=== PATIENT | male | born 1985 | race American Indian/Alaskan Native ===

== ENCOUNTER 2021-06-13 19:43 | Inpatient (IN) | payer OTHER, BC ==
--- NOTE | 2021-06-13 19:50 | Emergency Department Report ---
ED Shortness of Breath HPI - General Stated Complaint: COVID +/JORY Time Seen by Provider: 06/13/21 19:47 Source: patient Mode of arrival: Stretcher Limitations: No Limitations - History of Present Illness Initial Comments: Chief complaint: "Covid positive, shortness of breath." HPI this is a gentleman with history of mild intermittent asthma and kidney stones who presents with severe shortness of breath. He was diagnosed with COVID-19 infection at clinic 8 days ago. Shortness of breath worse in the last past day. His symptoms includes fever, chills, headache, body aches, cough, diarrhea. He denies loss of taste or smell. He is not vaccinated for COVID-19. Last trip out of [facility] to [place] 1/2 months ago. No known sick contacts. 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 He denies chest pain, leg pain. Patient arrived via EMS. EMS reported oxygen saturation 82% on room air. Patient received Solu-Medrol via EMS. Patient states that he "rarely" has an asthma attack. His last asthma attack occurred over 3 years ago. MD Complaint: shortness of breath, cough -: Gradual, days(s) (8 days, worse over the last day) Severity: severe Consistency: constant Improves With: oxygen Worsens With: nothing Known History Of: asthma, other (Diagnosed with COVID-19 infection 8 days ago) Associated Symptoms: fever, cough, other (Myalgias) Treatments Prior to Arrival: oxygen, other (Solu-Medrol) - Related Data Allergies Allergy/AdvReac Type Severity Reaction Status Date / Time No Known Allergies Allergy Unverified 06/13/21 20:13 ED Review of Systems ROS: Stated complaint: COVID +/JORY Other details as noted in HPI Comment: All other systems reviewed and negative Constitutional: chills, fever, malaise Respiratory: cough, shortness of breath, wheezing Cardiovascular: denies: chest pain Gastrointestinal: nausea, vomiting, diarrhea. denies: abdominal pain Neurological: headache ED Past Medical Hx - Past Medical History Previous Medical History?: Yes Hx Kidney Stones: Yes Hx Asthma: Yes - Surgical History Past Surgical History?: Yes Additional Surgical History: 3 surgical interventions for kidney stones - Family History Family history: hypertension - Social History Smoking Status: Never Smoker Substance Use Type: None ED Physical Exam - General Limitations: No Limitations General appearance: alert, in distress, other (anxious, work of breathing, out of breath) - Head Head exam: Present: atraumatic, normocephalic - Eye Eye exam: Present: normal appearance - ENT ENT exam: Present: mucous membranes moist - Neck Neck exam: Present: normal inspection, full ROM - Respiratory Respiratory exam: Present: respiratory distress, decreased breath sounds. Absent: wheezes, rales, rhonchi, accessory muscle use, prolonged expiratory - Cardiovascular Cardiovascular Exam: Present: regular rate, normal rhythm, normal heart sounds. Absent: systolic murmur, diastolic murmur, rubs, gallop - GI/Abdominal GI/Abdominal exam: Present: soft, normal bowel sounds. Absent: distended, tenderness, guarding, rebound - Rectal Rectal exam: Present: deferred - Extremities Exam Extremities exam: Present: normal inspection - Back Exam Back exam: Present: normal inspection - Neurological Exam Neurological exam: Present: alert, oriented X3 - Psychiatric Psychiatric exam: Present: normal affect, anxious - Skin Skin exam: Present: warm, dry, intact, normal color. Absent: rash ED Course Vital Signs 06/13/21 06/13/21 06/13/21 19:51 20:10 20:17 Temperature 103.1 F H Pulse Rate 120 H Pulse Rate [ Bilateral] Respiratory 27 H 26 H 25 H Rate Respiratory Rate [Bilateral ] Blood Pressure 114/67 [Left] O2 Sat by Pulse 88 97 93 Oximetry 06/13/21 06/13/21 06/13/21 20:35 22:14 22:15 Temperature 99.7 F H Pulse Rate 120 H Pulse Rate [ 110 H Bilateral] Respiratory 24 Rate Respiratory 12 Rate [Bilateral ] Blood Pressure 119/68 [Left] O2 Sat by Pulse 96 96 Oximetry - Reevaluation(s) Reevaluation #1: 06/13/21 20:22 I remove nonrebreather. I applied 4 L nasal cannula. Oxygen saturation 92% on 4 L nasal cannula. ED Medical Decision Making - Lab Data Result diagrams: 06/13/21 20:09 06/13/21 20:09 - Radiology Data Radiology results: report reviewed Patient Name: MALINDA OLSON Gender: Male Date of : 1985 Home Phone: Referring Provider: ALF GA Organization: [facility] Accession Number: [id number] Requested Date: June 13, 2021 19:50 Report Status: Final Requested Procedure: 1 Procedure Description: XR chest 1V ap Modality: XR Findings Reporting MD: Elias Allen Dictation Time: June 13, 2021 19:16 Nursing Project Coordinator: Not available Dairy Husbandman Date: CHEST 1 VIEW INDICATION: Dyspnea. COMPARISON: None. FINDINGS: Support devices: None. Heart: Normal. Lungs/Pleura: There is somewhat diffuse bilateral airspace disease greatest in the bases. No pleural abnormality. IMPRESSION: 1. Somewhat diffuse bilateral airspace disease greatest in the bases. This could be seen in the setting of atypical/viral pneumonia. Signer Name: Elias Allen MD Signed: 06/13/2021 7:16 PM Workstation Name: [id number] - Medical Decision Making Acute respiratory failure hypoxia due to multifocal pneumonia in person with known COVID-19 infection, oxygen saturation 82% per EMS. Brief trial off oxygen hypoxia 88% on room air here in the emergency department. All Covid markers are elevated including D-dimer ferritin LDH CRP. CBC reflects leukopenia lymphopenia. Patient received albuterol 10 mg nebulizer therapy, Atrovent 1 mg nebulized therapy. He also received 2 L normal saline bolus. He received ibuprofen 800 mg as well as IV Zofran. Patient is admitted in fair condition to the hospital service. He is requiring 4 L nasal cannula. Critical Care Time: Yes Critical care attestation.: If time is entered above; I have spent that time in minutes in the direct care of this critically ill patient, excluding procedure time. 40 minutes of critical care time excluding procedures were used in the care of the patient. I came immediately to the bedside upon patient's arrival. I obtained history from EMS at the bedside. I discussed treatment plan with the nursing team members. I reviewed electronic record. Patient required multiple interventions and reassessments. I informed the mother per phone. ED Disposition Clinical Impression: Acute respiratory failure due to COVID-19, Multifocal pneumonia, COVID-19 Disposition: OP ADMIT IP TO THIS HOSP Is pt being admited?: Yes Does the pt Need Aspirin: No Condition: Fair Instructions: Bacterial Pneumonia (ED)
[2021-06-13] MEDS ORDERED: IPRATROPIUM 0.02% NEBU 2.5 ML IH ONE (20:14)
[2021-06-13] MEDS ORDERED: SODIUM CHLORIDE 0.9% 1000 ML 1,000 ML IV ONE ×2 (20:15→20:18)
[2021-06-13] MEDS ORDERED: ALBUTEROL 2.5 MG/3 ML NEBU IH ONE (20:15)
[2021-06-13] MEDS ORDERED: IBUPROFEN 800 MG TAB PO ONE (20:18)
[2021-06-13] MEDS ORDERED: ONDANSETRON 4 MG/2 ML INJ IV ONE (20:18)
--- NOTE | 2021-06-13 20:20 | XRay Report ---
CHEST 1 VIEW INDICATION: Dyspnea. COMPARISON: None. FINDINGS: Support devices: None. Heart: Normal. Lungs/Pleura: There is somewhat diffuse bilateral airspace disease greatest in the bases. No pleural abnormality. IMPRESSION: 1. Somewhat diffuse bilateral airspace disease greatest in the bases. This could be seen in the setti ng of atypical/viral pneumonia. Signer Name: Elias Allen MD Signed: 06/13/2021 8:16 PM Workstation Name: [id number]
[2021-06-13 20:40] LABS: BUN/Creatinine Ratio 15; Blood Urea Nitrogen 15 mg/dL (9-20); Calcium 8.7 mg/dL (8.4-10.2); Hemolysis Index 48
[2021-06-13 20:43] LABS: C-Reactive Protein 9.2 mg/dL (0.00-1.30)
[2021-06-13 20:56] LABS: Basophils % (Auto) 0.3 % (0.0-1.8); Hematocrit 42.1 % (35.5-45.6); Hemoglobin 14.7 gm/dl (11.8-15.2); Lymphocytes # (Auto) 0.6 K/mm3 (1.2-5.4); Lymphocytes % (Auto) 25.5 % (13.4-35.0); Mean Corpuscular HGB Conc 35 % (32-34); Mean Corpuscular Volume 85 fl (84-94); Monocytes # (Auto) 0.1 K/mm3 (0.0-0.8); Monocytes % (Auto) 4.3 % (0.0-7.3); Platelet Count 112 K/mm3 (140-440); Red Blood Count 4.95 M/mm3 (3.65-5.03); Red Cell Distribution Width 13.9 % (13.2-15.2)
[2021-06-13] MEDS ORDERED: ALBUTEROL 2.5 MG/3 ML NEBU IH PRN (22:49)
[2021-06-13] MEDS ORDERED: ONDANSETRON 4 MG/2 ML INJ IV PRN (22:49)
[2021-06-13] MEDS ORDERED: hydrALAZINE 20 MG/1 ML INJ IV PRN (22:52)
--- NOTE | 2021-06-13 22:59 | History and Physical Report ---
History of Present Illness Date of examination: 06/13/21 Date of admission: 06/13/21 Chief complaint: Shortness of breath Covid positive History of present illness: 36 years old man with history of mild intermittent asthma and kidney stones who presents with severe shortness of breath. He was diagnosed with COVID-19 infection at clinic 8 days ago. Shortness of breath worse in the last past day. His symptoms includes fever, chills, headache, body aches, cough, diarrhea. He denies loss of taste or smell. He is not vaccinated for COVID-19. Last trip out of [facility] to [place] 1/2 months ago. No known sick contacts. 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 In the emergency room chest x-ray shows some what diffuse bilateral airspace disease greatest in the bases. This could be seen in the setting of atypical/viral pneumonia Past History Past Medical History: other (Asthma, kidney stone) Medications and Allergies Allergies Allergy/AdvReac Type Severity Reaction Status Date / Time No Known Allergies Allergy Unverified 06/13/21 20:13 Active Meds: Active Medications Acetaminophen (Acetaminophen 325 Mg Tab) 650 mg PO Q4H PRN PRN Reason: Pain MILD(1-3)/Fever >100.5/HAYNES Ceftriaxone Sodium (Rocephin/Ns 2 Gm/100 Ml) 2 gm in 100 mls @ 200 mls/hr IV Q24H SIMÓN; Protocol Ondansetron HCl (Ondansetron 4 Mg/2 Ml Inj) 4 mg IV Q8H PRN PRN Reason: Nausea And Vomiting Sodium Chloride (Sodium Chloride 0.9% 10 Ml Flush Syringe) 10 ml IV BID SIMÓN Sodium Chloride (Sodium Chloride 0.9% 10 Ml Flush Syringe) 10 ml IV PRN PRN PRN Reason: LINE FLUSH Review of Systems Constitutional: fever, chills, other (Myalgia) Cardiovascular: shortness of breath, dyspnea on exertion Respiratory: cough, shortness of breath, dyspnea on exertion Exam - Constitutional Vitals: Temp Pulse Resp BP Pulse Ox 99.7 F H 120 H 24 119/68 96 06/13/21 22:14 06/13/21 22:14 06/13/21 22:14 06/13/21 22:14 06/13/21 22:15 General appearance: Present: no acute distress, well-nourished - EENT Eyes: Present: PERRL ENT: hearing intact, clear oral mucosa - Neck Neck: Present: supple, normal ROM - Respiratory Respiratory effort: normal Respiratory: bilateral: diminished - Cardiovascular Heart Sounds: Present: S1 & S2. Absent: rub, click - Extremities Extremities: pulses symmetrical, No edema Peripheral Pulses: within normal limits - Abdominal General gastrointestinal: Present: soft, non-tender, non-distended, normal bowel sounds Male genitourinary: Present: normal - Integumentary Integumentary: Present: clear, warm, dry - Musculoskeletal Musculoskeletal: gait normal, strength equal bilaterally - Psychiatric Psychiatric: appropriate mood/affect, intact judgment & insight - Neurologic Neurologic: CNII-XII intact, moves all extremities Results - Labs CBC & Chem 7: 06/13/21 20:09 06/13/21 20:09 Labs: Laboratory Last Values WBC 2.6 K/mm3 (4.5-11.0) L 06/13/21 20:09 RBC 4.95 M/mm3 (3.65-5.03) 06/13/21 20:09 Hgb 14.7 gm/dl (11.8-15.2) 06/13/21 20:09 Hct 42.1 % (35.5-45.6) 06/13/21 20:09 MCV 85 fl (84-94) 06/13/21 20:09 MCH 30 pg (28-32) 06/13/21 20:09 MCHC 35 % (32-34) H 06/13/21 20:09 RDW 13.9 % (13.2-15.2) 06/13/21 20:09 Plt Count 112 K/mm3 (140-440) L 06/13/21 20:09 Lymph % (Auto) 25.5 % (13.4-35.0) 06/13/21 20:09 Benzie % (Auto) 4.3 % (0.0-7.3) 06/13/21 20:09 Eos % (Auto) 0.0 % (0.0-4.3) 06/13/21 20:09 Baso % (Auto) 0.3 % (0.0-1.8) 06/13/21 20:09 Lymph # (Auto) 0.6 K/mm3 (1.2-5.4) L 06/13/21 20:09 Benzie # (Auto) 0.1 K/mm3 (0.0-0.8) 06/13/21 20:09 Eos # (Auto) 0.0 K/mm3 (0.0-0.4) 06/13/21 20:09 Baso # (Auto) 0.0 K/mm3 (0.0-0.1) 06/13/21 20:09 Seg Neutrophils % 69.9 % (40.0-70.0) 06/13/21 20:09 Seg Neutrophils # 1.8 K/mm3 (1.8-7.7) 06/13/21 20:09 D-Dimer 560.90 ng/mlDDU (0-234) H 06/13/21 20:09 Sodium 134 mmol/L (137-145) L 06/13/21 20:09 Potassium 3.8 mmol/L (3.6-5.0) 06/13/21 20:09 Chloride 98.1 mmol/L (98-107) 06/13/21 20:09 Carbon Dioxide 23 mmol/L (22-30) 06/13/21 20:09 Anion Gap 17 mmol/L 06/13/21 20:09 BUN 15 mg/dL (9-20) 06/13/21 20:09 Creatinine 1.0 mg/dL (0.8-1.3) 06/13/21 20:09 Estimated GFR > 60 ml/min 06/13/21 20:09 BUN/Creatinine Ratio 15 % 06/13/21 20:09 Glucose 105 mg/dL (75-100) H 06/13/21 20:09 Glucose 105 mg/dL (75-100) H 06/13/21 20:09 Calcium 8.7 mg/dL (8.4-10.2) 06/13/21 20:09 Ferritin 1876.0 ng/mL (30.0-300.0) H 06/13/21 20:09 Lactate Dehydrogenase 634 units/L (91-180) H 06/13/21 20:09 C-Reactive Protein 9.20 mg/dL (0.00-1.30) H 06/13/21 20:09 - Imaging and Cardiology Chest x-ray: report reviewed Assessment and Plan VTE prophylaxis?: Chemical Plan of care discussed with patient/family: Yes - Patient Problems (1) Acute respiratory failure due to COVID-19 Current Visit: Yes Status: Acute Plan to address problem: Admit the patient to the medical telemetry. Oxygen via nasal cannula 3 L/min. DuoNeb by nebulizer every 4 hours. Albuterol via nebulizer every 4 hours as needed. Rocephin 2 2 g IV daily and Zithromax 500 mg IV daily. Dexamethasone 6 mg IV daily. We do the blood cultures sputum culture. Follow the Covid inflammatory marker. Will consult infectious disease for evaluation (2) Multifocal pneumonia Current Visit: Yes Status: Acute Plan to address problem: Oxygen via nasal cannula 3 L/min. DuoNeb by nebulizer every 4 hours. Albuterol via nebulizer every 4 hours as needed. Rocephin 2 2 g IV daily and Zithromax 500 mg IV daily. Dexamethasone 6 mg IV daily. We do the blood cultures sputum culture. Follow the Covid inflammatory marker. Will consult infectious disease for evaluation (3) Asthma Current Visit: Yes Status: Acute Plan to address problem: Oxygen via nasal cannula 3 L/min. DuoNeb by nebulizer every 4 hours. Albuterol via nebulizer every 4 hours as needed. Dexamethasone 6 mg IV daily. We do the blood cultures sputum culture. (4) DVT prophylaxis Current Visit: Yes Status: Acute Plan to address problem: Heparin 5000 units subcu every 8 hours for DVT prophylaxis. Pepcid 20 mg p.o. twice daily for GI prophylaxis. Patient is a full code
[2021-06-13] MEDS ORDERED: dexAMETHasone 4 MG/ML VIAL IV SCH (23:00)
[2021-06-14] MEDS: cefTRIAXone/NS 2 GM/100 ML 2 GM/100 ML BAG IV SCH ×2 (00:35→22:58)
[2021-06-14] MEDS: AZITHROMYCIN/NS 500 MG/250 ML 500 MG/250 ML BAG IV SCH ×2 (02:05→23:48)
[2021-06-14] MEDS: IPRATROPIUM/ALBUTEROL SULFATE 3 ML AMPUL.NEB IH SCH ×4 (03:59→19:41)
[2021-06-14 05:35] LABS: Hematocrit 41.2 % (35.5-45.6); Hemoglobin 14.4 gm/dl (11.8-15.2); Mean Corpuscular HGB Conc 35 % (32-34); Mean Corpuscular Volume 85 fl (84-94); Platelet Count 106 K/mm3 (140-440); Red Blood Count 4.83 M/mm3 (3.65-5.03); Red Cell Distribution Width 13.7 % (13.2-15.2)
[2021-06-14 05:48] LABS: BUN/Creatinine Ratio 13; Blood Urea Nitrogen 12 mg/dL (9-20); Calcium 8.6 mg/dL (8.4-10.2); Hemolysis Index 8
[2021-06-14] MEDS: HEPARIN 5,000 UNIT/1 ML VIAL SUB-Q SCH ×3 (06:21→22:58)
[2021-06-14] MEDS: BUDESONIDE 0.5 MG/2 ML NEBU IH SCH ×2 (07:27→19:41)
[2021-06-14 07:35] LABS: Anisocytosis 1+; Platelet Estimate Consistent w Auto; Total Cells Counted 50
[2021-06-14] MEDS: FAMOTIDINE 20 MG TAB PO SCH ×2 (10:13→22:59)
--- NOTE | 2021-06-14 11:33 | Consultation ---
History of Present Illness - Reason for Consult Consult date: 06/14/21 COVID-19 pneumonia Requesting physician: CARMEN ROBLES - History of Present Illness The patient is a 36-year-old male with history of asthma, renal stones, unvaccinated for COVID-19 was diagnosed with COVID-19 as an outpatient. Came into the emergency room yesterday with complaints of worsening shortness of breath. Chest x-ray revealed diffuse bilateral airspace disease. Labs revealed leukopenia, D-dimer 560, ferritin 1876, CRP 9.2, LDH 634. Initially was on nasal cannula, then requiring high flow nonrebreather. Fever of 103F. Review of Systems: reviewed in the chart, unable to obtain, minimize risk of transmission Past History Past Medical History: other (Asthma, kidney stone) Medications and Allergies Allergies Allergy/AdvReac Type Severity Reaction Status Date / Time No Known Allergies Allergy Unverified 06/13/21 20:13 Active Meds: Active Medications Acetaminophen (Acetaminophen 325 Mg Tab) 650 mg PO Q4H PRN PRN Reason: Pain MILD(1-3)/Fever >100.5/HAYNES Albuterol (Albuterol 2.5 Mg/3 Ml Nebu) 2.5 mg IH Q4HRT PRN PRN Reason: Shortness Of Breath Albuterol/Ipratropium (Ipratropium/Albuterol Sulfate 3 Ml Ampul.Neb) 1 ampul IH Q6HRT [facility] Last Admin: 06/14/21 07:27 Dose: 1 ampul Documented by: Budesonide (Budesonide 0.5 Mg/2 Ml Nebu) 0.5 mg IH Q12HRT [facility] Last Admin: 06/14/21 07:27 Dose: 0.5 mg Documented by: Dexamethasone (Dexamethasone 4 Mg/Ml Vial) 10 mg IV DAILY@2200 [facility] Famotidine (Famotidine 20 Mg Tab) 20 mg PO BID [facility] Last Admin: 06/14/21 10:13 Dose: 20 mg Documented by: Heparin Sodium (Porcine) (Heparin 5,000 Unit/1 Ml Vial) 5,000 unit SUB-Q Q8HR [facility] Last Admin: 06/14/21 06:21 Dose: 5,000 unit Documented by: Hydralazine HCl (Hydralazine 20 Mg/1 Ml Inj) 10 mg IV Q6H PRN PRN Reason: Blood Pressure Hydromorphone HCl (Hydromorphone 1 Mg/1 Ml Inj) 0.5 mg IV Q3H PRN PRN Reason: Pain , Severe (7-10) Ceftriaxone Sodium (Rocephin/Ns 2 Gm/100 Ml) 2 gm in 100 mls @ 200 mls/hr IV Q24HR@2200 SIMÓN; Protocol Last Admin: 06/14/21 00:35 Dose: 200 mls/hr Documented by: Azithromycin (Zithromax/Ns) 500 mg in 250 mls @ 250 mls/hr IV Q24HR@2200 SIMÓN; Protocol Last Admin: 06/14/21 02:05 Dose: 250 mls/hr Documented by: REMDESIVIR 200 mg/ Sodium (Chloride) 250 mls @ 500 mls/hr IV ONCE ONE Stop: 06/14/21 11:58 REMDESIVIR 100 mg/ Sodium (Chloride) 250 mls @ 500 mls/hr IV Q24HR@2100 SIMÓN Stop: 06/18/21 21:29 TOCILIZUMAB 800 mg/ Sodium (Chloride) 140 mls @ 120 mls/hr IV ONCE ONE Stop: 06/14/21 12:38 Ondansetron HCl (Ondansetron 4 Mg/2 Ml Inj) 4 mg IV Q8H PRN PRN Reason: Nausea And Vomiting Oxycodone/Acetaminophen (Oxycodone /Acetaminophen 5-325mg Tab) 1 tab PO Q6H PRN PRN Reason: Pain, Moderate (4-6) Sodium Chloride (Sodium Chloride 0.9% 10 Ml Flush Syringe) 10 ml IV BID [facility] Last Admin: 06/14/21 10:28 Dose: 10 ml Documented by: Sodium Chloride (Sodium Chloride 0.9% 10 Ml Flush Syringe) 10 ml IV PRN PRN PRN Reason: LINE FLUSH Sodium Chloride (Sodium Chloride 0.9% 50 Ml Ivpb) 50 ml IV Q24HR@2100 SIMÓN Stop: 06/18/21 21:01 Physical Examination - Physical Exam Narrative exam: Physical Exam (reviewed in chart to minimize risk of transmission) Constitutional: deferred Head, Ears, Nose: deferred Eyes: deferred Neck: deferred Oral: deferred Cardiovascular: deferred Respiratory: deferred GI: deferred Musculoskeletal: deferred Skin: deferred Hem/Lymphatic: deferred Psych: deferred Neurological: deferred - Constitutional Vitals: Vital Signs Temp Pulse Resp BP Pulse Ox 97.7 F 115 H 20 119/74 95 06/14/21 02:05 06/14/21 07:55 06/14/21 07:55 06/14/21 05:53 06/14/21 07:28 Temperature -Last 24 Hours Temperature 97.7 F Temperature 99.7 F Temperature 103.1 F Results - Labs CBC & Chem 7: 06/14/21 05:12 06/14/21 05:12 Labs: Abnormal lab results 06/13/21 06/13/21 06/13/21 Range/Units 20:09 20:09 20:09 WBC 2.6 L (4.5-11.0) K/mm3 MCHC 35 H (32-34) % Plt Count 112 L (140-440) K/mm3 Lymph # (Auto) 0.6 L (1.2-5.4) K/mm3 Seg Neuts % (Manual) (40.0-70.0) % Seg Neutrophils # Man (1.8-7.7) K/mm3 Lymphocytes # (Manual) (1.2-5.4) K/mm3 D-Dimer 560.90 H (0-234) ng/mlDDU Sodium 134 L (137-145) mmol/L Glucose 105 H (75-100) mg/dL Ferritin (30.0-300.0) ng/mL Lactate Dehydrogenase (91-180) units/L C-Reactive Protein (0.00-1.30) mg/dL 06/13/21 06/13/21 06/14/21 Range/Units 20:09 20:09 05:12 WBC 2.0 L (4.5-11.0) K/mm3 MCHC 35 H (32-34) % Plt Count 106 L (140-440) K/mm3 Lymph # (Auto) (1.2-5.4) K/mm3 Seg Neuts % (Manual) 82.0 H (40.0-70.0) % Seg Neutrophils # Man 1.6 L (1.8-7.7) K/mm3 Lymphocytes # (Manual) 0.3 L (1.2-5.4) K/mm3 D-Dimer (0-234) ng/mlDDU Sodium (137-145) mmol/L Glucose 105 H (75-100) mg/dL Ferritin 1876.0 H (30.0-300.0) ng/mL Lactate Dehydrogenase 634 H (91-180) units/L C-Reactive Protein 9.20 H (0.00-1.30) mg/dL 06/14/21 Range/Units 05:12 WBC (4.5-11.0) K/mm3 MCHC (32-34) % Plt Count (140-440) K/mm3 Lymph # (Auto) (1.2-5.4) K/mm3 Seg Neuts % (Manual) (40.0-70.0) % Seg Neutrophils # Man (1.8-7.7) K/mm3 Lymphocytes # (Manual) (1.2-5.4) K/mm3 D-Dimer (0-234) ng/mlDDU Sodium (137-145) mmol/L Glucose 214 H (75-100) mg/dL Ferritin (30.0-300.0) ng/mL Lactate Dehydrogenase (91-180) units/L C-Reactive Protein (0.00-1.30) mg/dL - Imaging and Cardiology Chest x-ray: report reviewed, image reviewed (b/l diffuse airspace disease) Assessment and Plan Cultures: SARS CoV2 PCR: Positive as outpatient 06/13/2021 blood culture: In process A/P: 36-year-old male with history of asthma, renal stones, unvaccinated for COVID-19 was diagnosed with COVID-19 as an outpatient: #Bilateral pneumonia: Secondary to COVID-19. Severe disease, with high inflammatory markers and increasing oxygen requirements. #Acute hypoxic respiratory failure: Initially was on nasal cannula, then requiring high flow nonrebreather mask. #Morbid obesity Recs: -IV/PO Dexamethasone 10 mg daily x 10 days, higher dose due to morbid obesity -Continue empiric antibiotics for now, if procalcitonin is low, discontinue antibiotics -Tocilizumab ordered due to requirements of high flow and high CRP -IV remdesivir ordered for 5 days -prophylactic anticoagulation based on d-dimer per hospital protocol -trend ferritin, LDH, d-dimer, CRP every 2-3 days for risk stratification and to assess disease progression Bhaskar Odonnell MD, FACP [facility] O: [phone] F: [phone]
--- NOTE | 2021-06-14 11:37 | Progress Note ---
Assessment and Plan - Patient Problems (1) Acute respiratory failure due to COVID-19 Current Visit: Yes Status: Acute Plan to address problem: Patient requires 15 L oxygen to prevent hypoxemia. Currently started on steroids dexamethasone Supportive care with oxygen 15 L We will add Hycodan for cough Follow inflammatory markers Empiric antibiotics Rocephin azithromycin Initiate remdesivir Zinc, vitamin C, vitamin D (2) Asthma Current Visit: Yes Status: Acute Plan to address problem: We will place nebulizers. Albuterol nebulizers patient seemed to be doing well as far as asthma limited wheezing. Respiratory failure secondary to Covid (3) Multifocal pneumonia Current Visit: Yes Status: Acute Plan to address problem: Consistent with Covid pneumonia Subjective Date of service: 06/14/21 Principal diagnosis: Acute hypoxic respiratory failure Interval history: 36-year-old with a history of asthma, obesity presented with shortness of breath fever chills arthralgias myalgias approximately 8 days after testing positive for COVID. Patient at present hypoxic requiring 15 L facemask at present. Patient is able to speak in full sentences however remains hypoxic. Hospital course complicated by nonproductive cough. Objective - Constitutional Vitals: Vital Signs - 12hr 06/14/21 06/14/21 06/14/21 02:05 05:45 05:53 Temperature 97.7 F Pulse Rate 107 H 77 Pulse Rate [ Bilateral] Respiratory 21 28 H 27 H Rate Respiratory Rate [Bilateral ] Blood Pressure 106/61 119/74 [Left] O2 Sat by Pulse 92 87 93 Oximetry 06/14/21 06/14/21 07:28 07:55 Temperature Pulse Rate Pulse Rate [ 115 H Bilateral] Respiratory Rate Respiratory 20 Rate [Bilateral ] Blood Pressure [Left] O2 Sat by Pulse 95 Oximetry General appearance: Present: no acute distress, well-nourished - EENT Eyes: PERRL, EOM intact ENT: hearing intact, clear oral mucosa Ears: bilateral: normal - Neck Neck: supple, normal ROM - Respiratory Respiratory effort: normal Respiratory: bilateral: CTA, diminished - Breasts Breasts: normal - Cardiovascular Rhythm: regular Heart Sounds: Present: S1 & S2. Absent: gallop, rub Extremities: pulses intact, No edema, normal color, Full ROM - Gastrointestinal General gastrointestinal: Present: soft, non-tender, non-distended, normal bowel sounds - Genitourinary Male genitourinary: normal - Integumentary Integumentary: clear, warm, dry - Musculoskeletal Musculoskeletal: 1, strength equal bilaterally - Neurologic Neurologic: moves all extremities - Psychiatric Psychiatric: memory intact, appropriate mood/affect, intact judgment & insight - Labs CBC & Chem 7: 06/14/21 05:12 06/14/21 05:12 Labs: Abnormal lab results 06/13/21 06/13/21 06/13/21 Range/Units 20:09 20:09 20:09 WBC 2.6 L (4.5-11.0) K/mm3 MCHC 35 H (32-34) % Plt Count 112 L (140-440) K/mm3 Lymph # (Auto) 0.6 L (1.2-5.4) K/mm3 Seg Neuts % (Manual) (40.0-70.0) % Seg Neutrophils # Man (1.8-7.7) K/mm3 Lymphocytes # (Manual) (1.2-5.4) K/mm3 D-Dimer 560.90 H (0-234) ng/mlDDU Sodium 134 L (137-145) mmol/L Glucose 105 H (75-100) mg/dL Ferritin (30.0-300.0) ng/mL Lactate Dehydrogenase (91-180) units/L C-Reactive Protein (0.00-1.30) mg/dL 06/13/21 06/13/21 06/14/21 Range/Units 20:09 20:09 05:12 WBC 2.0 L (4.5-11.0) K/mm3 MCHC 35 H (32-34) % Plt Count 106 L (140-440) K/mm3 Lymph # (Auto) (1.2-5.4) K/mm3 Seg Neuts % (Manual) 82.0 H (40.0-70.0) % Seg Neutrophils # Man 1.6 L (1.8-7.7) K/mm3 Lymphocytes # (Manual) 0.3 L (1.2-5.4) K/mm3 D-Dimer (0-234) ng/mlDDU Sodium (137-145) mmol/L Glucose 105 H (75-100) mg/dL Ferritin 1876.0 H (30.0-300.0) ng/mL Lactate Dehydrogenase 634 H (91-180) units/L C-Reactive Protein 9.20 H (0.00-1.30) mg/dL 06/14/21 Range/Units 05:12 WBC (4.5-11.0) K/mm3 MCHC (32-34) % Plt Count (140-440) K/mm3 Lymph # (Auto) (1.2-5.4) K/mm3 Seg Neuts % (Manual) (40.0-70.0) % Seg Neutrophils # Man (1.8-7.7) K/mm3 Lymphocytes # (Manual) (1.2-5.4) K/mm3 D-Dimer (0-234) ng/mlDDU Sodium (137-145) mmol/L Glucose 214 H (75-100) mg/dL Ferritin (30.0-300.0) ng/mL Lactate Dehydrogenase (91-180) units/L C-Reactive Protein (0.00-1.30) mg/dL
[2021-06-14] MEDS ORDERED: REMDESIVIR 200 MG in SODIUM CHLORIDE 0.9% 250ML 250 ML IV ONE (12:30)
[2021-06-14] MEDS: SODIUM CHLORIDE 0.9% 50 ML IVPB IV SCH ×2 (13:38→21:20)
[2021-06-14] MEDS ORDERED: TOCILIZUMAB 800 MG in SODIUM CHLORIDE 0.9% 100 ML IV ONE (14:00)
[2021-06-14] MEDS: dexAMETHasone 4 MG/ML VIAL IV SCH (22:59)
[2021-06-14] MEDS: oxyCODONE /ACETAMINOPHEN 5-325MG TAB PO PRN (23:09)
[2021-06-15 00:48] LABS: Alanine Aminotransferase 36 units/L (7-56); Albumin 3.2 g/dL (3.9-5); BUN/Creatinine Ratio 16; Blood Urea Nitrogen 14 mg/dL (9-20); Calcium 8.4 mg/dL (8.4-10.2); Hemolysis Index 7
[2021-06-15] MEDS: guaiFENesin 200 MG TAB PO PRN ×3 (01:12→18:09)
[2021-06-15] MEDS: IPRATROPIUM/ALBUTEROL SULFATE 3 ML AMPUL.NEB IH SCH ×3 (02:21→15:27)
[2021-06-15] MEDS: HEPARIN 5,000 UNIT/1 ML VIAL SUB-Q SCH ×3 (06:31→21:46)
[2021-06-15] MEDS: oxyCODONE /ACETAMINOPHEN 5-325MG TAB PO PRN ×2 (06:31→17:18)
[2021-06-15 06:39] LABS: Alanine Aminotransferase 40 units/L (7-56); Albumin 3.4 g/dL (3.9-5); Blood Urea Nitrogen 15 mg/dL (9-20); Calcium 8.9 mg/dL (8.4-10.2); Hemolysis Index 7
[2021-06-15 06:42] LABS: BUN/Creatinine Ratio 21
[2021-06-15] MEDS: BUDESONIDE 0.5 MG/2 ML NEBU IH SCH (08:58)
[2021-06-15] MEDS: FAMOTIDINE 20 MG TAB PO SCH ×2 (11:18→22:17)
[2021-06-15 11:42] LABS: ABG Base Excess -1.1 mmol/L (-2.0-3.0); ABG HCO3 23.7 mmol/L (20.0-26.0); ABG Methemoglobin 0.5 % (0.0-1.5); ABG Oxygen Saturation 91.3 % (95.0-99.0); ABG PCO2 40.4 mm Hg; ABG PH 7.387 pH Units (7.350-7.450)
--- NOTE | 2021-06-15 12:21 | Consultation ---
History of Present Illness Consult date: 06/15/21 Requesting physician: TIMBO ARREDONDO Reason for consult: hypoxemia, other (COVID 19) History of present illness: 36 y/o male, not vaccinated for COVID admitted with acute respiratory failure secondary to COVID 19 Past History Past Medical History: other (Asthma, kidney stone) Medications and Allergies Allergies Allergy/AdvReac Type Severity Reaction Status Date / Time No Known Allergies Allergy Unverified 06/13/21 20:13 Home Medications Medication Instructions Recorded Confirmed Last Taken Type DOXYCYCLINE Hyclate [Vibramycin] 100 mg PO BID 06/14/21 06/16/21 06/06/21 History Active Meds: Active Medications Acetaminophen (Acetaminophen 325 Mg Tab) 650 mg PO Q4H PRN PRN Reason: Pain MILD(1-3)/Fever >100.5/HAYNES Albuterol (Albuterol 2.5 Mg/3 Ml Nebu) 2.5 mg IH Q4HRT PRN PRN Reason: Shortness Of Breath Albuterol/Ipratropium (Ipratropium/Albuterol Sulfate 3 Ml Ampul.Neb) 1 ampul IH Q6HRT [facility] Last Admin: 06/15/21 08:58 Dose: 1 ampul Documented by: Budesonide (Budesonide 0.5 Mg/2 Ml Nebu) 0.5 mg IH Q12HRT [facility] Last Admin: 06/15/21 08:58 Dose: 0.5 mg Documented by: Dexamethasone (Dexamethasone 4 Mg/Ml Vial) 10 mg IV DAILY@2200 [facility] Last Admin: 06/14/21 22:59 Dose: 10 mg Documented by: Famotidine (Famotidine 20 Mg Tab) 20 mg PO BID [facility] Last Admin: 06/15/21 11:18 Dose: 20 mg Documented by: Furosemide (Furosemide 40 Mg/4 Ml Inj) 40 mg IV QDAY [facility] Stop: 06/17/21 10:01 Guaifenesin (Guaifenesin 200 Mg Tab) 200 mg PO Q6H PRN PRN Reason: Cough Last Admin: 06/15/21 06:31 Dose: 200 mg Documented by: Heparin Sodium (Porcine) (Heparin 5,000 Unit/1 Ml Vial) 5,000 unit SUB-Q Q8HR [facility] Last Admin: 06/15/21 06:31 Dose: 5,000 unit Documented by: Hydralazine HCl (Hydralazine 20 Mg/1 Ml Inj) 10 mg IV Q6H PRN PRN Reason: Blood Pressure Hydromorphone HCl (Hydromorphone 1 Mg/1 Ml Inj) 0.5 mg IV Q3H PRN PRN Reason: Pain , Severe (7-10) Ceftriaxone Sodium (Rocephin/Ns 2 Gm/100 Ml) 2 gm in 100 mls @ 200 mls/hr IV Q24HR@2200 SIMÓN; Protocol Last Admin: 06/14/21 22:58 Dose: 200 mls/hr Documented by: Azithromycin (Zithromax/Ns) 500 mg in 250 mls @ 250 mls/hr IV Q24HR@2200 SIMÓN; Protocol Last Admin: 06/14/21 23:48 Dose: 250 mls/hr Documented by: REMDESIVIR 100 mg/ Sodium (Chloride) 250 mls @ 500 mls/hr IV Q24HR@2100 SIMÓN Stop: 06/18/21 21:29 Ondansetron HCl (Ondansetron 4 Mg/2 Ml Inj) 4 mg IV Q8H PRN PRN Reason: Nausea And Vomiting Oxycodone/Acetaminophen (Oxycodone /Acetaminophen 5-325mg Tab) 1 tab PO Q6H PRN PRN Reason: Pain, Moderate (4-6) Last Admin: 06/15/21 06:31 Dose: 1 tab Documented by: Sodium Chloride (Sodium Chloride 0.9% 10 Ml Flush Syringe) 10 ml IV BID [facility]N Last Admin: 06/15/21 11:18 Dose: 10 ml Documented by: Sodium Chloride (Sodium Chloride 0.9% 10 Ml Flush Syringe) 10 ml IV PRN PRN PRN Reason: LINE FLUSH Sodium Chloride (Sodium Chloride 0.9% 50 Ml Ivpb) 50 ml IV Q24HR@2100 SIMÓN Stop: 06/17/21 21:01 Last Admin: 06/14/21 21:20 Dose: 50 ml Documented by: Physical Examination Vital signs: Vital Signs Resp Pulse Ox 27 H 88 06/13/21 19:51 06/13/21 19:51 Results - Laboratory Findings CBC and BMP: 06/22/21 04:58 06/29/21 05:27 ABG ABG pH 7.387 pH Units (7.350-7.450) 06/15/21 Unknown ABG pCO2 40.4 mm Hg 06/15/21 Unknown ABG pO2 61.0 mm Hg (80.0-90.0) L 06/15/21 Unknown ABG O2 Saturation 91.3 % (95.0-99.0) L 06/15/21 Unknown PT/INR, D-dimer D-Dimer 360.79 ng/mlDDU (0-234) H 06/15/21 05:21 Abnormal lab findings: Abnormal Labs 06/13/21 06/13/21 06/13/21 20:09 20:09 20:09 WBC 2.6 L MCHC 35 H Plt Count 112 L Lymph # (Auto) 0.6 L Seg Neuts % (Manual) Seg Neutrophils # Man Lymphocytes # (Manual) D-Dimer 560.90 H ABG pO2 ABG O2 Saturation Oxyhemoglobin Sodium 134 L Creatinine Glucose 105 H Ferritin AST Lactate Dehydrogenase C-Reactive Protein Total Protein Albumin Coronavirus (PCR) 06/13/21 06/13/21 06/14/21 20:09 20:09 05:12 WBC 2.0 L MCHC 35 H Plt Count 106 L Lymph # (Auto) Seg Neuts % (Manual) 82.0 H Seg Neutrophils # Man 1.6 L Lymphocytes # (Manual) 0.3 L D-Dimer ABG pO2 ABG O2 Saturation Oxyhemoglobin Sodium Creatinine Glucose 105 H Ferritin 1876.0 H AST Lactate Dehydrogenase 634 H C-Reactive Protein 9.20 H Total Protein Albumin Coronavirus (PCR) 06/14/21 06/14/21 06/14/21 05:12 23:50 Unknown WBC MCHC Plt Count Lymph # (Auto) Seg Neuts % (Manual) Seg Neutrophils # Man Lymphocytes # (Manual) D-Dimer ABG pO2 ABG O2 Saturation Oxyhemoglobin Sodium Creatinine Glucose 214 H 135 H Ferritin AST 52 H Lactate Dehydrogenase C-Reactive Protein Total Protein Albumin 3.2 L Coronavirus (PCR) Positive A 06/15/21 06/15/21 06/15/21 05:21 05:21 05:21 WBC MCHC Plt Count Lymph # (Auto) Seg Neuts % (Manual) Seg Neutrophils # Man Lymphocytes # (Manual) D-Dimer 360.79 H ABG pO2 ABG O2 Saturation Oxyhemoglobin Sodium Creatinine 0.7 L Glucose 167 H Ferritin 1869.0 H AST 65 H Lactate Dehydrogenase C-Reactive Protein Total Protein 6.1 L Albumin 3.4 L Coronavirus (PCR) 06/15/21 06/15/21 05:21 Unknown WBC MCHC Plt Count Lymph # (Auto) Seg Neuts % (Manual) Seg Neutrophils # Man Lymphocytes # (Manual) D-Dimer ABG pO2 61.0 L ABG O2 Saturation 91.3 L Oxyhemoglobin 89.9 L Sodium Creatinine Glucose Ferritin AST Lactate Dehydrogenase C-Reactive Protein 3.10 H Total Protein Albumin Coronavirus (PCR) Assessment and Plan 36 y/o male with acute respiratory failure secondary to COVID 19 1. Prone as tolerated during the day and sleep prone at night 2. IV steroids and remdesivir, per ID would be a candidate for actemra 3. Agree with lasix therapy, monitor renal function and electrolytes closely 4. Guarded prognosis
--- NOTE | 2021-06-15 12:27 | Progress Note ---
Assessment and Plan Assessment and plan: (1) Acute respiratory failure due to COVID-19 Current Visit: Yes Status: Acute Plan to address problem: Patient requires 15 L oxygen to prevent hypoxemia. Currently started on steroids dexamethasone Supportive care with oxygen 15 L We will add Hycodan for cough Follow inflammatory markers Empiric antibiotics Rocephin azithromycin Initiate remdesivir Zinc, vitamin C, vitamin D (2) Asthma Current Visit: Yes Status: Acute Plan to address problem: We will place nebulizers. Albuterol nebulizers patient seemed to be doing well as far as asthma limited wheezing. Respiratory failure secondary to Covid (3) COVID-19 pneumonia (4) severe sepsis secondary to COVID-19 (5) multifocal pneumonia Current Visit: Yes Status: Acute Plan to address problem: Consistent with Covid pneumonia 36-year-old with a history of asthma, obesity presented with shortness of breath fever chills arthralgias myalgias approximately 8 days after testing positive for COVID. Patient at present hypoxic requiring 15 L facemask at present. Patient is able to speak in full sentences however remains hypoxic. Hospital course complicated by nonproductive cough. 06/15: Considering gradual decline will transfer patient to [facility]. We'll also consult pulmonary GI. I have requested the patient be put on high flow and also trial of BiPAP. ID is consulted and currently following patient management. Weight loss recommended. Continue steroids. Chest x-ray reviewed by me shows bilateral infiltrates The high probability of a clinically significant, sudden or life threatening deterioration of the [pulmonary] system(s) required my full and direct at tention, intervention and personal management. The aggregate critical care time was [35] minutes. This time is in addition to time spent performing reported procedures but includes the following: [x] Data Review and interpretation [x] Patient assessment and monitoring of vital signs [x] Documentation [x] Medication orders and management History Interval history: Patient seen and examined currently on nonrebreather. While he is able to answer questions and is comfortable I was told later by the nurse that the patient appeared to have declined a bit. ABG requested showed PO2 in the 60s. Hospitalist Physical - Physical exam Narrative exam: General appearance: Present: Mild to moderate distress, well-nourished, on nonrebreather - EENT Eyes: PERRL, EOM intact ENT: hearing intact, clear oral mucosa Ears: bilateral: normal - Neck Neck: supple, normal ROM - Respiratory Respiratory effort: normal Respiratory: bilateral: diminished - Breasts Breasts: normal - Cardiovascular Rhythm: regular Heart Sounds: Present: S1 & S2. Absent: gallop, rub Extremities: pulses intact, No edema, normal color, Full ROM - Gastrointestinal General gastrointestinal: Present: soft, non-tender, non-distended, normal bowel sounds - Genitourinary Male genitourinary: normal - Integumentary Integumentary: clear, warm, dry - Musculoskeletal Musculoskeletal: 1, strength equal bilaterally - Neurologic Neurologic: moves all extremities - Psychiatric Psychiatric: memory intact, appropriate mood/affect, intact judgment & insight - Constitutional Vitals: Temp Pulse Resp BP Pulse Ox 97.7 F 115 H 19 146/83 105 H 06/14/21 02:05 06/15/21 08:00 06/15/21 08:00 06/14/21 17:00 06/15/21 09:07 General appearance: Present: no acute distress, well-nourished Results - Labs CBC & Chem 7: 06/14/21 05:12 06/15/21 05:21 Labs: Laboratory Last Values WBC 2.0 K/mm3 (4.5-11.0) L 06/14/21 05:12 RBC 4.83 M/mm3 (3.65-5.03) 06/14/21 05:12 Hgb 14.4 gm/dl (11.8-15.2) 06/14/21 05:12 Hct 41.2 % (35.5-45.6) 06/14/21 05:12 MCV 85 fl (84-94) 06/14/21 05:12 MCH 30 pg (28-32) 06/14/21 05:12 MCHC 35 % (32-34) H 06/14/21 05:12 RDW 13.7 % (13.2-15.2) 06/14/21 05:12 Plt Count 106 K/mm3 (140-440) L 06/14/21 05:12 Lymph % (Auto) 25.5 % (13.4-35.0) 06/13/21 20:09 [place] % (Auto) 4.3 % (0.0-7.3) 06/13/21 20:09 Eos % (Auto) 0.0 % (0.0-4.3) 06/13/21 20:09 Baso % (Auto) 0.3 % (0.0-1.8) 06/13/21 20:09 Lymph # (Auto) 0.6 K/mm3 (1.2-5.4) L 06/13/21 20:09 [place] # (Auto) 0.1 K/mm3 (0.0-0.8) 06/13/21 20:09 Eos # (Auto) 0.0 K/mm3 (0.0-0.4) 06/13/21 20:09 Baso # (Auto) 0.0 K/mm3 (0.0-0.1) 06/13/21 20:09 Add Manual Diff Complete 06/14/21 05:12 Total Counted 50 06/14/21 05:12 Seg Neutrophils % 69.9 % (40.0-70.0) 06/13/21 20:09 Seg Neuts % (Manual) 82.0 % (40.0-70.0) H 06/14/21 05:12 Lymphocytes % (Manual) 14.0 % (13.4-35.0) 06/14/21 05:12 Monocytes % (Manual) 4.0 % (0.0-7.3) 06/14/21 05:12 Nucleated RBC % Not Reportable 06/14/21 05:12 Seg Neutrophils # 1.8 K/mm3 (1.8-7.7) 06/13/21 20:09 Seg Neutrophils # Man 1.6 K/mm3 (1.8-7.7) L 06/14/21 05:12 Band Neutrophils # 0.0 K/mm3 06/14/21 05:12 Lymphocytes # (Manual) 0.3 K/mm3 (1.2-5.4) L 06/14/21 05:12 Abs React Lymphs (Man) 0.0 K/mm3 06/14/21 05:12 Monocytes # (Manual) 0.1 K/mm3 (0.0-0.8) 06/14/21 05:12 Eosinophils # (Manual) 0.0 K/mm3 (0.0-0.4) 06/14/21 05:12 Basophils # (Manual) 0.0 K/mm3 (0.0-0.1) 06/14/21 05:12 Metamyelocytes # 0.0 K/mm3 06/14/21 05:12 Myelocytes # 0.0 K/mm3 06/14/21 05:12 Promyelocytes # 0.0 K/mm3 06/14/21 05:12 Blast Cells # 0.0 K/mm3 06/14/21 05:12 WBC Morphology Not Reportable 06/14/21 05:12 Hypersegmented Neuts Not Reportable 06/14/21 05:12 Hyposegmented Neuts Not Reportable 06/14/21 05:12 Hypogranular Neuts Not Reportable 06/14/21 05:12 Smudge Cells Not Reportable 06/14/21 05:12 Toxic Granulation Not Reportable 06/14/21 05:12 Toxic Vacuolation Not Reportable 06/14/21 05:12 Dohle Bodies Not Reportable 06/14/21 05:12 Pelger-Huet Anomaly Not Reportable 06/14/21 05:12 Sheri Rods Not Reportable 06/14/21 05:12 Platelet Estimate Consistent w auto 06/14/21 05:12 Clumped Platelets Not Reportable 06/14/21 05:12 Plt Clumps, EDTA Not Reportable 06/14/21 05:12 Large Platelets Not Reportable 06/14/21 05:12 Giant Platelets Not Reportable 06/14/21 05:12 Platelet Satelliting Not Reportable 06/14/21 05:12 Plt Morphology Comment Not Reportable 06/14/21 05:12 RBC Morphology Not Reportable 06/14/21 05:12 Dimorphic RBCs Not Reportable 06/14/21 05:12 Polychromasia Not Reportable 06/14/21 05:12 Hypochromasia Not Reportable 06/14/21 05:12 Poikilocytosis Not Reportable 06/14/21 05:12 Anisocytosis 1+ 06/14/21 05:12 Microcytosis Not Reportable 06/14/21 05:12 Macrocytosis Not Reportable 06/14/21 05:12 Spherocytes Not Reportable 06/14/21 05:12 Pappenheimer Bodies Not Reportable 06/14/21 05:12 Sickle Cells Not Reportable 06/14/21 05:12 Target Cells Not Reportable 06/14/21 05:12 Tear Drop Cells Not Reportable 06/14/21 05:12 Ovalocytes Not Reportable 06/14/21 05:12 Helmet Cells Not Reportable 06/14/21 05:12 Macdonald-Stephens Bodies Not Reportable 06/14/21 05:12 [place] Rings Not Reportable 06/14/21 05:12 [place] Cells Not Reportable 06/14/21 05:12 Bite Cells Not Reportable 06/14/21 05:12 Crenated Cell Not Reportable 06/14/21 05:12 Elliptocytes Not Reportable 06/14/21 05:12 Acanthocytes (Spur) Not Reportable 06/14/21 05:12 Rouleaux Not Reportable 06/14/21 05:12 Hemoglobin C Crystals Not Reportable 06/14/21 05:12 Schistocytes Not Reportable 06/14/21 05:12 Malaria parasites Not Reportable 06/14/21 05:12 Swapnil Bodies Not Reportable 06/14/21 05:12 Hem Pathologist Commnt No 06/14/21 05:12 D-Dimer 360.79 ng/mlDDU (0-234) H 06/15/21 05:21 ABG pH 7.387 pH Units (7.350-7.450) 06/15/21 Unknown ABG pCO2 40.4 mm Hg 06/15/21 Unknown ABG pO2 61.0 mm Hg (80.0-90.0) L 06/15/21 Unknown ABG HCO3 23.7 mmol/L (20.0-26.0) 06/15/21 Unknown ABG O2 Saturation 91.3 % (95.0-99.0) L 06/15/21 Unknown ABG O2 Content 21.0 (0.0-44) 06/15/21 Unknown ABG Base Excess -1.1 mmol/L (-2.0-3.0) 06/15/21 Unknown ABG Hemoglobin 16.7 gm/dl (14.0-18.0) 06/15/21 Unknown ABG Carboxyhemoglobin 1.0 % (0.0-5.0) 06/15/21 Unknown ABG Methemoglobin 0.5 % (0.0-1.5) 06/15/21 Unknown Oxyhemoglobin 89.9 % (95.0-99.0) L 06/15/21 Unknown FiO2 100 % 06/15/21 Unknown Sodium 143 mmol/L (137-145) 06/15/21 05:21 Potassium 3.7 mmol/L (3.6-5.0) 06/15/21 05:21 Chloride 106.6 mmol/L (98-107) 06/15/21 05:21 Carbon Dioxide 24 mmol/L (22-30) 06/15/21 05:21 Anion Gap 16 mmol/L 06/15/21 05:21 BUN 15 mg/dL (9-20) 06/15/21 05:21 Creatinine 0.7 mg/dL (0.8-1.3) L 06/15/21 05:21 Estimated GFR > 60 ml/min 06/15/21 05:21 BUN/Creatinine Ratio 21 % 06/15/21 05:21 Glucose 167 mg/dL (75-100) H 06/15/21 05:21 Calcium 8.9 mg/dL (8.4-10.2) 06/15/21 05:21 Ferritin 1869.0 ng/mL (30.0-300.0) H 06/15/21 05:21 Total Bilirubin 0.30 mg/dL (0.1-1.2) 06/15/21 05:21 AST 65 units/L (5-40) H 06/15/21 05:21 ALT 40 units/L (7-56) 06/15/21 05:21 Alkaline Phosphatase 61 units/L (35-129) 06/15/21 05:21 Lactate Dehydrogenase 634 units/L (91-180) H 06/13/21 20:09 C-Reactive Protein 3.10 mg/dL (0.00-1.30) H 06/15/21 05:21 Total Protein 6.1 g/dL (6.3-8.2) L 06/15/21 05:21 Albumin 3.4 g/dL (3.9-5) L 06/15/21 05:21 Albumin/Globulin Ratio 1.3 % 06/15/21 05:21 Procalcitonin 0.06 ng/mL (<0.15) 06/13/21 20:09 Coronavirus (PCR) Positive (Negative) A 06/14/21 Unknown Microbiology: Microbiology 06/13/21 20:09 Peripheral/Venous Blood Culture - Preliminary NO GROWTH AFTER 24 HOURS 06/13/21 20:09 Peripheral/Venous Blood Culture - Preliminary NO GROWTH AFTER 24 HOURS Active Medications - Current Medications Current Medications: Generic Name Dose Route Start Last Admin Trade Name Freq PRN Reason Stop Dose Admin Acetaminophen 650 mg 06/13/21 22:49 Acetaminophen 325 Mg Tab PO Q4H PRN Pain MILD(1-3)/Fever >100.5/HAYNES Albuterol 2.5 mg 06/13/21 22:49 Albuterol 2.5 Mg/3 Ml Nebu IH Q4HRT PRN Shortness Of Breath Albuterol/Ipratropium 1 ampul 06/14/21 02:00 06/15/21 08:58 Ipratropium/Albuterol Sulfate 3 Ml Ampul.Neb IH 1 ampul Q6HRT SIMÓN Administration Budesonide 0.5 mg 06/14/21 08:00 06/15/21 08:58 Budesonide 0.5 Mg/2 Ml Nebu IH 0.5 mg Q12HRT SIMÓN Administration Dexamethasone 10 mg 06/14/21 11:30 06/14/21 22:59 Dexamethasone 4 Mg/Ml Vial IV 10 mg DAILY@2200 SIMÓN Administration Famotidine 20 mg 06/14/21 10:00 06/15/21 11:18 Famotidine 20 Mg Tab PO 20 mg BID SIMÓN Administration Furosemide 40 mg 06/15/21 11:00 Furosemide 40 Mg/4 Ml Inj IV 06/17/21 10:01 QDAY SIMÓN Guaifenesin 200 mg 06/15/21 00:33 06/15/21 06:31 Guaifenesin 200 Mg Tab PO 200 mg Q6H PRN Administration Cough Heparin Sodium (Porcine) 5,000 unit 06/14/21 06:00 06/15/21 06:31 Heparin 5,000 Unit/1 Ml Vial SUB-Q 5,000 unit Q8HR SIMÓN Administration Hydralazine HCl 10 mg 06/13/21 22:52 Hydralazine 20 Mg/1 Ml Inj IV Q6H PRN Blood Pressure Hydromorphone HCl 0.5 mg 06/13/21 22:49 Hydromorphone 1 Mg/1 Ml Inj IV Q3H PRN Pain , Severe (7-10) Ceftriaxone Sodium 2 gm in 100 mls @ 200 mls/hr 06/13/21 23:00 06/14/21 22:58 Rocephin/Ns 2 Gm/100 Ml IV 200 mls/hr Q24HR@2200 SIMÓN Administration Protocol Azithromycin 500 mg in 250 mls @ 250 mls/hr 06/13/21 23:00 06/14/21 23:48 Zithromax/Ns IV 250 mls/hr Q24HR@2200 SIMÓN Administration Protocol REMDESIVIR 100 mg/ Sodium 250 mls @ 500 mls/hr 06/15/21 21:00 Chloride IV 06/18/21 21:29 Q24HR@2100 SIMÓN Ondansetron HCl 4 mg 06/13/21 22:49 Ondansetron 4 Mg/2 Ml Inj IV Q8H PRN Nausea And Vomiting Oxycodone/Acetaminophen 1 tab 06/13/21 22:49 06/15/21 06:31 Oxycodone /Acetaminophen 5-325mg Tab PO 1 tab Q6H PRN Administration Pain, Moderate (4-6) Sodium Chloride 10 ml 06/14/21 10:00 06/15/21 11:18 Sodium Chloride 0.9% 10 Ml Flush Syringe IV 10 ml BID SIMÓN Administration Sodium Chloride 10 ml 06/13/21 22:49 Sodium Chloride 0.9% 10 Ml Flush Syringe IV PRN PRN LINE FLUSH Sodium Chloride 50 ml 06/14/21 14:00 06/14/21 21:20 Sodium Chloride 0.9% 50 Ml Ivpb IV 06/17/21 21:01 50 ml Q24HR@2100 SIMÓN Administration
[2021-06-15] MEDS: FUROSEMIDE 40 MG/4 ML INJ IV SCH (13:13)
[2021-06-15] MEDS ORDERED: PHENOL 1.4% 177 ML BOTTLE MM PRN (14:00)
--- NOTE | 2021-06-15 15:37 | Cat Scan Report ---
CTA CHEST WITH IV CONTRAST INDICATION: shortness of breath 100 ML OMNI 350 . TECHNIQUE: Axial CT images were obtained through the chest after injection of IV contrast. 3 plane MIP reconstru ctions were produced. All CT scans at this location are performed using CT dose reduction for ALARA b y means of automated exposure control. COMPARISON: None available. FINDINGS: Pulmonary Arteries: No pulmonary emboli. Thoracic Aorta: No acute abnormality. Heart: Normal. Lungs: There is consolidation in the dependent lung bases with somewhat patchy but diffuse groundglas s opacities throughout the remainder of both lungs. Pleura: No pleural effusion. No pneumothorax. Lymph Nodes: No significant adenopathy. Additional Findings: Very small hiatal hernia. Upper Abdomen: No acute findings. Skeletal Structures: No significant osseous abnormality. IMPRESSION: 1. No CT evidence for pulmonary embolism. 2. Extensive bilateral pneumonia. Signer Name: Elias Allen MD Signed: 06/15/2021 3:32 PM Workstation Name: [id number]
[2021-06-15] MEDS: dexAMETHasone 4 MG/ML VIAL IV SCH (22:17)
[2021-06-15] MEDS: REMDESIVIR 100 MG in SODIUM CHLORIDE 0.9% 250ML 250 ML IV SCH (22:17)
[2021-06-15] MEDS: SODIUM CHLORIDE 0.9% 50 ML IVPB IV SCH (22:17)
[2021-06-15] MEDS: cefTRIAXone/NS 2 GM/100 ML 2 GM/100 ML BAG IV SCH (22:18)
[2021-06-15] MEDS: AZITHROMYCIN/NS 500 MG/250 ML 500 MG/250 ML BAG IV SCH (22:18)
[2021-06-16] MEDS: guaiFENesin 200 MG TAB PO PRN ×2 (00:13→21:22)
[2021-06-16] MEDS: IPRATROPIUM/ALBUTEROL SULFATE 3 ML AMPUL.NEB IH SCH ×4 (01:17→20:04)
[2021-06-16] MEDS: BUDESONIDE 0.5 MG/2 ML NEBU IH SCH ×3 (01:17→20:04)
[2021-06-16] MEDS: HEPARIN 5,000 UNIT/1 ML VIAL SUB-Q SCH ×3 (06:47→21:24)
[2021-06-16 08:35] LABS: Alanine Aminotransferase 57 units/L (7-56); Albumin 3.5 g/dL (3.9-5); BUN/Creatinine Ratio 24; Blood Urea Nitrogen 19 mg/dL (9-20); Calcium 8.7 mg/dL (8.4-10.2); Hemolysis Index 7
[2021-06-16] MEDS: FAMOTIDINE 20 MG TAB PO SCH ×2 (10:23→21:23)
[2021-06-16] MEDS: FUROSEMIDE 40 MG/4 ML INJ IV SCH (10:23)
--- NOTE | 2021-06-16 11:44 | Progress Note ---
Assessment and Plan 36 y/o male with acute respiratory failure secondary to COVID 19 06/16/21: Given patient size will increase steroids to BID dosing. Continue Remdesivir. Need to prone as tolerated during the day and sleep prone at night. Guarded prognosis. 1. Prone as tolerated during the day and sleep prone at night 2. IV steroids and remdesivir, per ID would be a candidate for actemra 3. Agree with lasix therapy, monitor renal function and electrolytes closely 4. Guarded prognosis Subjective Date of service: 06/16/21 Principal diagnosis: Acute hypoxic respiratory failure Interval history: Remains on HFNC but now at 40 and 100%. SAts in the mid 90's. Got lasix this morning. Objective Vital Signs - 12hr 06/15/21 06/16/21 06/16/21 23:56 00:00 00:02 Temperature Pulse Rate 105 H 120 H 107 H Respiratory 35 H 26 H 19 Rate Blood Pressure 106/67 O2 Sat by Pulse 83 L 93 86 Oximetry 06/16/21 06/16/21 06/16/21 00:19 01:00 01:40 Temperature Pulse Rate 118 H 106 H Respiratory 28 H 15 17 Rate Blood Pressure 110/65 110/65 O2 Sat by Pulse 91 89 94 Oximetry 06/16/21 06/16/21 06/16/21 02:00 02:40 03:00 Temperature Pulse Rate 99 H 100 H 102 H Respiratory 15 18 38 H Rate Blood Pressure 94/38 110/65 106/60 O2 Sat by Pulse 90 92 95 Oximetry 06/16/21 06/16/21 06/16/21 03:20 04:00 04:30 Temperature 98.3 F Pulse Rate 120 H 108 H Respiratory 18 24 Rate Blood Pressure 106/60 106/60 O2 Sat by Pulse 89 95 Oximetry 06/16/21 06/16/21 07:00 10:00 Temperature 98.5 F Pulse Rate Respiratory Rate Blood Pressure O2 Sat by Pulse 96 Oximetry CBC and BMP: 06/14/21 05:12 06/16/21 07:16 ABG, PT/INR, D-dimer: ABG ABG pH 7.387 pH Units (7.350-7.450) 06/15/21 Unknown ABG pCO2 40.4 mm Hg 06/15/21 Unknown ABG pO2 61.0 mm Hg (80.0-90.0) L 06/15/21 Unknown ABG O2 Saturation 91.3 % (95.0-99.0) L 06/15/21 Unknown PT/INR, D-dimer D-Dimer 360.79 ng/mlDDU (0-234) H 06/15/21 05:21 Abnormal lab findings: Abnormal Labs 06/13/21 06/13/21 06/13/21 20:09 20:09 20:09 WBC 2.6 L MCHC 35 H Plt Count 112 L Lymph # (Auto) 0.6 L Seg Neuts % (Manual) Seg Neutrophils # Man Lymphocytes # (Manual) D-Dimer 560.90 H ABG pO2 ABG O2 Saturation Oxyhemoglobin Sodium 134 L Creatinine Glucose 105 H Ferritin AST ALT Lactate Dehydrogenase C-Reactive Protein Total Protein Albumin Coronavirus (PCR) 06/13/21 06/13/21 06/14/21 20:09 20:09 05:12 WBC 2.0 L MCHC 35 H Plt Count 106 L Lymph # (Auto) Seg Neuts % (Manual) 82.0 H Seg Neutrophils # Man 1.6 L Lymphocytes # (Manual) 0.3 L D-Dimer ABG pO2 ABG O2 Saturation Oxyhemoglobin Sodium Creatinine Glucose 105 H Ferritin 1876.0 H AST ALT Lactate Dehydrogenase 634 H C-Reactive Protein 9.20 H Total Protein Albumin Coronavirus (PCR) 06/14/21 06/14/21 06/14/21 05:12 23:50 Unknown WBC MCHC Plt Count Lymph # (Auto) Seg Neuts % (Manual) Seg Neutrophils # Man Lymphocytes # (Manual) D-Dimer ABG pO2 ABG O2 Saturation Oxyhemoglobin Sodium Creatinine Glucose 214 H 135 H Ferritin AST 52 H ALT Lactate Dehydrogenase C-Reactive Protein Total Protein Albumin 3.2 L Coronavirus (PCR) Positive A 06/15/21 06/15/21 06/15/21 05:21 05:21 05:21 WBC MCHC Plt Count Lymph # (Auto) Seg Neuts % (Manual) Seg Neutrophils # Man Lymphocytes # (Manual) D-Dimer 360.79 H ABG pO2 ABG O2 Saturation Oxyhemoglobin Sodium Creatinine 0.7 L Glucose 167 H Ferritin 1869.0 H AST 65 H ALT Lactate Dehydrogenase C-Reactive Protein Total Protein 6.1 L Albumin 3.4 L Coronavirus (PCR) 06/15/21 06/15/21 06/16/21 05:21 Unknown 07:16 WBC MCHC Plt Count Lymph # (Auto) Seg Neuts % (Manual) Seg Neutrophils # Man Lymphocytes # (Manual) D-Dimer ABG pO2 61.0 L ABG O2 Saturation 91.3 L Oxyhemoglobin 89.9 L Sodium Creatinine Glucose 130 H Ferritin AST 77 H ALT 57 H Lactate Dehydrogenase C-Reactive Protein 3.10 H Total Protein 6.0 L Albumin 3.5 L Coronavirus (PCR)
--- NOTE | 2021-06-16 12:42 | Progress Note ---
Assessment and Plan Cultures: SARS CoV2 PCR: Positive as outpatient 06/13/2021 blood culture: In process A/P: 36-year-old male with history of asthma, renal stones, unvaccinated for COVID-19 was diagnosed with COVID-19 as an outpatient: #Bilateral pneumonia: Secondary to COVID-19. Severe disease, with high inflamma tory markers and increasing oxygen requirements. #Acute hypoxic respiratory failure: Now on high flow nasal cannula #Morbid obesity Recs: -IV/PO Dexamethasone 10 mg daily x 10 days, higher dose due to morbid obesity -Procalcitonin low, antibiotics stopped -s/p Actemra once -IV remdesivir ordered for 5 days -prophylactic anticoagulation based on d-dimer per hospital protocol -trend ferritin, LDH, d-dimer, CRP every 2-3 days for risk stratification and to assess disease progression Pato Kruse MD [facility] O: [phone] F: [phone] Subjective Date of service: 06/16/21 Principal diagnosis: Acute hypoxic respiratory failure Interval history: Afebrile now, remains leukopenic. Cultures negative. On high flow nasal cannula. Objective - Exam Narrative Exam: Physical exam deferred to reduce risk of transmission of COVID-19. Please refer to primary team's note. - Constitutional Vitals: Vital Signs Temp Pulse Resp BP Pulse Ox 98.7 F 108 H 24 106/60 96 06/16/21 11:53 06/16/21 04:00 06/16/21 04:00 06/16/21 04:00 06/16/21 10:00 Temperature -Last 24 Hours Temperature 98.7 F Temperature 98.5 F Temperature 98.3 F - Labs CBC & Chem 7: 06/14/21 05:12 06/16/21 07:16 Labs: Abnormal lab results 06/16/21 Range/Units 07:16 Glucose 130 H (75-100) mg/dL AST 77 H (5-40) units/L ALT 57 H (7-56) units/L Total Protein 6.0 L (6.3-8.2) g/dL Albumin 3.5 L (3.9-5) g/dL
[2021-06-16] MEDS: dexAMETHasone 4 MG/ML VIAL IV SCH ×2 (13:31→21:29)
--- NOTE | 2021-06-16 14:58 | Progress Note ---
Assessment and Plan Assessment and plan: (1) Acute respiratory failure due to COVID-19 Current Visit: Yes Status: Acute Plan to address problem: Patient requires 15 L oxygen to prevent hypoxemia. Currently started on steroids dexamethasone Supportive care with oxygen 15 L We will add Hycodan for cough Follow inflammatory markers Empiric antibiotics Rocephin azithromycin Initiate remdesivir Zinc, vitamin C, vitamin D (2) Asthma Current Visit: Yes Status: Acute Plan to address problem: We will place nebulizers. Albuterol nebulizers patient seemed to be doing well as far as asthma limited wheezing. Respiratory failure secondary to Covid (3) COVID-19 pneumonia (4) severe sepsis secondary to COVID-19 (5) multifocal pneumonia Current Visit: Yes Status: Acute Plan to address problem: Consistent with Covid pneumonia 36-year-old with a history of asthma, obesity presented with shortness of breath fever chills arthralgias myalgias approximately 8 days after testing positive for COVID. Patient at present hypoxic requiring 15 L facemask at present. Patient is able to speak in full sentences however remains hypoxic. Hospital course complicated by nonproductive cough. 06/15: Considering gradual decline will transfer patient to IMCU. We'll also consult pulmonary GI. I have requested the patient be put on high flow and also trial of BiPAP. ID is consulted and currently following patient management. Weight loss recommended. Continue steroids. Chest x-ray reviewed by me shows bilateral infiltrates 06/16: Patient seen and examined Remains on HFNC but now at 40 and 100%. SAts in the mid 90's. Continue to monitor renal function with Lasix. Continue IMCU. Can downgrade this oxygen weaning again this. Continue prone positioning. Case discussed with high lighter The high probability of a clinically significant, sudden or life threatening deterioration of the [pulmonary] system(s) required my full and direct attention, intervention and personal management. The aggregate critical care time was [35] minutes. This time is in addition to time spent performing reported procedures but includes the following: [x] Data Review and interpretation [x] Patient assessment and monitoring of vital signs [x] Documentation [x] Medication orders and management History Interval history: Patient seen and examined currently high flow nasal cannula. Still with mild shortness of breath. Hospitalist Physical - Physical exam Narrative exam: General appearance: Present: Mild to moderate distress, well-nourished, on high flow nasal cannula - EENT Eyes: PERRL, EOM intact ENT: hearing intact, clear oral mucosa Ears: bilateral: normal - Neck Neck: supple, normal ROM - Respiratory Respiratory effort: normal Respiratory: bilateral: diminished - Breasts Breasts: normal - Cardiovascular Rhythm: regular Heart Sounds: Present: S1 & S2. Absent: gallop, rub Extremities: pulses intact, No edema, normal color, Full ROM - Gastrointestinal General gastrointestinal: Present: soft, non-tender, non-distended, normal bowel sounds - Genitourinary Male genitourinary: normal - Integumentary Integumentary: clear, warm, dry - Musculoskeletal Musculoskeletal: 1, strength equal bilaterally - Neurologic Neurologic: moves all extremities - Psychiatric Psychiatric: memory intact, appropriate mood/affect, intact judgment & insight - Constitutional Vitals: Temp Pulse Resp BP Pulse Ox 98.7 F 108 H 24 106/60 96 06/16/21 11:53 06/16/21 04:00 06/16/21 04:00 06/16/21 04:00 06/16/21 10:00 General appearance: Present: no acute distress, well-nourished Results - Labs CBC & Chem 7: 06/14/21 05:12 06/16/21 07:16 Labs: Laboratory Last Values WBC 2.0 K/mm3 (4.5-11.0) L 06/14/21 05:12 RBC 4.83 M/mm3 (3.65-5.03) 06/14/21 05:12 Hgb 14.4 gm/dl (11.8-15.2) 06/14/21 05:12 Hct 41.2 % (35.5-45.6) 06/14/21 05:12 MCV 85 fl (84-94) 06/14/21 05:12 MCH 30 pg (28-32) 06/14/21 05:12 MCHC 35 % (32-34) H 06/14/21 05:12 RDW 13.7 % (13.2-15.2) 06/14/21 05:12 Plt Count 106 K/mm3 (140-440) L 06/14/21 05:12 Lymph % (Auto) 25.5 % (13.4-35.0) 06/13/21 20:09 Norman % (Auto) 4.3 % (0.0-7.3) 06/13/21 20:09 Eos % (Auto) 0.0 % (0.0-4.3) 06/13/21 20:09 Baso % (Auto) 0.3 % (0.0-1.8) 06/13/21 20:09 Lymph # (Auto) 0.6 K/mm3 (1.2-5.4) L 06/13/21 20:09 Norman # (Auto) 0.1 K/mm3 (0.0-0.8) 06/13/21 20:09 Eos # (Auto) 0.0 K/mm3 (0.0-0.4) 06/13/21 20:09 Baso # (Auto) 0.0 K/mm3 (0.0-0.1) 06/13/21 20:09 Add Manual Diff Complete 06/14/21 05:12 Total Counted 50 06/14/21 05:12 Seg Neutrophils % 69.9 % (40.0-70.0) 06/13/21 20:09 Seg Neuts % (Manual) 82.0 % (40.0-70.0) H 06/14/21 05:12 Lymphocytes % (Manual) 14.0 % (13.4-35.0) 06/14/21 05:12 Monocytes % (Manual) 4.0 % (0.0-7.3) 06/14/21 05:12 Nucleated RBC % Not Reportable 06/14/21 05:12 Seg Neutrophils # 1.8 K/mm3 (1.8-7.7) 06/13/21 20:09 Seg Neutrophils # Man 1.6 K/mm3 (1.8-7.7) L 06/14/21 05:12 Band Neutrophils # 0.0 K/mm3 06/14/21 05:12 Lymphocytes # (Manual) 0.3 K/mm3 (1.2-5.4) L 06/14/21 05:12 Abs React Lymphs (Man) 0.0 K/mm3 06/14/21 05:12 Monocytes # (Manual) 0.1 K/mm3 (0.0-0.8) 06/14/21 05:12 Eosinophils # (Manual) 0.0 K/mm3 (0.0-0.4) 06/14/21 05:12 Basophils # (Manual) 0.0 K/mm3 (0.0-0.1) 06/14/21 05:12 Metamyelocytes # 0.0 K/mm3 06/14/21 05:12 Myelocytes # 0.0 K/mm3 06/14/21 05:12 Promyelocytes # 0.0 K/mm3 06/14/21 05:12 Blast Cells # 0.0 K/mm3 06/14/21 05:12 WBC Morphology Not Reportable 06/14/21 05:12 Hypersegmented Neuts Not Reportable 06/14/21 05:12 Hyposegmented Neuts Not Reportable 06/14/21 05:12 Hypogranular Neuts Not Reportable 06/14/21 05:12 Smudge Cells Not Reportable 06/14/21 05:12 Toxic Granulation Not Reportable 06/14/21 05:12 Toxic Vacuolation Not Reportable 06/14/21 05:12 Dohle Bodies Not Reportable 06/14/21 05:12 Pelger-Huet Anomaly Not Reportable 06/14/21 05:12 Sheri Rods Not Reportable 06/14/21 05:12 Platelet Estimate Consistent w auto 06/14/21 05:12 Clumped Platelets Not Reportable 06/14/21 05:12 Plt Clumps, EDTA Not Reportable 06/14/21 05:12 Large Platelets Not Reportable 06/14/21 05:12 Giant Platelets Not Reportable 06/14/21 05:12 Platelet Satelliting Not Reportable 06/14/21 05:12 Plt Morphology Comment Not Reportable 06/14/21 05:12 RBC Morphology Not Reportable 06/14/21 05:12 Dimorphic RBCs Not Reportable 06/14/21 05:12 Polychromasia Not Reportable 06/14/21 05:12 Hypochromasia Not Reportable 06/14/21 05:12 Poikilocytosis Not Reportable 06/14/21 05:12 Anisocytosis 1+ 06/14/21 05:12 Microcytosis Not Reportable 06/14/21 05:12 Macrocytosis Not Reportable 06/14/21 05:12 Spherocytes Not Reportable 06/14/21 05:12 Pappenheimer Bodies Not Reportable 06/14/21 05:12 Sickle Cells Not Reportable 06/14/21 05:12 Target Cells Not Reportable 06/14/21 05:12 Tear Drop Cells Not Reportable 06/14/21 05:12 Ovalocytes Not Reportable 06/14/21 05:12 Helmet Cells Not Reportable 06/14/21 05:12 Macdonald-Raton Bodies Not Reportable 06/14/21 05:12 [place] Rings Not Reportable 06/14/21 05:12 Alen Cells Not Reportable 06/14/21 05:12 Bite Cells Not Reportable 06/14/21 05:12 Crenated Cell Not Reportable 06/14/21 05:12 Elliptocytes Not Reportable 06/14/21 05:12 Acanthocytes (Spur) Not Reportable 06/14/21 05:12 Rouleaux Not Reportable 06/14/21 05:12 Hemoglobin C Crystals Not Reportable 06/14/21 05:12 Schistocytes Not Reportable 06/14/21 05:12 Malaria parasites Not Reportable 06/14/21 05:12 Swapnil Bodies Not Reportable 06/14/21 05:12 Hem Pathologist Commnt No 06/14/21 05:12 D-Dimer 360.79 ng/mlDDU (0-234) H 06/15/21 05:21 ABG pH 7.387 pH Units (7.350-7.450) 06/15/21 Unknown ABG pCO2 40.4 mm Hg 06/15/21 Unknown ABG pO2 61.0 mm Hg (80.0-90.0) L 06/15/21 Unknown ABG HCO3 23.7 mmol/L (20.0-26.0) 06/15/21 Unknown ABG O2 Saturation 91.3 % (95.0-99.0) L 06/15/21 Unknown ABG O2 Content 21.0 (0.0-44) 06/15/21 Unknown ABG Base Excess -1.1 mmol/L (-2.0-3.0) 06/15/21 Unknown ABG Hemoglobin 16.7 gm/dl (14.0-18.0) 06/15/21 Unknown ABG Carboxyhemoglobin 1.0 % (0.0-5.0) 06/15/21 Unknown ABG Methemoglobin 0.5 % (0.0-1.5) 06/15/21 Unknown Oxyhemoglobin 89.9 % (95.0-99.0) L 06/15/21 Unknown FiO2 100 % 06/15/21 Unknown Sodium 142 mmol/L (137-145) 06/16/21 07:16 Potassium 3.9 mmol/L (3.6-5.0) 06/16/21 07:16 Chloride 104.9 mmol/L (98-107) 06/16/21 07:16 Carbon Dioxide 28 mmol/L (22-30) 06/16/21 07:16 Anion Gap 13 mmol/L 06/16/21 07:16 BUN 19 mg/dL (9-20) 06/16/21 07:16 Creatinine 0.8 mg/dL (0.8-1.3) 06/16/21 07:16 Estimated GFR > 60 ml/min 06/16/21 07:16 BUN/Creatinine Ratio 24 % 06/16/21 07:16 Glucose 130 mg/dL (75-100) H 06/16/21 07:16 Calcium 8.7 mg/dL (8.4-10.2) 06/16/21 07:16 Ferritin 1869.0 ng/mL (30.0-300.0) H 06/15/21 05:21 Total Bilirubin 0.40 mg/dL (0.1-1.2) 06/16/21 07:16 AST 77 units/L (5-40) H 06/16/21 07:16 ALT 57 units/L (7-56) H 06/16/21 07:16 Alkaline Phosphatase 69 units/L (35-129) 06/16/21 07:16 Lactate Dehydrogenase 634 units/L (91-180) H 06/13/21 20:09 C-Reactive Protein 3.10 mg/dL (0.00-1.30) H 06/15/21 05:21 Total Protein 6.0 g/dL (6.3-8.2) L 06/16/21 07:16 Albumin 3.5 g/dL (3.9-5) L 06/16/21 07:16 Albumin/Globulin Ratio 1.4 % 06/16/21 07:16 Procalcitonin < 0.05 ng/mL (<0.15) 06/15/21 05:21 Coronavirus (PCR) Positive (Negative) A 06/14/21 Unknown Microbiology: Microbiology 06/13/21 20:09 Peripheral/Venous Blood Culture - Preliminary NO GROWTH AFTER 48 HOURS 06/13/21 20:09 Peripheral/Venous Blood Culture - Preliminary NO GROWTH AFTER 48 HOURS Mao/IV: Voiding Method Condom Catheter Active Medications - Current Medications Current Medications: Generic Name Dose Route Start Last Admin Trade Name Freq PRN Reason Stop Dose Admin Acetaminophen 650 mg 06/13/21 22:49 Acetaminophen 325 Mg Tab PO Q4H PRN Pain MILD(1-3)/Fever >100.5/HAYNES Albuterol 2.5 mg 06/13/21 22:49 Albuterol 2.5 Mg/3 Ml Nebu IH Q4HRT PRN Shortness Of Breath Albuterol/Ipratropium 1 ampul 06/14/21 02:00 06/16/21 11:20 Ipratropium/Albuterol Sulfate 3 Ml Ampul.Neb IH Not Given Q6HRT SIMÓN Budesonide 0.5 mg 06/14/21 08:00 06/16/21 11:20 Budesonide 0.5 Mg/2 Ml Nebu IH Not Given Q12HRT SIMÓN Dexamethasone 10 mg 06/16/21 12:00 06/16/21 13:31 Dexamethasone 4 Mg/Ml Vial IV 10 mg BID SIMÓN Administration Famotidine 20 mg 06/14/21 10:00 06/16/21 10:23 Famotidine 20 Mg Tab PO 20 mg BID SIMÓN Administration Furosemide 40 mg 06/15/21 11:00 06/16/21 10:23 Furosemide 40 Mg/4 Ml Inj IV 06/17/21 10:01 40 mg QDAY SIMÓN Administration Guaifenesin 200 mg 06/15/21 00:33 06/16/21 00:13 Guaifenesin 200 Mg Tab PO 200 mg Q6H PRN Administration Cough Heparin Sodium (Porcine) 5,000 unit 06/14/21 06:00 06/16/21 13:32 Heparin 5,000 Unit/1 Ml Vial SUB-Q 5,000 unit Q8HR SIMÓN Administration Hydralazine HCl 10 mg 06/13/21 22:52 Hydralazine 20 Mg/1 Ml Inj IV Q6H PRN Blood Pressure Hydromorphone HCl 0.5 mg 06/13/21 22:49 Hydromorphone 1 Mg/1 Ml Inj IV Q3H PRN Pain , Severe (7-10) REMDESIVIR 100 mg/ Sodium 250 mls @ 500 mls/hr 06/15/21 21:00 06/15/21 22:50 Chloride IV 06/18/21 21:29 Infused Q24HR@2100 SIMÓN Infusion Ondansetron HCl 4 mg 06/13/21 22:49 Ondansetron 4 Mg/2 Ml Inj IV Q8H PRN Nausea And Vomiting Oxycodone/Acetaminophen 1 tab 06/13/21 22:49 06/15/21 17:18 Oxycodone /Acetaminophen 5-325mg Tab PO 1 tab Q6H PRN Administration Pain, Moderate (4-6) Phenol 1 spray 06/15/21 14:00 Phenol 1.4% 177 Ml Bottle MM PRN PRN Sore Throat Sodium Chloride 10 ml 06/14/21 10:00 06/16/21 10:23 Sodium Chloride 0.9% 10 Ml Flush Syringe IV 10 ml BID SIMÓN Administration Sodium Chloride 10 ml 06/13/21 22:49 Sodium Chloride 0.9% 10 Ml Flush Syringe IV PRN PRN LINE FLUSH Sodium Chloride 50 ml 06/14/21 14:00 06/15/21 22:17 Sodium Chloride 0.9% 50 Ml Ivpb IV 06/17/21 21:01 50 ml Q24HR@2100 SIMÓN Administration
[2021-06-16] MEDS: REMDESIVIR 100 MG in SODIUM CHLORIDE 0.9% 250ML 250 ML IV SCH (23:09)
[2021-06-16] MEDS: SODIUM CHLORIDE 0.9% 50 ML IVPB IV SCH (23:55)
[2021-06-17] MEDS: IPRATROPIUM/ALBUTEROL SULFATE 3 ML AMPUL.NEB IH SCH ×7 (02:19→19:59)
[2021-06-17 06:08] LABS: Hematocrit 40.2 % (35.5-45.6); Hemoglobin 14.3 gm/dl (11.8-15.2); Mean Corpuscular HGB Conc 36 % (32-34); Mean Corpuscular Volume 85 fl (84-94); Platelet Count 201 K/mm3 (140-440); Red Blood Count 4.74 M/mm3 (3.65-5.03); Red Cell Distribution Width 13.2 % (13.2-15.2)
[2021-06-17 06:19] LABS: Alanine Aminotransferase 57 units/L (7-56); Albumin 3.6 g/dL (3.9-5); BUN/Creatinine Ratio 32; Blood Urea Nitrogen 29 mg/dL (9-20); Calcium 8.8 mg/dL (8.4-10.2); Hemolysis Index 53
[2021-06-17] MEDS: BUDESONIDE 0.5 MG/2 ML NEBU IH SCH ×3 (08:46→19:59)
[2021-06-17] MEDS: dexAMETHasone 4 MG/ML VIAL IV SCH ×2 (09:29→21:44)
[2021-06-17] MEDS: HEPARIN 5,000 UNIT/1 ML VIAL SUB-Q SCH ×3 (09:30→21:40)
[2021-06-17] MEDS: FUROSEMIDE 40 MG/4 ML INJ IV SCH (09:31)
[2021-06-17] MEDS: FAMOTIDINE 20 MG TAB PO SCH ×2 (09:32→21:41)
--- NOTE | 2021-06-17 10:59 | Progress Note ---
Assessment and Plan 36 y/o male with acute respiratory failure secondary to COVID 19 06/17/21: Continue IV steroids. Prone. IV remdesivir 06/16/21: Given patient size will increase steroids to BID dosing. Continue Remdesivir. Need to prone as tolerated during the day and sleep prone at night. Guarded prognosis. 1. Prone as tolerated during the day and sleep prone at night 2. IV steroids and remdesivir, per ID would be a candidate for actemra 3. Agree with lasix therapy, monitor renal function and electrolytes closely 4. Guarded prognosis Subjective Date of service: 06/17/21 Principal diagnosis: Acute hypoxic respiratory failure Interval history: No acute events. Still on HFNC Objective Vital Signs - 12hr 06/16/21 06/16/21 06/17/21 23:00 23:30 00:00 Temperature 98.9 F Pulse Rate 99 H 91 H 106 H Pulse Rate [ Bilateral] Pulse Rate [ Left Radial] Respiratory 39 H 26 H 17 Rate Respiratory Rate [Bilateral ] Blood Pressure 111/72 120/69 104/68 O2 Sat by Pulse 88 94 92 Oximetry 06/17/21 06/17/21 06/17/21 00:25 00:30 01:00 Temperature Pulse Rate 106 H 93 H 102 H Pulse Rate [ Bilateral] Pulse Rate [ Left Radial] Respiratory 18 14 27 H Rate Respiratory Rate [Bilateral ] Blood Pressure 104/68 94/54 O2 Sat by Pulse 87 92 92 Oximetry 06/17/21 06/17/21 06/17/21 01:30 02:00 02:18 Temperature Pulse Rate 109 H 98 H Pulse Rate [ Bilateral] Pulse Rate [ Left Radial] Respiratory 17 29 H Rate Respiratory Rate [Bilateral ] Blood Pressure 94/54 113/72 O2 Sat by Pulse 92 91 93 Oximetry 06/17/21 06/17/21 06/17/21 02:30 03:00 03:30 Temperature Pulse Rate 74 95 H 108 H Pulse Rate [ Bilateral] Pulse Rate [ Left Radial] Respiratory 21 29 H 20 Rate Respiratory Rate [Bilateral ] Blood Pressure 113/72 101/63 101/63 O2 Sat by Pulse 90 94 90 Oximetry 06/17/21 06/17/21 06/17/21 04:00 04:30 05:00 Temperature 98.9 F Pulse Rate 100 H 96 H 93 H Pulse Rate [ Bilateral] Pulse Rate [ Left Radial] Respiratory 21 33 H 31 H Rate Respiratory Rate [Bilateral ] Blood Pressure 96/54 101/63 93/60 O2 Sat by Pulse 94 95 97 Oximetry 06/17/21 06/17/21 06/17/21 05:30 06:00 06:08 Temperature Pulse Rate 96 H 77 77 Pulse Rate [ Bilateral] Pulse Rate [ Left Radial] Respiratory 41 H 35 H Rate Respiratory Rate [Bilateral ] Blood Pressure 93/60 96/60 O2 Sat by Pulse 94 94 Oximetry 06/17/21 06/17/21 06/17/21 06:15 06:30 07:00 Temperature Pulse Rate 110 H 90 Pulse Rate [ Bilateral] Pulse Rate [ Left Radial] Respiratory 18 27 H Rate Respiratory Rate [Bilateral ] Blood Pressure 96/60 96/60 O2 Sat by Pulse 95 90 90 Oximetry 06/17/21 06/17/21 06/17/21 07:30 08:00 08:30 Temperature 98.6 F Pulse Rate 96 H 94 H 113 H Pulse Rate [ Bilateral] Pulse Rate [ 92 H Left Radial] Respiratory 22 Rate Respiratory Rate [Bilateral ] Blood Pressure 103/70 103/70 114/78 O2 Sat by Pulse 89 91 91 Oximetry 06/17/21 06/17/21 06/17/21 08:49 08:50 09:00 Temperature Pulse Rate 114 H Pulse Rate [ 107 H Bilateral] Pulse Rate [ Left Radial] Respiratory Rate Respiratory 20 Rate [Bilateral ] Blood Pressure 90/59 O2 Sat by Pulse 91 92 Oximetry 06/17/21 06/17/21 09:30 10:00 Temperature Pulse Rate 116 H 101 H Pulse Rate [ Bilateral] Pulse Rate [ Left Radial] Respiratory Rate Respiratory Rate [Bilateral ] Blood Pressure 90/59 112/69 O2 Sat by Pulse 93 96 Oximetry CBC and BMP: 06/17/21 04:36 06/17/21 04:36 ABG, PT/INR, D-dimer: ABG ABG pH 7.387 pH Units (7.350-7.450) 06/15/21 Unknown ABG pCO2 40.4 mm Hg 06/15/21 Unknown ABG pO2 61.0 mm Hg (80.0-90.0) L 06/15/21 Unknown ABG O2 Saturation 91.3 % (95.0-99.0) L 06/15/21 Unknown PT/INR, D-dimer D-Dimer 360.79 ng/mlDDU (0-234) H 06/15/21 05:21 Abnormal lab findings: Abnormal Labs 06/13/21 06/13/21 06/13/21 20:09 20:09 20:09 WBC 2.6 L MCHC 35 H Plt Count 112 L Lymph # (Auto) 0.6 L Seg Neuts % (Manual) Seg Neutrophils # Man Lymphocytes # (Manual) D-Dimer 560.90 H ABG pO2 ABG O2 Saturation Oxyhemoglobin Sodium 134 L BUN Creatinine Glucose 105 H Ferritin AST ALT Lactate Dehydrogenase C-Reactive Protein Total Protein Albumin Coronavirus (PCR) 06/13/21 06/13/21 06/14/21 20:09 20:09 05:12 WBC 2.0 L MCHC 35 H Plt Count 106 L Lymph # (Auto) Seg Neuts % (Manual) 82.0 H Seg Neutrophils # Man 1.6 L Lymphocytes # (Manual) 0.3 L D-Dimer ABG pO2 ABG O2 Saturation Oxyhemoglobin Sodium BUN Creatinine Glucose 105 H Ferritin 1876.0 H AST ALT Lactate Dehydrogenase 634 H C-Reactive Protein 9.20 H Total Protein Albumin Coronavirus (PCR) 06/14/21 06/14/21 06/14/21 05:12 23:50 Unknown WBC MCHC Plt Count Lymph # (Auto) Seg Neuts % (Manual) Seg Neutrophils # Man Lymphocytes # (Manual) D-Dimer ABG pO2 ABG O2 Saturation Oxyhemoglobin Sodium BUN Creatinine Glucose 214 H 135 H Ferritin AST 52 H ALT Lactate Dehydrogenase C-Reactive Protein Total Protein Albumin 3.2 L Coronavirus (PCR) Positive A 06/15/21 06/15/21 06/15/21 05:21 05:21 05:21 WBC MCHC Plt Count Lymph # (Auto) Seg Neuts % (Manual) Seg Neutrophils # Man Lymphocytes # (Manual) D-Dimer 360.79 H ABG pO2 ABG O2 Saturation Oxyhemoglobin Sodium BUN Creatinine 0.7 L Glucose 167 H Ferritin 1869.0 H AST 65 H ALT Lactate Dehydrogenase C-Reactive Protein Total Protein 6.1 L Albumin 3.4 L Coronavirus (PCR) 06/15/21 06/15/21 06/16/21 05:21 Unknown 07:16 WBC MCHC Plt Count Lymph # (Auto) Seg Neuts % (Manual) Seg Neutrophils # Man Lymphocytes # (Manual) D-Dimer ABG pO2 61.0 L ABG O2 Saturation 91.3 L Oxyhemoglobin 89.9 L Sodium BUN Creatinine Glucose 130 H Ferritin AST 77 H ALT 57 H Lactate Dehydrogenase C-Reactive Protein 3.10 H Total Protein 6.0 L Albumin 3.5 L Coronavirus (PCR) 06/17/21 06/17/21 04:36 04:36 WBC MCHC 36 H Plt Count Lymph # (Auto) Seg Neuts % (Manual) Seg Neutrophils # Man Lymphocytes # (Manual) D-Dimer ABG pO2 ABG O2 Saturation Oxyhemoglobin Sodium BUN 29 H Creatinine Glucose 125 H Ferritin AST 59 H ALT 57 H Lactate Dehydrogenase C-Reactive Protein Total Protein 6.0 L Albumin 3.6 L Coronavirus (PCR)
--- NOTE | 2021-06-17 14:53 | Progress Note ---
Assessment and Plan Cultures: SARS CoV2 PCR: Positive as outpatient 06/13/2021 blood culture: In process A/P: 36-year-old male with history of asthma, renal stones, unvaccinated for COVID-19 was diagnosed with COVID-19 as an outpatient: #Bilateral pneumonia: Secondary to COVID-19. Severe disease, with high inflamma tory markers and increasing oxygen requirements. #Acute hypoxic respiratory failure: Now on high flow nasal cannula #Morbid obesity Recs: -IV/PO Dexamethasone 10 mg daily x 10 days, higher dose due to morbid obesity -s/p Actemra once -IV remdesivir ordered for 5 days -prophylactic anticoagulation based on d-dimer per hospital protocol -trend ferritin, LDH, d-dimer, CRP every 2-3 days for risk stratification and to assess disease progression aPto Kruse MD [facility] ([facility] O: [phone] F: [phone] Subjective Date of service: 06/17/21 Principal diagnosis: Acute hypoxic respiratory failure Interval history: Afebrile, normal white count. On high flow nasal cannula. Objective - Exam Narrative Exam: Physical exam deferred to reduce risk of transmission of COVID-19. Please refer to primary team's note. - Constitutional Vitals: Vital Signs Temp Pulse Resp BP Pulse Ox 99.1 F 103 H 25 H 103/63 94 06/17/21 12:00 06/17/21 14:08 06/17/21 14:08 06/17/21 13:00 06/17/21 13:00 Temperature -Last 24 Hours Temperature 99.1 F Temperature 98.6 F Temperature 98.9 F Temperature 98.9 F Temperature 99.6 F Temperature 98.7 F - Labs CBC & Chem 7: 06/17/21 04:36 06/17/21 04:36 Labs: Abnormal lab results 06/17/21 06/17/21 Range/Units 04:36 04:36 MCHC 36 H (32-34) % BUN 29 H (9-20) mg/dL Glucose 125 H (75-100) mg/dL AST 59 H (5-40) units/L ALT 57 H (7-56) units/L Total Protein 6.0 L (6.3-8.2) g/dL Albumin 3.6 L (3.9-5) g/dL
--- NOTE | 2021-06-17 15:33 | Progress Note ---
Assessment and Plan Assessment and plan: (1) Acute respiratory failure due to COVID-19 Current Visit: Yes Status: Acute Plan to address problem: Patient requires 15 L oxygen to prevent hypoxemia. Currently started on steroids dexamethasone Supportive care with oxygen 15 L We will add Hycodan for cough Follow inflammatory markers Empiric antibiotics Rocephin azithromycin Initiate remdesivir Zinc, vitamin C, vitamin D (2) Asthma Current Visit: Yes Status: Acute Plan to address problem: We will place nebulizers. Albuterol nebulizers patient seemed to be doing well as far as asthma limited wheezing. Respiratory failure secondary to Covid (3) COVID-19 pneumonia (4) severe sepsis secondary to COVID-19 (5) multifocal pneumonia Current Visit: Yes Status: Acute Plan to address problem: Consistent with Covid pneumonia 36-year-old with a history of asthma, obesity presented with shortness of breath fever chills arthralgias myalgias approximately 8 days after testing positive for COVID. Patient at present hypoxic requiring 15 L facemask at present. Patient is able to speak in full sentences however remains hypoxic. Hospital course complicated by nonproductive cough. 06/15: Considering gradual decline will transfer patient to IMCU. We'll also consult pulmonary GI. I have requested the patient be put on high flow and also trial of BiPAP. ID is consulted and currently following patient management. Weight loss recommended. Continue steroids. Chest x-ray reviewed by me shows bilateral infiltrates 06/16: Patient seen and examined Remains on HFNC but now at 40 and 100%. SAts in the mid 90's. Continue to monitor renal function with Lasix. Continue IMCU. Can downgrade this oxygen weaning again this. Continue prone positioning. Case discussed with pressure supervisor 06/17: Continue supportive care. High flow down to 35 L continuous 100% with saturation in the mid to low 90s. Per pressure supervisor steroid has been increased to twice daily dosing due to patient size. Patient continues on IV remdesivir. We will continue to monitor inflammatory markers. Prognosis is guarded The high probability of a clinically significant, sudden or life threatening de terioration of the [pulmonary] system(s) required my full and direct attention, intervention and personal management. The aggregate critical care time was [35] minutes. This time is in addition to time spent performing reported procedures but includes the following: [x] Data Review and interpretation [x] Patient assessment and monitoring of vital signs [x] Documentation [x] Medication orders and management History Interval history: Patient seen and examined currently high flow nasal cannula. Still with mild shortness of breath. Was reported that the patient was mildly hypoxic last night. Patient does not recall this. Hospitalist Physical - Physical exam Narrative exam: General appearance: Present: Mild to moderate distress, well-nourished, on high flow nasal cannula - EENT Eyes: PERRL, EOM intact ENT: hearing intact, clear oral mucosa Ears: bilateral: normal - Neck Neck: supple, normal ROM - Respiratory Respiratory effort: normal Respiratory: bilateral: diminished - Breasts Breasts: normal - Cardiovascular Rhythm: regular Heart Sounds: Present: S1 & S2. Absent: gallop, rub Extremities: pulses intact, No edema, normal color, Full ROM - Gastrointestinal General gastrointestinal: Present: soft, non-tender, non-distended, normal bowel sounds - Genitourinary Male genitourinary: normal - Integumentary Integumentary: clear, warm, dry - Musculoskeletal Musculoskeletal: 1, strength equal bilaterally - Neurologic Neurologic: moves all extremities - Psychiatric Psychiatric: memory intact, appropriate mood/affect, intact judgment & insight - Constitutional Vitals: Temp Pulse Resp BP Pulse Ox 99.1 F 103 H 25 H 103/63 94 06/17/21 12:00 06/17/21 14:08 06/17/21 14:08 06/17/21 13:00 06/17/21 13:00 General appearance: Present: no acute distress, well-nourished Results - Labs CBC & Chem 7: 06/17/21 04:36 06/17/21 04:36 Labs: Laboratory Last Values WBC 9.5 K/mm3 (4.5-11.0) 06/17/21 04:36 RBC 4.74 M/mm3 (3.65-5.03) 06/17/21 04:36 Hgb 14.3 gm/dl (11.8-15.2) 06/17/21 04:36 Hct 40.2 % (35.5-45.6) 06/17/21 04:36 MCV 85 fl (84-94) 06/17/21 04:36 MCH 30 pg (28-32) 06/17/21 04:36 MCHC 36 % (32-34) H 06/17/21 04:36 RDW 13.2 % (13.2-15.2) 06/17/21 04:36 Plt Count 201 K/mm3 (140-440) 06/17/21 04:36 Lymph % (Auto) 25.5 % (13.4-35.0) 06/13/21 20:09 [place] % (Auto) 4.3 % (0.0-7.3) 06/13/21 20:09 Eos % (Auto) 0.0 % (0.0-4.3) 06/13/21 20:09 Baso % (Auto) 0.3 % (0.0-1.8) 06/13/21 20:09 Lymph # (Auto) 0.6 K/mm3 (1.2-5.4) L 06/13/21 20:09 [place] # (Auto) 0.1 K/mm3 (0.0-0.8) 06/13/21 20:09 Eos # (Auto) 0.0 K/mm3 (0.0-0.4) 06/13/21 20:09 Baso # (Auto) 0.0 K/mm3 (0.0-0.1) 06/13/21 20:09 Add Manual Diff Complete 06/14/21 05:12 Total Counted 50 06/14/21 05:12 Seg Neutrophils % 69.9 % (40.0-70.0) 06/13/21 20:09 Seg Neuts % (Manual) 82.0 % (40.0-70.0) H 06/14/21 05:12 Lymphocytes % (Manual) 14.0 % (13.4-35.0) 06/14/21 05:12 Monocytes % (Manual) 4.0 % (0.0-7.3) 06/14/21 05:12 Nucleated RBC % Not Reportable 06/14/21 05:12 Seg Neutrophils # 1.8 K/mm3 (1.8-7.7) 06/13/21 20:09 Seg Neutrophils # Man 1.6 K/mm3 (1.8-7.7) L 06/14/21 05:12 Band Neutrophils # 0.0 K/mm3 06/14/21 05:12 Lymphocytes # (Manual) 0.3 K/mm3 (1.2-5.4) L 06/14/21 05:12 Abs React Lymphs (Man) 0.0 K/mm3 06/14/21 05:12 Monocytes # (Manual) 0.1 K/mm3 (0.0-0.8) 06/14/21 05:12 Eosinophils # (Manual) 0.0 K/mm3 (0.0-0.4) 06/14/21 05:12 Basophils # (Manual) 0.0 K/mm3 (0.0-0.1) 06/14/21 05:12 Metamyelocytes # 0.0 K/mm3 06/14/21 05:12 Myelocytes # 0.0 K/mm3 06/14/21 05:12 Promyelocytes # 0.0 K/mm3 06/14/21 05:12 Blast Cells # 0.0 K/mm3 06/14/21 05:12 WBC Morphology Not Reportable 06/14/21 05:12 Hypersegmented Neuts Not Reportable 06/14/21 05:12 Hyposegmented Neuts Not Reportable 06/14/21 05:12 Hypogranular Neuts Not Reportable 06/14/21 05:12 Smudge Cells Not Reportable 06/14/21 05:12 Toxic Granulation Not Reportable 06/14/21 05:12 Toxic Vacuolation Not Reportable 06/14/21 05:12 Dohle Bodies Not Reportable 06/14/21 05:12 Pelger-Huet Anomaly Not Reportable 06/14/21 05:12 Sheri Rods Not Reportable 06/14/21 05:12 Platelet Estimate Consistent w auto 06/14/21 05:12 Clumped Platelets Not Reportable 06/14/21 05:12 Plt Clumps, EDTA Not Reportable 06/14/21 05:12 Large Platelets Not Reportable 06/14/21 05:12 Giant Platelets Not Reportable 06/14/21 05:12 Platelet Satelliting Not Reportable 06/14/21 05:12 Plt Morphology Comment Not Reportable 06/14/21 05:12 RBC Morphology Not Reportable 06/14/21 05:12 Dimorphic RBCs Not Reportable 06/14/21 05:12 Polychromasia Not Reportable 06/14/21 05:12 Hypochromasia Not Reportable 06/14/21 05:12 Poikilocytosis Not Reportable 06/14/21 05:12 Anisocytosis 1+ 06/14/21 05:12 Microcytosis Not Reportable 06/14/21 05:12 Macrocytosis Not Reportable 06/14/21 05:12 Spherocytes Not Reportable 06/14/21 05:12 Pappenheimer Bodies Not Reportable 06/14/21 05:12 Sickle Cells Not Reportable 06/14/21 05:12 Target Cells Not Reportable 06/14/21 05:12 Tear Drop Cells Not Reportable 06/14/21 05:12 Ovalocytes Not Reportable 06/14/21 05:12 Helmet Cells Not Reportable 06/14/21 05:12 [place] Bodies Not Reportable 06/14/21 05:12 [place] Rings Not Reportable 06/14/21 05:12 [place] Cells Not Reportable 06/14/21 05:12 Bite Cells Not Reportable 06/14/21 05:12 Crenated Cell Not Reportable 06/14/21 05:12 Elliptocytes Not Reportable 06/14/21 05:12 Acanthocytes (Spur) Not Reportable 06/14/21 05:12 Rouleaux Not Reportable 06/14/21 05:12 Hemoglobin C Crystals Not Reportable 06/14/21 05:12 Schistocytes Not Reportable 06/14/21 05:12 Malaria parasites Not Reportable 06/14/21 05:12 Swapnil Bodies Not Reportable 06/14/21 05:12 Hem Pathologist Commnt No 06/14/21 05:12 D-Dimer 360.79 ng/mlDDU (0-234) H 06/15/21 05:21 ABG pH 7.387 pH Units (7.350-7.450) 06/15/21 Unknown ABG pCO2 40.4 mm Hg 06/15/21 Unknown ABG pO2 61.0 mm Hg (80.0-90.0) L 06/15/21 Unknown ABG HCO3 23.7 mmol/L (20.0-26.0) 06/15/21 Unknown ABG O2 Saturation 91.3 % (95.0-99.0) L 06/15/21 Unknown ABG O2 Content 21.0 (0.0-44) 06/15/21 Unknown ABG Base Excess -1.1 mmol/L (-2.0-3.0) 06/15/21 Unknown ABG Hemoglobin 16.7 gm/dl (14.0-18.0) 06/15/21 Unknown ABG Carboxyhemoglobin 1.0 % (0.0-5.0) 06/15/21 Unknown ABG Methemoglobin 0.5 % (0.0-1.5) 06/15/21 Unknown Oxyhemoglobin 89.9 % (95.0-99.0) L 06/15/21 Unknown FiO2 100 % 06/15/21 Unknown Sodium 145 mmol/L (137-145) 06/17/21 04:36 Potassium 4.2 mmol/L (3.6-5.0) 06/17/21 04:36 Chloride 103.4 mmol/L (98-107) 06/17/21 04:36 Carbon Dioxide 30 mmol/L (22-30) 06/17/21 04:36 Anion Gap 16 mmol/L 06/17/21 04:36 BUN 29 mg/dL (9-20) H 06/17/21 04:36 Creatinine 0.9 mg/dL (0.8-1.3) 06/17/21 04:36 Estimated GFR > 60 ml/min 06/17/21 04:36 BUN/Creatinine Ratio 32 % 06/17/21 04:36 Glucose 125 mg/dL (75-100) H 06/17/21 04:36 Calcium 8.8 mg/dL (8.4-10.2) 06/17/21 04:36 Ferritin 1869.0 ng/mL (30.0-300.0) H 06/15/21 05:21 Total Bilirubin 0.60 mg/dL (0.1-1.2) 06/17/21 04:36 AST 59 units/L (5-40) H 06/17/21 04:36 ALT 57 units/L (7-56) H 06/17/21 04:36 Alkaline Phosphatase 69 units/L (35-129) 06/17/21 04:36 Lactate Dehydrogenase 634 units/L (91-180) H 06/13/21 20:09 C-Reactive Protein 3.10 mg/dL (0.00-1.30) H 06/15/21 05:21 Total Protein 6.0 g/dL (6.3-8.2) L 06/17/21 04:36 Albumin 3.6 g/dL (3.9-5) L 06/17/21 04:36 Albumin/Globulin Ratio 1.5 % 06/17/21 04:36 Procalcitonin < 0.05 ng/mL (<0.15) 06/15/21 05:21 Coronavirus (PCR) Positive (Negative) A 06/14/21 Unknown Microbiology: Microbiology 06/13/21 20:09 Peripheral/Venous Blood Culture - Preliminary NO GROWTH AFTER 72 HOURS 06/13/21 20:09 Peripheral/Venous Blood Culture - Preliminary NO GROWTH AFTER 72 HOURS Mao/IV: Voiding Method Urinal Active Medications - Current Medications Current Medications: Generic Name Dose Route Start Last Admin Trade Name Freq PRN Reason Stop Dose Admin Acetaminophen 650 mg 06/13/21 22:49 Acetaminophen 325 Mg Tab PO Q4H PRN Pain MILD(1-3)/Fever >100.5/HAYNES Albuterol 2.5 mg 06/13/21 22:49 Albuterol 2.5 Mg/3 Ml Nebu IH Q4HRT PRN Shortness Of Breath Albuterol/Ipratropium 1 ampul 06/14/21 02:00 06/17/21 14:07 Ipratropium/Albuterol Sulfate 3 Ml Ampul.Neb IH 1 ampul Q6HRT SIMÓN Administration Budesonide 0.5 mg 06/14/21 08:00 06/17/21 08:47 Budesonide 0.5 Mg/2 Ml Nebu IH Not Given Q12HRT SIMÓN Dexamethasone 10 mg 06/16/21 12:00 06/17/21 09:29 Dexamethasone 4 Mg/Ml Vial IV 06/24/21 22:01 10 mg BID SIMÓN Administration Famotidine 20 mg 06/14/21 10:00 06/17/21 09:32 Famotidine 20 Mg Tab PO 20 mg BID SIMÓN Administration Guaifenesin 200 mg 06/15/21 00:33 06/16/21 21:22 Guaifenesin 200 Mg Tab PO 200 mg Q6H PRN Administration Cough Heparin Sodium (Porcine) 5,000 unit 06/14/21 06:00 06/17/21 14:51 Heparin 5,000 Unit/1 Ml Vial SUB-Q 5,000 unit Q8HR SIMÓN Administration Hydralazine HCl 10 mg 06/13/21 22:52 Hydralazine 20 Mg/1 Ml Inj IV Q6H PRN SBP >/=160; DBP >/=100 Hydromorphone HCl 0.5 mg 06/13/21 22:49 Hydromorphone 1 Mg/1 Ml Inj IV Q3H PRN Pain , Severe (7-10) REMDESIVIR 100 mg/ Sodium 250 mls @ 500 mls/hr 06/15/21 21:00 06/16/21 23:09 Chloride IV 06/18/21 21:29 500 mls/hr Q24HR@2100 SIMÓN Administration Ondansetron HCl 4 mg 06/13/21 22:49 Ondansetron 4 Mg/2 Ml Inj IV Q8H PRN Nausea And Vomiting Oxycodone/Acetaminophen 1 tab 06/13/21 22:49 06/15/21 17:18 Oxycodone /Acetaminophen 5-325mg Tab PO 1 tab Q6H PRN Administration Pain, Moderate (4-6) Phenol 1 spray 06/15/21 14:00 Phenol 1.4% 177 Ml Bottle MM PRN PRN Sore Throat Sodium Chloride 10 ml 06/14/21 10:00 06/17/21 09:31 Sodium Chloride 0.9% 10 Ml Flush Syringe IV 10 ml BID SIMÓN Administration Sodium Chloride 10 ml 06/13/21 22:49 Sodium Chloride 0.9% 10 Ml Flush Syringe IV PRN PRN LINE FLUSH Sodium Chloride 50 ml 06/14/21 14:00 06/16/21 23:55 Sodium Chloride 0.9% 50 Ml Ivpb IV 06/17/21 21:01 50 ml Q24HR@2100 SIMÓN Administration
[2021-06-17] MEDS: REMDESIVIR 100 MG in SODIUM CHLORIDE 0.9% 250ML 250 ML IV SCH (21:31)
[2021-06-17] MEDS: SODIUM CHLORIDE 0.9% 50 ML IVPB IV SCH (21:32)
[2021-06-17] MEDS: guaiFENesin 200 MG TAB PO PRN (22:35)
[2021-06-18] MEDS: HEPARIN 5,000 UNIT/1 ML VIAL SUB-Q SCH ×3 (05:58→21:44)
[2021-06-18] MEDS: FAMOTIDINE 20 MG TAB PO SCH ×2 (09:40→21:38)
[2021-06-18] MEDS: dexAMETHasone 4 MG/ML VIAL IV SCH ×2 (09:40→21:37)
--- NOTE | 2021-06-18 10:08 | Progress Note ---
Assessment and Plan Assessment and plan: (1) Acute respiratory failure due to COVID-19 Current Visit: Yes Status: Acute Plan to address problem: Patient requires 15 L oxygen to prevent hypoxemia. Currently started on steroids dexamethasone Supportive care with oxygen 15 L We will add Hycodan for cough Follow inflammatory markers Empiric antibiotics Rocephin azithromycin Initiate remdesivir Zinc, vitamin C, vitamin D (2) Asthma Current Visit: Yes Status: Acute Plan to address problem: We will place nebulizers. Albuterol nebulizers patient seemed to be doing well as far as asthma limited wheezing. Respiratory failure secondary to Covid (3) COVID-19 pneumonia (4) severe sepsis secondary to COVID-19 (5) multifocal pneumonia Current Visit: Yes Status: Acute Plan to address problem: Consistent with Covid pneumonia 36-year-old with a history of asthma, obesity presented with shortness of breath fever chills arthralgias myalgias approximately 8 days after testing positive for COVID. Patient at present hypoxic requiring 15 L facemask at present. Patient is able to speak in full sentences however remains hypoxic. Hospital course complicated by nonproductive cough. 06/15: Considering gradual decline will transfer patient to IMCU. We'll also consult pulmonary GI. I have requested the patient be put on high flow and also trial of BiPAP. ID is consulted and currently following patient management. Weight loss recommended. Continue steroids. Chest x-ray reviewed by me shows bilateral infiltrates 06/16: Patient seen and examined Remains on HFNC but now at 40 and 100%. SAts in the mid 90's. Continue to monitor renal function with Lasix. Continue IMCU. Can downgrade this oxygen weaning again this. Continue prone positioning. Case discussed with principal electrical engineer 06/17: Continue supportive care. High flow down to 35 L continuous 100% with saturation in the mid to low 90s. Per principal electrical engineer steroid has been increased to twice daily dosing due to patient size. Patient continues on IV remdesivir. We will continue to monitor inflammatory markers. Prognosis is guarded. 06/18: Patient seen and examined, Continues supportive care, wean as tolerated. still with persitent hypoxia, he did not like the High flow, affects his nostriles, and now is on NRB satting 94%. Continue to encourage prone position. condition is still guarded The high probability of a clinically significant, sudden or life threatening deterioration of the [pulmonary] system(s) required my full and direct attention, intervention and personal management. The aggregate critical care time was [35] minutes. This time is in addition to time spent performing reported procedures but includes the following: [x] Data Review and interpretation [x] Patient assessment and monitoring of vital signs [x] Documentation [x] Medication orders and management History Interval history: Patient seen and examined currently non-rebreather Hospitalist Physical - Physical exam Narrative exam: General appearance: Present: Mild to moderate distress, well-nourished, on NRB - EENT Eyes: PERRL, EOM intact ENT: hearing intact, clear oral mucosa Ears: bilateral: normal - Neck Neck: supple, normal ROM - Respiratory Respiratory effort: normal Respiratory: bilateral: diminished - Breasts Breasts: normal - Cardiovascular Rhythm: regular Heart Sounds: Present: S1 & S2. Absent: gallop, rub Extremities: pulses intact, No edema, normal color, Full ROM - Gastrointestinal General gastrointestinal: Present: soft, non-tender, non-distended, normal bowel sounds - Genitourinary Male genitourinary: normal - Integumentary Integumentary: clear, warm, dry - Musculoskeletal Musculoskeletal: 1, strength equal bilaterally - Neurologic Neurologic: moves all extremities - Psychiatric Psychiatric: memory intact, appropriate mood/affect, intact judgment & insight - Constitutional Vitals: Temp Pulse Resp BP Pulse Ox 98.2 F 90 31 H 117/76 91 06/18/21 08:00 06/18/21 08:00 06/18/21 08:00 06/18/21 08:00 06/18/21 08:00 General appearance: Present: no acute distress, well-nourished Results - Labs CBC & Chem 7: 06/17/21 04:36 06/17/21 04:36 Labs: Laboratory Last Values WBC 9.5 K/mm3 (4.5-11.0) 06/17/21 04:36 RBC 4.74 M/mm3 (3.65-5.03) 06/17/21 04:36 Hgb 14.3 gm/dl (11.8-15.2) 06/17/21 04:36 Hct 40.2 % (35.5-45.6) 06/17/21 04:36 MCV 85 fl (84-94) 06/17/21 04:36 MCH 30 pg (28-32) 06/17/21 04:36 MCHC 36 % (32-34) H 06/17/21 04:36 RDW 13.2 % (13.2-15.2) 06/17/21 04:36 Plt Count 201 K/mm3 (140-440) 06/17/21 04:36 Lymph % (Auto) 25.5 % (13.4-35.0) 06/13/21 20:09 [place] % (Auto) 4.3 % (0.0-7.3) 06/13/21 20:09 Eos % (Auto) 0.0 % (0.0-4.3) 06/13/21 20:09 Baso % (Auto) 0.3 % (0.0-1.8) 06/13/21 20:09 Lymph # (Auto) 0.6 K/mm3 (1.2-5.4) L 06/13/21 20:09 [place] # (Auto) 0.1 K/mm3 (0.0-0.8) 06/13/21 20:09 Eos # (Auto) 0.0 K/mm3 (0.0-0.4) 06/13/21 20:09 Baso # (Auto) 0.0 K/mm3 (0.0-0.1) 06/13/21 20:09 Add Manual Diff Complete 06/14/21 05:12 Total Counted 50 06/14/21 05:12 Seg Neutrophils % 69.9 % (40.0-70.0) 06/13/21 20:09 Seg Neuts % (Manual) 82.0 % (40.0-70.0) H 06/14/21 05:12 Lymphocytes % (Manual) 14.0 % (13.4-35.0) 06/14/21 05:12 Monocytes % (Manual) 4.0 % (0.0-7.3) 06/14/21 05:12 Nucleated RBC % Not Reportable 06/14/21 05:12 Seg Neutrophils # 1.8 K/mm3 (1.8-7.7) 06/13/21 20:09 Seg Neutrophils # Man 1.6 K/mm3 (1.8-7.7) L 06/14/21 05:12 Band Neutrophils # 0.0 K/mm3 06/14/21 05:12 Lymphocytes # (Manual) 0.3 K/mm3 (1.2-5.4) L 06/14/21 05:12 Abs React Lymphs (Man) 0.0 K/mm3 06/14/21 05:12 Monocytes # (Manual) 0.1 K/mm3 (0.0-0.8) 06/14/21 05:12 Eosinophils # (Manual) 0.0 K/mm3 (0.0-0.4) 06/14/21 05:12 Basophils # (Manual) 0.0 K/mm3 (0.0-0.1) 06/14/21 05:12 Metamyelocytes # 0.0 K/mm3 06/14/21 05:12 Myelocytes # 0.0 K/mm3 06/14/21 05:12 Promyelocytes # 0.0 K/mm3 06/14/21 05:12 Blast Cells # 0.0 K/mm3 06/14/21 05:12 WBC Morphology Not Reportable 06/14/21 05:12 Hypersegmented Neuts Not Reportable 06/14/21 05:12 Hyposegmented Neuts Not Reportable 06/14/21 05:12 Hypogranular Neuts Not Reportable 06/14/21 05:12 Smudge Cells Not Reportable 06/14/21 05:12 Toxic Granulation Not Reportable 06/14/21 05:12 Toxic Vacuolation Not Reportable 06/14/21 05:12 Dohle Bodies Not Reportable 06/14/21 05:12 Pelger-Huet Anomaly Not Reportable 06/14/21 05:12 Sheri Rods Not Reportable 06/14/21 05:12 Platelet Estimate Consistent w auto 06/14/21 05:12 Clumped Platelets Not Reportable 06/14/21 05:12 Plt Clumps, EDTA Not Reportable 06/14/21 05:12 Large Platelets Not Reportable 06/14/21 05:12 Giant Platelets Not Reportable 06/14/21 05:12 Platelet Satelliting Not Reportable 06/14/21 05:12 Plt Morphology Comment Not Reportable 06/14/21 05:12 RBC Morphology Not Reportable 06/14/21 05:12 Dimorphic RBCs Not Reportable 06/14/21 05:12 Polychromasia Not Reportable 06/14/21 05:12 Hypochromasia Not Reportable 06/14/21 05:12 Poikilocytosis Not Reportable 06/14/21 05:12 Anisocytosis 1+ 06/14/21 05:12 Microcytosis Not Reportable 06/14/21 05:12 Macrocytosis Not Reportable 06/14/21 05:12 Spherocytes Not Reportable 06/14/21 05:12 Pappenheimer Bodies Not Reportable 06/14/21 05:12 Sickle Cells Not Reportable 06/14/21 05:12 Target Cells Not Reportable 06/14/21 05:12 Tear Drop Cells Not Reportable 06/14/21 05:12 Ovalocytes Not Reportable 06/14/21 05:12 Helmet Cells Not Reportable 06/14/21 05:12 Macd[place] Bodies Not Reportable 06/14/21 05:12 [place] Rings Not Reportable 06/14/21 05:12 [place] Cells Not Reportable 06/14/21 05:12 Bite Cells Not Reportable 06/14/21 05:12 Crenated Cell Not Reportable 06/14/21 05:12 Elliptocytes Not Reportable 06/14/21 05:12 Acanthocytes (Spur) Not Reportable 06/14/21 05:12 Rouleaux Not Reportable 06/14/21 05:12 Hemoglobin C Crystals Not Reportable 06/14/21 05:12 Schistocytes Not Reportable 06/14/21 05:12 Malaria parasites Not Reportable 06/14/21 05:12 Swapnil Bodies Not Reportable 06/14/21 05:12 Hem Pathologist Commnt No 06/14/21 05:12 D-Dimer 360.79 ng/mlDDU (0-234) H 06/15/21 05:21 ABG pH 7.387 pH Units (7.350-7.450) 06/15/21 Unknown ABG pCO2 40.4 mm Hg 06/15/21 Unknown ABG pO2 61.0 mm Hg (80.0-90.0) L 06/15/21 Unknown ABG HCO3 23.7 mmol/L (20.0-26.0) 06/15/21 Unknown ABG O2 Saturation 91.3 % (95.0-99.0) L 06/15/21 Unknown ABG O2 Content 21.0 (0.0-44) 06/15/21 Unknown ABG Base Excess -1.1 mmol/L (-2.0-3.0) 06/15/21 Unknown ABG Hemoglobin 16.7 gm/dl (14.0-18.0) 06/15/21 Unknown ABG Carboxyhemoglobin 1.0 % (0.0-5.0) 06/15/21 Unknown ABG Methemoglobin 0.5 % (0.0-1.5) 06/15/21 Unknown Oxyhemoglobin 89.9 % (95.0-99.0) L 06/15/21 Unknown FiO2 100 % 06/15/21 Unknown Sodium 145 mmol/L (137-145) 06/17/21 04:36 Potassium 4.2 mmol/L (3.6-5.0) 06/17/21 04:36 Chloride 103.4 mmol/L (98-107) 06/17/21 04:36 Carbon Dioxide 30 mmol/L (22-30) 06/17/21 04:36 Anion Gap 16 mmol/L 06/17/21 04:36 BUN 29 mg/dL (9-20) H 06/17/21 04:36 Creatinine 0.9 mg/dL (0.8-1.3) 06/17/21 04:36 Estimated GFR > 60 ml/min 06/17/21 04:36 BUN/Creatinine Ratio 32 % 06/17/21 04:36 Glucose 125 mg/dL (75-100) H 06/17/21 04:36 Calcium 8.8 mg/dL (8.4-10.2) 06/17/21 04:36 Ferritin 1869.0 ng/mL (30.0-300.0) H 06/15/21 05:21 Total Bilirubin 0.60 mg/dL (0.1-1.2) 06/17/21 04:36 AST 59 units/L (5-40) H 06/17/21 04:36 ALT 57 units/L (7-56) H 06/17/21 04:36 Alkaline Phosphatase 69 units/L (35-129) 06/17/21 04:36 Lactate Dehydrogenase 634 units/L (91-180) H 06/13/21 20:09 C-Reactive Protein 3.10 mg/dL (0.00-1.30) H 06/15/21 05:21 Total Protein 6.0 g/dL (6.3-8.2) L 06/17/21 04:36 Albumin 3.6 g/dL (3.9-5) L 06/17/21 04:36 Albumin/Globulin Ratio 1.5 % 06/17/21 04:36 Procalcitonin < 0.05 ng/mL (<0.15) 06/15/21 05:21 Coronavirus (PCR) Positive (Negative) A 06/14/21 Unknown Microbiology: Microbiology 06/13/21 20:09 Peripheral/Venous Blood Culture - Preliminary NO GROWTH AFTER 4 DAYS 06/13/21 20:09 Peripheral/Venous Blood Culture - Preliminary NO GROWTH AFTER 4 DAYS Mao/IV: Voiding Method Urinal Active Medications - Current Medications Current Medications: Generic Name Dose Route Start Last Admin Trade Name Freq PRN Reason Stop Dose Admin Acetaminophen 650 mg 06/13/21 22:49 Acetaminophen 325 Mg Tab PO Q4H PRN Pain MILD(1-3)/Fever >100.5/HAYNES Albuterol 2.5 mg 06/13/21 22:49 Albuterol 2.5 Mg/3 Ml Nebu IH Q4HRT PRN Shortness Of Breath Albuterol/Ipratropium 1 ampul 06/14/21 02:00 06/17/21 19:59 Ipratropium/Albuterol Sulfate 3 Ml Ampul.Neb IH 1 ampul Q6HRT SIMÓN Administration Budesonide 0.5 mg 06/14/21 08:00 06/17/21 19:59 Budesonide 0.5 Mg/2 Ml Nebu IH 0.5 mg Q12HRT SIMÓN Administration Dexamethasone 10 mg 06/16/21 12:00 06/18/21 09:40 Dexamethasone 4 Mg/Ml Vial IV 06/24/21 22:01 10 mg BID SIMÓN Administration Famotidine 20 mg 06/14/21 10:00 06/18/21 09:40 Famotidine 20 Mg Tab PO 20 mg BID SIMÓN Administration Guaifenesin 200 mg 06/15/21 00:33 06/17/21 22:35 Guaifenesin 200 Mg Tab PO 200 mg Q6H PRN Administration Cough Heparin Sodium (Porcine) 5,000 unit 06/14/21 06:00 06/18/21 05:58 Heparin 5,000 Unit/1 Ml Vial SUB-Q 5,000 unit Q8HR SIMÓN Administration Hydralazine HCl 10 mg 06/13/21 22:52 Hydralazine 20 Mg/1 Ml Inj IV Q6H PRN SBP >/=160; DBP >/=100 Hydromorphone HCl 0.5 mg 06/13/21 22:49 Hydromorphone 1 Mg/1 Ml Inj IV Q3H PRN Pain , Severe (7-10) REMDESIVIR 100 mg/ Sodium 250 mls @ 500 mls/hr 06/15/21 21:00 06/17/21 21:31 Chloride IV 06/18/21 21:29 500 mls/hr Q24HR@2100 SIMÓN Administration Ondansetron HCl 4 mg 06/13/21 22:49 06/17/21 18:48 Ondansetron 4 Mg/2 Ml Inj IV 4 mg Q8H PRN Administration Nausea And Vomiting Oxycodone/Acetaminophen 1 tab 06/13/21 22:49 06/15/21 17:18 Oxycodone /Acetaminophen 5-325mg Tab PO 1 tab Q6H PRN Administration Pain, Moderate (4-6) Phenol 1 spray 06/15/21 14:00 Phenol 1.4% 177 Ml Bottle MM PRN PRN Sore Throat Sodium Chloride 10 ml 06/14/21 10:00 06/18/21 09:40 Sodium Chloride 0.9% 10 Ml Flush Syringe IV 10 ml BID SIMÓN Administration Sodium Chloride 10 ml 06/13/21 22:49 Sodium Chloride 0.9% 10 Ml Flush Syringe IV PRN PRN LINE FLUSH
[2021-06-18] MEDS: IPRATROPIUM/ALBUTEROL SULFATE 3 ML AMPUL.NEB IH SCH ×4 (10:51→21:02)
[2021-06-18] MEDS: BUDESONIDE 0.5 MG/2 ML NEBU IH SCH ×2 (10:52→21:02)
--- NOTE | 2021-06-18 14:18 | Progress Note ---
Assessment and Plan 36 y/o male with acute respiratory failure secondary to COVID 19, not vaccinated. 06/18/21: Continue IV steroids, IV remdesivir. Gave lasix 40mg today. Guarded prognosis. 06/17/21: Continue IV steroids. Prone. IV remdesivir 06/16/21: Given patient size will increase steroids to BID dosing. Continue Remdesivir. Need to prone as tolerated during the day and sleep prone at night. Guarded prognosis. 1. Prone as tolerated during the day and sleep prone at night 2. IV steroids and remdesivir, per ID would be a candidate for actemra 3. Agree with lasix therapy, monitor renal function and electrolytes closely 4. Guarded prognosis Subjective Date of service: 06/18/21 Principal diagnosis: Acute hypoxic respiratory failure Interval history: No acute events. Remains on HFNC and NRB. Objective Vital Signs - 12hr 06/18/21 06/18/21 06/18/21 02:31 03:00 03:31 Temperature Pulse Rate 90 83 86 Pulse Rate [ Left Radial] Respiratory 39 H 29 H 41 H Rate Blood Pressure 113/72 108/69 108/69 O2 Sat by Pulse 86 96 85 Oximetry 06/18/21 06/18/21 06/18/21 04:00 04:31 05:00 Temperature 98.2 F Pulse Rate 87 89 96 H Pulse Rate [ Left Radial] Respiratory 36 H 36 H 20 Rate Blood Pressure 117/78 117/78 109/72 O2 Sat by Pulse 91 86 92 Oximetry 06/18/21 06/18/21 06/18/21 05:31 06:00 06:31 Temperature Pulse Rate 90 91 H 67 Pulse Rate [ Left Radial] Respiratory 32 H 40 H 34 H Rate Blood Pressure 117/78 118/75 118/75 O2 Sat by Pulse 87 86 96 Oximetry 06/18/21 06/18/21 06/18/21 07:00 07:31 08:00 Temperature 98.2 F Pulse Rate 84 106 H 107 H Pulse Rate [ 95 H Left Radial] Respiratory 31 H 21 35 H Rate Blood Pressure 117/76 117/76 117/76 O2 Sat by Pulse 91 96 92 Oximetry 06/18/21 06/18/21 06/18/21 08:31 09:00 09:31 Temperature Pulse Rate 111 H 91 H 87 Pulse Rate [ Left Radial] Respiratory 21 17 23 Rate Blood Pressure 132/75 132/75 O2 Sat by Pulse 90 98 94 Oximetry 06/18/21 06/18/21 06/18/21 10:00 10:31 11:00 Temperature Pulse Rate 81 72 91 H Pulse Rate [ Left Radial] Respiratory 39 H 38 H 17 Rate Blood Pressure 121/81 121/81 122/73 O2 Sat by Pulse 91 85 94 Oximetry 06/18/21 06/18/21 06/18/21 11:31 12:00 12:31 Temperature 98.9 F Pulse Rate Pulse Rate [ 95 H Left Radial] Respiratory 35 H Rate Blood Pressure 121/81 118/81 118/81 O2 Sat by Pulse 92 92 94 Oximetry 06/18/21 13:00 Temperature Pulse Rate Pulse Rate [ Left Radial] Respiratory Rate Blood Pressure 127/77 O2 Sat by Pulse 91 Oximetry CBC and BMP: 06/17/21 04:36 06/17/21 04:36 ABG, PT/INR, D-dimer: ABG ABG pH 7.387 pH Units (7.350-7.450) 06/15/21 Unknown ABG pCO2 40.4 mm Hg 06/15/21 Unknown ABG pO2 61.0 mm Hg (80.0-90.0) L 06/15/21 Unknown ABG O2 Saturation 91.3 % (95.0-99.0) L 06/15/21 Unknown PT/INR, D-dimer D-Dimer 360.79 ng/mlDDU (0-234) H 06/15/21 05:21 Abnormal lab findings: Abnormal Labs 06/13/21 06/13/21 06/13/21 20:09 20:09 20:09 WBC 2.6 L MCHC 35 H Plt Count 112 L Lymph # (Auto) 0.6 L Seg Neuts % (Manual) Seg Neutrophils # Man Lymphocytes # (Manual) D-Dimer 560.90 H ABG pO2 ABG O2 Saturation Oxyhemoglobin Sodium 134 L BUN Creatinine Glucose 105 H Ferritin AST ALT Lactate Dehydrogenase C-Reactive Protein Total Protein Albumin Coronavirus (PCR) 06/13/21 06/13/21 06/14/21 20:09 20:09 05:12 WBC 2.0 L MCHC 35 H Plt Count 106 L Lymph # (Auto) Seg Neuts % (Manual) 82.0 H Seg Neutrophils # Man 1.6 L Lymphocytes # (Manual) 0.3 L D-Dimer ABG pO2 ABG O2 Saturation Oxyhemoglobin Sodium BUN Creatinine Glucose 105 H Ferritin 1876.0 H AST ALT Lactate Dehydrogenase 634 H C-Reactive Protein 9.20 H Total Protein Albumin Coronavirus (PCR) 06/14/21 06/14/21 06/14/21 05:12 23:50 Unknown WBC MCHC Plt Count Lymph # (Auto) Seg Neuts % (Manual) Seg Neutrophils # Man Lymphocytes # (Manual) D-Dimer ABG pO2 ABG O2 Saturation Oxyhemoglobin Sodium BUN Creatinine Glucose 214 H 135 H Ferritin AST 52 H ALT Lactate Dehydrogenase C-Reactive Protein Total Protein Albumin 3.2 L Coronavirus (PCR) Positive A 06/15/21 06/15/21 06/15/21 05:21 05:21 05:21 WBC MCHC Plt Count Lymph # (Auto) Seg Neuts % (Manual) Seg Neutrophils # Man Lymphocytes # (Manual) D-Dimer 360.79 H ABG pO2 ABG O2 Saturation Oxyhemoglobin Sodium BUN Creatinine 0.7 L Glucose 167 H Ferritin 1869.0 H AST 65 H ALT Lactate Dehydrogenase C-Reactive Protein Total Protein 6.1 L Albumin 3.4 L Coronavirus (PCR) 06/15/21 06/15/21 06/16/21 05:21 Unknown 07:16 WBC MCHC Plt Count Lymph # (Auto) Seg Neuts % (Manual) Seg Neutrophils # Man Lymphocytes # (Manual) D-Dimer ABG pO2 61.0 L ABG O2 Saturation 91.3 L Oxyhemoglobin 89.9 L Sodium BUN Creatinine Glucose 130 H Ferritin AST 77 H ALT 57 H Lactate Dehydrogenase C-Reactive Protein 3.10 H Total Protein 6.0 L Albumin 3.5 L Coronavirus (PCR) 06/17/21 06/17/21 04:36 04:36 WBC MCHC 36 H Plt Count Lymph # (Auto) Seg Neuts % (Manual) Seg Neutrophils # Man Lymphocytes # (Manual) D-Dimer ABG pO2 ABG O2 Saturation Oxyhemoglobin Sodium BUN 29 H Creatinine Glucose 125 H Ferritin AST 59 H ALT 57 H Lactate Dehydrogenase C-Reactive Protein Total Protein 6.0 L Albumin 3.6 L Coronavirus (PCR)
--- NOTE | 2021-06-18 14:40 | Progress Note ---
Assessment and Plan Cultures: SARS CoV2 PCR: Positive as outpatient 06/13/2021 blood culture: In process A/P: 36-year-old male with history of asthma, renal stones, unvaccinated for COVID-19 was diagnosed with COVID-19 as an outpatient: #Bilateral pneumonia: Secondary to COVID-19. Severe disease, with high inflamma tory markers and increasing oxygen requirements. #Acute hypoxic respiratory failure: Now on high flow nasal cannula #Morbid obesity Recs: -IV/PO Dexamethasone 10 mg daily x 10 days, higher dose due to morbid obesity -s/p Actemra once -IV remdesivir ordered for 5 days -prophylactic anticoagulation based on d-dimer per hospital protocol -trend ferritin, LDH, d-dimer, CRP every 2-3 days for risk stratification and to assess disease progression Pato Kruse MD [facility] O: [phone] F: [phone] Subjective Date of service: 06/18/21 Principal diagnosis: Acute hypoxic respiratory failure Interval history: Afebrile, normal white count. Blood cultures no growth so far currently on high flow nasal cannula. Objective - Exam Narrative Exam: Physical exam deferred to reduce risk of transmission of COVID-19. Please refer to primary team's note. - Constitutional Vitals: Vital Signs Temp Pulse Resp BP Pulse Ox 98.9 F 95 H 35 H 131/85 92 06/18/21 12:00 06/18/21 12:00 06/18/21 12:00 06/18/21 14:00 06/18/21 14:00 Temperature -Last 24 Hours Temperature 98.9 F Temperature 98.2 F Temperature 98.2 F Temperature 98.8 F Temperature 98.2 F Temperature 98.5 F - Labs CBC & Chem 7: 06/17/21 04:36 06/17/21 04:36
[2021-06-18] MEDS ORDERED: FUROSEMIDE 40 MG/4 ML INJ IV ONE (14:45)
[2021-06-18] MEDS: REMDESIVIR 100 MG in SODIUM CHLORIDE 0.9% 250ML 250 ML IV SCH (21:37)
[2021-06-18] MEDS: guaiFENesin 200 MG TAB PO PRN (21:38)
[2021-06-18] MEDS ORDERED: SODIUM CHLORIDE 0.9% 100 ML IVPB IV SCH (22:00)
[2021-06-19] MEDS: IPRATROPIUM/ALBUTEROL SULFATE 3 ML AMPUL.NEB IH SCH ×3 (03:13→14:22)
[2021-06-19] MEDS: HEPARIN 5,000 UNIT/1 ML VIAL SUB-Q SCH ×3 (05:38→22:40)
[2021-06-19] MEDS: oxyCODONE /ACETAMINOPHEN 5-325MG TAB PO PRN (05:46)
[2021-06-19] MEDS: BUDESONIDE 0.5 MG/2 ML NEBU IH SCH (07:32)
[2021-06-19] MEDS: FAMOTIDINE 20 MG TAB PO SCH ×2 (10:13→22:38)
[2021-06-19] MEDS: dexAMETHasone 4 MG/ML VIAL IV SCH ×2 (10:13→22:39)
[2021-06-19] MEDS: ACETAMINOPHEN 325 MG TAB PO PRN ×2 (10:34→22:38)
--- NOTE | 2021-06-19 10:58 | Progress Note ---
Assessment and Plan 36 y/o male with acute respiratory failure secondary to COVID 19, not vaccinated. 06/19/21: Continue IV steroids. Prone if possible. Lasix again today. 06/18/21: Continue IV steroids, IV remdesivir. Gave lasix 40mg today. Guarded prognosis. 06/17/21: Continue IV steroids. Prone. IV remdesivir 06/16/21: Given patient size will increase steroids to BID dosing. Continue Remdesivir. Need to prone as tolerated during the day and sleep prone at night. Guarded prognosis. 1. Prone as tolerated during the day and sleep prone at night 2. IV steroids and remdesivir, per ID would be a candidate for actemra 3. Agree with lasix therapy, monitor renal function and electrolytes closely 4. Guarded prognosis Subjective Date of service: 06/19/21 Principal diagnosis: Acute hypoxic respiratory failure Interval history: No acute events. Remains on HFNC. Objective Vital Signs - 12hr 06/18/21 06/19/21 06/19/21 23:01 00:00 00:20 Temperature 98.3 F Pulse Rate 112 H 91 H 87 Pulse Rate [ 91 H From Monitor] Pulse Rate [ Posterior Bilateral Throughout] Respiratory 21 31 H Rate Respiratory Rate [ Generalized] Respiratory Rate [Posterior Bilateral Throughout] Blood Pressure 95/54 106/49 O2 Sat by Pulse 100 92 Oximetry 06/19/21 06/19/21 06/19/21 01:00 02:00 03:01 Temperature Pulse Rate 90 91 H 92 H Pulse Rate [ From Monitor] Pulse Rate [ Posterior Bilateral Throughout] Respiratory 30 H 28 H 28 H Rate Respiratory Rate [ Generalized] Respiratory Rate [Posterior Bilateral Throughout] Blood Pressure 96/56 99/58 98/48 O2 Sat by Pulse 89 93 96 Oximetry 06/19/21 06/19/21 06/19/21 03:11 04:00 05:00 Temperature 98.8 F Pulse Rate 90 78 Pulse Rate [ 90 From Monitor] Pulse Rate [ Posterior Bilateral Throughout] Respiratory 31 H 31 H Rate Respiratory Rate [ Generalized] Respiratory Rate [Posterior Bilateral Throughout] Blood Pressure 98/48 113/70 O2 Sat by Pulse 95 89 91 Oximetry 06/19/21 06/19/21 06/19/21 05:46 06:00 06:40 Temperature Pulse Rate 82 Pulse Rate [ From Monitor] Pulse Rate [ Posterior Bilateral Throughout] Respiratory 18 33 H 29 H Rate Respiratory 30 H Rate [ Generalized] Respiratory Rate [Posterior Bilateral Throughout] Blood Pressure 108/71 O2 Sat by Pulse 88 Oximetry 06/19/21 06/19/21 06/19/21 07:32 07:45 08:00 Temperature 99.3 F Pulse Rate Pulse Rate [ From Monitor] Pulse Rate [ 95 H Posterior Bilateral Throughout] Respiratory Rate Respiratory Rate [ Generalized] Respiratory 18 Rate [Posterior Bilateral Throughout] Blood Pressure O2 Sat by Pulse 95 Oximetry CBC and BMP: 06/17/21 04:36 06/17/21 04:36 ABG, PT/INR, D-dimer: ABG ABG pH 7.387 pH Units (7.350-7.450) 06/15/21 Unknown ABG pCO2 40.4 mm Hg 06/15/21 Unknown ABG pO2 61.0 mm Hg (80.0-90.0) L 06/15/21 Unknown ABG O2 Saturation 91.3 % (95.0-99.0) L 06/15/21 Unknown PT/INR, D-dimer D-Dimer 360.79 ng/mlDDU (0-234) H 06/15/21 05:21 Abnormal lab findings: Abnormal Labs 06/13/21 06/13/21 06/13/21 20:09 20:09 20:09 WBC 2.6 L MCHC 35 H Plt Count 112 L Lymph # (Auto) 0.6 L Seg Neuts % (Manual) Seg Neutrophils # Man Lymphocytes # (Manual) D-Dimer 560.90 H ABG pO2 ABG O2 Saturation Oxyhemoglobin Sodium 134 L BUN Creatinine Glucose 105 H Ferritin AST ALT Lactate Dehydrogenase C-Reactive Protein Total Protein Albumin Coronavirus (PCR) 06/13/21 06/13/21 06/14/21 20:09 20:09 05:12 WBC 2.0 L MCHC 35 H Plt Count 106 L Lymph # (Auto) Seg Neuts % (Manual) 82.0 H Seg Neutrophils # Man 1.6 L Lymphocytes # (Manual) 0.3 L D-Dimer ABG pO2 ABG O2 Saturation Oxyhemoglobin Sodium BUN Creatinine Glucose 105 H Ferritin 1876.0 H AST ALT Lactate Dehydrogenase 634 H C-Reactive Protein 9.20 H Total Protein Albumin Coronavirus (PCR) 06/14/21 06/14/21 06/14/21 05:12 23:50 Unknown WBC MCHC Plt Count Lymph # (Auto) Seg Neuts % (Manual) Seg Neutrophils # Man Lymphocytes # (Manual) D-Dimer ABG pO2 ABG O2 Saturation Oxyhemoglobin Sodium BUN Creatinine Glucose 214 H 135 H Ferritin AST 52 H ALT Lactate Dehydrogenase C-Reactive Protein Total Protein Albumin 3.2 L Coronavirus (PCR) Positive A 06/15/21 06/15/21 06/15/21 05:21 05:21 05:21 WBC MCHC Plt Count Lymph # (Auto) Seg Neuts % (Manual) Seg Neutrophils # Man Lymphocytes # (Manual) D-Dimer 360.79 H ABG pO2 ABG O2 Saturation Oxyhemoglobin Sodium BUN Creatinine 0.7 L Glucose 167 H Ferritin 1869.0 H AST 65 H ALT Lactate Dehydrogenase C-Reactive Protein Total Protein 6.1 L Albumin 3.4 L Coronavirus (PCR) 06/15/21 06/15/21 06/16/21 05:21 Unknown 07:16 WBC MCHC Plt Count Lymph # (Auto) Seg Neuts % (Manual) Seg Neutrophils # Man Lymphocytes # (Manual) D-Dimer ABG pO2 61.0 L ABG O2 Saturation 91.3 L Oxyhemoglobin 89.9 L Sodium BUN Creatinine Glucose 130 H Ferritin AST 77 H ALT 57 H Lactate Dehydrogenase C-Reactive Protein 3.10 H Total Protein 6.0 L Albumin 3.5 L Coronavirus (PCR) 06/17/21 06/17/21 04:36 04:36 WBC MCHC 36 H Plt Count Lymph # (Auto) Seg Neuts % (Manual) Seg Neutrophils # Man Lymphocytes # (Manual) D-Dimer ABG pO2 ABG O2 Saturation Oxyhemoglobin Sodium BUN 29 H Creatinine Glucose 125 H Ferritin AST 59 H ALT 57 H Lactate Dehydrogenase C-Reactive Protein Total Protein 6.0 L Albumin 3.6 L Coronavirus (PCR)
--- NOTE | 2021-06-19 11:05 | Progress Note ---
Assessment and Plan Cultures: SARS CoV2 PCR: Positive as outpatient 06/13/2021 blood culture: In process A/P: 36-year-old male with history of asthma, renal stones, unvaccinated for COVID-19 was diagnosed with COVID-19 as an outpatient: #Bilateral pneumonia: Secondary to COVID-19. Severe disease, with high inflamma tory markers and increasing oxygen requirements. #Acute hypoxic respiratory failure: Now on high flow nasal cannula #Morbid obesity Recs: -IV/PO Dexamethasone 10 mg daily x 10 days, higher dose due to morbid obesity -s/p Actemra once -Completed IV Remdesivir. -prophylactic anticoagulation based on d-dimer per hospital protocol -trend ferritin, LDH, d-dimer, CRP every 2-3 days for risk stratification and to assess disease progression Pato Kruse MD [facility] O: [phone] F: [phone] Subjective Date of service: 06/19/21 Principal diagnosis: Acute hypoxic respiratory failure Interval history: Afebrile, remains on HFNC. Objective - Exam Narrative Exam: Physical exam deferred to reduce risk of transmission of COVID-19. Please refer to primary team's note. - Constitutional Vitals: Vital Signs Temp Pulse Resp BP Pulse Ox 99.3 F 95 H 18 108/71 95 06/19/21 08:00 06/19/21 07:32 06/19/21 07:32 06/19/21 06:00 06/19/21 07:45 Temperature -Last 24 Hours Temperature 99.3 F Temperature 98.8 F Temperature 98.3 F Temperature 98.2 F Temperature 97.4 F Temperature 98.9 F - Labs CBC & Chem 7: 06/17/21 04:36 06/17/21 04:36
--- NOTE | 2021-06-19 15:03 | Progress Note ---
Assessment and Plan Assessment and plan: (1) Acute respiratory failure due to COVID-19 Current Visit: Yes Status: Acute Plan to address problem: Patient requires 15 L oxygen to prevent hypoxemia. Currently started on steroids dexamethasone Supportive care with oxygen 15 L We will add Hycodan for cough Follow inflammatory markers Empiric antibiotics Rocephin azithromycin Initiate remdesivir Zinc, vitamin C, vitamin D (2) Asthma Current Visit: Yes Status: Acute Plan to address problem: We will place nebulizers. Albuterol nebulizers patient seemed to be doing well as far as asthma limited wheezing. Respiratory failure secondary to Covid (3) COVID-19 pneumonia (4) severe sepsis secondary to COVID-19 (5) multifocal pneumonia Current Visit: Yes Status: Acute Plan to address problem: Consistent with Covid pneumonia 36-year-old with a history of asthma, obesity presented with shortness of breath fever chills arthralgias myalgias approximately 8 days after testing positive for COVID. Patient at present hypoxic requiring 15 L facemask at present. Patient is able to speak in full sentences however remains hypoxic. Hospital course complicated by nonproductive cough. 06/15: Considering gradual decline will transfer patient to IMCU. We'll also consult pulmonary GI. I have requested the patient be put on high flow and also trial of BiPAP. ID is consulted and currently following patient management. Weight loss recommended. Continue steroids. Chest x-ray reviewed by me shows bilateral infiltrates 06/16: Patient seen and examined Remains on HFNC but now at 40 and 100%. SAts in the mid 90's. Continue to monitor renal function with Lasix. Continue IMCU. Can downgrade this oxygen weaning again this. Continue prone positioning. Case discussed with chassis mechanic 06/17: Continue supportive care. High flow down to 35 L continuous 100% with saturation in the mid to low 90s. Per chassis mechanic steroid has been increased to twice daily dosing due to patient size. Patient continues on IV remdesivir. We will continue to monitor inflammatory markers. Prognosis is guarded. 06/18: Patient seen and examined, Continues supportive care, wean as tolerated. still with persitent hypoxia, he did not like the High flow, affects his nostriles, and now is on NRB satting 94%. Continue to encourage prone position. condition is still guarded 06/19: Continue supportive care, wean oxygen as tolerated, patient ok with me speaking with mother, will call and update. The high probability of a clinically significant, sudden or life threatening deterioration of the [pulmonary] system(s) required my full and direct attention, intervention and personal management. The aggregate critical care time was [35] minutes. This time is in addition to time spent performing r eported procedures but includes the following: [x] Data Review and interpretation [x] Patient assessment and monitoring of vital signs [x] Documentation [x] Medication orders and management History Interval history: Patient seen and examined currently non-rebreather, still intermittent high flow Hospitalist Physical - Physical exam Narrative exam: General appearance: Present: Mild to moderate distress, well-nourished, on NRB - EENT Eyes: PERRL, EOM intact ENT: hearing intact, clear oral mucosa Ears: bilateral: normal - Neck Neck: supple, normal ROM - Respiratory Respiratory effort: normal Respiratory: bilateral: diminished - Breasts Breasts: normal - Cardiovascular Rhythm: regular Heart Sounds: Present: S1 & S2. Absent: gallop, rub Extremities: pulses intact, No edema, normal color, Full ROM - Gastrointestinal General gastrointestinal: Present: soft, non-tender, non-distended, normal bowel sounds - Genitourinary Male genitourinary: normal - Integumentary Integumentary: clear, warm, dry - Musculoskeletal Musculoskeletal: 1, strength equal bilaterally - Neurologic Neurologic: moves all extremities - Psychiatric Psychiatric: memory intact, appropriate mood/affect, intact judgment & insight - Constitutional Vitals: Temp Pulse Resp BP Pulse Ox 97.8 F 95 H 25 H 114/66 93 06/19/21 12:00 06/19/21 13:01 06/19/21 13:01 06/19/21 13:01 06/19/21 13:01 General appearance: Present: no acute distress, well-nourished Results - Labs CBC & Chem 7: 06/17/21 04:36 06/17/21 04:36 Labs: Laboratory Last Values WBC 9.5 K/mm3 (4.5-11.0) 06/17/21 04:36 RBC 4.74 M/mm3 (3.65-5.03) 06/17/21 04:36 Hgb 14.3 gm/dl (11.8-15.2) 06/17/21 04:36 Hct 40.2 % (35.5-45.6) 06/17/21 04:36 MCV 85 fl (84-94) 06/17/21 04:36 MCH 30 pg (28-32) 06/17/21 04:36 MCHC 36 % (32-34) H 06/17/21 04:36 RDW 13.2 % (13.2-15.2) 06/17/21 04:36 Plt Count 201 K/mm3 (140-440) 06/17/21 04:36 Lymph % (Auto) 25.5 % (13.4-35.0) 06/13/21 20:09 Teller % (Auto) 4.3 % (0.0-7.3) 06/13/21 20:09 Eos % (Auto) 0.0 % (0.0-4.3) 06/13/21 20:09 Baso % (Auto) 0.3 % (0.0-1.8) 06/13/21 20:09 Lymph # (Auto) 0.6 K/mm3 (1.2-5.4) L 06/13/21 20:09 Teller # (Auto) 0.1 K/mm3 (0.0-0.8) 06/13/21 20:09 Eos # (Auto) 0.0 K/mm3 (0.0-0.4) 06/13/21 20:09 Baso # (Auto) 0.0 K/mm3 (0.0-0.1) 06/13/21 20:09 Add Manual Diff Complete 06/14/21 05:12 Total Counted 50 06/14/21 05:12 Seg Neutrophils % 69.9 % (40.0-70.0) 06/13/21 20:09 Seg Neuts % (Manual) 82.0 % (40.0-70.0) H 06/14/21 05:12 Lymphocytes % (Manual) 14.0 % (13.4-35.0) 06/14/21 05:12 Monocytes % (Manual) 4.0 % (0.0-7.3) 06/14/21 05:12 Nucleated RBC % Not Reportable 06/14/21 05:12 Seg Neutrophils # 1.8 K/mm3 (1.8-7.7) 06/13/21 20:09 Seg Neutrophils # Man 1.6 K/mm3 (1.8-7.7) L 06/14/21 05:12 Band Neutrophils # 0.0 K/mm3 06/14/21 05:12 Lymphocytes # (Manual) 0.3 K/mm3 (1.2-5.4) L 06/14/21 05:12 Abs React Lymphs (Man) 0.0 K/mm3 06/14/21 05:12 Monocytes # (Manual) 0.1 K/mm3 (0.0-0.8) 06/14/21 05:12 Eosinophils # (Manual) 0.0 K/mm3 (0.0-0.4) 06/14/21 05:12 Basophils # (Manual) 0.0 K/mm3 (0.0-0.1) 06/14/21 05:12 Metamyelocytes # 0.0 K/mm3 06/14/21 05:12 Myelocytes # 0.0 K/mm3 06/14/21 05:12 Promyelocytes # 0.0 K/mm3 06/14/21 05:12 Blast Cells # 0.0 K/mm3 06/14/21 05:12 WBC Morphology Not Reportable 06/14/21 05:12 Hypersegmented Neuts Not Reportable 06/14/21 05:12 Hyposegmented Neuts Not Reportable 06/14/21 05:12 Hypogranular Neuts Not Reportable 06/14/21 05:12 Smudge Cells Not Reportable 06/14/21 05:12 Toxic Granulation Not Reportable 06/14/21 05:12 Toxic Vacuolation Not Reportable 06/14/21 05:12 Dohle Bodies Not Reportable 06/14/21 05:12 Pelger-Huet Anomaly Not Reportable 06/14/21 05:12 Sheri Rods Not Reportable 06/14/21 05:12 Platelet Estimate Consistent w auto 06/14/21 05:12 Clumped Platelets Not Reportable 06/14/21 05:12 Plt Clumps, EDTA Not Reportable 06/14/21 05:12 Large Platelets Not Reportable 06/14/21 05:12 Giant Platelets Not Reportable 06/14/21 05:12 Platelet Satelliting Not Reportable 06/14/21 05:12 Plt Morphology Comment Not Reportable 06/14/21 05:12 RBC Morphology Not Reportable 06/14/21 05:12 Dimorphic RBCs Not Reportable 06/14/21 05:12 Polychromasia Not Reportable 06/14/21 05:12 Hypochromasia Not Reportable 06/14/21 05:12 Poikilocytosis Not Reportable 06/14/21 05:12 Anisocytosis 1+ 06/14/21 05:12 Microcytosis Not Reportable 06/14/21 05:12 Macrocytosis Not Reportable 06/14/21 05:12 Spherocytes Not Reportable 06/14/21 05:12 Pappenheimer Bodies Not Reportable 06/14/21 05:12 Sickle Cells Not Reportable 06/14/21 05:12 Target Cells Not Reportable 06/14/21 05:12 Tear Drop Cells Not Reportable 06/14/21 05:12 Ovalocytes Not Reportable 06/14/21 05:12 Helmet Cells Not Reportable 06/14/21 05:12 Macdonald-Norton Bodies Not Reportable 06/14/21 05:12 Garrison Rings Not Reportable 06/14/21 05:12 Alen Cells Not Reportable 06/14/21 05:12 Bite Cells Not Reportable 06/14/21 05:12 Crenated Cell Not Reportable 06/14/21 05:12 Elliptocytes Not Reportable 06/14/21 05:12 Acanthocytes (Spur) Not Reportable 06/14/21 05:12 Rouleaux Not Reportable 06/14/21 05:12 Hemoglobin C Crystals Not Reportable 06/14/21 05:12 Schistocytes Not Reportable 06/14/21 05:12 Malaria parasites Not Reportable 06/14/21 05:12 Swapnil Bodies Not Reportable 06/14/21 05:12 Hem Pathologist Commnt No 06/14/21 05:12 D-Dimer 360.79 ng/mlDDU (0-234) H 06/15/21 05:21 ABG pH 7.387 pH Units (7.350-7.450) 06/15/21 Unknown ABG pCO2 40.4 mm Hg 06/15/21 Unknown ABG pO2 61.0 mm Hg (80.0-90.0) L 06/15/21 Unknown ABG HCO3 23.7 mmol/L (20.0-26.0) 06/15/21 Unknown ABG O2 Saturation 91.3 % (95.0-99.0) L 06/15/21 Unknown ABG O2 Content 21.0 (0.0-44) 06/15/21 Unknown ABG Base Excess -1.1 mmol/L (-2.0-3.0) 06/15/21 Unknown ABG Hemoglobin 16.7 gm/dl (14.0-18.0) 06/15/21 Unknown ABG Carboxyhemoglobin 1.0 % (0.0-5.0) 06/15/21 Unknown ABG Methemoglobin 0.5 % (0.0-1.5) 06/15/21 Unknown Oxyhemoglobin 89.9 % (95.0-99.0) L 06/15/21 Unknown FiO2 100 % 06/15/21 Unknown Sodium 145 mmol/L (137-145) 06/17/21 04:36 Potassium 4.2 mmol/L (3.6-5.0) 06/17/21 04:36 Chloride 103.4 mmol/L (98-107) 06/17/21 04:36 Carbon Dioxide 30 mmol/L (22-30) 06/17/21 04:36 Anion Gap 16 mmol/L 06/17/21 04:36 BUN 29 mg/dL (9-20) H 06/17/21 04:36 Creatinine 0.9 mg/dL (0.8-1.3) 06/17/21 04:36 Estimated GFR > 60 ml/min 06/17/21 04:36 BUN/Creatinine Ratio 32 % 06/17/21 04:36 Glucose 125 mg/dL (75-100) H 06/17/21 04:36 Calcium 8.8 mg/dL (8.4-10.2) 06/17/21 04:36 Ferritin 1869.0 ng/mL (30.0-300.0) H 06/15/21 05:21 Total Bilirubin 0.60 mg/dL (0.1-1.2) 06/17/21 04:36 AST 59 units/L (5-40) H 06/17/21 04:36 ALT 57 units/L (7-56) H 06/17/21 04:36 Alkaline Phosphatase 69 units/L (35-129) 06/17/21 04:36 Lactate Dehydrogenase 634 units/L (91-180) H 06/13/21 20:09 C-Reactive Protein 3.10 mg/dL (0.00-1.30) H 06/15/21 05:21 Total Protein 6.0 g/dL (6.3-8.2) L 06/17/21 04:36 Albumin 3.6 g/dL (3.9-5) L 06/17/21 04:36 Albumin/Globulin Ratio 1.5 % 06/17/21 04:36 Procalcitonin < 0.05 ng/mL (<0.15) 06/15/21 05:21 Coronavirus (PCR) Positive (Negative) A 06/14/21 Unknown Microbiology: Microbiology 06/13/21 20:09 Peripheral/Venous Blood Culture - Final NO GROWTH AFTER 5 DAYS 06/13/21 20:09 Peripheral/Venous Blood Culture - Final NO GROWTH AFTER 5 DAYS Mao/IV: Voiding Method Urinal Active Medications - Current Medications Current Medications: Generic Name Dose Route Start Last Admin Trade Name Freq PRN Reason Stop Dose Admin Acetaminophen 650 mg 06/13/21 22:49 06/19/21 10:34 Acetaminophen 325 Mg Tab PO 650 mg Q4H PRN Administration Pain MILD(1-3)/Fever >100.5/HAYNES Albuterol 2.5 mg 06/13/21 22:49 Albuterol 2.5 Mg/3 Ml Nebu IH Q4HRT PRN Shortness Of Breath Albuterol/Ipratropium 1 ampul 06/14/21 02:00 06/19/21 07:32 Ipratropium/Albuterol Sulfate 3 Ml Ampul.Neb IH 1 ampul Q6HRT SIMÓN Administration Budesonide 0.5 mg 06/14/21 08:00 06/19/21 07:32 Budesonide 0.5 Mg/2 Ml Nebu IH 0.5 mg Q12HRT SIMÓN Administration Dexamethasone 10 mg 06/16/21 12:00 06/19/21 10:13 Dexamethasone 4 Mg/Ml Vial IV 06/24/21 22:01 10 mg BID SIMÓN Administration Famotidine 20 mg 06/14/21 10:00 06/19/21 10:13 Famotidine 20 Mg Tab PO 20 mg BID SIMÓN Administration Guaifenesin 200 mg 06/15/21 00:33 06/18/21 21:38 Guaifenesin 200 Mg Tab PO 200 mg Q6H PRN Administration Cough Heparin Sodium (Porcine) 5,000 unit 06/14/21 06:00 06/19/21 14:47 Heparin 5,000 Unit/1 Ml Vial SUB-Q 5,000 unit Q8HR SIMÓN Administration Hydralazine HCl 10 mg 06/13/21 22:52 Hydralazine 20 Mg/1 Ml Inj IV Q6H PRN SBP >/=160; DBP >/=100 Hydromorphone HCl 0.5 mg 06/13/21 22:49 Hydromorphone 1 Mg/1 Ml Inj IV Q3H PRN Pain , Severe (7-10) Ondansetron HCl 4 mg 06/13/21 22:49 06/17/21 18:48 Ondansetron 4 Mg/2 Ml Inj IV 4 mg Q8H PRN Administration Nausea And Vomiting Oxycodone/Acetaminophen 1 tab 06/13/21 22:49 06/19/21 05:46 Oxycodone /Acetaminophen 5-325mg Tab PO 1 tab Q6H PRN Administration Pain, Moderate (4-6) Phenol 1 spray 06/15/21 14:00 Phenol 1.4% 177 Ml Bottle MM PRN PRN Sore Throat Sodium Chloride 10 ml 06/14/21 10:00 06/19/21 10:13 Sodium Chloride 0.9% 10 Ml Flush Syringe IV 10 ml BID SIMÓN Administration Sodium Chloride 10 ml 06/13/21 22:49 Sodium Chloride 0.9% 10 Ml Flush Syringe IV PRN PRN LINE FLUSH Nutrition/Malnutrition Assess - Dietary Evaluation Nutrition/Malnutrition Findings: Nutrition Notes Start: 06/19/21 11:11 Freq: Status: Active Protocol: Document 06/19/21 11:11 (Rec: 06/19/21 11:15 [email or web address]) Nutrition Notes Need for Assessment generated from: LOS Initial or Follow up Assessment Current Diagnosis Respiratory Failure Other Pertinent Diagnosis pneu, COVID-19 Current Diet Regular Labs/Tests Reviewed Pertinent Medications Decadron Height 5 ft 9 in Weight 94.1 kg [place] Body Weight (kg) 72.72 BMI 30.6 Weight Status Obese Subjective/Other Information Screen for LOS. Unable to speak with pt. RN unsure of exact intakes but notes he is not eating well. Burn Absent Trauma Absent Current % PO Poor (25-49%) Minimum of two criteria No physical signs of malnutrition #1 Nutrition Diagnosis Inadequate oral intake Etiology acute illness As Evidenced by Signs and Symptoms pt eating <50% of meals Is patient on ventilator? No Is Patient Ambulatory and/or Out of Bed No REE-([facility]-confined to bed) [phone] Calculation Used for Recommendations Kcal/kg Additional Notes Protein: (0.8-1g/kg AdjBW: 83kg) 67-83g Fluid: 1 ml/kcal Nutrition Intervention Change Diet Order: Continue Add Supplement/Snack (indicate name/kcal Ensure Enlive BID /protein ) Provides kCal: 700 Provides Protein (gm) 40 Goal #1 Meet at least 75% of energy and protein needs via PO and ONS Anticipated Discharge Needs: regular Follow-Up By: 06/23/21 Additional Comments FU for intakes and ONS tolerance
[2021-06-19] MEDS: guaiFENesin 200 MG TAB PO PRN (22:43)
[2021-06-20] MEDS: BUDESONIDE 0.5 MG/2 ML NEBU IH SCH ×2 (01:52→08:06)
[2021-06-20] MEDS: IPRATROPIUM/ALBUTEROL SULFATE 3 ML AMPUL.NEB IH SCH ×3 (01:52→08:06)
[2021-06-20] MEDS: oxyCODONE /ACETAMINOPHEN 5-325MG TAB PO PRN (04:50)
[2021-06-20] MEDS: guaiFENesin 200 MG TAB PO PRN (04:50)
[2021-06-20] MEDS: HEPARIN 5,000 UNIT/1 ML VIAL SUB-Q SCH ×3 (05:00→22:43)
[2021-06-20] MEDS: dexAMETHasone 4 MG/ML VIAL IV SCH ×2 (09:19→22:42)
[2021-06-20] MEDS: FAMOTIDINE 20 MG TAB PO SCH ×2 (09:19→22:45)
--- NOTE | 2021-06-20 10:16 | Progress Note ---
Assessment and Plan Cultures: SARS CoV2 PCR: Positive as outpatient 06/13/2021 blood culture: In process A/P: 36-year-old male with history of asthma, renal stones, unvaccinated for COVID-19 was diagnosed with COVID-19 as an outpatient: #Bilateral pneumonia: Secondary to COVID-19. Severe disease, with high inflamma tory markers and increasing oxygen requirements. #Acute hypoxic respiratory failure: Now on high flow nasal cannula #Morbid obesity Recs: -IV/PO Dexamethasone 10 mg daily x 10 days, higher dose due to morbid obesity -s/p Actemra once -Completed IV Remdesivir. -prophylactic anticoagulation based on d-dimer per hospital protocol -trend ferritin, LDH, d-dimer, CRP every 2-3 days for risk stratification and to assess disease progression ID will continue to follow. PLease call with concerns. Pato Kruse MD [facility] O: [phone] F: [phone] Subjective Date of service: 06/20/21 Principal diagnosis: Acute hypoxic respiratory failure Interval history: Afebrile, normal white count. Remains on high flow nasal cannula. Objective - Exam Narrative Exam: Physical exam deferred to reduce risk of transmission of COVID-19. Please refer to primary team's note. - Constitutional Vitals: Vital Signs Temp Pulse Resp BP Pulse Ox 98.6 F 83 27 H 119/70 91 06/20/21 08:00 06/20/21 10:00 06/20/21 10:00 06/20/21 10:00 06/20/21 10:00 Temperature -Last 24 Hours Temperature 98.6 F Temperature 99.1 F Temperature 99.7 F Temperature 99.4 F Temperature 97.5 F Temperature 97.8 F - Labs CBC & Chem 7: 06/17/21 04:36 06/17/21 04:36
--- NOTE | 2021-06-20 12:06 | Progress Note ---
Assessment and Plan Assessment and plan: 36-year-old with a history of asthma, obesity presented with shortness of breath fever chills arthralgias myalgias approximately 8 days after testing positive for COVID. Patient at present hypoxic requiring 15 L facemask at present. Patient is able to speak in full sentences however remains hypoxic. Hospital course complicated by nonproductive cough. (1) Acute respiratory failure due to COVID-19 Current Visit: Yes Status: Acute Plan to address problem: Patient requires 15 L oxygen to prevent hypoxemia. Currently started on steroids dexamethasone Supportive care with oxygen 15 L We will add Hycodan for cough Follow inflammatory markers Empiric antibiotics Rocephin azithromycin Initiate remdesivir Zinc, vitamin C, vitamin D (2) Asthma Current Visit: Yes Status: Acute Plan to address problem: We will place nebulizers. Albuterol nebulizers patient seemed to be doing well as far as asthma limited wheezing. Respiratory failure secondary to Covid (3) COVID-19 pneumonia (4) severe sepsis secondary to COVID-19 (5) multifocal pneumonia Current Visit: Yes Status: Acute Plan to address problem: Consistent with Covid pneumonia 06/15: Considering gradual decline will transfer patient to IMCU. We'll also consult pulmonary GI. I have requested the patient be put on high flow and also trial of BiPAP. ID is consulted and currently following patient management. Weight loss recommended. Continue steroids. Chest x-ray reviewed by me shows bilateral infiltrates 06/16: Patient seen and examined Remains on HFNC but now at 40 and 100%. SAts in the mid 90's. Continue to monitor renal function with Lasix. Continue IMCU. Can downgrade this oxygen weaning again this. Continue prone positioning. Case disc ussed with rivet driver 06/17: Continue supportive care. High flow down to 35 L continuous 100% with saturation in the mid to low 90s. Per rivet driver steroid has been increased to twice daily dosing due to patient size. Patient continues on IV remdesivir. We will continue to monitor inflammatory markers. Prognosis is guarded. 06/18: Patient seen and examined, Continues supportive care, wean as tolerated. still with persitent hypoxia, he did not like the High flow, affects his nostriles, and now is on NRB satting 94%. Continue to encourage prone position. condition is still guarded 06/19: Continue supportive care, wean oxygen as tolerated, patient ok with me speaking with mother, will call and update. 06/20: Patient seen and examined continues to be weaned down on high flow oxygen down to 85%. Saturation remains around 92%. I did discuss extensively with the mother. She verbalized understanding. This discussion was done with permission with the patient. We will do another trial of Lasix. Patient is continued on the steroids he is status post Actemra and has completed his remdesivir. The high probability of a clinically significant, sudden or life threatening deterioration of the [pulmonary] system(s) required my full and direct attention, intervention and personal management. The aggregate critical care time was [35] minutes. This time is in addition to time spent performing reported procedures but includes the following: [x] Data Review and interpretation [x] Patient assessment and monitoring of vital signs [x] Documentation [x] Medication orders and management History Interval history: Patient seen and examined currently still intermittent high flow down to 85% FiO2. Hospitalist Physical - Physical exam Narrative exam: General appearance: Present: Mild to moderate distress, well-nourished, on high flow - EENT Eyes: PERRL, EOM intact ENT: hearing intact, clear oral mucosa Ears: bilateral: normal - Neck Neck: supple, normal ROM - Respiratory Respiratory effort: normal Respiratory: bilateral: diminished - Breasts Breasts: normal - Cardiovascular Rhythm: regular Heart Sounds: Present: S1 & S2. Absent: gallop, rub Extremities: pulses intact, No edema, normal color, Full ROM - Gastrointestinal General gastrointestinal: Present: soft, non-tender, non-distended, normal bowel sounds - Genitourinary Male genitourinary: normal - Integumentary Integumentary: clear, warm, dry - Musculoskeletal Musculoskeletal: 1, strength equal bilaterally - Neurologic Neurologic: moves all extremities - Psychiatric Psychiatric: memory intact, appropriate mood/affect, intact judgment & insight - Constitutional Vitals: Temp Pulse Resp BP Pulse Ox 98.6 F 83 27 H 119/70 91 06/20/21 08:00 06/20/21 10:06/20/21 10:00 06/20/21 10:06/20/21 10:00 General appearance: Present: no acute distress, well-nourished Results - Labs CBC & Chem 7: 06/17/21 04:36 06/17/21 04:36 Labs: Laboratory Last Values WBC 9.5 K/mm3 (4.5-11.0) 06/17/21 04:36 RBC 4.74 M/mm3 (3.65-5.03) 06/17/21 04:36 Hgb 14.3 gm/dl (11.8-15.2) 06/17/21 04:36 Hct 40.2 % (35.5-45.6) 06/17/21 04:36 MCV 85 fl (84-94) 06/17/21 04:36 MCH 30 pg (28-32) 06/17/21 04:36 MCHC 36 % (32-34) H 06/17/21 04:36 RDW 13.2 % (13.2-15.2) 06/17/21 04:36 Plt Count 201 K/mm3 (140-440) 06/17/21 04:36 Lymph % (Auto) 25.5 % (13.4-35.0) 06/13/21 20:09 [place] % (Auto) 4.3 % (0.0-7.3) 06/13/21 20:09 Eos % (Auto) 0.0 % (0.0-4.3) 06/13/21 20:09 Baso % (Auto) 0.3 % (0.0-1.8) 06/13/21 20:09 Lymph # (Auto) 0.6 K/mm3 (1.2-5.4) L 06/13/21 20:09 [place] # (Auto) 0.1 K/mm3 (0.0-0.8) 06/13/21 20:09 Eos # (Auto) 0.0 K/mm3 (0.0-0.4) 06/13/21 20:09 Baso # (Auto) 0.0 K/mm3 (0.0-0.1) 06/13/21 20:09 Add Manual Diff Complete 06/14/21 05:12 Total Counted 50 06/14/21 05:12 Seg Neutrophils % 69.9 % (40.0-70.0) 06/13/21 20:09 Seg Neuts % (Manual) 82.0 % (40.0-70.0) H 06/14/21 05:12 Lymphocytes % (Manual) 14.0 % (13.4-35.0) 06/14/21 05:12 Monocytes % (Manual) 4.0 % (0.0-7.3) 06/14/21 05:12 Nucleated RBC % Not Reportable 06/14/21 05:12 Seg Neutrophils # 1.8 K/mm3 (1.8-7.7) 06/13/21 20:09 Seg Neutrophils # Man 1.6 K/mm3 (1.8-7.7) L 06/14/21 05:12 Band Neutrophils # 0.0 K/mm3 06/14/21 05:12 Lymphocytes # (Manual) 0.3 K/mm3 (1.2-5.4) L 06/14/21 05:12 Abs React Lymphs (Man) 0.0 K/mm3 06/14/21 05:12 Monocytes # (Manual) 0.1 K/mm3 (0.0-0.8) 06/14/21 05:12 Eosinophils # (Manual) 0.0 K/mm3 (0.0-0.4) 06/14/21 05:12 Basophils # (Manual) 0.0 K/mm3 (0.0-0.1) 06/14/21 05:12 Metamyelocytes # 0.0 K/mm3 06/14/21 05:12 Myelocytes # 0.0 K/mm3 06/14/21 05:12 Promyelocytes # 0.0 K/mm3 06/14/21 05:12 Blast Cells # 0.0 K/mm3 06/14/21 05:12 WBC Morphology Not Reportable 06/14/21 05:12 Hypersegmented Neuts Not Reportable 06/14/21 05:12 Hyposegmented Neuts Not Reportable 06/14/21 05:12 Hypogranular Neuts Not Reportable 06/14/21 05:12 Smudge Cells Not Reportable 06/14/21 05:12 Toxic Granulation Not Reportable 06/14/21 05:12 Toxic Vacuolation Not Reportable 06/14/21 05:12 Dohle Bodies Not Reportable 06/14/21 05:12 Pelger-Huet Anomaly Not Reportable 06/14/21 05:12 Sheri Rods Not Reportable 06/14/21 05:12 Platelet Estimate Consistent w auto 06/14/21 05:12 Clumped Platelets Not Reportable 06/14/21 05:12 Plt Clumps, EDTA Not Reportable 06/14/21 05:12 Large Platelets Not Reportable 06/14/21 05:12 Giant Platelets Not Reportable 06/14/21 05:12 Platelet Satelliting Not Reportable 06/14/21 05:12 Plt Morphology Comment Not Reportable 06/14/21 05:12 RBC Morphology Not Reportable 06/14/21 05:12 Dimorphic RBCs Not Reportable 06/14/21 05:12 Polychromasia Not Reportable 06/14/21 05:12 Hypochromasia Not Reportable 06/14/21 05:12 Poikilocytosis Not Reportable 06/14/21 05:12 Anisocytosis 1+ 06/14/21 05:12 Microcytosis Not Reportable 06/14/21 05:12 Macrocytosis Not Reportable 06/14/21 05:12 Spherocytes Not Reportable 06/14/21 05:12 Pappenheimer Bodies Not Reportable 06/14/21 05:12 Sickle Cells Not Reportable 06/14/21 05:12 Target Cells Not Reportable 06/14/21 05:12 Tear Drop Cells Not Reportable 06/14/21 05:12 Ovalocytes Not Reportable 06/14/21 05:12 Helmet Cells Not Reportable 06/14/21 05:12 [place] Bodies Not Reportable 06/14/21 05:12 [place] Rings Not Reportable 06/14/21 05:12 Needles Cells Not Reportable 06/14/21 05:12 Bite Cells Not Reportable 06/14/21 05:12 Crenated Cell Not Reportable 06/14/21 05:12 Elliptocytes Not Reportable 06/14/21 05:12 Acanthocytes (Spur) Not Reportable 06/14/21 05:12 Rouleaux Not Reportable 06/14/21 05:12 Hemoglobin C Crystals Not Reportable 06/14/21 05:12 Schistocytes Not Reportable 06/14/21 05:12 Malaria parasites Not Reportable 06/14/21 05:12 Swapnil Bodies Not Reportable 06/14/21 05:12 Hem Pathologist Commnt No 06/14/21 05:12 D-Dimer 360.79 ng/mlDDU (0-234) H 06/15/21 05:21 ABG pH 7.387 pH Units (7.350-7.450) 06/15/21 Unknown ABG pCO2 40.4 mm Hg 06/15/21 Unknown ABG pO2 61.0 mm Hg (80.0-90.0) L 06/15/21 Unknown ABG HCO3 23.7 mmol/L (20.0-26.0) 06/15/21 Unknown ABG O2 Saturation 91.3 % (95.0-99.0) L 06/15/21 Unknown ABG O2 Content 21.0 (0.0-44) 06/15/21 Unknown ABG Base Excess -1.1 mmol/L (-2.0-3.0) 06/15/21 Unknown ABG Hemoglobin 16.7 gm/dl (14.0-18.0) 06/15/21 Unknown ABG Carboxyhemoglobin 1.0 % (0.0-5.0) 06/15/21 Unknown ABG Methemoglobin 0.5 % (0.0-1.5) 06/15/21 Unknown Oxyhemoglobin 89.9 % (95.0-99.0) L 06/15/21 Unknown FiO2 100 % 06/15/21 Unknown Sodium 145 mmol/L (137-145) 06/17/21 04:36 Potassium 4.2 mmol/L (3.6-5.0) 06/17/21 04:36 Chloride 103.4 mmol/L (98-107) 06/17/21 04:36 Carbon Dioxide 30 mmol/L (22-30) 06/17/21 04:36 Anion Gap 16 mmol/L 06/17/21 04:36 BUN 29 mg/dL (9-20) H 06/17/21 04:36 Creatinine 0.9 mg/dL (0.8-1.3) 06/17/21 04:36 Estimated GFR > 60 ml/min 06/17/21 04:36 BUN/Creatinine Ratio 32 % 06/17/21 04:36 Glucose 125 mg/dL (75-100) H 06/17/21 04:36 Calcium 8.8 mg/dL (8.4-10.2) 06/17/21 04:36 Ferritin 1869.0 ng/mL (30.0-300.0) H 06/15/21 05:21 Total Bilirubin 0.60 mg/dL (0.1-1.2) 06/17/21 04:36 AST 59 units/L (5-40) H 06/17/21 04:36 ALT 57 units/L (7-56) H 06/17/21 04:36 Alkaline Phosphatase 69 units/L (35-129) 06/17/21 04:36 Lactate Dehydrogenase 634 units/L (91-180) H 06/13/21 20:09 C-Reactive Protein 3.10 mg/dL (0.00-1.30) H 06/15/21 05:21 Total Protein 6.0 g/dL (6.3-8.2) L 06/17/21 04:36 Albumin 3.6 g/dL (3.9-5) L 06/17/21 04:36 Albumin/Globulin Ratio 1.5 % 06/17/21 04:36 Procalcitonin < 0.05 ng/mL (<0.15) 06/15/21 05:21 Coronavirus (PCR) Positive (Negative) A 06/14/21 Unknown Mao/IV: Voiding Method Urinal Active Medications - Current Medications Current Medications: Generic Name Dose Route Start Last Admin Trade Name Freq PRN Reason Stop Dose Admin Acetaminophen 650 mg 06/13/21 22:49 06/19/21 22:38 Acetaminophen 325 Mg Tab PO 650 mg Q4H PRN Administration Pain MILD(1-3)/Fever >100.5/HAYNES Dexamethasone 10 mg 06/16/21 12:00 06/20/21 09:19 Dexamethasone 4 Mg/Ml Vial IV 06/24/21 22:01 10 mg BID SIMÓN Administration Famotidine 20 mg 06/14/21 10:00 06/20/21 09:19 Famotidine 20 Mg Tab PO 20 mg BID SIMÓN Administration Guaifenesin 200 mg 06/15/21 00:33 06/20/21 04:50 Guaifenesin 200 Mg Tab PO 200 mg Q6H PRN Administration Cough Heparin Sodium (Porcine) 5,000 unit 06/14/21 06:00 06/20/21 05:00 Heparin 5,000 Unit/1 Ml Vial SUB-Q 5,000 unit Q8HR SIMÓN Administration Hydralazine HCl 10 mg 06/13/21 22:52 Hydralazine 20 Mg/1 Ml Inj IV Q6H PRN SBP >/=160; DBP >/=100 Hydromorphone HCl 0.5 mg 06/13/21 22:49 Hydromorphone 1 Mg/1 Ml Inj IV Q3H PRN Pain , Severe (7-10) Ondansetron HCl 4 mg 06/13/21 22:49 06/17/21 18:48 Ondansetron 4 Mg/2 Ml Inj IV 4 mg Q8H PRN Administration Nausea And Vomiting Oxycodone/Acetaminophen 1 tab 06/13/21 22:49 06/20/21 04:50 Oxycodone /Acetaminophen 5-325mg Tab PO 1 tab Q6H PRN Administration Pain, Moderate (4-6) Phenol 1 spray 06/15/21 14:00 Phenol 1.4% 177 Ml Bottle MM PRN PRN Sore Throat Sodium Chloride 10 ml 06/14/21 10:00 06/20/21 09:19 Sodium Chloride 0.9% 10 Ml Flush Syringe IV 10 ml BID SIMÓN Administration Sodium Chloride 10 ml 06/13/21 22:49 Sodium Chloride 0.9% 10 Ml Flush Syringe IV PRN PRN LINE FLUSH Nutrition/Malnutrition Assess - Dietary Evaluation Nutrition/Malnutrition Findings: Nutrition Notes Start: 06/19/21 11:11 Freq: Status: Active Protocol: Document 06/19/21 11:11 (Rec: 06/19/21 11:15 [id number]) Nutrition Notes Need for Assessment generated from: LOS Initial or Follow up Assessment Current Diagnosis Respiratory Failure Other Pertinent Diagnosis pneu, COVID-19 Current Diet Regular Labs/Tests Reviewed Pertinent Medications Decadron Height 5 ft 9 in Weight 94.1 kg [place] Body Weight (kg) 72.72 BMI 30.6 Weight Status Obese Subjective/Other Information Screen for LOS. Unable to speak with pt. RN unsure of exact intakes but notes he is not eating well. Burn Absent Trauma Absent Current % PO Poor (25-49%) Minimum of two criteria No physical signs of malnutrition #1 Nutrition Diagnosis Inadequate oral intake Etiology acute illness As Evidenced by Signs and Symptoms pt eating <50% of meals Is patient on ventilator? No Is Patient Ambulatory and/or Out of Bed No REE-([facility]-confined to bed) [phone] Calculation Used for Recommendations Kcal/kg Additional Notes Protein: (0.8-1g/kg AdjBW: 83kg) 67-83g Fluid: 1 ml/kcal Nutrition Intervention Change Diet Order: Continue Add Supplement/Snack (indicate name/kcal Ensure Enlive BID /protein ) Provides kCal: 700 Provides Protein (gm) 40 Goal #1 Meet at least 75% of energy and protein needs via PO and ONS Anticipated Discharge Needs: regular Follow-Up By: 06/23/21 Additional Comments FU for intakes and ONS tolerance
[2021-06-20] MEDS: FUROSEMIDE 40 MG/4 ML INJ IV SCH (14:36)
[2021-06-20] MEDS: ACETAMINOPHEN 325 MG TAB PO PRN (19:54)
[2021-06-21] MEDS: FUROSEMIDE 40 MG/4 ML INJ IV SCH (05:34)
[2021-06-21] MEDS: HEPARIN 5,000 UNIT/1 ML VIAL SUB-Q SCH ×3 (05:35→22:21)
[2021-06-21] MEDS: dexAMETHasone 4 MG/ML VIAL IV SCH ×2 (09:23→22:21)
[2021-06-21] MEDS: FAMOTIDINE 20 MG TAB PO SCH ×2 (09:23→22:21)
--- NOTE | 2021-06-21 09:23 | Progress Note ---
Assessment and Plan - Patient Problems (1) Hypoxia Current Visit: Yes Status: Acute (2) Acute respiratory failure due to COVID-19 Current Visit: Yes Status: Acute (3) Asthma Current Visit: Yes Status: Acute (4) Multifocal pneumonia Current Visit: Yes Status: Acute (5) Epistaxis Current Visit: Yes Status: Acute (6) Cough Current Visit: Yes Status: Acute Subjective Principal diagnosis: Acute hypoxic respiratory failure Interval history: sitting on toilet in mild distress had blood from nose earlier today Objective Vital Signs - 12hr 06/20/21 06/20/21 06/20/21 21:31 21:40 22:00 Temperature Pulse Rate 100 H 87 Pulse Rate [ From Monitor] Respiratory 23 34 H Rate Blood Pressure 114/75 109/64 O2 Sat by Pulse 92 93 91 Oximetry 06/20/21 06/20/21 06/20/21 22:31 22:39 23:00 Temperature Pulse Rate 82 85 80 Pulse Rate [ From Monitor] Respiratory 34 H 42 H 22 Rate Blood Pressure 109/64 109/64 114/72 O2 Sat by Pulse 94 87 87 Oximetry 06/20/21 06/20/21 06/21/21 23:30 23:41 00:00 Temperature 98.3 F Pulse Rate 97 H 89 Pulse Rate [ 69 From Monitor] Respiratory 21 26 H Rate Blood Pressure 114/72 O2 Sat by Pulse 91 94 Oximetry 06/21/21 06/21/21 06/21/21 00:01 00:31 01:00 Temperature Pulse Rate 87 83 81 Pulse Rate [ From Monitor] Respiratory 24 25 H 25 H Rate Blood Pressure 90/48 90/48 97/55 O2 Sat by Pulse 94 91 93 Oximetry 06/21/21 06/21/21 06/21/21 01:31 02:00 02:31 Temperature Pulse Rate 83 85 73 Pulse Rate [ From Monitor] Respiratory 23 16 40 H Rate Blood Pressure 97/55 108/67 97/55 O2 Sat by Pulse 94 92 86 Oximetry 06/21/21 06/21/21 06/21/21 02:40 03:00 03:31 Temperature Pulse Rate 108 H 86 Pulse Rate [ From Monitor] Respiratory 22 31 H Rate Blood Pressure 108/67 108/67 O2 Sat by Pulse 93 90 93 Oximetry 06/21/21 06/21/21 06/21/21 03:34 04:00 04:31 Temperature 98.3 F Pulse Rate 88 82 Pulse Rate [ 78 From Monitor] Respiratory 42 H 38 H Rate Blood Pressure 113/72 113/72 O2 Sat by Pulse 81 L 80 L Oximetry 06/21/21 06/21/21 06/21/21 05:00 05:31 06:00 Temperature Pulse Rate 85 77 88 Pulse Rate [ From Monitor] Respiratory 41 H 33 H 26 H Rate Blood Pressure 113/66 113/66 120/78 O2 Sat by Pulse 83 L 81 L 88 Oximetry 06/21/21 06/21/21 06/21/21 06:31 07:00 07:31 Temperature Pulse Rate 93 H 91 H 112 H Pulse Rate [ From Monitor] Respiratory 37 H 32 H 25 H Rate Blood Pressure 120/78 104/69 120/78 O2 Sat by Pulse 82 L 84 93 Oximetry 06/21/21 06/21/21 06/21/21 07:43 07:44 08:54 Temperature 99 F Pulse Rate 82 Pulse Rate [ 84 From Monitor] Respiratory 20 Rate Blood Pressure O2 Sat by Pulse 92 Oximetry Constitutional: alert Eyes: non-icteric ENT: oropharynx moist Neck: supple Ascultation: Bilateral: diminished breath sounds Cardiovascular: regular rate and rhythm Gastrointestinal: normoactive bowel sounds Integumentary: normal Extremities: no cyanosis Neurologic: normal mental status Psychiatric: anxious CBC and BMP: 06/17/21 04:36 06/17/21 04:36 ABG, PT/INR, D-dimer: ABG ABG pH 7.387 pH Units (7.350-7.450) 06/15/21 Unknown ABG pCO2 40.4 mm Hg 06/15/21 Unknown ABG pO2 61.0 mm Hg (80.0-90.0) L 06/15/21 Unknown ABG O2 Saturation 91.3 % (95.0-99.0) L 06/15/21 Unknown PT/INR, D-dimer D-Dimer 360.79 ng/mlDDU (0-234) H 06/15/21 05:21 Abnormal lab findings: Abnormal Labs 06/13/21 06/13/21 06/13/21 20:09 20:09 20:09 WBC 2.6 L MCHC 35 H Plt Count 112 L Lymph # (Auto) 0.6 L Seg Neuts % (Manual) Seg Neutrophils # Man Lymphocytes # (Manual) D-Dimer 560.90 H ABG pO2 ABG O2 Saturation Oxyhemoglobin Sodium 134 L BUN Creatinine Glucose 105 H Ferritin AST ALT Lactate Dehydrogenase C-Reactive Protein Total Protein Albumin Coronavirus (PCR) 06/13/21 06/13/21 06/14/21 20:09 20:09 05:12 WBC 2.0 L MCHC 35 H Plt Count 106 L Lymph # (Auto) Seg Neuts % (Manual) 82.0 H Seg Neutrophils # Man 1.6 L Lymphocytes # (Manual) 0.3 L D-Dimer ABG pO2 ABG O2 Saturation Oxyhemoglobin Sodium BUN Creatinine Glucose 105 H Ferritin 1876.0 H AST ALT Lactate Dehydrogenase 634 H C-Reactive Protein 9.20 H Total Protein Albumin Coronavirus (PCR) 06/14/21 06/14/21 06/14/21 05:12 23:50 Unknown WBC MCHC Plt Count Lymph # (Auto) Seg Neuts % (Manual) Seg Neutrophils # Man Lymphocytes # (Manual) D-Dimer ABG pO2 ABG O2 Saturation Oxyhemoglobin Sodium BUN Creatinine Glucose 214 H 135 H Ferritin AST 52 H ALT Lactate Dehydrogenase C-Reactive Protein Total Protein Albumin 3.2 L Coronavirus (PCR) Positive A 06/15/21 06/15/21 06/15/21 05:21 05:21 05:21 WBC MCHC Plt Count Lymph # (Auto) Seg Neuts % (Manual) Seg Neutrophils # Man Lymphocytes # (Manual) D-Dimer 360.79 H ABG pO2 ABG O2 Saturation Oxyhemoglobin Sodium BUN Creatinine 0.7 L Glucose 167 H Ferritin 1869.0 H AST 65 H ALT Lactate Dehydrogenase C-Reactive Protein Total Protein 6.1 L Albumin 3.4 L Coronavirus (PCR) 06/15/21 06/15/21 06/16/21 05:21 Unknown 07:16 WBC MCHC Plt Count Lymph # (Auto) Seg Neuts % (Manual) Seg Neutrophils # Man Lymphocytes # (Manual) D-Dimer ABG pO2 61.0 L ABG O2 Saturation 91.3 L Oxyhemoglobin 89.9 L Sodium BUN Creatinine Glucose 130 H Ferritin AST 77 H ALT 57 H Lactate Dehydrogenase C-Reactive Protein 3.10 H Total Protein 6.0 L Albumin 3.5 L Coronavirus (PCR) 06/17/21 06/17/21 04:36 04:36 WBC MCHC 36 H Plt Count Lymph # (Auto) Seg Neuts % (Manual) Seg Neutrophils # Man Lymphocytes # (Manual) D-Dimer ABG pO2 ABG O2 Saturation Oxyhemoglobin Sodium BUN 29 H Creatinine Glucose 125 H Ferritin AST 59 H ALT 57 H Lactate Dehydrogenase C-Reactive Protein Total Protein 6.0 L Albumin 3.6 L Coronavirus (PCR)
[2021-06-21] MEDS: guaiFENesin 200 MG TAB PO PRN (09:24)
--- NOTE | 2021-06-21 12:52 | Progress Note ---
Assessment and Plan Assessment and plan: 36-year-old with a history of asthma, obesity presented with shortness of breath fever chills arthralgias myalgias approximately 8 days after testing positive for COVID. Patient at present hypoxic requiring 15 L facemask at present. Patient is able to speak in full sentences however remains hypoxic. Hospital course complicated by nonproductive cough. (1) Acute respiratory failure due to COVID-19 Current Visit: Yes Status: Acute Plan to address problem: Patient requires 15 L oxygen to prevent hypoxemia. Currently started on steroids dexamethasone Supportive care with oxygen 15 L We will add Hycodan for cough Follow inflammatory markers Empiric antibiotics Rocephin azithromycin Initiate remdesivir Zinc, vitamin C, vitamin D (2) Asthma Current Visit: Yes Status: Acute Plan to address problem: We will place nebulizers. Albuterol nebulizers patient seemed to be doing well as far as asthma limited wheezing. Respiratory failure secondary to Covid (3) COVID-19 pneumonia (4) severe sepsis secondary to COVID-19 (5) multifocal pneumonia Current Visit: Yes Status: Acute Plan to address problem: Consistent with Covid pneumonia 06/15: Considering gradual decline will transfer patient to IMCU. We'll also consult pulmonary GI. I have requested the patient be put on high flow and also trial of BiPAP. ID is consulted and currently following patient management. Weight loss recommended. Continue steroids. Chest x-ray reviewed by me shows bilateral infiltrates 06/16: Patient seen and examined Remains on HFNC but now at 40 and 100%. SAts in the mid 90's. Continue to monitor renal function with Lasix. Continue IMCU. Can downgrade this oxygen weaning again this. Continue prone positioning. Case disc ussed with pest control pilot 06/17: Continue supportive care. High flow down to 35 L continuous 100% with saturation in the mid to low 90s. Per pest control pilot steroid has been increased to twice daily dosing due to patient size. Patient continues on IV remdesivir. We will continue to monitor inflammatory markers. Prognosis is guarded. 06/18: Patient seen and examined, Continues supportive care, wean as tolerated. still with persitent hypoxia, he did not like the High flow, affects his nostriles, and now is on NRB satting 94%. Continue to encourage prone position. condition is still guarded 06/19: Continue supportive care, wean oxygen as tolerated, patient ok with me speaking with mother, will call and update. 06/20: Patient seen and examined continues to be weaned down on high flow oxygen down to 85%. Saturation remains around 92%. I did discuss extensively with the mother. She verbalized understanding. This discussion was done with permission with the patient. We will do another trial of Lasix. Patient is continued on the steroids he is status post Actemra and has completed his remdesivir. 06/21: Patient's prognosis still remains guarded. Continue to encourage prone positioning. Went back up on oxygen demand. But states that he does not feel less winded as before. Continue diuresis and monitor renal function. Also monitor inflammatory markers. The high probability of a clinically significant, sudden or life threatening deterioration of the [pulmonary] system(s) required my full and direct attention, intervention and personal management. The aggregate critical care fady e was [35] minutes. This time is in addition to time spent performing reported procedures but includes the following: [x] Data Review and interpretation [x] Patient assessment and monitoring of vital signs [x] Documentation [x] Medication orders and management History Interval history: Patient seen and examined currently still on high flow to go back up to 100% due to desaturation. Hospitalist Physical - Physical exam Narrative exam: General appearance: Present: Mild to moderate distress, well-nourished, on high flow - EENT Eyes: PERRL, EOM intact ENT: hearing intact, clear oral mucosa Ears: bilateral: normal - Neck Neck: supple, normal ROM - Respiratory Respiratory effort: normal Respiratory: bilateral: diminished - Breasts Breasts: normal - Cardiovascular Rhythm: regular Heart Sounds: Present: S1 & S2. Absent: gallop, rub Extremities: pulses intact, No edema, normal color, Full ROM - Gastrointestinal General gastrointestinal: Present: soft, non-tender, non-distended, normal bowel sounds - Genitourinary Male genitourinary: normal - Integumentary Integumentary: clear, warm, dry - Musculoskeletal Musculoskeletal: 1, strength equal bilaterally - Neurologic Neurologic: moves all extremities - Psychiatric Psychiatric: memory intact, appropriate mood/affect, intact judgment & insight - Constitutional Vitals: Temp Pulse Resp BP Pulse Ox 99.2 F 76 20 128/77 92 06/21/21 11:54 06/21/21 11:34 06/21/21 11:33 06/21/21 11:00 06/21/21 11:33 General appearance: Present: no acute distress, well-nourished Results - Labs CBC & Chem 7: 06/17/21 04:36 06/17/21 04:36 Labs: Laboratory Last Values WBC 9.5 K/mm3 (4.5-11.0) 06/17/21 04:36 RBC 4.74 M/mm3 (3.65-5.03) 06/17/21 04:36 Hgb 14.3 gm/dl (11.8-15.2) 06/17/21 04:36 Hct 40.2 % (35.5-45.6) 06/17/21 04:36 MCV 85 fl (84-94) 06/17/21 04:36 MCH 30 pg (28-32) 06/17/21 04:36 MCHC 36 % (32-34) H 06/17/21 04:36 RDW 13.2 % (13.2-15.2) 06/17/21 04:36 Plt Count 201 K/mm3 (140-440) 06/17/21 04:36 Lymph % (Auto) 25.5 % (13.4-35.0) 06/13/21 20:09 [place] % (Auto) 4.3 % (0.0-7.3) 06/13/21 20:09 Eos % (Auto) 0.0 % (0.0-4.3) 06/13/21 20:09 Baso % (Auto) 0.3 % (0.0-1.8) 06/13/21 20:09 Lymph # (Auto) 0.6 K/mm3 (1.2-5.4) L 06/13/21 20:09 [place] # (Auto) 0.1 K/mm3 (0.0-0.8) 06/13/21 20:09 Eos # (Auto) 0.0 K/mm3 (0.0-0.4) 06/13/21 20:09 Baso # (Auto) 0.0 K/mm3 (0.0-0.1) 06/13/21 20:09 Add Manual Diff Complete 06/14/21 05:12 Total Counted 50 06/14/21 05:12 Seg Neutrophils % 69.9 % (40.0-70.0) 06/13/21 20:09 Seg Neuts % (Manual) 82.0 % (40.0-70.0) H 06/14/21 05:12 Lymphocytes % (Manual) 14.0 % (13.4-35.0) 06/14/21 05:12 Monocytes % (Manual) 4.0 % (0.0-7.3) 06/14/21 05:12 Nucleated RBC % Not Reportable 06/14/21 05:12 Seg Neutrophils # 1.8 K/mm3 (1.8-7.7) 06/13/21 20:09 Seg Neutrophils # Man 1.6 K/mm3 (1.8-7.7) L 06/14/21 05:12 Band Neutrophils # 0.0 K/mm3 06/14/21 05:12 Lymphocytes # (Manual) 0.3 K/mm3 (1.2-5.4) L 06/14/21 05:12 Abs React Lymphs (Man) 0.0 K/mm3 06/14/21 05:12 Monocytes # (Manual) 0.1 K/mm3 (0.0-0.8) 06/14/21 05:12 Eosinophils # (Manual) 0.0 K/mm3 (0.0-0.4) 06/14/21 05:12 Basophils # (Manual) 0.0 K/mm3 (0.0-0.1) 06/14/21 05:12 Metamyelocytes # 0.0 K/mm3 06/14/21 05:12 Myelocytes # 0.0 K/mm3 06/14/21 05:12 Promyelocytes # 0.0 K/mm3 06/14/21 05:12 Blast Cells # 0.0 K/mm3 06/14/21 05:12 WBC Morphology Not Reportable 06/14/21 05:12 Hypersegmented Neuts Not Reportable 06/14/21 05:12 Hyposegmented Neuts Not Reportable 06/14/21 05:12 Hypogranular Neuts Not Reportable 06/14/21 05:12 Smudge Cells Not Reportable 06/14/21 05:12 Toxic Granulation Not Reportable 06/14/21 05:12 Toxic Vacuolation Not Reportable 06/14/21 05:12 Dohle Bodies Not Reportable 06/14/21 05:12 Pelger-Huet Anomaly Not Reportable 06/14/21 05:12 Sheri Rods Not Reportable 06/14/21 05:12 Platelet Estimate Consistent w auto 06/14/21 05:12 Clumped Platelets Not Reportable 06/14/21 05:12 Plt Clumps, EDTA Not Reportable 06/14/21 05:12 Large Platelets Not Reportable 06/14/21 05:12 Giant Platelets Not Reportable 06/14/21 05:12 Platelet Satelliting Not Reportable 06/14/21 05:12 Plt Morphology Comment Not Reportable 06/14/21 05:12 RBC Morphology Not Reportable 06/14/21 05:12 Dimorphic RBCs Not Reportable 06/14/21 05:12 Polychromasia Not Reportable 06/14/21 05:12 Hypochromasia Not Reportable 06/14/21 05:12 Poikilocytosis Not Reportable 06/14/21 05:12 Anisocytosis 1+ 06/14/21 05:12 Microcytosis Not Reportable 06/14/21 05:12 Macrocytosis Not Reportable 06/14/21 05:12 Spherocytes Not Reportable 06/14/21 05:12 Pappenheimer Bodies Not Reportable 06/14/21 05:12 Sickle Cells Not Reportable 06/14/21 05:12 Target Cells Not Reportable 06/14/21 05:12 Tear Drop Cells Not Reportable 06/14/21 05:12 Ovalocytes Not Reportable 06/14/21 05:12 Helmet Cells Not Reportable 06/14/21 05:12 Macdonald-Ciales Bodies Not Reportable 06/14/21 05:12 [place] Rings Not Reportable 06/14/21 05:12 Alen Cells Not Reportable 06/14/21 05:12 Bite Cells Not Reportable 06/14/21 05:12 Crenated Cell Not Reportable 06/14/21 05:12 Elliptocytes Not Reportable 06/14/21 05:12 Acanthocytes (Spur) Not Reportable 06/14/21 05:12 Rouleaux Not Reportable 06/14/21 05:12 Hemoglobin C Crystals Not Reportable 06/14/21 05:12 Schistocytes Not Reportable 06/14/21 05:12 Malaria parasites Not Reportable 06/14/21 05:12 Swapnil Bodies Not Reportable 06/14/21 05:12 Hem Pathologist Commnt No 06/14/21 05:12 D-Dimer 360.79 ng/mlDDU (0-234) H 06/15/21 05:21 ABG pH 7.387 pH Units (7.350-7.450) 06/15/21 Unknown ABG pCO2 40.4 mm Hg 06/15/21 Unknown ABG pO2 61.0 mm Hg (80.0-90.0) L 06/15/21 Unknown ABG HCO3 23.7 mmol/L (20.0-26.0) 06/15/21 Unknown ABG O2 Saturation 91.3 % (95.0-99.0) L 06/15/21 Unknown ABG O2 Content 21.0 (0.0-44) 06/15/21 Unknown ABG Base Excess -1.1 mmol/L (-2.0-3.0) 06/15/21 Unknown ABG Hemoglobin 16.7 gm/dl (14.0-18.0) 06/15/21 Unknown ABG Carboxyhemoglobin 1.0 % (0.0-5.0) 06/15/21 Unknown ABG Methemoglobin 0.5 % (0.0-1.5) 06/15/21 Unknown Oxyhemoglobin 89.9 % (95.0-99.0) L 06/15/21 Unknown FiO2 100 % 06/15/21 Unknown Sodium 145 mmol/L (137-145) 06/17/21 04:36 Potassium 4.2 mmol/L (3.6-5.0) 06/17/21 04:36 Chloride 103.4 mmol/L (98-107) 06/17/21 04:36 Carbon Dioxide 30 mmol/L (22-30) 06/17/21 04:36 Anion Gap 16 mmol/L 06/17/21 04:36 BUN 29 mg/dL (9-20) H 06/17/21 04:36 Creatinine 0.9 mg/dL (0.8-1.3) 06/17/21 04:36 Estimated GFR > 60 ml/min 06/17/21 04:36 BUN/Creatinine Ratio 32 % 06/17/21 04:36 Glucose 125 mg/dL (75-100) H 06/17/21 04:36 Calcium 8.8 mg/dL (8.4-10.2) 06/17/21 04:36 Ferritin 1869.0 ng/mL (30.0-300.0) H 06/15/21 05:21 Total Bilirubin 0.60 mg/dL (0.1-1.2) 06/17/21 04:36 AST 59 units/L (5-40) H 06/17/21 04:36 ALT 57 units/L (7-56) H 06/17/21 04:36 Alkaline Phosphatase 69 units/L (35-129) 06/17/21 04:36 Lactate Dehydrogenase 634 units/L (91-180) H 06/13/21 20:09 C-Reactive Protein 3.10 mg/dL (0.00-1.30) H 06/15/21 05:21 Total Protein 6.0 g/dL (6.3-8.2) L 06/17/21 04:36 Albumin 3.6 g/dL (3.9-5) L 06/17/21 04:36 Albumin/Globulin Ratio 1.5 % 06/17/21 04:36 Procalcitonin < 0.05 ng/mL (<0.15) 06/15/21 05:21 Coronavirus (PCR) Positive (Negative) A 06/14/21 Unknown Mao/IV: Voiding Method Urinal Active Medications - Current Medications Current Medications: Generic Name Dose Route Start Last Admin Trade Name Freq PRN Reason Stop Dose Admin Acetaminophen 650 mg 06/13/21 22:49 06/20/21 19:54 Acetaminophen 325 Mg Tab PO 650 mg Q4H PRN Administration Pain MILD(1-3)/Fever >100.5/HAYNES Dexamethasone 10 mg 06/16/21 12:00 06/21/21 09:23 Dexamethasone 4 Mg/Ml Vial IV 06/24/21 22:01 10 mg BID SIMÓN Administration Famotidine 20 mg 06/14/21 10:00 06/21/21 09:23 Famotidine 20 Mg Tab PO 20 mg BID SIMÓN Administration Furosemide 40 mg 06/20/21 13:00 06/21/21 05:34 Furosemide 40 Mg/4 Ml Inj IV 06/22/21 06:01 40 mg DAILY@0600 SIMÓN Administration Guaifenesin 200 mg 06/15/21 00:33 06/21/21 09:24 Guaifenesin 200 Mg Tab PO 200 mg Q6H PRN Administration Cough Heparin Sodium (Porcine) 5,000 unit 06/14/21 06:00 06/21/21 05:35 Heparin 5,000 Unit/1 Ml Vial SUB-Q 5,000 unit Q8HR SIMÓN Administration Hydralazine HCl 10 mg 06/13/21 22:52 Hydralazine 20 Mg/1 Ml Inj IV Q6H PRN SBP >/=160; DBP >/=100 Hydromorphone HCl 0.5 mg 06/13/21 22:49 Hydromorphone 1 Mg/1 Ml Inj IV Q3H PRN Pain , Severe (7-10) Ondansetron HCl 4 mg 06/13/21 22:49 06/17/21 18:48 Ondansetron 4 Mg/2 Ml Inj IV 4 mg Q8H PRN Administration Nausea And Vomiting Oxycodone/Acetaminophen 1 tab 06/13/21 22:49 06/20/21 04:50 Oxycodone /Acetaminophen 5-325mg Tab PO 1 tab Q6H PRN Administration Pain, Moderate (4-6) Phenol 1 spray 06/15/21 14:00 Phenol 1.4% 177 Ml Bottle MM PRN PRN Sore Throat Sodium Chloride 10 ml 06/14/21 10:00 06/21/21 09:24 Sodium Chloride 0.9% 10 Ml Flush Syringe IV 10 ml BID SIMÓN Administration Sodium Chloride 10 ml 06/13/21 22:49 Sodium Chloride 0.9% 10 Ml Flush Syringe IV PRN PRN LINE FLUSH Nutrition/Malnutrition Assess - Dietary Evaluation Nutrition/Malnutrition Findings: Nutrition Notes Start: 06/19/21 11:11 Freq: Status: Active Protocol: Document 06/19/21 11:11 JUSTICE (Rec: 06/19/21 11:15 [id number]) Nutrition Notes Need for Assessment generated from: LOS Initial or Follow up Assessment Current Diagnosis Respiratory Failure Other Pertinent Diagnosis pneu, COVID-19 Current Diet Regular Labs/Tests Reviewed Pertinent Medications Decadron Height 5 ft 9 in Weight 94.1 kg [place] Body Weight (kg) 72.72 BMI 30.6 Weight Status Obese Subjective/Other Information Screen for LOS. Unable to speak with pt. RN unsure of exact intakes but notes he is not eating well. Burn Absent Trauma Absent Current % PO Poor (25-49%) Minimum of two criteria No physical signs of malnutrition #1 Nutrition Diagnosis Inadequate oral intake Etiology acute illness As Evidenced by Signs and Symptoms pt eating <50% of meals Is patient on ventilator? No Is Patient Ambulatory and/or Out of Bed No REE-([facility]-confined to bed) [phone] Calculation Used for Recommendations Kcal/kg Additional Notes Protein: (0.8-1g/kg AdjBW: 83kg) 67-83g Fluid: 1 ml/kcal Nutrition Intervention Change Diet Order: Continue Add Supplement/Snack (indicate name/kcal Ensure Enlive BID /protein ) Provides kCal: 700 Provides Protein (gm) 40 Goal #1 Meet at least 75% of energy and protein needs via PO and ONS Anticipated Discharge Needs: regular Follow-Up By: 06/23/21 Additional Comments FU for intakes and ONS tolerance
[2021-06-22] MEDS: FUROSEMIDE 40 MG/4 ML INJ IV SCH (06:22)
[2021-06-22] MEDS: HEPARIN 5,000 UNIT/1 ML VIAL SUB-Q SCH ×3 (06:22→21:20)
[2021-06-22 06:31] LABS: Alanine Aminotransferase 28 units/L (7-56); Albumin 3.6 g/dL (3.9-5); BUN/Creatinine Ratio 40; Blood Urea Nitrogen 32 mg/dL (9-20); Calcium 9.1 mg/dL (8.4-10.2); Hemolysis Index 14
[2021-06-22 07:16] LABS: Hematocrit 48.2 % (35.5-45.6); Hemoglobin 16.7 gm/dl (11.8-15.2); Mean Corpuscular HGB Conc 35 % (32-34); Mean Corpuscular Volume 87 fl (84-94); Platelet Count 227 K/mm3 (140-440); Red Blood Count 5.55 M/mm3 (3.65-5.03); Red Cell Distribution Width 13.7 % (13.2-15.2)
--- NOTE | 2021-06-22 08:12 | Progress Note ---
Assessment and Plan Assessment and plan: 36-year-old with a history of asthma, obesity presented with shortness of breath fever chills arthralgias myalgias approximately 8 days after testing positive for COVID. Patient at present hypoxic requiring 15 L facemask at present. Patient is able to speak in full sentences however remains hypoxic. Hospital course complicated by nonproductive cough. (1) Acute respiratory failure due to COVID-19 Current Visit: Yes Status: Acute Plan to address problem: Patient requires 15 L oxygen to prevent hypoxemia. Currently started on steroids dexamethasone Supportive care with oxygen 15 L We will add Hycodan for cough Follow inflammatory markers Empiric antibiotics Rocephin azithromycin Initiate remdesivir Zinc, vitamin C, vitamin D (2) Asthma Current Visit: Yes Status: Acute Plan to address problem: We will place nebulizers. Albuterol nebulizers patient seemed to be doing well as far as asthma limited wheezing. Respiratory failure secondary to Covid (3) COVID-19 pneumonia (4) severe sepsis secondary to COVID-19 (5) multifocal pneumonia Current Visit: Yes Status: Acute Plan to address problem: Consistent with Covid pneumonia 06/15: Considering gradual decline will transfer patient to IMCU. We'll also consult pulmonary GI. I have requested the patient be put on high flow and also trial of BiPAP. ID is consulted and currently following patient management. Weight loss recommended. Continue steroids. Chest x-ray reviewed by me shows bilateral infiltrates 06/16: Patient seen and examined Remains on HFNC but now at 40 and 100%. SAts in the mid 90's. Continue to monitor renal function with Lasix. Continue IMCU. Can downgrade this oxygen weaning again this. Continue prone positioning. Case disc ussed with buggy driver 06/17: Continue supportive care. High flow down to 35 L continuous 100% with saturation in the mid to low 90s. Per buggy driver steroid has been increased to twice daily dosing due to patient size. Patient continues on IV remdesivir. We will continue to monitor inflammatory markers. Prognosis is guarded. 06/18: Patient seen and examined, Continues supportive care, wean as tolerated. still with persitent hypoxia, he did not like the High flow, affects his nostriles, and now is on NRB satting 94%. Continue to encourage prone position. condition is still guarded 06/19: Continue supportive care, wean oxygen as tolerated, patient ok with me speaking with mother, will call and update. 06/20: Patient seen and examined continues to be weaned down on high flow oxygen down to 85%. Saturation remains around 92%. I did discuss extensively with the mother. She verbalized understanding. This discussion was done with permission with the patient. We will do another trial of Lasix. Patient is continued on the steroids he is status post Actemra and has completed his remdesivir. 06/21: Patient's prognosis still remains guarded. Continue to encourage prone positioning. Went back up on oxygen demand. But states that he does not feel less winded as before. Continue diuresis and monitor renal function. Also monitor inflammatory markers. 06/22: Patient more mobile but still profoundly hypoxic, continue to monitor and wean oxygen as tolerated. Will re-evaluate if repeated Lasix will help. The high probability of a clinically significant, sudden or life threatening deterioration of the [pulmonary] system(s) required my full and direct attention, intervention and personal management. The aggregate critical care time was [35] minutes. This time is in addition to time spent performing reported procedures but includes the following: [x] Data Review and interpretation [x] Patient assessment and monitoring of vital signs [x] Documentation [x] Medication orders and management History Interval history: Patient seen and examined currently still on high flow to go back up to 100% due to desaturation. Hospitalist Physical - Physical exam Narrative exam: General appearance: Present: Mild to moderate distress, well-nourished, on high flow - EENT Eyes: PERRL, EOM intact ENT: hearing intact, clear oral mucosa Ears: bilateral: normal - Neck Neck: supple, normal ROM - Respiratory Respiratory effort: normal Respiratory: bilateral: diminished - Breasts Breasts: normal - Cardiovascular Rhythm: regular Heart Sounds: Present: S1 & S2. Absent: gallop, rub Extremities: pulses intact, No edema, normal color, Full ROM - Gastrointestinal General gastrointestinal: Present: soft, non-tender, non-distended, normal bowel sounds - Genitourinary Male genitourinary: normal - Integumentary Integumentary: clear, warm, dry - Musculoskeletal Musculoskeletal: 1, strength equal bilaterally - Neurologic Neurologic: moves all extremities - Psychiatric Psychiatric: memory intact, appropriate mood/affect, intact judgment & insight - Constitutional Vitals: Temp Pulse Resp BP Pulse Ox 98.1 F 109 H 21 113/71 92 06/22/21 07:43 06/22/21 07:30 06/22/21 07:30 06/22/21 07:30 06/22/21 07:00 General appearance: Present: no acute distress, well-nourished Results - Labs CBC & Chem 7: 06/22/21 04:58 06/22/21 04:58 Labs: Laboratory Last Values WBC 16.3 K/mm3 (4.5-11.0) H 06/22/21 04:58 RBC 5.55 M/mm3 (3.65-5.03) H 06/22/21 04:58 Hgb 16.7 gm/dl (11.8-15.2) H 06/22/21 04:58 Hct 48.2 % (35.5-45.6) H 06/22/21 04:58 MCV 87 fl (84-94) 06/22/21 04:58 MCH 30 pg (28-32) 06/22/21 04:58 MCHC 35 % (32-34) H 06/22/21 04:58 RDW 13.7 % (13.2-15.2) 06/22/21 04:58 Plt Count 227 K/mm3 (140-440) 06/22/21 04:58 Lymph % (Auto) 25.5 % (13.4-35.0) 06/13/21 20:09 Orange % (Auto) 4.3 % (0.0-7.3) 06/13/21 20:09 Eos % (Auto) 0.0 % (0.0-4.3) 06/13/21 20:09 Baso % (Auto) 0.3 % (0.0-1.8) 06/13/21 20:09 Lymph # (Auto) 0.6 K/mm3 (1.2-5.4) L 06/13/21 20:09 Orange # (Auto) 0.1 K/mm3 (0.0-0.8) 06/13/21 20:09 Eos # (Auto) 0.0 K/mm3 (0.0-0.4) 06/13/21 20:09 Baso # (Auto) 0.0 K/mm3 (0.0-0.1) 06/13/21 20:09 Add Manual Diff Complete 06/14/21 05:12 Total Counted 50 06/14/21 05:12 Seg Neutrophils % 69.9 % (40.0-70.0) 06/13/21 20:09 Seg Neuts % (Manual) 82.0 % (40.0-70.0) H 06/14/21 05:12 Lymphocytes % (Manual) 14.0 % (13.4-35.0) 06/14/21 05:12 Monocytes % (Manual) 4.0 % (0.0-7.3) 06/14/21 05:12 Nucleated RBC % Not Reportable 06/14/21 05:12 Seg Neutrophils # 1.8 K/mm3 (1.8-7.7) 06/13/21 20:09 Seg Neutrophils # Man 1.6 K/mm3 (1.8-7.7) L 06/14/21 05:12 Band Neutrophils # 0.0 K/mm3 06/14/21 05:12 Lymphocytes # (Manual) 0.3 K/mm3 (1.2-5.4) L 06/14/21 05:12 Abs React Lymphs (Man) 0.0 K/mm3 06/14/21 05:12 Monocytes # (Manual) 0.1 K/mm3 (0.0-0.8) 06/14/21 05:12 Eosinophils # (Manual) 0.0 K/mm3 (0.0-0.4) 06/14/21 05:12 Basophils # (Manual) 0.0 K/mm3 (0.0-0.1) 06/14/21 05:12 Metamyelocytes # 0.0 K/mm3 06/14/21 05:12 Myelocytes # 0.0 K/mm3 06/14/21 05:12 Promyelocytes # 0.0 K/mm3 06/14/21 05:12 Blast Cells # 0.0 K/mm3 06/14/21 05:12 WBC Morphology Not Reportable 06/14/21 05:12 Hypersegmented Neuts Not Reportable 06/14/21 05:12 Hyposegmented Neuts Not Reportable 06/14/21 05:12 Hypogranular Neuts Not Reportable 06/14/21 05:12 Smudge Cells Not Reportable 06/14/21 05:12 Toxic Granulation Not Reportable 06/14/21 05:12 Toxic Vacuolation Not Reportable 06/14/21 05:12 Dohle Bodies Not Reportable 06/14/21 05:12 Pelger-Huet Anomaly Not Reportable 06/14/21 05:12 Sheri Rods Not Reportable 06/14/21 05:12 Platelet Estimate Consistent w auto 06/14/21 05:12 Clumped Platelets Not Reportable 06/14/21 05:12 Plt Clumps, EDTA Not Reportable 06/14/21 05:12 Large Platelets Not Reportable 06/14/21 05:12 Giant Platelets Not Reportable 06/14/21 05:12 Platelet Satelliting Not Reportable 06/14/21 05:12 Plt Morphology Comment Not Reportable 06/14/21 05:12 RBC Morphology Not Reportable 06/14/21 05:12 Dimorphic RBCs Not Reportable 06/14/21 05:12 Polychromasia Not Reportable 06/14/21 05:12 Hypochromasia Not Reportable 06/14/21 05:12 Poikilocytosis Not Reportable 06/14/21 05:12 Anisocytosis 1+ 06/14/21 05:12 Microcytosis Not Reportable 06/14/21 05:12 Macrocytosis Not Reportable 06/14/21 05:12 Spherocytes Not Reportable 06/14/21 05:12 Pappenheimer Bodies Not Reportable 06/14/21 05:12 Sickle Cells Not Reportable 06/14/21 05:12 Target Cells Not Reportable 06/14/21 05:12 Tear Drop Cells Not Reportable 06/14/21 05:12 Ovalocytes Not Reportable 06/14/21 05:12 Helmet Cells Not Reportable 06/14/21 05:12 Macdonald-Brockton Bodies Not Reportable 06/14/21 05:12 St[place] Rings Not Reportable 06/14/21 05:12 Alen Cells Not Reportable 06/14/21 05:12 Bite Cells Not Reportable 06/14/21 05:12 Crenated Cell Not Reportable 06/14/21 05:12 Elliptocytes Not Reportable 06/14/21 05:12 Acanthocytes (Spur) Not Reportable 06/14/21 05:12 Rouleaux Not Reportable 06/14/21 05:12 Hemoglobin C Crystals Not Reportable 06/14/21 05:12 Schistocytes Not Reportable 06/14/21 05:12 Malaria parasites Not Reportable 06/14/21 05:12 Swapnil Bodies Not Reportable 06/14/21 05:12 Hem Pathologist Commnt No 06/14/21 05:12 D-Dimer 335.27 ng/mlDDU (0-234) H 06/22/21 04:58 ABG pH 7.387 pH Units (7.350-7.450) 06/15/21 Unknown ABG pCO2 40.4 mm Hg 06/15/21 Unknown ABG pO2 61.0 mm Hg (80.0-90.0) L 06/15/21 Unknown ABG HCO3 23.7 mmol/L (20.0-26.0) 06/15/21 Unknown ABG O2 Saturation 91.3 % (95.0-99.0) L 06/15/21 Unknown ABG O2 Content 21.0 (0.0-44) 06/15/21 Unknown ABG Base Excess -1.1 mmol/L (-2.0-3.0) 06/15/21 Unknown ABG Hemoglobin 16.7 gm/dl (14.0-18.0) 06/15/21 Unknown ABG Carboxyhemoglobin 1.0 % (0.0-5.0) 06/15/21 Unknown ABG Methemoglobin 0.5 % (0.0-1.5) 06/15/21 Unknown Oxyhemoglobin 89.9 % (95.0-99.0) L 06/15/21 Unknown FiO2 100 % 06/15/21 Unknown Sodium 135 mmol/L (137-145) L 06/22/21 04:58 Potassium 4.2 mmol/L (3.6-5.0) 06/22/21 04:58 Chloride 96.8 mmol/L (98-107) L 06/22/21 04:58 Carbon Dioxide 27 mmol/L (22-30) 06/22/21 04:58 Anion Gap 15 mmol/L 06/22/21 04:58 BUN 32 mg/dL (9-20) H 06/22/21 04:58 Creatinine 0.8 mg/dL (0.8-1.3) 06/22/21 04:58 Estimated GFR > 60 ml/min 06/22/21 04:58 BUN/Creatinine Ratio 40 % 06/22/21 04:58 Glucose 172 mg/dL (75-100) H 06/22/21 04:58 Calcium 9.1 mg/dL (8.4-10.2) 06/22/21 04:58 Ferritin 1251.0 ng/mL (30.0-300.0) H 06/22/21 04:58 Total Bilirubin 0.70 mg/dL (0.1-1.2) 06/22/21 04:58 AST 22 units/L (5-40) 06/22/21 04:58 ALT 28 units/L (7-56) 06/22/21 04:58 Alkaline Phosphatase 69 units/L (35-129) 06/22/21 04:58 Lactate Dehydrogenase 816 units/L (91-180) H 06/22/21 04:58 C-Reactive Protein 0.10 mg/dL (0.00-1.30) 06/22/21 04:58 Total Protein 6.1 g/dL (6.3-8.2) L 06/22/21 04:58 Albumin 3.6 g/dL (3.9-5) L 06/22/21 04:58 Albumin/Globulin Ratio 1.4 % 06/22/21 04:58 Procalcitonin < 0.05 ng/mL (<0.15) 06/15/21 05:21 Coronavirus (PCR) Positive (Negative) A 06/14/21 Unknown Mao/IV: Voiding Method Urinal Active Medications - Current Medications Current Medications: Generic Name Dose Route Start Last Admin Trade Name Freq PRN Reason Stop Dose Admin Acetaminophen 650 mg 06/13/21 22:49 06/20/21 19:54 Acetaminophen 325 Mg Tab PO 650 mg Q4H PRN Administration Pain MILD(1-3)/Fever >100.5/HAYNES Dexamethasone 10 mg 06/16/21 12:00 06/21/21 22:21 Dexamethasone 4 Mg/Ml Vial IV 06/24/21 22:01 10 mg BID SIMÓN Administration Famotidine 20 mg 06/14/21 10:00 06/21/21 22:21 Famotidine 20 Mg Tab PO 20 mg BID SIMÓN Administration Guaifenesin 200 mg 06/15/21 00:33 06/21/21 09:24 Guaifenesin 200 Mg Tab PO 200 mg Q6H PRN Administration Cough Heparin Sodium (Porcine) 5,000 unit 06/14/21 06:00 06/22/21 06:22 Heparin 5,000 Unit/1 Ml Vial SUB-Q 5,000 unit Q8HR SIMÓN Administration Hydralazine HCl 10 mg 06/13/21 22:52 Hydralazine 20 Mg/1 Ml Inj IV Q6H PRN SBP >/=160; DBP >/=100 Hydromorphone HCl 0.5 mg 06/13/21 22:49 Hydromorphone 1 Mg/1 Ml Inj IV Q3H PRN Pain , Severe (7-10) Ondansetron HCl 4 mg 06/13/21 22:49 06/17/21 18:48 Ondansetron 4 Mg/2 Ml Inj IV 4 mg Q8H PRN Administration Nausea And Vomiting Oxycodone/Acetaminophen 1 tab 06/13/21 22:49 06/20/21 04:50 Oxycodone /Acetaminophen 5-325mg Tab PO 1 tab Q6H PRN Administration Pain, Moderate (4-6) Phenol 1 spray 06/15/21 14:00 Phenol 1.4% 177 Ml Bottle MM PRN PRN Sore Throat Sodium Chloride 10 ml 06/14/21 10:00 06/21/21 22:22 Sodium Chloride 0.9% 10 Ml Flush Syringe IV 10 ml BID SIMÓN Administration Sodium Chloride 10 ml 06/13/21 22:49 Sodium Chloride 0.9% 10 Ml Flush Syringe IV PRN PRN LINE FLUSH Nutrition/Malnutrition Assess - Dietary Evaluation Nutrition/Malnutrition Findings: Nutrition Notes Start: 06/19/21 11:11 Freq: Status: Active Protocol: Document 06/19/21 11:11 (Rec: 06/19/21 11:15 [email or web address]) Nutrition Notes Need for Assessment generated from: LOS Initial or Follow up Assessment Current Diagnosis Respiratory Failure Other Pertinent Diagnosis pneu, COVID-19 Current Diet Regular Labs/Tests Reviewed Pertinent Medications Decadron Height 5 ft 9 in Weight 94.1 kg [place] Body Weight (kg) 72.72 BMI 30.6 Weight Status Obese Subjective/Other Information Screen for LOS. Unable to speak with pt. RN unsure of exact intakes but notes he is not eating well. Burn Absent Trauma Absent Current % PO Poor (25-49%) Minimum of two criteria No physical signs of malnutrition #1 Nutrition Diagnosis Inadequate oral intake Etiology acute illness As Evidenced by Signs and Symptoms pt eating <50% of meals Is patient on ventilator? No Is Patient Ambulatory and/or Out of Bed No REE-([facility]-confined to bed) 6927.998 Calculation Used for Recommendations Kcal/kg Additional Notes Protein: (0.8-1g/kg AdjBW: 83kg) 67-83g Fluid: 1 ml/kcal Nutrition Intervention Change Diet Order: Continue Add Supplement/Snack (indicate name/kcal Ensure Enlive BID /protein ) Provides kCal: 700 Provides Protein (gm) 40 Goal #1 Meet at least 75% of energy and protein needs via PO and ONS Anticipated Discharge Needs: regular Follow-Up By: 06/23/21 Additional Comments FU for intakes and ONS tolerance
[2021-06-22] MEDS: FAMOTIDINE 20 MG TAB PO SCH ×2 (09:04→21:20)
[2021-06-22] MEDS: dexAMETHasone 4 MG/ML VIAL IV SCH ×2 (09:04→21:19)
--- NOTE | 2021-06-22 10:19 | Progress Note ---
Assessment and Plan - Patient Problems (1) Hypoxia Current Visit: Yes Status: Acute (2) Acute respiratory failure due to COVID-19 Current Visit: Yes Status: Acute (3) Asthma Current Visit: Yes Status: Acute (4) Multifocal pneumonia Current Visit: Yes Status: Acute (5) Epistaxis Current Visit: Yes Status: Acute (6) Cough Current Visit: Yes Status: Acute Subjective Principal diagnosis: Acute hypoxic respiratory failure Interval history: awake o2 inplace Objective Vital Signs - 12hr 06/21/21 06/21/21 06/21/21 22:25 22:30 22:38 Temperature Pulse Rate 84 106 H 94 H Pulse Rate [ From Monitor] Respiratory 48 H 25 H 23 Rate Blood Pressure 113/74 113/74 O2 Sat by Pulse 83 L 86 97 Oximetry 06/21/21 06/21/21 06/22/21 23:00 23:30 00:00 Temperature Pulse Rate 87 87 82 Pulse Rate [ From Monitor] Respiratory 46 H 45 H 39 H Rate Blood Pressure 113/73 113/73 115/80 O2 Sat by Pulse 91 86 84 Oximetry 06/22/21 06/22/21 06/22/21 00:30 01:00 01:30 Temperature Pulse Rate 85 89 79 Pulse Rate [ From Monitor] Respiratory 44 H 30 H 37 H Rate Blood Pressure 115/80 104/62 104/62 O2 Sat by Pulse 83 L 79 L 95 Oximetry 06/22/21 06/22/21 06/22/21 02:00 02:30 03:00 Temperature Pulse Rate 77 93 H 93 H Pulse Rate [ From Monitor] Respiratory 36 H 26 H 15 Rate Blood Pressure 115/74 115/74 119/74 O2 Sat by Pulse 86 91 98 Oximetry 06/22/21 06/22/21 06/22/21 03:30 04:00 04:30 Temperature 98.8 F Pulse Rate 96 H 90 86 Pulse Rate [ From Monitor] Respiratory 17 45 H 52 H Rate Blood Pressure 119/74 129/75 129/75 O2 Sat by Pulse 95 83 L 88 Oximetry 06/22/21 06/22/21 06/22/21 05:00 05:30 06:00 Temperature Pulse Rate 99 H 86 87 Pulse Rate [ From Monitor] Respiratory 15 41 H 44 H Rate Blood Pressure 108/63 108/63 113/71 O2 Sat by Pulse 93 89 84 Oximetry 06/22/21 06/22/21 06/22/21 06:30 07:00 07:30 Temperature Pulse Rate 111 H 132 H 109 H Pulse Rate [ From Monitor] Respiratory 18 21 21 Rate Blood Pressure 113/71 113/71 113/71 O2 Sat by Pulse 88 92 Oximetry 06/22/21 06/22/21 06/22/21 07:43 08:00 08:55 Temperature 98.1 F Pulse Rate 98 H Pulse Rate [ 96 H From Monitor] Respiratory 40 H Rate Blood Pressure 113/71 O2 Sat by Pulse 89 90 Oximetry Constitutional: alert, other (mild distress) Eyes: non-icteric ENT: oropharynx moist Neck: supple Ascultation: Bilateral: diminished breath sounds Cardiovascular: regular rate and rhythm Gastrointestinal: normoactive bowel sounds Integumentary: normal Extremities: no cyanosis Neurologic: normal mental status Psychiatric: anxious CBC and BMP: 06/22/21 04:58 06/22/21 04:58 ABG, PT/INR, D-dimer: ABG ABG pH 7.387 pH Units (7.350-7.450) 06/15/21 Unknown ABG pCO2 40.4 mm Hg 06/15/21 Unknown ABG pO2 61.0 mm Hg (80.0-90.0) L 06/15/21 Unknown ABG O2 Saturation 91.3 % (95.0-99.0) L 06/15/21 Unknown PT/INR, D-dimer D-Dimer 335.27 ng/mlDDU (0-234) H 06/22/21 04:58 Abnormal lab findings: Abnormal Labs 06/13/21 06/13/21 06/13/21 20:09 20:09 20:09 WBC 2.6 L RBC Hgb Hct MCHC 35 H Plt Count 112 L Lymph # (Auto) 0.6 L Seg Neuts % (Manual) Seg Neutrophils # Man Lymphocytes # (Manual) D-Dimer 560.90 H ABG pO2 ABG O2 Saturation Oxyhemoglobin Sodium 134 L Chloride BUN Creatinine Glucose 105 H Ferritin AST ALT Lactate Dehydrogenase C-Reactive Protein Total Protein Albumin Coronavirus (PCR) 06/13/21 06/13/21 06/14/21 20:09 20:09 05:12 WBC 2.0 L RBC Hgb Hct MCHC 35 H Plt Count 106 L Lymph # (Auto) Seg Neuts % (Manual) 82.0 H Seg Neutrophils # Man 1.6 L Lymphocytes # (Manual) 0.3 L D-Dimer ABG pO2 ABG O2 Saturation Oxyhemoglobin Sodium Chloride BUN Creatinine Glucose 105 H Ferritin 1876.0 H AST ALT Lactate Dehydrogenase 634 H C-Reactive Protein 9.20 H Total Protein Albumin Coronavirus (PCR) 06/14/21 06/14/21 06/14/21 05:12 23:50 Unknown WBC RBC Hgb Hct MCHC Plt Count Lymph # (Auto) Seg Neuts % (Manual) Seg Neutrophils # Man Lymphocytes # (Manual) D-Dimer ABG pO2 ABG O2 Saturation Oxyhemoglobin Sodium Chloride BUN Creatinine Glucose 214 H 135 H Ferritin AST 52 H ALT Lactate Dehydrogenase C-Reactive Protein Total Protein Albumin 3.2 L Coronavirus (PCR) Positive A 06/15/21 06/15/21 06/15/21 05:21 05:21 05:21 WBC RBC Hgb Hct MCHC Plt Count Lymph # (Auto) Seg Neuts % (Manual) Seg Neutrophils # Man Lymphocytes # (Manual) D-Dimer 360.79 H ABG pO2 ABG O2 Saturation Oxyhemoglobin Sodium Chloride BUN Creatinine 0.7 L Glucose 167 H Ferritin 1869.0 H AST 65 H ALT Lactate Dehydrogenase C-Reactive Protein Total Protein 6.1 L Albumin 3.4 L Coronavirus (PCR) 06/15/21 06/15/21 06/16/21 05:21 Unknown 07:16 WBC RBC Hgb Hct MCHC Plt Count Lymph # (Auto) Seg Neuts % (Manual) Seg Neutrophils # Man Lymphocytes # (Manual) D-Dimer ABG pO2 61.0 L ABG O2 Saturation 91.3 L Oxyhemoglobin 89.9 L Sodium Chloride BUN Creatinine Glucose 130 H Ferritin AST 77 H ALT 57 H Lactate Dehydrogenase C-Reactive Protein 3.10 H Total Protein 6.0 L Albumin 3.5 L Coronavirus (PCR) 06/17/21 06/17/21 06/22/21 04:36 04:36 04:58 WBC 16.3 H RBC 5.55 H Hgb 16.7 H Hct 48.2 H MCHC 36 H 35 H Plt Count Lymph # (Auto) Seg Neuts % (Manual) Seg Neutrophils # Man Lymphocytes # (Manual) D-Dimer ABG pO2 ABG O2 Saturation Oxyhemoglobin Sodium Chloride BUN 29 H Creatinine Glucose 125 H Ferritin AST 59 H ALT 57 H Lactate Dehydrogenase C-Reactive Protein Total Protein 6.0 L Albumin 3.6 L Coronavirus (PCR) 06/22/21 06/22/21 06/22/21 04:58 04:58 04:58 WBC RBC Hgb Hct MCHC Plt Count Lymph # (Auto) Seg Neuts % (Manual) Seg Neutrophils # Man Lymphocytes # (Manual) D-Dimer 335.27 H ABG pO2 ABG O2 Saturation Oxyhemoglobin Sodium 135 L Chloride 96.8 L BUN 32 H Creatinine Glucose 172 H Ferritin 1251.0 H AST ALT Lactate Dehydrogenase 816 H C-Reactive Protein Total Protein 6.1 L Albumin 3.6 L Coronavirus (PCR)
[2021-06-22] MEDS ORDERED: FUROSEMIDE 40 MG/4 ML INJ IV ONE (10:22)
[2021-06-22] MEDS ORDERED: FUROSEMIDE 20 MG/2 ML INJ ONE (14:36)
[2021-06-22] MEDS: AYR SALINE NASAL GEL 14.1 GM NS SCH ×2 (14:38→22:00)
[2021-06-22] MEDS: oxyCODONE /ACETAMINOPHEN 5-325MG TAB PO PRN (17:41)
[2021-06-23] MEDS: HEPARIN 5,000 UNIT/1 ML VIAL SUB-Q SCH ×2 (05:25→21:14)
--- NOTE | 2021-06-23 08:08 | Progress Note ---
Assessment and Plan - Patient Problems (1) Hypoxia Current Visit: Yes Status: Acute (2) Acute respiratory failure due to COVID-19 Current Visit: Yes Status: Acute (3) Asthma Current Visit: Yes Status: Acute (4) Multifocal pneumonia Current Visit: Yes Status: Acute (5) Epistaxis Current Visit: Yes Status: Acute (6) Cough Current Visit: Yes Status: Acute Subjective Principal diagnosis: Acute hypoxic respiratory failure Interval history: still sob. On hiflo o2 and nrb Objective Vital Signs - 12hr 06/22/21 06/22/21 06/22/21 20:30 21:00 21:30 Temperature Pulse Rate 117 H 106 H 104 H Pulse Rate [ From Monitor] Respiratory 35 H 13 21 Rate Blood Pressure 110/69 110/66 110/66 O2 Sat by Pulse 92 95 92 Oximetry 06/22/21 06/22/21 06/22/21 21:47 22:00 22:30 Temperature Pulse Rate 105 H 97 H Pulse Rate [ From Monitor] Respiratory 21 25 H Rate Blood Pressure 95/67 95/67 O2 Sat by Pulse 92 90 92 Oximetry 06/22/21 06/22/21 06/23/21 23:00 23:30 00:00 Temperature 98.5 F Pulse Rate 93 H 93 H 86 Pulse Rate [ 85 From Monitor] Respiratory 22 14 19 Rate Blood Pressure 97/70 97/70 107/73 O2 Sat by Pulse 93 94 96 Oximetry 06/23/21 06/23/21 06/23/21 00:30 01:00 01:30 Temperature Pulse Rate 90 88 106 H Pulse Rate [ From Monitor] Respiratory 19 18 21 Rate Blood Pressure 107/73 107/67 107/67 O2 Sat by Pulse 92 95 91 Oximetry 06/23/21 06/23/21 06/23/21 02:00 02:30 02:39 Temperature Pulse Rate 92 H 90 Pulse Rate [ From Monitor] Respiratory 15 47 H Rate Blood Pressure 96/64 107/67 O2 Sat by Pulse 92 83 L 91 Oximetry 06/23/21 06/23/21 06/23/21 03:00 03:30 04:00 Temperature 98.6 F Pulse Rate 88 90 87 Pulse Rate [ 82 From Monitor] Respiratory 45 H 25 H 33 H Rate Blood Pressure 94/70 94/70 115/75 O2 Sat by Pulse 83 L 92 96 Oximetry 06/23/21 06/23/21 06/23/21 04:30 05:00 05:30 Temperature Pulse Rate 84 83 108 H Pulse Rate [ From Monitor] Respiratory 37 H 39 H 25 H Rate Blood Pressure 115/75 114/73 115/75 O2 Sat by Pulse 88 83 L 90 Oximetry 06/23/21 06/23/21 06/23/21 06:00 06:30 07:00 Temperature Pulse Rate 93 H 96 H 84 Pulse Rate [ From Monitor] Respiratory 40 H 16 26 H Rate Blood Pressure 106/70 106/70 97/66 O2 Sat by Pulse 87 93 86 Oximetry 06/23/21 06/23/21 06/23/21 07:30 07:37 07:38 Temperature 98.0 F Pulse Rate 97 H Pulse Rate [ From Monitor] Respiratory 19 Rate Blood Pressure 97/66 O2 Sat by Pulse 88 92 Oximetry Constitutional: alert, other (mild distress) Eyes: non-icteric ENT: oropharynx moist Neck: supple Ascultation: Bilateral: diminished breath sounds Cardiovascular: regular rate and rhythm Gastrointestinal: normoactive bowel sounds Integumentary: normal Extremities: no cyanosis Neurologic: normal mental status Psychiatric: anxious CBC and BMP: 06/22/21 04:58 06/22/21 04:58 ABG, PT/INR, D-dimer: ABG ABG pH 7.475 (7.320-7.450) H 06/22/21 10:35 POC ABG pCO2 29.2 mmHg (32.0-48.0) L 06/22/21 10:35 ABG pCO2 40.4 mm Hg 06/15/21 Unknown POC ABG pO2 51.5 mmHg (83-108) L 06/22/21 10:35 ABG pO2 61.0 mm Hg (80.0-90.0) L 06/15/21 Unknown POC ABG HCO3 21.0 06/22/21 10:35 ABG O2 Saturation 86.7 (0-100) 06/22/21 10:35 PT/INR, D-dimer D-Dimer 335.27 ng/mlDDU (0-234) H 06/22/21 04:58 Abnormal lab findings: Abnormal Labs 06/13/21 06/13/21 06/13/21 20:09 20:09 20:09 WBC 2.6 L RBC Hgb Hct MCHC 35 H Plt Count 112 L Lymph # (Auto) 0.6 L Seg Neuts % (Manual) Seg Neutrophils # Man Lymphocytes # (Manual) D-Dimer 560.90 H ABG pH POC ABG pCO2 POC ABG pO2 ABG pO2 ABG O2 Saturation ABG Hemoglobin ABG Oxyhemoglobin ABG Glucose Oxyhemoglobin Carboxyhemoglobin Sodium 134 L Chloride BUN Creatinine Glucose 105 H Ferritin AST ALT Lactate Dehydrogenase C-Reactive Protein Total Protein Albumin Arterial Blood Glucose Coronavirus (PCR) 06/13/21 06/13/21 06/14/21 20:09 20:09 05:12 WBC 2.0 L RBC Hgb Hct MCHC 35 H Plt Count 106 L Lymph # (Auto) Seg Neuts % (Manual) 82.0 H Seg Neutrophils # Man 1.6 L Lymphocytes # (Manual) 0.3 L D-Dimer ABG pH POC ABG pCO2 POC ABG pO2 ABG pO2 ABG O2 Saturation ABG Hemoglobin ABG Oxyhemoglobin ABG Glucose Oxyhemoglobin Carboxyhemoglobin Sodium Chloride BUN Creatinine Glucose 105 H Ferritin 1876.0 H AST ALT Lactate Dehydrogenase 634 H C-Reactive Protein 9.20 H Total Protein Albumin Arterial Blood Glucose Coronavirus (PCR) 06/14/21 06/14/21 06/14/21 05:12 23:50 Unknown WBC RBC Hgb Hct MCHC Plt Count Lymph # (Auto) Seg Neuts % (Manual) Seg Neutrophils # Man Lymphocytes # (Manual) D-Dimer ABG pH POC ABG pCO2 POC ABG pO2 ABG pO2 ABG O2 Saturation ABG Hemoglobin ABG Oxyhemoglobin ABG Glucose Oxyhemoglobin Carboxyhemoglobin Sodium Chloride BUN Creatinine Glucose 214 H 135 H Ferritin AST 52 H ALT Lactate Dehydrogenase C-Reactive Protein Total Protein Albumin 3.2 L Arterial Blood Glucose Coronavirus (PCR) Positive A 06/15/21 06/15/21 06/15/21 05:21 05:21 05:21 WBC RBC Hgb Hct MCHC Plt Count Lymph # (Auto) Seg Neuts % (Manual) Seg Neutrophils # Man Lymphocytes # (Manual) D-Dimer 360.79 H ABG pH POC ABG pCO2 POC ABG pO2 ABG pO2 ABG O2 Saturation ABG Hemoglobin ABG Oxyhemoglobin ABG Glucose Oxyhemoglobin Carboxyhemoglobin Sodium Chloride BUN Creatinine 0.7 L Glucose 167 H Ferritin 1869.0 H AST 65 H ALT Lactate Dehydrogenase C-Reactive Protein Total Protein 6.1 L Albumin 3.4 L Arterial Blood Glucose Coronavirus (PCR) 06/15/21 06/15/21 06/16/21 05:21 Unknown 07:16 WBC RBC Hgb Hct MCHC Plt Count Lymph # (Auto) Seg Neuts % (Manual) Seg Neutrophils # Man Lymphocytes # (Manual) D-Dimer ABG pH POC ABG pCO2 POC ABG pO2 ABG pO2 61.0 L ABG O2 Saturation 91.3 L ABG Hemoglobin ABG Oxyhemoglobin ABG Glucose Oxyhemoglobin 89.9 L Carboxyhemoglobin Sodium Chloride BUN Creatinine Glucose 130 H Ferritin AST 77 H ALT 57 H Lactate Dehydrogenase C-Reactive Protein 3.10 H Total Protein 6.0 L Albumin 3.5 L Arterial Blood Glucose Coronavirus (PCR) 06/17/21 06/17/21 06/22/21 04:36 04:36 04:58 WBC 16.3 H RBC 5.55 H Hgb 16.7 H Hct 48.2 H MCHC 36 H 35 H Plt Count Lymph # (Auto) Seg Neuts % (Manual) Seg Neutrophils # Man Lymphocytes # (Manual) D-Dimer ABG pH POC ABG pCO2 POC ABG pO2 ABG pO2 ABG O2 Saturation ABG Hemoglobin ABG Oxyhemoglobin ABG Glucose Oxyhemoglobin Carboxyhemoglobin Sodium Chloride BUN 29 H Creatinine Glucose 125 H Ferritin AST 59 H ALT 57 H Lactate Dehydrogenase C-Reactive Protein Total Protein 6.0 L Albumin 3.6 L Arterial Blood Glucose Coronavirus (PCR) 06/22/21 06/22/21 06/22/21 04:58 04:58 04:58 WBC RBC Hgb Hct MCHC Plt Count Lymph # (Auto) Seg Neuts % (Manual) Seg Neutrophils # Man Lymphocytes # (Manual) D-Dimer 335.27 H ABG pH POC ABG pCO2 POC ABG pO2 ABG pO2 ABG O2 Saturation ABG Hemoglobin ABG Oxyhemoglobin ABG Glucose Oxyhemoglobin Carboxyhemoglobin Sodium 135 L Chloride 96.8 L BUN 32 H Creatinine Glucose 172 H Ferritin 1251.0 H AST ALT Lactate Dehydrogenase 816 H C-Reactive Protein Total Protein 6.1 L Albumin 3.6 L Arterial Blood Glucose Coronavirus (PCR) 06/22/21 10:35 WBC RBC Hgb Hct MCHC Plt Count Lymph # (Auto) Seg Neuts % (Manual) Seg Neutrophils # Man Lymphocytes # (Manual) D-Dimer ABG pH 7.475 H POC ABG pCO2 29.2 L POC ABG pO2 51.5 L ABG pO2 ABG O2 Saturation ABG Hemoglobin 18.3 H ABG Oxyhemoglobin 86.3 L ABG Glucose 143 H Oxyhemoglobin Carboxyhemoglobin 0.2 L Sodium Chloride BUN Creatinine Glucose Ferritin AST ALT Lactate Dehydrogenase C-Reactive Protein Total Protein Albumin Arterial Blood Glucose 143 H Coronavirus (PCR)
[2021-06-23] MEDS: FAMOTIDINE 20 MG TAB PO SCH ×2 (09:24→21:13)
[2021-06-23] MEDS: dexAMETHasone 4 MG/ML VIAL IV SCH (09:24)
[2021-06-23] MEDS: AYR SALINE NASAL GEL 14.1 GM NS SCH ×2 (09:25→22:54)
--- NOTE | 2021-06-23 09:51 | XRay Report ---
XR chest 1V ap INDICATION / CLINICAL INFORMATION: hypoxia. COMPARISON: 06/13/2021. CT from 06/15/2021. FINDINGS: SUPPORT DEVICES: None HEART /PULMONARY VASCULATURE: Unchanged. LUNGS / PLEURA: Severe bilateral pulmonary opacities appear slightly progressed from radiograph from 06/13/2021. No sizable pleural effusion. No pneumothorax. IMPRESSION: Progressive multifocal pneumonia. Signer Name: Renard Starks MD Signed: 06/23/2021 9:45 AM Workstation Name: [id number]
--- NOTE | 2021-06-23 14:23 | Progress Note ---
Assessment and Plan Assessment and plan: 36-year-old with a history of asthma, obesity presented with shortness of breath fever chills arthralgias myalgias approximately 8 days after testing positive for COVID. Patient at present hypoxic requiring 15 L facemask at present. Patient is able to speak in full sentences however remains hypoxic. Hospital course complicated by nonproductive cough. (1) Acute respiratory failure due to COVID-19 Current Visit: Yes Status: Acute Plan to address problem: Patient requires 15 L oxygen to prevent hypoxemia. Currently started on steroids dexamethasone Supportive care with oxygen 15 L We will add Hycodan for cough Follow inflammatory markers Empiric antibiotics Rocephin azithromycin Initiate remdesivir Zinc, vitamin C, vitamin D (2) Asthma Current Visit: Yes Status: Acute Plan to address problem: We will place nebulizers. Albuterol nebulizers patient seemed to be doing well as far as asthma limited wheezing. Respiratory failure secondary to Covid (3) COVID-19 pneumonia (4) severe sepsis secondary to COVID-19 (5) multifocal pneumonia Current Visit: Yes Status: Acute Plan to address problem: Consistent with Covid pneumonia 06/15: Considering gradual decline will transfer patient to IMCU. We'll also consult pulmonary GI. I have requested the patient be put on high flow and also trial of BiPAP. ID is consulted and currently following patient management. Weight loss recommended. Continue steroids. Chest x-ray reviewed by me shows bilateral infiltrates 06/16: Patient seen and examined Remains on HFNC but now at 40 and 100%. SAts in the mid 90's. Continue to monitor renal function with Lasix. Continue IMCU. Can downgrade this oxygen weaning again this. Continue prone positioning. Case disc ussed with molding machine operator helper 06/17: Continue supportive care. High flow down to 35 L continuous 100% with saturation in the mid to low 90s. Per molding machine operator helper steroid has been increased to twice daily dosing due to patient size. Patient continues on IV remdesivir. We will continue to monitor inflammatory markers. Prognosis is guarded. 06/18: Patient seen and examined, Continues supportive care, wean as tolerated. still with persitent hypoxia, he did not like the High flow, affects his nostriles, and now is on NRB satting 94%. Continue to encourage prone position. condition is still guarded 06/19: Continue supportive care, wean oxygen as tolerated, patient ok with me speaking with mother, will call and update. 06/20: Patient seen and examined continues to be weaned down on high flow oxygen down to 85%. Saturation remains around 92%. I did discuss extensively with the mother. She verbalized understanding. This discussion was done with permission with the patient. We will do another trial of Lasix. Patient is continued on the steroids he is status post Actemra and has completed his remdesivir. 06/21: Patient's prognosis still remains guarded. Continue to encourage prone positioning. Went back up on oxygen demand. But states that he does not feel less winded as before. Continue diuresis and monitor renal function. Also monitor inflammatory markers. 06/22: Patient more mobile but still profoundly hypoxic, continue to monitor and wean oxygen as tolerated. Will re-evaluate if repeated Lasix will help. 06/23: Patient seen and examined remains on high flow refusing to prone states is uncomfortable. We will continue with aggressive measures. Will change to full dose Lovenox discussed with wreath maker. Condition is still guarded The high probability of a clinically significant, sudden or life threatening deterioration of the [pulmonary] system(s) required my full and direct attention, intervention and personal management. The aggregate critical care time was [35] minutes. This time is in addition to time spent performing reported procedures but includes the following: [x] Data Review and interpretation [x] Patient assessment and monitoring of vital signs [x] Documentation [x] Medication orders and management History Interval history: Patient seen and examined currently still on high flow 100% due to desaturation. Hospitalist Physical - Physical exam Narrative exam: General appearance: Present: Mild to moderate distress, well-nourished, on high flow - EENT Eyes: PERRL, EOM intact ENT: hearing intact, clear oral mucosa Ears: bilateral: normal - Neck Neck: supple, normal ROM - Respiratory Respiratory effort: normal Respiratory: bilateral: diminished - Breasts Breasts: normal - Cardiovascular Rhythm: regular Heart Sounds: Present: S1 & S2. Absent: gallop, rub Extremities: pulses intact, No edema, normal color, Full ROM - Gastrointestinal General gastrointestinal: Present: soft, non-tender, non-distended, normal bowel sounds - Genitourinary Male genitourinary: normal - Integumentary Integumentary: clear, warm, dry - Musculoskeletal Musculoskeletal: 1, strength equal bilaterally - Neurologic Neurologic: moves all extremities - Psychiatric Psychiatric: memory intact, appropriate mood/affect, intact judgment & insight - Constitutional Vitals: Temp Pulse Resp BP Pulse Ox 99.5 F 102 H 33 H 90/60 88 06/23/21 12:00 06/23/21 11:35 06/23/21 11:00 06/23/21 11:00 06/23/21 11:00 General appearance: Present: no acute distress, well-nourished Results - Labs CBC & Chem 7: 06/22/21 04:58 06/22/21 04:58 Labs: Laboratory Last Values WBC 16.3 K/mm3 (4.5-11.0) H 06/22/21 04:58 RBC 5.55 M/mm3 (3.65-5.03) H 06/22/21 04:58 Hgb 16.7 gm/dl (11.8-15.2) H 06/22/21 04:58 Hct 48.2 % (35.5-45.6) H 06/22/21 04:58 MCV 87 fl (84-94) 06/22/21 04:58 MCH 30 pg (28-32) 06/22/21 04:58 MCHC 35 % (32-34) H 06/22/21 04:58 RDW 13.7 % (13.2-15.2) 06/22/21 04:58 Plt Count 227 K/mm3 (140-440) 06/22/21 04:58 Lymph % (Auto) 25.5 % (13.4-35.0) 06/13/21 20:09 Wood % (Auto) 4.3 % (0.0-7.3) 06/13/21 20:09 Eos % (Auto) 0.0 % (0.0-4.3) 06/13/21 20:09 Baso % (Auto) 0.3 % (0.0-1.8) 06/13/21 20:09 Lymph # (Auto) 0.6 K/mm3 (1.2-5.4) L 06/13/21 20:09 Wood # (Auto) 0.1 K/mm3 (0.0-0.8) 06/13/21 20:09 Eos # (Auto) 0.0 K/mm3 (0.0-0.4) 06/13/21 20:09 Baso # (Auto) 0.0 K/mm3 (0.0-0.1) 06/13/21 20:09 Add Manual Diff Complete 06/14/21 05:12 Total Counted 50 06/14/21 05:12 Seg Neutrophils % 69.9 % (40.0-70.0) 06/13/21 20:09 Seg Neuts % (Manual) 82.0 % (40.0-70.0) H 06/14/21 05:12 Lymphocytes % (Manual) 14.0 % (13.4-35.0) 06/14/21 05:12 Monocytes % (Manual) 4.0 % (0.0-7.3) 06/14/21 05:12 Nucleated RBC % Not Reportable 06/14/21 05:12 Seg Neutrophils # 1.8 K/mm3 (1.8-7.7) 06/13/21 20:09 Seg Neutrophils # Man 1.6 K/mm3 (1.8-7.7) L 06/14/21 05:12 Band Neutrophils # 0.0 K/mm3 06/14/21 05:12 Lymphocytes # (Manual) 0.3 K/mm3 (1.2-5.4) L 06/14/21 05:12 Abs React Lymphs (Man) 0.0 K/mm3 06/14/21 05:12 Monocytes # (Manual) 0.1 K/mm3 (0.0-0.8) 06/14/21 05:12 Eosinophils # (Manual) 0.0 K/mm3 (0.0-0.4) 06/14/21 05:12 Basophils # (Manual) 0.0 K/mm3 (0.0-0.1) 06/14/21 05:12 Metamyelocytes # 0.0 K/mm3 06/14/21 05:12 Myelocytes # 0.0 K/mm3 06/14/21 05:12 Promyelocytes # 0.0 K/mm3 06/14/21 05:12 Blast Cells # 0.0 K/mm3 06/14/21 05:12 WBC Morphology Not Reportable 06/14/21 05:12 Hypersegmented Neuts Not Reportable 06/14/21 05:12 Hyposegmented Neuts Not Reportable 06/14/21 05:12 Hypogranular Neuts Not Reportable 06/14/21 05:12 Smudge Cells Not Reportable 06/14/21 05:12 Toxic Granulation Not Reportable 06/14/21 05:12 Toxic Vacuolation Not Reportable 06/14/21 05:12 Dohle Bodies Not Reportable 06/14/21 05:12 Pelger-Huet Anomaly Not Reportable 06/14/21 05:12 Sheri Rods Not Reportable 06/14/21 05:12 Platelet Estimate Consistent w auto 06/14/21 05:12 Clumped Platelets Not Reportable 06/14/21 05:12 Plt Clumps, EDTA Not Reportable 06/14/21 05:12 Large Platelets Not Reportable 06/14/21 05:12 Giant Platelets Not Reportable 06/14/21 05:12 Platelet Satelliting Not Reportable 06/14/21 05:12 Plt Morphology Comment Not Reportable 06/14/21 05:12 RBC Morphology Not Reportable 06/14/21 05:12 Dimorphic RBCs Not Reportable 06/14/21 05:12 Polychromasia Not Reportable 06/14/21 05:12 Hypochromasia Not Reportable 06/14/21 05:12 Poikilocytosis Not Reportable 06/14/21 05:12 Anisocytosis 1+ 06/14/21 05:12 Microcytosis Not Reportable 06/14/21 05:12 Macrocytosis Not Reportable 06/14/21 05:12 Spherocytes Not Reportable 06/14/21 05:12 Pappenheimer Bodies Not Reportable 06/14/21 05:12 Sickle Cells Not Reportable 06/14/21 05:12 Target Cells Not Reportable 06/14/21 05:12 Tear Drop Cells Not Reportable 06/14/21 05:12 Ovalocytes Not Reportable 06/14/21 05:12 Helmet Cells Not Reportable 06/14/21 05:12 Macdonald-Ortley Bodies Not Reportable 06/14/21 05:12 Stowell Rings Not Reportable 06/14/21 05:12 Colts Neck Cells Not Reportable 06/14/21 05:12 Bite Cells Not Reportable 06/14/21 05:12 Crenated Cell Not Reportable 06/14/21 05:12 Elliptocytes Not Reportable 06/14/21 05:12 Acanthocytes (Spur) Not Reportable 06/14/21 05:12 Rouleaux Not Reportable 06/14/21 05:12 Hemoglobin C Crystals Not Reportable 06/14/21 05:12 Schistocytes Not Reportable 06/14/21 05:12 Malaria parasites Not Reportable 06/14/21 05:12 Swapnil Bodies Not Reportable 06/14/21 05:12 Hem Pathologist Commnt No 06/14/21 05:12 D-Dimer 335.27 ng/mlDDU (0-234) H 06/22/21 04:58 ABG pH 7.475 (7.320-7.450) H 06/22/21 10:35 POC ABG pCO2 29.2 mmHg (32.0-48.0) L 06/22/21 10:35 ABG pCO2 40.4 mm Hg 06/15/21 Unknown POC ABG pO2 51.5 mmHg (83-108) L 06/22/21 10:35 ABG pO2 61.0 mm Hg (80.0-90.0) L 06/15/21 Unknown POC ABG HCO3 21.0 06/22/21 10:35 ABG HCO3 23.7 mmol/L (20.0-26.0) 06/15/21 Unknown ABG O2 Saturation 86.7 (0-100) 06/22/21 10:35 ABG O2 Content 21.0 (0.0-44) 06/15/21 Unknown POC ABG Base Excess -0.9 06/22/21 10:35 ABG Base Excess -1.1 mmol/L (-2.0-3.0) 06/15/21 Unknown ABG Hemoglobin 18.3 (12.0-17.5) H 06/22/21 10:35 ABG Oxyhemoglobin 86.3 (94-98) L 06/22/21 10:35 ABG Carboxyhemoglobin 1.0 % (0.0-5.0) 06/15/21 Unknown ABG Methemoglobin 0.3 (0.0-1.5) 06/22/21 10:35 ABG Potassium 3.9 mmol/L (3.40-4.50) 06/22/21 10:35 ABG Chloride 100.0 mmol/L (98-107) 06/22/21 10:35 ABG Glucose 143 mg/dL (65-95) H 06/22/21 10:35 Oxyhemoglobin 89.9 % (95.0-99.0) L 06/15/21 Unknown Carboxyhemoglobin 0.2 (0.5-1.5) L 06/22/21 10:35 FiO2 100 % 06/15/21 Unknown FiO2 % 100.0 06/22/21 10:35 Sodium 135 mmol/L (137-145) L 06/22/21 04:58 Potassium 4.2 mmol/L (3.6-5.0) 06/22/21 04:58 Chloride 96.8 mmol/L (98-107) L 06/22/21 04:58 Carbon Dioxide 27 mmol/L (22-30) 06/22/21 04:58 Anion Gap 15 mmol/L 06/22/21 04:58 BUN 32 mg/dL (9-20) H 06/22/21 04:58 Creatinine 0.8 mg/dL (0.8-1.3) 06/22/21 04:58 Estimated GFR > 60 ml/min 06/22/21 04:58 BUN/Creatinine Ratio 40 % 06/22/21 04:58 Glucose 172 mg/dL (75-100) H 06/22/21 04:58 Calcium 9.1 mg/dL (8.4-10.2) 06/22/21 04:58 Ferritin 1251.0 ng/mL (30.0-300.0) H 06/22/21 04:58 Total Bilirubin 0.70 mg/dL (0.1-1.2) 06/22/21 04:58 AST 22 units/L (5-40) 06/22/21 04:58 ALT 28 units/L (7-56) 06/22/21 04:58 Alkaline Phosphatase 69 units/L (35-129) 06/22/21 04:58 Lactate Dehydrogenase 816 units/L (91-180) H 06/22/21 04:58 C-Reactive Protein 0.10 mg/dL (0.00-1.30) 06/22/21 04:58 Total Protein 6.1 g/dL (6.3-8.2) L 06/22/21 04:58 Albumin 3.6 g/dL (3.9-5) L 06/22/21 04:58 Albumin/Globulin Ratio 1.4 % 06/22/21 04:58 Procalcitonin < 0.05 ng/mL (<0.15) 06/15/21 05:21 Arterial Blood Glucose 143 mg/dL (65-95) H 06/22/21 10:35 Arterial Blood Ionized Calcium 4.8 mg/dL (4.6-5.3) 06/22/21 10:35 Coronavirus (PCR) Positive (Negative) A 06/14/21 Unknown Mao/IV: Voiding Method Urinal Active Medications - Current Medications Current Medications: Generic Name Dose Route Start Last Admin Trade Name Freq PRN Reason Stop Dose Admin Acetaminophen 650 mg 06/13/21 22:49 06/20/21 19:54 Acetaminophen 325 Mg Tab PO 650 mg Q4H PRN Administration Pain MILD(1-3)/Fever >100.5/HAYNES Dexamethasone 10 mg 06/16/21 12:00 06/23/21 09:24 Dexamethasone 4 Mg/Ml Vial IV 06/24/21 22:01 10 mg BID SIMÓN Administration Famotidine 20 mg 06/14/21 10:00 06/23/21 09:24 Famotidine 20 Mg Tab PO 20 mg BID SIMÓN Administration Guaifenesin 200 mg 06/15/21 00:33 06/21/21 09:24 Guaifenesin 200 Mg Tab PO 200 mg Q6H PRN Administration Cough Heparin Sodium (Porcine) 5,000 unit 06/14/21 06:00 06/23/21 05:25 Heparin 5,000 Unit/1 Ml Vial SUB-Q 5,000 unit Q8HR SIMÓN Administration Hydralazine HCl 10 mg 06/13/21 22:52 Hydralazine 20 Mg/1 Ml Inj IV Q6H PRN SBP >/=160; DBP >/=100 Hydromorphone HCl 0.5 mg 06/13/21 22:49 Hydromorphone 1 Mg/1 Ml Inj IV Q3H PRN Pain , Severe (7-10) Ondansetron HCl 4 mg 06/13/21 22:49 06/17/21 18:48 Ondansetron 4 Mg/2 Ml Inj IV 4 mg Q8H PRN Administration Nausea And Vomiting Oxycodone/Acetaminophen 1 tab 06/13/21 22:49 08/08/21 17:41 Oxycodone /Acetaminophen 5-325mg Tab PO 1 tab Q6H PRN Administration Pain, Moderate (4-6) Phenol 1 spray 06/15/21 14:00 Phenol 1.4% 177 Ml Bottle MM PRN PRN Sore Throat Sodium Chloride 10 ml 06/14/21 10:00 06/23/21 09:24 Sodium Chloride 0.9% 10 Ml Flush Syringe IV 10 ml BID SIMÓN Administration Sodium Chloride 10 ml 06/13/21 22:49 Sodium Chloride 0.9% 10 Ml Flush Syringe IV PRN PRN LINE FLUSH Sodium Chloride 1 applic 06/22/21 11:00 06/23/21 09:25 [place] Saline Nasal Gel 14.1 Gm NS 1 applic BID SIMÓN Administration Nutrition/Malnutrition Assess - Dietary Evaluation Nutrition/Malnutrition Findings: Nutrition Notes Start: 06/19/21 11:11 Freq: Status: Active Protocol: Document 06/23/21 12:41 (Rec: 06/23/21 12:43 [id number]) Nutrition Notes Initial or Follow up Reassessment Current Diagnosis Respiratory Failure Other Pertinent Diagnosis pneu, COVID-19 Current Diet Regular Labs/Tests Reviewed Pertinent Medications Reviewed Height 5 ft 9 in Weight 117.1 kg [place] Body Weight (kg) 72.72 BMI 38.1 Weight Status Obese Subjective/Other Information Pt drinking 100% of 2 ONS daily but is getting tired of them. He is eating 20% of meals. Percent of energy/protein needs met: 52%/86% Burn Absent Trauma Absent Current % PO Negligible Minimum of two criteria No physical signs of malnutrition #1 Nutrition Diagnosis Inadequate oral intake As Evidenced by Signs and Symptoms pt eating 20% of meals Diagnosis Progress(for reassessment Worsened documentation) Is patient on ventilator? No Is Patient Ambulatory and/or Out of Bed No REE-([facility] [place]-confined to bed) 8412.584 Calculation Used for Recommendations Kcal/kg Additional Notes Protein: (0.8-1g/kg AdjBW: 83kg) 67-83g Fluid: 1 ml/kcal Nutrition Intervention Change Diet Order: Continue Add Supplement/Snack (indicate name/kcal Ensure Enlive BID /protein ) Provides kCal: 700 Provides Protein (gm) 40 Goal #1 Meet at least 75% of energy and protein needs via PO and ONS Anticipated Discharge Needs: regular Follow-Up By: 06/26/21 Additional Comments F/u: intakes and ONS tolerance
--- NOTE | 2021-06-23 14:32 | Electrocardiograph Report ---
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
[2021-06-23] MEDS: FUROSEMIDE 40 MG/4 ML INJ IV SCH (15:58)
--- NOTE | 2021-06-23 16:30 | Progress Note ---
Assessment and Plan Cultures: SARS CoV2 PCR: Positive as outpatient 06/13/2021 blood culture: In process A/P: 36-year-old male with history of asthma, renal stones, unvaccinated for COVID-19 was diagnosed with COVID-19 as an outpatient: #Bilateral pneumonia: Secondary to COVID-19. Severe disease, with high inflamma tory markers and increasing oxygen requirements. #Acute hypoxic respiratory failure: Now on high flow nasal cannula #Morbid obesity Recs: -IV/PO Dexamethasone 10 mg daily x 10 days, higher dose due to morbid obesity -s/p Actemra once -Completed IV Remdesivir. -Ordered new procalcitonin -prophylactic anticoagulation based on d-dimer per hospital protocol -trend ferritin, LDH, d-dimer, CRP every 2-3 days for risk stratification and to assess disease progression ID will continue to follow. PLease call with concerns. Pato Kruse MD [facility] ([facility]) O: [phone] F: [phone] Subjective Date of service: 06/23/21 Principal diagnosis: Acute hypoxic respiratory failure Interval history: Afebrile, white count 16.3 yesterday. Imaging personally reviewed: Chest x-ray: Progressive multifocal pneumonia. Objective - Exam Narrative Exam: Physical exam deferred to reduce risk of transmission of COVID-19. Please refer to primary team's note. - Constitutional Vitals: Vital Signs Temp Pulse Resp BP Pulse Ox 99.5 F 102 H 33 H 90/60 88 06/23/21 12:00 06/23/21 11:35 06/23/21 11:00 06/23/21 11:00 06/23/21 11:00 Temperature -Last 24 Hours Temperature 99.5 F Temperature 98.0 F Temperature 98.0 F Temperature 98.6 F Temperature 98.5 F Temperature 98.6 F - Labs CBC & Chem 7: 06/22/21 04:58 06/22/21 04:58
[2021-06-23] MEDS: oxyCODONE /ACETAMINOPHEN 5-325MG TAB PO PRN (21:12)
[2021-06-23] MEDS: ACETAMINOPHEN 325 MG TAB PO PRN (21:13)
[2021-06-23] MEDS: ENOXAPARIN 120 MG/0.8 ML INJ SUB-Q SCH (21:14)
[2021-06-23] MEDS: dexAMETHasone 20 MG/5 ML VIAL IV SCH (22:54)
[2021-06-23] MEDS: guaiFENesin 200 MG TAB PO PRN (23:11)
[2021-06-24 06:39] LABS: Blood Urea Nitrogen 34 mg/dL (9-20); Calcium 9.1 mg/dL (8.4-10.2); Hemolysis Index 10
[2021-06-24 06:43] LABS: BUN/Creatinine Ratio 49; C-Reactive Protein < 0.03 mg/dL (0.00-1.30)
[2021-06-24] MEDS: FAMOTIDINE 20 MG TAB PO SCH ×2 (09:37→21:17)
[2021-06-24] MEDS: ENOXAPARIN 120 MG/0.8 ML INJ SUB-Q SCH ×2 (09:37→21:16)
[2021-06-24] MEDS: FUROSEMIDE 40 MG/4 ML INJ IV SCH (09:37)
[2021-06-24] MEDS: AYR SALINE NASAL GEL 14.1 GM NS SCH ×2 (09:38→21:21)
[2021-06-24] MEDS: dexAMETHasone 20 MG/5 ML VIAL IV SCH ×2 (09:39→21:14)
--- NOTE | 2021-06-24 11:15 | Progress Note ---
Assessment and Plan 36 y/o male with acute respiratory failure secondary to COVID 19, not vaccinated. 06/24/21: Guideline steroids end today but will like continue with Solumedrol starting tomorrow if no improvement overnight in oxygen requirement. Very high risk for intubation with increased mortality once intubated. Guarded prognosis. 06/20/21: Continue IV steroids. Encouraged patient to prone. Lasix today. Guarded prognosis 06/19/21: Continue IV steroids. Prone if possible. Lasix again today. 06/18/21: Continue IV steroids, IV remdesivir. Gave lasix 40mg today. Guarded prognosis. 06/17/21: Continue IV steroids. Prone. IV remdesivir 06/16/21: Given patient size will increase steroids to BID dosing. Continue Remdesivir. Need to prone as tolerated during the day and sleep prone at night. Guarded prognosis. 1. Prone as tolerated during the day and sleep prone at night 2. IV steroids and remdesivir, per ID would be a candidate for actemra 3. Agree with lasix therapy, monitor renal function and electrolytes closely 4. Guarded prognosis Subjective Date of service: 06/24/21 Principal diagnosis: Acute hypoxic respiratory failure Interval history: Remains on HFNC and NRB. Sats in the mid 90's. Patient not proning. Currently on daily lasix that ends tomorrow. BP stable. Still on Dex 10 BID that ends tonight. has been net negative the last several days. Objective Vital Signs - 12hr 06/24/21 06/24/21 06/24/21 00:00 01:00 01:16 Temperature 98.5 F Pulse Rate 86 100 H 93 H Pulse Rate [ From Monitor] Respiratory 37 H 14 25 H Rate Blood Pressure 124/77 124/79 124/79 O2 Sat by Pulse 87 87 95 Oximetry 06/24/21 06/24/21 06/24/21 02:00 03:00 04:00 Temperature 98.8 F Pulse Rate 87 85 84 Pulse Rate [ 84 From Monitor] Respiratory 25 H 19 18 Rate Blood Pressure 124/78 122/85 132/83 O2 Sat by Pulse 89 91 90 Oximetry 06/24/21 06/24/21 06/24/21 04:05 05:00 06:00 Temperature Pulse Rate 105 H 77 74 Pulse Rate [ From Monitor] Respiratory 25 H 21 Rate Blood Pressure 126/78 115/74 O2 Sat by Pulse 89 92 Oximetry 06/24/21 06/24/21 08:00 09:15 Temperature 97.4 F L Pulse Rate Pulse Rate [ From Monitor] Respiratory Rate Blood Pressure O2 Sat by Pulse 94 Oximetry Constitutional: alert, other (mild distress) Eyes: non-icteric ENT: oropharynx moist Neck: supple Ascultation: Bilateral: diminished breath sounds Cardiovascular: regular rate and rhythm Gastrointestinal: normoactive bowel sounds Integumentary: normal Extremities: no cyanosis Neurologic: normal mental status Psychiatric: anxious CBC and BMP: 06/22/21 04:58 06/24/21 05:25 ABG, PT/INR, D-dimer: ABG ABG pH 7.475 (7.320-7.450) H 06/22/21 10:35 POC ABG pCO2 29.2 mmHg (32.0-48.0) L 06/22/21 10:35 ABG pCO2 40.4 mm Hg 06/15/21 Unknown POC ABG pO2 51.5 mmHg (83-108) L 06/22/21 10:35 ABG pO2 61.0 mm Hg (80.0-90.0) L 06/15/21 Unknown POC ABG HCO3 21.0 06/22/21 10:35 ABG O2 Saturation 86.7 (0-100) 06/22/21 10:35 PT/INR, D-dimer D-Dimer 570.75 ng/mlDDU (0-234) H 06/24/21 05:25 Abnormal lab findings: Abnormal Labs 06/13/21 06/13/21 06/13/21 20:09 20:09 20:09 WBC 2.6 L RBC Hgb Hct MCHC 35 H Plt Count 112 L Lymph # (Auto) 0.6 L Seg Neuts % (Manual) Seg Neutrophils # Man Lymphocytes # (Manual) D-Dimer 560.90 H ABG pH POC ABG pCO2 POC ABG pO2 ABG pO2 ABG O2 Saturation ABG Hemoglobin ABG Oxyhemoglobin ABG Glucose Oxyhemoglobin Carboxyhemoglobin Sodium 134 L Chloride BUN Creatinine Glucose 105 H Ferritin AST ALT Lactate Dehydrogenase C-Reactive Protein Total Protein Albumin Arterial Blood Glucose Coronavirus (PCR) 06/13/21 06/13/21 06/14/21 20:09 20:09 05:12 WBC 2.0 L RBC Hgb Hct MCHC 35 H Plt Count 106 L Lymph # (Auto) Seg Neuts % (Manual) 82.0 H Seg Neutrophils # Man 1.6 L Lymphocytes # (Manual) 0.3 L D-Dimer ABG pH POC ABG pCO2 POC ABG pO2 ABG pO2 ABG O2 Saturation ABG Hemoglobin ABG Oxyhemoglobin ABG Glucose Oxyhemoglobin Carboxyhemoglobin Sodium Chloride BUN Creatinine Glucose 105 H Ferritin 1876.0 H AST ALT Lactate Dehydrogenase 634 H C-Reactive Protein 9.20 H Total Protein Albumin Arterial Blood Glucose Coronavirus (PCR) 06/14/21 06/14/21 06/14/21 05:12 23:50 Unknown WBC RBC Hgb Hct MCHC Plt Count Lymph # (Auto) Seg Neuts % (Manual) Seg Neutrophils # Man Lymphocytes # (Manual) D-Dimer ABG pH POC ABG pCO2 POC ABG pO2 ABG pO2 ABG O2 Saturation ABG Hemoglobin ABG Oxyhemoglobin ABG Glucose Oxyhemoglobin Carboxyhemoglobin Sodium Chloride BUN Creatinine Glucose 214 H 135 H Ferritin AST 52 H ALT Lactate Dehydrogenase C-Reactive Protein Total Protein Albumin 3.2 L Arterial Blood Glucose Coronavirus (PCR) Positive A 06/15/21 06/15/21 06/15/21 05:21 05:21 05:21 WBC RBC Hgb Hct MCHC Plt Count Lymph # (Auto) Seg Neuts % (Manual) Seg Neutrophils # Man Lymphocytes # (Manual) D-Dimer 360.79 H ABG pH POC ABG pCO2 POC ABG pO2 ABG pO2 ABG O2 Saturation ABG Hemoglobin ABG Oxyhemoglobin ABG Glucose Oxyhemoglobin Carboxyhemoglobin Sodium Chloride BUN Creatinine 0.7 L Glucose 167 H Ferritin 1869.0 H AST 65 H ALT Lactate Dehydrogenase C-Reactive Protein Total Protein 6.1 L Albumin 3.4 L Arterial Blood Glucose Coronavirus (PCR) 06/15/21 06/15/21 06/16/21 05:21 Unknown 07:16 WBC RBC Hgb Hct MCHC Plt Count Lymph # (Auto) Seg Neuts % (Manual) Seg Neutrophils # Man Lymphocytes # (Manual) D-Dimer ABG pH POC ABG pCO2 POC ABG pO2 ABG pO2 61.0 L ABG O2 Saturation 91.3 L ABG Hemoglobin ABG Oxyhemoglobin ABG Glucose Oxyhemoglobin 89.9 L Carboxyhemoglobin Sodium Chloride BUN Creatinine Glucose 130 H Ferritin AST 77 H ALT 57 H Lactate Dehydrogenase C-Reactive Protein 3.10 H Total Protein 6.0 L Albumin 3.5 L Arterial Blood Glucose Coronavirus (PCR) 06/17/21 06/17/21 06/22/21 04:36 04:36 04:58 WBC 16.3 H RBC 5.55 H Hgb 16.7 H Hct 48.2 H MCHC 36 H 35 H Plt Count Lymph # (Auto) Seg Neuts % (Manual) Seg Neutrophils # Man Lymphocytes # (Manual) D-Dimer ABG pH POC ABG pCO2 POC ABG pO2 ABG pO2 ABG O2 Saturation ABG Hemoglobin ABG Oxyhemoglobin ABG Glucose Oxyhemoglobin Carboxyhemoglobin Sodium Chloride BUN 29 H Creatinine Glucose 125 H Ferritin AST 59 H ALT 57 H Lactate Dehydrogenase C-Reactive Protein Total Protein 6.0 L Albumin 3.6 L Arterial Blood Glucose Coronavirus (PCR) 06/22/21 06/22/21 06/22/21 04:58 04:58 04:58 WBC RBC Hgb Hct MCHC Plt Count Lymph # (Auto) Seg Neuts % (Manual) Seg Neutrophils # Man Lymphocytes # (Manual) D-Dimer 335.27 H ABG pH POC ABG pCO2 POC ABG pO2 ABG pO2 ABG O2 Saturation ABG Hemoglobin ABG Oxyhemoglobin ABG Glucose Oxyhemoglobin Carboxyhemoglobin Sodium 135 L Chloride 96.8 L BUN 32 H Creatinine Glucose 172 H Ferritin 1251.0 H AST ALT Lactate Dehydrogenase 816 H C-Reactive Protein Total Protein 6.1 L Albumin 3.6 L Arterial Blood Glucose Coronavirus (PCR) 06/22/21 06/24/21 06/24/21 10:35 05:25 05:25 WBC RBC Hgb Hct MCHC Plt Count Lymph # (Auto) Seg Neuts % (Manual) Seg Neutrophils # Man Lymphocytes # (Manual) D-Dimer 570.75 H ABG pH 7.475 H POC ABG pCO2 29.2 L POC ABG pO2 51.5 L ABG pO2 ABG O2 Saturation ABG Hemoglobin 18.3 H ABG Oxyhemoglobin 86.3 L ABG Glucose 143 H Oxyhemoglobin Carboxyhemoglobin 0.2 L Sodium Chloride BUN Creatinine Glucose Ferritin 1621.0 H AST ALT Lactate Dehydrogenase C-Reactive Protein Total Protein Albumin Arterial Blood Glucose 143 H Coronavirus (PCR) 06/24/21 05:25 WBC RBC Hgb Hct MCHC Plt Count Lymph # (Auto) Seg Neuts % (Manual) Seg Neutrophils # Man Lymphocytes # (Manual) D-Dimer ABG pH POC ABG pCO2 POC ABG pO2 ABG pO2 ABG O2 Saturation ABG Hemoglobin ABG Oxyhemoglobin ABG Glucose Oxyhemoglobin Carboxyhemoglobin Sodium Chloride BUN 34 H Creatinine 0.7 L Glucose 131 H Ferritin AST ALT Lactate Dehydrogenase 691 H C-Reactive Protein Total Protein Albumin Arterial Blood Glucose Coronavirus (PCR)
--- NOTE | 2021-06-24 14:50 | Progress Note ---
Assessment and Plan Cultures: SARS CoV2 PCR: Positive as outpatient 06/13/2021 blood culture: In process A/P: 36-year-old male with history of asthma, renal stones, unvaccinated for COVID-19 was diagnosed with COVID-19 as an outpatient: #Bilateral pneumonia: Secondary to COVID-19. Severe disease, with high inflamma tory markers and increasing oxygen requirements. #Acute hypoxic respiratory failure: Now on high flow nasal cannula #Morbid obesity Recs: -IV/PO Dexamethasone 10 mg daily x 10 days, higher dose due to morbid obesity -s/p Actemra once -Completed IV Remdesivir. -Procalcitonin remains low.l -prophylactic anticoagulation based on d-dimer per hospital protocol -trend ferritin, LDH, d-dimer, CRP every 2-3 days for risk stratification and to assess disease progression ID will continue to follow. PLease call with concerns. Pato Kruse MD [facility] ([facility]) O: [phone] F: [phone] Subjective Date of service: 06/24/21 Principal diagnosis: Acute hypoxic respiratory failure Interval history: Afebrile, elevated white count. On non-rebreather with HFNC. Objective - Exam Narrative Exam: Physical exam deferred to reduce risk of transmission of COVID-19. Please refer to primary team's note. - Constitutional Vitals: Vital Signs Temp Pulse Resp BP Pulse Ox 97.6 F 127 H 19 123/87 89 06/24/21 12:00 06/24/21 13:01 06/24/21 13:01 06/24/21 13:01 06/24/21 13:01 Temperature -Last 24 Hours Temperature 97.6 F Temperature 97.4 F Temperature 98.8 F Temperature 98.8 F Temperature 98.5 F Temperature 97.8 F Temperature 98.9 F - Labs CBC & Chem 7: 06/22/21 04:58 06/24/21 05:25 Labs: Abnormal lab results 06/24/21 06/24/21 06/24/21 Range/Units 05:25 05:25 05:25 D-Dimer 570.75 H (0-234) ng/mlDDU BUN 34 H (9-20) mg/dL Creatinine 0.7 L (0.8-1.3) mg/dL Glucose 131 H (75-100) mg/dL Ferritin 1621.0 H (30.0-300.0) ng/mL Lactate Dehydrogenase 691 H (91-180) units/L
--- NOTE | 2021-06-24 14:51 | Progress Note ---
Assessment and Plan Assessment and plan: 36-year-old with a history of asthma, obesity presented with shortness of breath fever chills arthralgias myalgias approximately 8 days after testing positive for COVID. Patient at present hypoxic requiring 15 L facemask at present. Patient is able to speak in full sentences however remains hypoxic. Hospital course complicated by nonproductive cough. (1) Acute respiratory failure due to COVID-19 Current Visit: Yes Status: Acute Plan to address problem: Patient requires 15 L oxygen to prevent hypoxemia. Currently started on steroids dexamethasone Supportive care with oxygen 15 L We will add Hycodan for cough Follow inflammatory markers Empiric antibiotics Rocephin azithromycin Initiate remdesivir Zinc, vitamin C, vitamin D (2) Asthma Current Visit: Yes Status: Acute Plan to address problem: We will place nebulizers. Albuterol nebulizers patient seemed to be doing well as far as asthma limited wheezing. Respiratory failure secondary to Covid (3) COVID-19 pneumonia (4) severe sepsis secondary to COVID-19 (5) multifocal pneumonia Current Visit: Yes Status: Acute Plan to address problem: Consistent with Covid pneumonia 06/15: Considering gradual decline will transfer patient to IMCU. We'll also consult pulmonary GI. I have requested the patient be put on high flow and also trial of BiPAP. ID is consulted and currently following patient management. Weight loss recommended. Continue steroids. Chest x-ray reviewed by me shows bilateral infiltrates 06/16: Patient seen and examined Remains on HFNC but now at 40 and 100%. SAts in the mid 90's. Continue to monitor renal function with Lasix. Continue IMCU. Can downgrade this oxygen weaning again this. Continue prone positioning. Case dis cussed with marble mason 06/17: Continue supportive care. High flow down to 35 L continuous 100% with saturation in the mid to low 90s. Per marble mason steroid has been increased to twice daily dosing due to patient size. Patient continues on IV remdesivir. We will continue to monitor inflammatory markers. Prognosis is guarded. 06/18: Patient seen and examined, Continues supportive care, wean as tolerated. still with persitent hypoxia, he did not like the High flow, affects his nostriles, and now is on NRB satting 94%. Continue to encourage prone position. condition is still guarded 06/19: Continue supportive care, wean oxygen as tolerated, patient ok with me speaking with mother, will call and update. 06/20: Patient seen and examined continues to be weaned down on high flow oxygen down to 85%. Saturation remains around 92%. I did discuss extensively with the mother. She verbalized understanding. This discussion was done with permission with the patient. We will do another trial of Lasix. Patient is continued on the steroids he is status post Actemra and has completed his remdesivir. 06/21: Patient's prognosis still remains guarded. Continue to encourage prone positioning. Went back up on oxygen demand. But states that he does not feel less winded as before. Continue diuresis and monitor renal function. Also monitor inflammatory markers. 06/22: Patient more mobile but still profoundly hypoxic, continue to monitor and wean oxygen as tolerated. Will re-evaluate if repeated Lasix will help. 06/23: Patient seen and examined remains on high flow refusing to prone states is uncomfortable. We will continue with aggressive measures. Will change to full dose Lovenox discussed with airborne operations. Condition is still guarded 06/24; patient was seen and evaluated this morning. Patient was on 15L of high flow oxygen. Patient finished remdesivir, Decadron, Actemra. Prognosis is guarded. The high probability of a clinically significant, sudden or life threatening det erioration of the [pulmonary] system(s) required my full and direct attention, intervention and personal management. The aggregate critical care time was [35] minutes. This time is in addition to time spent performing reported procedures but includes the following: [x] Data Review and interpretation [x] Patient assessment and monitoring of vital signs [x] Documentation [x] Medication orders and management History Interval history: Patient was seen and evaluated this morning Patient has shortness of breath Patient was on 15 L of nonrebreather mask Hospitalist Physical - Physical exam Narrative exam: Patient is on 15 L of nonrebreather mask. The patient appeared well nourished and normally developed. Vital signs as documented. Head exam is unremarkable. No scleral icterus . Neck is without jugular venous distension, thyromegaly, or carotid bruits. Lungs decreased air entry Cardiac exam reveals regular rate and Rhythm. Abdominal exam reveals normal bowel sounds, nontender, no organomegaly. Extremities are nonedematous and both femoral and pedal pulses are normal. MARBLE POLISHER HAND: Alert and oriented 3. No focal weakness. - Constitutional Vitals: Temp Pulse Resp BP Pulse Ox 97.6 F 127 H 19 123/87 89 06/24/21 12:00 06/24/21 13:01 06/24/21 13:01 06/24/21 13:01 06/24/21 13:01 General appearance: Present: no acute distress, well-nourished Results - Labs CBC & Chem 7: 06/22/21 04:58 06/24/21 05:25 Labs: Laboratory Last Values WBC 16.3 K/mm3 (4.5-11.0) H 06/22/21 04:58 RBC 5.55 M/mm3 (3.65-5.03) H 06/22/21 04:58 Hgb 16.7 gm/dl (11.8-15.2) H 06/22/21 04:58 Hct 48.2 % (35.5-45.6) H 06/22/21 04:58 MCV 87 fl (84-94) 06/22/21 04:58 MCH 30 pg (28-32) 06/22/21 04:58 MCHC 35 % (32-34) H 06/22/21 04:58 RDW 13.7 % (13.2-15.2) 06/22/21 04:58 Plt Count 227 K/mm3 (140-440) 06/22/21 04:58 Lymph % (Auto) 25.5 % (13.4-35.0) 06/13/21 20:09 [place] % (Auto) 4.3 % (0.0-7.3) 06/13/21 20:09 Eos % (Auto) 0.0 % (0.0-4.3) 06/13/21 20:09 Baso % (Auto) 0.3 % (0.0-1.8) 06/13/21 20:09 Lymph # (Auto) 0.6 K/mm3 (1.2-5.4) L 06/13/21 20:09 [place] # (Auto) 0.1 K/mm3 (0.0-0.8) 06/13/21 20:09 Eos # (Auto) 0.0 K/mm3 (0.0-0.4) 06/13/21 20:09 Baso # (Auto) 0.0 K/mm3 (0.0-0.1) 06/13/21 20:09 Add Manual Diff Complete 06/14/21 05:12 Total Counted 50 06/14/21 05:12 Seg Neutrophils % 69.9 % (40.0-70.0) 06/13/21 20:09 Seg Neuts % (Manual) 82.0 % (40.0-70.0) H 06/14/21 05:12 Lymphocytes % (Manual) 14.0 % (13.4-35.0) 06/14/21 05:12 Monocytes % (Manual) 4.0 % (0.0-7.3) 06/14/21 05:12 Nucleated RBC % Not Reportable 06/14/21 05:12 Seg Neutrophils # 1.8 K/mm3 (1.8-7.7) 06/13/21 20:09 Seg Neutrophils # Man 1.6 K/mm3 (1.8-7.7) L 06/14/21 05:12 Band Neutrophils # 0.0 K/mm3 06/14/21 05:12 Lymphocytes # (Manual) 0.3 K/mm3 (1.2-5.4) L 06/14/21 05:12 Abs React Lymphs (Man) 0.0 K/mm3 06/14/21 05:12 Monocytes # (Manual) 0.1 K/mm3 (0.0-0.8) 06/14/21 05:12 Eosinophils # (Manual) 0.0 K/mm3 (0.0-0.4) 06/14/21 05:12 Basophils # (Manual) 0.0 K/mm3 (0.0-0.1) 06/14/21 05:12 Metamyelocytes # 0.0 K/mm3 06/14/21 05:12 Myelocytes # 0.0 K/mm3 06/14/21 05:12 Promyelocytes # 0.0 K/mm3 06/14/21 05:12 Blast Cells # 0.0 K/mm3 06/14/21 05:12 WBC Morphology Not Reportable 06/14/21 05:12 Hypersegmented Neuts Not Reportable 06/14/21 05:12 Hyposegmented Neuts Not Reportable 06/14/21 05:12 Hypogranular Neuts Not Reportable 06/14/21 05:12 Smudge Cells Not Reportable 06/14/21 05:12 Toxic Granulation Not Reportable 06/14/21 05:12 Toxic Vacuolation Not Reportable 06/14/21 05:12 Dohle Bodies Not Reportable 06/14/21 05:12 Pelger-Huet Anomaly Not Reportable 06/14/21 05:12 Sheri Rods Not Reportable 06/14/21 05:12 Platelet Estimate Consistent w auto 06/14/21 05:12 Clumped Platelets Not Reportable 06/14/21 05:12 Plt Clumps, EDTA Not Reportable 06/14/21 05:12 Large Platelets Not Reportable 06/14/21 05:12 Giant Platelets Not Reportable 06/14/21 05:12 Platelet Satelliting Not Reportable 06/14/21 05:12 Plt Morphology Comment Not Reportable 06/14/21 05:12 RBC Morphology Not Reportable 06/14/21 05:12 Dimorphic RBCs Not Reportable 06/14/21 05:12 Polychromasia Not Reportable 06/14/21 05:12 Hypochromasia Not Reportable 06/14/21 05:12 Poikilocytosis Not Reportable 06/14/21 05:12 Anisocytosis 1+ 06/14/21 05:12 Microcytosis Not Reportable 06/14/21 05:12 Macrocytosis Not Reportable 06/14/21 05:12 Spherocytes Not Reportable 06/14/21 05:12 Pappenheimer Bodies Not Reportable 06/14/21 05:12 Sickle Cells Not Reportable 06/14/21 05:12 Target Cells Not Reportable 06/14/21 05:12 Tear Drop Cells Not Reportable 06/14/21 05:12 Ovalocytes Not Reportable 06/14/21 05:12 Helmet Cells Not Reportable 06/14/21 05:12 Macdonald-Chaumont Bodies Not Reportable 06/14/21 05:12 [place] Rings Not Reportable 06/14/21 05:12 Alen Cells Not Reportable 06/14/21 05:12 Bite Cells Not Reportable 06/14/21 05:12 Crenated Cell Not Reportable 06/14/21 05:12 Elliptocytes Not Reportable 06/14/21 05:12 Acanthocytes (Spur) Not Reportable 06/14/21 05:12 Rouleaux Not Reportable 06/14/21 05:12 Hemoglobin C Crystals Not Reportable 06/14/21 05:12 Schistocytes Not Reportable 06/14/21 05:12 Malaria parasites Not Reportable 06/14/21 05:12 Swapnil Bodies Not Reportable 06/14/21 05:12 Hem Pathologist Commnt No 06/14/21 05:12 D-Dimer 570.75 ng/mlDDU (0-234) H 06/24/21 05:25 ABG pH 7.475 (7.320-7.450) H 06/22/21 10:35 POC ABG pCO2 29.2 mmHg (32.0-48.0) L 06/22/21 10:35 ABG pCO2 40.4 mm Hg 06/15/21 Unknown POC ABG pO2 51.5 mmHg (83-108) L 06/22/21 10:35 ABG pO2 61.0 mm Hg (80.0-90.0) L 06/15/21 Unknown POC ABG HCO3 21.0 06/22/21 10:35 ABG HCO3 23.7 mmol/L (20.0-26.0) 06/15/21 Unknown ABG O2 Saturation 86.7 (0-100) 06/22/21 10:35 ABG O2 Content 21.0 (0.0-44) 06/15/21 Unknown POC ABG Base Excess -0.9 06/22/21 10:35 ABG Base Excess -1.1 mmol/L (-2.0-3.0) 06/15/21 Unknown ABG Hemoglobin 18.3 (12.0-17.5) H 06/22/21 10:35 ABG Oxyhemoglobin 86.3 (94-98) L 06/22/21 10:35 ABG Carboxyhemoglobin 1.0 % (0.0-5.0) 06/15/21 Unknown ABG Methemoglobin 0.3 (0.0-1.5) 06/22/21 10:35 ABG Potassium 3.9 mmol/L (3.40-4.50) 06/22/21 10:35 ABG Chloride 100.0 mmol/L (98-107) 06/22/21 10:35 ABG Glucose 143 mg/dL (65-95) H 06/22/21 10:35 Oxyhemoglobin 89.9 % (95.0-99.0) L 06/15/21 Unknown Carboxyhemoglobin 0.2 (0.5-1.5) L 06/22/21 10:35 FiO2 100 % 06/15/21 Unknown FiO2 % 100.0 06/22/21 10:35 Sodium 139 mmol/L (137-145) 06/24/21 05:25 Potassium 4.7 mmol/L (3.6-5.0) 06/24/21 05:25 Chloride 99.5 mmol/L (98-107) 06/24/21 05:25 Carbon Dioxide 27 mmol/L (22-30) 06/24/21 05:25 Anion Gap 17 mmol/L 06/24/21 05:25 BUN 34 mg/dL (9-20) H 06/24/21 05:25 Creatinine 0.7 mg/dL (0.8-1.3) L 06/24/21 05:25 Estimated GFR > 60 ml/min 06/24/21 05:25 BUN/Creatinine Ratio 49 % 06/24/21 05:25 Glucose 131 mg/dL (75-100) H 06/24/21 05:25 Calcium 9.1 mg/dL (8.4-10.2) 06/24/21 05:25 Ferritin 1621.0 ng/mL (30.0-300.0) H 06/24/21 05:25 Total Bilirubin 0.70 mg/dL (0.1-1.2) 06/22/21 04:58 AST 22 units/L (5-40) 06/22/21 04:58 ALT 28 units/L (7-56) 06/22/21 04:58 Alkaline Phosphatase 69 units/L (35-129) 06/22/21 04:58 Lactate Dehydrogenase 691 units/L (91-180) H 06/24/21 05:25 C-Reactive Protein < 0.03 mg/dL (0.00-1.30) 06/24/21 05:25 Total Protein 6.1 g/dL (6.3-8.2) L 06/22/21 04:58 Albumin 3.6 g/dL (3.9-5) L 06/22/21 04:58 Albumin/Globulin Ratio 1.4 % 06/22/21 04:58 Procalcitonin < 0.05 ng/mL (<0.15) 06/24/21 05:25 Arterial Blood Glucose 143 mg/dL (65-95) H 06/22/21 10:35 Arterial Blood Ionized Calcium 4.8 mg/dL (4.6-5.3) 06/22/21 10:35 Coronavirus (PCR) Positive (Negative) A 06/14/21 Unknown Mao/IV: Voiding Method Urinal Active Medications - Current Medications Current Medications: Generic Name Dose Route Start Last Admin Trade Name Freq PRN Reason Stop Dose Admin Acetaminophen 650 mg 06/13/21 22:49 06/23/21 21:13 Acetaminophen 325 Mg Tab PO 650 mg Q4H PRN Administration Pain MILD(1-3)/Fever >100.5/HAYNES Dexamethasone 10 mg 06/23/21 22:00 06/24/21 09:39 Dexamethasone 20 Mg/5 Ml Vial IV 06/24/21 22:01 10 mg BID SIMÓN Administration Enoxaparin Sodium 120 mg 06/23/21 22:00 06/24/21 09:37 Enoxaparin 120 Mg/0.8 Ml Inj SUB-Q 120 mg Q12HR SIMÓN Administration Protocol Famotidine 20 mg 06/14/21 10:00 06/24/21 09:37 Famotidine 20 Mg Tab PO 20 mg BID SIMÓN Administration Furosemide 40 mg 06/23/21 15:00 06/24/21 09:37 Furosemide 40 Mg/4 Ml Inj IV 06/25/21 10:01 40 mg QDAY SIMÓN Administration Guaifenesin 200 mg 06/15/21 00:33 06/23/21 23:11 Guaifenesin 200 Mg Tab PO 200 mg Q6H PRN Administration Cough Hydralazine HCl 10 mg 06/13/21 22:52 Hydralazine 20 Mg/1 Ml Inj IV Q6H PRN SBP >/=160; DBP >/=100 Hydromorphone HCl 0.5 mg 06/13/21 22:49 Hydromorphone 1 Mg/1 Ml Inj IV Q3H PRN Pain , Severe (7-10) Ondansetron HCl 4 mg 06/13/21 22:49 06/17/21 18:48 Ondansetron 4 Mg/2 Ml Inj IV 4 mg Q8H PRN Administration Nausea And Vomiting Oxycodone/Acetaminophen 1 tab 06/13/21 22:49 06/23/21 21:12 Oxycodone /Acetaminophen 5-325mg Tab PO 1 tab Q6H PRN Administration Pain, Moderate (4-6) Phenol 1 spray 06/15/21 14:00 Phenol 1.4% 177 Ml Bottle MM PRN PRN Sore Throat Sodium Chloride 10 ml 06/14/21 10:00 06/24/21 09:38 Sodium Chloride 0.9% 10 Ml Flush Syringe IV 10 ml BID SIMÓN Administration Sodium Chloride 10 ml 06/13/21 22:49 Sodium Chloride 0.9% 10 Ml Flush Syringe IV PRN PRN LINE FLUSH Sodium Chloride 1 applic 06/22/21 11:00 06/24/21 09:38 [place] Saline Nasal Gel 14.1 Gm NS 1 applic BID SIMÓN Administration Nutrition/Malnutrition Assess - Dietary Evaluation Nutrition/Malnutrition Findings: Nutrition Notes Start: 06/19/21 11:11 Freq: Status: Active Protocol: Document 06/23/21 12:41 (Rec: 06/23/21 12:43 [email or web address]) Nutrition Notes Initial or Follow up Reassessment Current Diagnosis Respiratory Failure Other Pertinent Diagnosis pneu, COVID-19 Current Diet Regular Labs/Tests Reviewed Pertinent Medications Reviewed Height 5 ft 9 in Weight 117.1 kg [place] Body Weight (kg) 72.72 BMI 38.1 Weight Status Obese Subjective/Other Information Pt drinking 100% of 2 ONS daily but is getting tired of them. He is eating 20% of meals. Percent of energy/protein needs met: 52%/86% Burn Absent Trauma Absent Current % PO Negligible Minimum of two criteria No physical signs of malnutrition #1 Nutrition Diagnosis Inadequate oral intake As Evidenced by Signs and Symptoms pt eating 20% of meals Diagnosis Progress(for reassessment Worsened documentation) Is patient on ventilator? No Is Patient Ambulatory and/or Out of Bed No REE-([facility]-confined to bed) 2464.030 Calculation Used for Recommendations Kcal/kg Additional Notes Protein: (0.8-1g/kg AdjBW: 83kg) 67-83g Fluid: 1 ml/kcal Nutrition Intervention Change Diet Order: Continue Add Supplement/Snack (indicate name/kcal Ensure Enlive BID /protein ) Provides kCal: 700 Provides Protein (gm) 40 Goal #1 Meet at least 75% of energy and protein needs via PO and ONS Anticipated Discharge Needs: regular Follow-Up By: 06/26/21 Additional Comments F/u: intakes and ONS tolerance
[2021-06-24] MEDS: guaiFENesin 200 MG TAB PO PRN (21:17)
[2021-06-24] MEDS: oxyCODONE /ACETAMINOPHEN 5-325MG TAB PO PRN (21:18)
--- NOTE | 2021-06-25 10:02 | Progress Note ---
Assessment and Plan Assessment and plan: 36-year-old with a history of asthma, obesity presented with shortness of breath fever chills arthralgias myalgias approximately 8 days after testing positive for COVID. Patient at present hypoxic requiring 15 L facemask at present. Patient is able to speak in full sentences however remains hypoxic. Hospital course complicated by nonproductive cough. (1) Acute respiratory failure due to COVID-19 Current Visit: Yes Status: Acute Plan to address problem: Patient requires 15 L oxygen to prevent hypoxemia. Currently started on steroids dexamethasone Supportive care with oxygen 15 L We will add Hycodan for cough Follow inflammatory markers Empiric antibiotics Rocephin azithromycin Initiate remdesivir Zinc, vitamin C, vitamin D (2) Asthma Current Visit: Yes Status: Acute Plan to address problem: We will place nebulizers. Albuterol nebulizers patient seemed to be doing well as far as asthma limited wheezing. Respiratory failure secondary to Covid (3) COVID-19 pneumonia (4) severe sepsis secondary to COVID-19 (5) multifocal pneumonia Current Visit: Yes Status: Acute Plan to address problem: Consistent with Covid pneumonia 06/15: Considering gradual decline will transfer patient to IMCU. We'll also consult pulmonary GI. I have requested the patient be put on high flow and also trial of BiPAP. ID is consulted and currently following patient management. Weight loss recommended. Continue steroids. Chest x-ray reviewed by me shows bilateral infiltrates 06/16: Patient seen and examined Remains on HFNC but now at 40 and 100%. SAts in the mid 90's. Continue to monitor renal function with Lasix. Continue IMCU. Can downgrade this oxygen weaning again this. Continue prone positioning. Case dis cussed with concrete buildings assembler 06/17: Continue supportive care. High flow down to 35 L continuous 100% with saturation in the mid to low 90s. Per concrete buildings assembler steroid has been increased to twice daily dosing due to patient size. Patient continues on IV remdesivir. We will continue to monitor inflammatory markers. Prognosis is guarded. 06/18: Patient seen and examined, Continues supportive care, wean as tolerated. still with persitent hypoxia, he did not like the High flow, affects his nostriles, and now is on NRB satting 94%. Continue to encourage prone position. condition is still guarded 06/19: Continue supportive care, wean oxygen as tolerated, patient ok with me speaking with mother, will call and update. 06/20: Patient seen and examined continues to be weaned down on high flow oxygen down to 85%. Saturation remains around 92%. I did discuss extensively with the mother. She verbalized understanding. This discussion was done with permission with the patient. We will do another trial of Lasix. Patient is continued on the steroids he is status post Actemra and has completed his remdesivir. 06/21: Patient's prognosis still remains guarded. Continue to encourage prone positioning. Went back up on oxygen demand. But states that he does not feel less winded as before. Continue diuresis and monitor renal function. Also monitor inflammatory markers. 06/22: Patient more mobile but still profoundly hypoxic, continue to monitor and wean oxygen as tolerated. Will re-evaluate if repeated Lasix will help. 06/23: Patient seen and examined remains on high flow refusing to prone states is uncomfortable. We will continue with aggressive measures. Will change to full dose Lovenox discussed with manufacturing plant manager. Condition is still guarded 06/24; patient was seen and evaluated this morning. Patient was on 15L of high flow oxygen. Patient finished remdesivir, Decadron, Actemra. Prognosis is guarded. 06/25; patient was on 4 L of high flow oxygen with FiO2 of 100%. Prognosis is gu arded. Continue IMCU care. Patient was anxious and put on Xanax as needed. The high probability of a clinically significant, sudden or life threatening deterioration of the [pulmonary] system(s) required my full and direct attention, intervention and personal management. The aggregate critical care time was [35] minutes. This time is in addition to time spent performing reported procedures but includes the following: [x] Data Review and interpretation [x] Patient assessment and monitoring of vital signs [x] Documentation [x] Medication orders and management History Interval history: Patient was seen and evaluated this morning Patient has shortness of breath Patient on 4 L of oxygen with FiO2 of 100% Hospitalist Physical - Physical exam Narrative exam: Patient was on CPAP, 20 L of oxygen The patient appeared well nourished and normally developed. Vital signs as documented. Head exam is unremarkable. No scleral icterus . Neck is without jugular venous distension, thyromegaly, or carotid bruits. Lungs decreased air entry Cardiac exam reveals regular rate and Rhythm. Abdominal exam reveals normal bowel sounds, nontender, no organomegaly. Extremities are nonedematous and both femoral and pedal pulses are normal. T[employer]NSHIP SUPERVISOR: Alert and oriented 3. No focal weakness. - Constitutional Vitals: Temp Pulse Resp BP Pulse Ox 98.9 F 101 H 17 124/78 87 06/25/21 04:00 06/25/21 09:00 06/25/21 09:00 06/25/21 09:00 06/25/21 09:00 General appearance: Present: no acute distress, well-nourished Results - Labs CBC & Chem 7: 06/22/21 04:58 06/24/21 05:25 Labs: Laboratory Last Values WBC 16.3 K/mm3 (4.5-11.0) H 06/22/21 04:58 RBC 5.55 M/mm3 (3.65-5.03) H 06/22/21 04:58 Hgb 16.7 gm/dl (11.8-15.2) H 06/22/21 04:58 Hct 48.2 % (35.5-45.6) H 06/22/21 04:58 MCV 87 fl (84-94) 06/22/21 04:58 MCH 30 pg (28-32) 06/22/21 04:58 MCHC 35 % (32-34) H 06/22/21 04:58 RDW 13.7 % (13.2-15.2) 06/22/21 04:58 Plt Count 227 K/mm3 (140-440) 06/22/21 04:58 Lymph % (Auto) 25.5 % (13.4-35.0) 06/13/21 20:09 [place] % (Auto) 4.3 % (0.0-7.3) 06/13/21 20:09 Eos % (Auto) 0.0 % (0.0-4.3) 06/13/21 20:09 Baso % (Auto) 0.3 % (0.0-1.8) 06/13/21 20:09 Lymph # (Auto) 0.6 K/mm3 (1.2-5.4) L 06/13/21 20:09 [place] # (Auto) 0.1 K/mm3 (0.0-0.8) 06/13/21 20:09 Eos # (Auto) 0.0 K/mm3 (0.0-0.4) 06/13/21 20:09 Baso # (Auto) 0.0 K/mm3 (0.0-0.1) 06/13/21 20:09 Add Manual Diff Complete 06/14/21 05:12 Total Counted 50 06/14/21 05:12 Seg Neutrophils % 69.9 % (40.0-70.0) 06/13/21 20:09 Seg Neuts % (Manual) 82.0 % (40.0-70.0) H 06/14/21 05:12 Lymphocytes % (Manual) 14.0 % (13.4-35.0) 06/14/21 05:12 Monocytes % (Manual) 4.0 % (0.0-7.3) 06/14/21 05:12 Nucleated RBC % Not Reportable 06/14/21 05:12 Seg Neutrophils # 1.8 K/mm3 (1.8-7.7) 06/13/21 20:09 Seg Neutrophils # Man 1.6 K/mm3 (1.8-7.7) L 06/14/21 05:12 Band Neutrophils # 0.0 K/mm3 06/14/21 05:12 Lymphocytes # (Manual) 0.3 K/mm3 (1.2-5.4) L 06/14/21 05:12 Abs React Lymphs (Man) 0.0 K/mm3 06/14/21 05:12 Monocytes # (Manual) 0.1 K/mm3 (0.0-0.8) 06/14/21 05:12 Eosinophils # (Manual) 0.0 K/mm3 (0.0-0.4) 06/14/21 05:12 Basophils # (Manual) 0.0 K/mm3 (0.0-0.1) 06/14/21 05:12 Metamyelocytes # 0.0 K/mm3 06/14/21 05:12 Myelocytes # 0.0 K/mm3 06/14/21 05:12 Promyelocytes # 0.0 K/mm3 06/14/21 05:12 Blast Cells # 0.0 K/mm3 06/14/21 05:12 WBC Morphology Not Reportable 06/14/21 05:12 Hypersegmented Neuts Not Reportable 06/14/21 05:12 Hyposegmented Neuts Not Reportable 06/14/21 05:12 Hypogranular Neuts Not Reportable 06/14/21 05:12 Smudge Cells Not Reportable 06/14/21 05:12 Toxic Granulation Not Reportable 06/14/21 05:12 Toxic Vacuolation Not Reportable 06/14/21 05:12 Dohle Bodies Not Reportable 06/14/21 05:12 Pelger-Huet Anomaly Not Reportable 06/14/21 05:12 Sheri Rods Not Reportable 06/14/21 05:12 Platelet Estimate Consistent w auto 06/14/21 05:12 Clumped Platelets Not Reportable 06/14/21 05:12 Plt Clumps, EDTA Not Reportable 06/14/21 05:12 Large Platelets Not Reportable 06/14/21 05:12 Giant Platelets Not Reportable 06/14/21 05:12 Platelet Satelliting Not Reportable 06/14/21 05:12 Plt Morphology Comment Not Reportable 06/14/21 05:12 RBC Morphology Not Reportable 06/14/21 05:12 Dimorphic RBCs Not Reportable 06/14/21 05:12 Polychromasia Not Reportable 06/14/21 05:12 Hypochromasia Not Reportable 06/14/21 05:12 Poikilocytosis Not Reportable 06/14/21 05:12 Anisocytosis 1+ 06/14/21 05:12 Microcytosis Not Reportable 06/14/21 05:12 Macrocytosis Not Reportable 06/14/21 05:12 Spherocytes Not Reportable 06/14/21 05:12 Pappenheimer Bodies Not Reportable 06/14/21 05:12 Sickle Cells Not Reportable 06/14/21 05:12 Target Cells Not Reportable 06/14/21 05:12 Tear Drop Cells Not Reportable 06/14/21 05:12 Ovalocytes Not Reportable 06/14/21 05:12 Helmet Cells Not Reportable 06/14/21 05:12 [place] Bodies Not Reportable 06/14/21 05:12 Hardy Rings Not Reportable 06/14/21 05:12 [place] Cells Not Reportable 06/14/21 05:12 Bite Cells Not Reportable 06/14/21 05:12 Crenated Cell Not Reportable 06/14/21 05:12 Elliptocytes Not Reportable 06/14/21 05:12 Acanthocytes (Spur) Not Reportable 06/14/21 05:12 Rouleaux Not Reportable 06/14/21 05:12 Hemoglobin C Crystals Not Reportable 06/14/21 05:12 Schistocytes Not Reportable 06/14/21 05:12 Malaria parasites Not Reportable 06/14/21 05:12 Swapnil Bodies Not Reportable 06/14/21 05:12 Hem Pathologist Commnt No 06/14/21 05:12 D-Dimer 570.75 ng/mlDDU (0-234) H 06/24/21 05:25 ABG pH 7.475 (7.320-7.450) H 06/22/21 10:35 POC ABG pCO2 29.2 mmHg (32.0-48.0) L 06/22/21 10:35 ABG pCO2 40.4 mm Hg 06/15/21 Unknown POC ABG pO2 51.5 mmHg (83-108) L 06/22/21 10:35 ABG pO2 61.0 mm Hg (80.0-90.0) L 06/15/21 Unknown POC ABG HCO3 21.0 06/22/21 10:35 ABG HCO3 23.7 mmol/L (20.0-26.0) 06/15/21 Unknown ABG O2 Saturation 86.7 (0-100) 06/22/21 10:35 ABG O2 Content 21.0 (0.0-44) 06/15/21 Unknown POC ABG Base Excess -0.9 06/22/21 10:35 ABG Base Excess -1.1 mmol/L (-2.0-3.0) 06/15/21 Unknown ABG Hemoglobin 18.3 (12.0-17.5) H 06/22/21 10:35 ABG Oxyhemoglobin 86.3 (94-98) L 06/22/21 10:35 ABG Carboxyhemoglobin 1.0 % (0.0-5.0) 06/15/21 Unknown ABG Methemoglobin 0.3 (0.0-1.5) 06/22/21 10:35 ABG Potassium 3.9 mmol/L (3.40-4.50) 06/22/21 10:35 ABG Chloride 100.0 mmol/L (98-107) 06/22/21 10:35 ABG Glucose 143 mg/dL (65-95) H 06/22/21 10:35 Oxyhemoglobin 89.9 % (95.0-99.0) L 06/15/21 Unknown Carboxyhemoglobin 0.2 (0.5-1.5) L 06/22/21 10:35 FiO2 100 % 06/15/21 Unknown FiO2 % 100.0 06/22/21 10:35 Sodium 139 mmol/L (137-145) 06/24/21 05:25 Potassium 4.7 mmol/L (3.6-5.0) 06/24/21 05:25 Chloride 99.5 mmol/L (98-107) 06/24/21 05:25 Carbon Dioxide 27 mmol/L (22-30) 06/24/21 05:25 Anion Gap 17 mmol/L 06/24/21 05:25 BUN 34 mg/dL (9-20) H 06/24/21 05:25 Creatinine 0.7 mg/dL (0.8-1.3) L 06/24/21 05:25 Estimated GFR > 60 ml/min 06/24/21 05:25 BUN/Creatinine Ratio 49 % 06/24/21 05:25 Glucose 131 mg/dL (75-100) H 06/24/21 05:25 Calcium 9.1 mg/dL (8.4-10.2) 06/24/21 05:25 Ferritin 1621.0 ng/mL (30.0-300.0) H 06/24/21 05:25 Total Bilirubin 0.70 mg/dL (0.1-1.2) 06/22/21 04:58 AST 22 units/L (5-40) 06/22/21 04:58 ALT 28 units/L (7-56) 06/22/21 04:58 Alkaline Phosphatase 69 units/L (35-129) 06/22/21 04:58 Lactate Dehydrogenase 691 units/L (91-180) H 06/24/21 05:25 C-Reactive Protein < 0.03 mg/dL (0.00-1.30) 06/24/21 05:25 Total Protein 6.1 g/dL (6.3-8.2) L 06/22/21 04:58 Albumin 3.6 g/dL (3.9-5) L 06/22/21 04:58 Albumin/Globulin Ratio 1.4 % 06/22/21 04:58 Procalcitonin < 0.05 ng/mL (<0.15) 06/24/21 05:25 Arterial Blood Glucose 143 mg/dL (65-95) H 06/22/21 10:35 Arterial Blood Ionized Calcium 4.8 mg/dL (4.6-5.3) 06/22/21 10:35 Coronavirus (PCR) Positive (Negative) A 06/14/21 Unknown Mao/IV: Voiding Method Urinal Active Medications - Current Medications Current Medications: Generic Name Dose Route Start Last Admin Trade Name Freq PRN Reason Stop Dose Admin Acetaminophen 650 mg 06/13/21 22:49 06/23/21 21:13 Acetaminophen 325 Mg Tab PO 650 mg Q4H PRN Administration Pain MILD(1-3)/Fever >100.5/HAYNES Enoxaparin Sodium 120 mg 06/23/21 22:00 06/24/21 21:16 Enoxaparin 120 Mg/0.8 Ml Inj SUB-Q 120 mg Q12HR SIMÓN Administration Protocol Famotidine 20 mg 06/14/21 10:00 06/24/21 21:17 Famotidine 20 Mg Tab PO 20 mg BID SIMÓN Administration Furosemide 40 mg 06/23/21 15:00 06/24/21 09:37 Furosemide 40 Mg/4 Ml Inj IV 06/25/21 10:01 40 mg QDAY SIMÓN Administration Guaifenesin 200 mg 06/15/21 00:33 06/24/21 21:17 Guaifenesin 200 Mg Tab PO 200 mg Q6H PRN Administration Cough Hydralazine HCl 10 mg 06/13/21 22:52 Hydralazine 20 Mg/1 Ml Inj IV Q6H PRN SBP >/=160; DBP >/=100 Hydromorphone HCl 0.5 mg 06/13/21 22:49 Hydromorphone 1 Mg/1 Ml Inj IV Q3H PRN Pain , Severe (7-10) Ondansetron HCl 4 mg 06/13/21 22:49 06/17/21 18:48 Ondansetron 4 Mg/2 Ml Inj IV 4 mg Q8H PRN Administration Nausea And Vomiting Oxycodone/Acetaminophen 1 tab 06/13/21 22:49 06/24/21 21:18 Oxycodone /Acetaminophen 5-325mg Tab PO 1 tab Q6H PRN Administration Pain, Moderate (4-6) Phenol 1 spray 06/15/21 14:00 Phenol 1.4% 177 Ml Bottle MM PRN PRN Sore Throat Sodium Chloride 10 ml 06/14/21 10:00 06/24/21 21:19 Sodium Chloride 0.9% 10 Ml Flush Syringe IV 10 ml BID SIMÓN Administration Sodium Chloride 10 ml 06/13/21 22:49 Sodium Chloride 0.9% 10 Ml Flush Syringe IV PRN PRN LINE FLUSH Sodium Chloride 1 applic 06/22/21 11:00 06/24/21 21:21 [place] Saline Nasal Gel 14.1 Gm NS 1 applic BID SIMÓN Administration Nutrition/Malnutrition Assess - Dietary Evaluation Nutrition/Malnutrition Findings: Nutrition Notes Start: 06/19/21 11:11 Freq: Status: Active Protocol: Document 06/23/21 12:41 (Rec: 06/23/21 12:43 [id number]) Nutrition Notes Initial or Follow up Reassessment Current Diagnosis Respiratory Failure Other Pertinent Diagnosis pneu, COVID-19 Current Diet Regular Labs/Tests Reviewed Pertinent Medications Reviewed Height 5 ft 9 in Weight 117.1 kg [place] Body Weight (kg) 72.72 BMI 38.1 Weight Status Obese Subjective/Other Information Pt drinking 100% of 2 ONS daily but is getting tired of them. He is eating 20% of meals. Percent of energy/protein needs met: 52%/86% Burn Absent Trauma Absent Current % PO Negligible Minimum of two criteria No physical signs of malnutrition #1 Nutrition Diagnosis Inadequate oral intake As Evidenced by Signs and Symptoms pt eating 20% of meals Diagnosis Progress(for reassessment Worsened documentation) Is patient on ventilator? No Is Patient Ambulatory and/or Out of Bed No REE-([facility]-confined to bed) [phone] Calculation Used for Recommendations Kcal/kg Additional Notes Protein: (0.8-1g/kg AdjBW: 83kg) 67-83g Fluid: 1 ml/kcal Nutrition Intervention Change Diet Order: Continue Add Supplement/Snack (indicate name/kcal Ensure Enlive BID /protein ) Provides kCal: 700 Provides Protein (gm) 40 Goal #1 Meet at least 75% of energy and protein needs via PO and ONS Anticipated Discharge Needs: regular Follow-Up By: 06/26/21 Additional Comments F/u: intakes and ONS tolerance
[2021-06-25] MEDS: ENOXAPARIN 120 MG/0.8 ML INJ SUB-Q SCH ×2 (11:04→21:30)
[2021-06-25] MEDS: FAMOTIDINE 20 MG TAB PO SCH ×2 (11:05→21:31)
[2021-06-25] MEDS: FUROSEMIDE 40 MG/4 ML INJ IV SCH (11:05)
[2021-06-25] MEDS ORDERED: ALBUTEROL 2.5 MG/3 ML NEBU IH PRN (11:52)
[2021-06-25] MEDS: ALPRAZolam 0.25 MG TAB PO PRN ×2 (12:32→21:31)
--- NOTE | 2021-06-25 12:40 | Progress Note ---
Assessment and Plan 36 y/o male with acute respiratory failure secondary to COVID 19, not vaccinated. : Steroids today, but now solumedrol [id number]. Will continue these indefinitely until oxygen requirement starts to improve. Encouraged proning as much as possible. will give lasix again today but will check labs tomorrow to monitor chemistry. 06/24/21: Guideline steroids end today but will like continue with Solumedrol starting tomorrow if no improvement overnight in oxygen requirement. Very high risk for intubation with increased mortality once intubated. Guarded prognosis. 06/20/21: Continue IV steroids. Encouraged patient to prone. Lasix today. Guarded prognosis 06/19/21: Continue IV steroids. Prone if possible. Lasix again today. 06/18/21: Continue IV steroids, IV remdesivir. Gave lasix 40mg today. Guarded prognosis. 06/17/21: Continue IV steroids. Prone. IV remdesivir 06/16/21: Given patient size will increase steroids to BID dosing. Continue Remdesivir. Need to prone as tolerated during the day and sleep prone at night. Guarded prognosis. 1. Prone as tolerated during the day and sleep prone at night 2. IV steroids and remdesivir, per ID would be a candidate for actemra 3. Agree with lasix therapy, monitor renal function and electrolytes closely 4. Guarded prognosis Subjective Date of service: 06/25/21 Principal diagnosis: Acute hypoxic respiratory failure Interval history: No acute events. Now on CPAP continuously. Still not proning. Objective Vital Signs - 12hr 06/25/21 06/25/21 06/25/21 01:00 02:00 02:53 Temperature Pulse Rate 93 H 79 77 Pulse Rate [ From Monitor] Respiratory 19 24 35 H Rate Blood Pressure 120/79 111/75 111/75 O2 Sat by Pulse 94 89 93 Oximetry 06/25/21 06/25/21 06/25/21 03:00 03:49 04:00 Temperature 98.9 F 98.9 F Pulse Rate 78 82 Pulse Rate [ 80 From Monitor] Respiratory 25 H 25 H Rate Blood Pressure 108/68 109/76 O2 Sat by Pulse 90 90 Oximetry 06/25/21 06/25/21 06/25/21 05:00 06:00 07:00 Temperature Pulse Rate 79 68 76 Pulse Rate [ From Monitor] Respiratory 24 31 H 29 H Rate Blood Pressure 112/81 122/77 117/77 O2 Sat by Pulse 90 87 89 Oximetry 06/25/21 06/25/21 06/25/21 08:00 09:00 10:00 Temperature 97.8 F Pulse Rate 81 101 H 89 Pulse Rate [ From Monitor] Respiratory 22 17 21 Rate Blood Pressure 115/83 124/78 120/66 O2 Sat by Pulse 93 87 91 Oximetry 06/25/21 06/25/21 11:01 12:00 Temperature Pulse Rate 94 H 123 H Pulse Rate [ From Monitor] Respiratory 26 H 26 H Rate Blood Pressure 128/56 130/88 O2 Sat by Pulse 88 92 Oximetry Constitutional: alert, other (mild distress) Eyes: non-icteric ENT: oropharynx moist Neck: supple Ascultation: Bilateral: diminished breath sounds Cardiovascular: regular rate and rhythm Gastrointestinal: normoactive bowel sounds Integumentary: normal Extremities: no cyanosis Neurologic: normal mental status Psychiatric: anxious CBC and BMP: 06/22/21 04:58 06/24/21 05:25 ABG, PT/INR, D-dimer: ABG ABG pH 7.475 (7.320-7.450) H 06/22/21 10:35 POC ABG pCO2 29.2 mmHg (32.0-48.0) L 06/22/21 10:35 ABG pCO2 40.4 mm Hg 06/15/21 Unknown POC ABG pO2 51.5 mmHg (83-108) L 06/22/21 10:35 ABG pO2 61.0 mm Hg (80.0-90.0) L 06/15/21 Unknown POC ABG HCO3 21.0 06/22/21 10:35 ABG O2 Saturation 86.7 (0-100) 06/22/21 10:35 PT/INR, D-dimer D-Dimer 570.75 ng/mlDDU (0-234) H 06/24/21 05:25 Abnormal lab findings: Abnormal Labs 06/13/21 06/13/21 06/13/21 20:09 20:09 20:09 WBC 2.6 L RBC Hgb Hct MCHC 35 H Plt Count 112 L Lymph # (Auto) 0.6 L Seg Neuts % (Manual) Seg Neutrophils # Man Lymphocytes # (Manual) D-Dimer 560.90 H ABG pH POC ABG pCO2 POC ABG pO2 ABG pO2 ABG O2 Saturation ABG Hemoglobin ABG Oxyhemoglobin ABG Glucose Oxyhemoglobin Carboxyhemoglobin Sodium 134 L Chloride BUN Creatinine Glucose 105 H Ferritin AST ALT Lactate Dehydrogenase C-Reactive Protein Total Protein Albumin Arterial Blood Glucose Coronavirus (PCR) 06/13/21 06/13/21 06/14/21 20:09 20:09 05:12 WBC 2.0 L RBC Hgb Hct MCHC 35 H Plt Count 106 L Lymph # (Auto) Seg Neuts % (Manual) 82.0 H Seg Neutrophils # Man 1.6 L Lymphocytes # (Manual) 0.3 L D-Dimer ABG pH POC ABG pCO2 POC ABG pO2 ABG pO2 ABG O2 Saturation ABG Hemoglobin ABG Oxyhemoglobin ABG Glucose Oxyhemoglobin Carboxyhemoglobin Sodium Chloride BUN Creatinine Glucose 105 H Ferritin 1876.0 H AST ALT Lactate Dehydrogenase 634 H C-Reactive Protein 9.20 H Total Protein Albumin Arterial Blood Glucose Coronavirus (PCR) 06/14/21 06/14/21 06/14/21 05:12 23:50 Unknown WBC RBC Hgb Hct MCHC Plt Count Lymph # (Auto) Seg Neuts % (Manual) Seg Neutrophils # Man Lymphocytes # (Manual) D-Dimer ABG pH POC ABG pCO2 POC ABG pO2 ABG pO2 ABG O2 Saturation ABG Hemoglobin ABG Oxyhemoglobin ABG Glucose Oxyhemoglobin Carboxyhemoglobin Sodium Chloride BUN Creatinine Glucose 214 H 135 H Ferritin AST 52 H ALT Lactate Dehydrogenase C-Reactive Protein Total Protein Albumin 3.2 L Arterial Blood Glucose Coronavirus (PCR) Positive A 06/15/21 06/15/21 06/15/21 05:21 05:21 05:21 WBC RBC Hgb Hct MCHC Plt Count Lymph # (Auto) Seg Neuts % (Manual) Seg Neutrophils # Man Lymphocytes # (Manual) D-Dimer 360.79 H ABG pH POC ABG pCO2 POC ABG pO2 ABG pO2 ABG O2 Saturation ABG Hemoglobin ABG Oxyhemoglobin ABG Glucose Oxyhemoglobin Carboxyhemoglobin Sodium Chloride BUN Creatinine 0.7 L Glucose 167 H Ferritin 1869.0 H AST 65 H ALT Lactate Dehydrogenase C-Reactive Protein Total Protein 6.1 L Albumin 3.4 L Arterial Blood Glucose Coronavirus (PCR) 06/15/21 06/15/21 06/16/21 05:21 Unknown 07:16 WBC RBC Hgb Hct MCHC Plt Count Lymph # (Auto) Seg Neuts % (Manual) Seg Neutrophils # Man Lymphocytes # (Manual) D-Dimer ABG pH POC ABG pCO2 POC ABG pO2 ABG pO2 61.0 L ABG O2 Saturation 91.3 L ABG Hemoglobin ABG Oxyhemoglobin ABG Glucose Oxyhemoglobin 89.9 L Carboxyhemoglobin Sodium Chloride BUN Creatinine Glucose 130 H Ferritin AST 77 H ALT 57 H Lactate Dehydrogenase C-Reactive Protein 3.10 H Total Protein 6.0 L Albumin 3.5 L Arterial Blood Glucose Coronavirus (PCR) 06/17/21 06/17/21 06/22/21 04:36 04:36 04:58 WBC 16.3 H RBC 5.55 H Hgb 16.7 H Hct 48.2 H MCHC 36 H 35 H Plt Count Lymph # (Auto) Seg Neuts % (Manual) Seg Neutrophils # Man Lymphocytes # (Manual) D-Dimer ABG pH POC ABG pCO2 POC ABG pO2 ABG pO2 ABG O2 Saturation ABG Hemoglobin ABG Oxyhemoglobin ABG Glucose Oxyhemoglobin Carboxyhemoglobin Sodium Chloride BUN 29 H Creatinine Glucose 125 H Ferritin AST 59 H ALT 57 H Lactate Dehydrogenase C-Reactive Protein Total Protein 6.0 L Albumin 3.6 L Arterial Blood Glucose Coronavirus (PCR) 06/22/21 06/22/21 06/22/21 04:58 04:58 04:58 WBC RBC Hgb Hct MCHC Plt Count Lymph # (Auto) Seg Neuts % (Manual) Seg Neutrophils # Man Lymphocytes # (Manual) D-Dimer 335.27 H ABG pH POC ABG pCO2 POC ABG pO2 ABG pO2 ABG O2 Saturation ABG Hemoglobin ABG Oxyhemoglobin ABG Glucose Oxyhemoglobin Carboxyhemoglobin Sodium 135 L Chloride 96.8 L BUN 32 H Creatinine Glucose 172 H Ferritin 1251.0 H AST ALT Lactate Dehydrogenase 816 H C-Reactive Protein Total Protein 6.1 L Albumin 3.6 L Arterial Blood Glucose Coronavirus (PCR) 06/22/21 06/24/21 06/24/21 10:35 05:25 05:25 WBC RBC Hgb Hct MCHC Plt Count Lymph # (Auto) Seg Neuts % (Manual) Seg Neutrophils # Man Lymphocytes # (Manual) D-Dimer 570.75 H ABG pH 7.475 H POC ABG pCO2 29.2 L POC ABG pO2 51.5 L ABG pO2 ABG O2 Saturation ABG Hemoglobin 18.3 H ABG Oxyhemoglobin 86.3 L ABG Glucose 143 H Oxyhemoglobin Carboxyhemoglobin 0.2 L Sodium Chloride BUN Creatinine Glucose Ferritin 1621.0 H AST ALT Lactate Dehydrogenase C-Reactive Protein Total Protein Albumin Arterial Blood Glucose 143 H Coronavirus (PCR) 06/24/21 05:25 WBC RBC Hgb Hct MCHC Plt Count Lymph # (Auto) Seg Neuts % (Manual) Seg Neutrophils # Man Lymphocytes # (Manual) D-Dimer ABG pH POC ABG pCO2 POC ABG pO2 ABG pO2 ABG O2 Saturation ABG Hemoglobin ABG Oxyhemoglobin ABG Glucose Oxyhemoglobin Carboxyhemoglobin Sodium Chloride BUN 34 H Creatinine 0.7 L Glucose 131 H Ferritin AST ALT Lactate Dehydrogenase 691 H C-Reactive Protein Total Protein Albumin Arterial Blood Glucose Coronavirus (PCR)
[2021-06-25] MEDS ORDERED: FUROSEMIDE 20 MG/2 ML INJ IV ONE (12:41)
[2021-06-25] MEDS: AYR SALINE NASAL GEL 14.1 GM NS SCH ×2 (12:50→21:35)
[2021-06-25] MEDS: methylPREDNISolone Sod Succinate 40 MG/1 ML INJ IV SCH ×2 (13:57→21:29)
--- NOTE | 2021-06-25 15:45 | Progress Note ---
Assessment and Plan Cultures: SARS CoV2 PCR: Positive as outpatient 06/13/2021 blood culture: In process A/P: 36-year-old male with history of asthma, renal stones, unvaccinated for COVID-19 was diagnosed with COVID-19 as an outpatient: #Bilateral pneumonia: Secondary to COVID-19. Severe disease, with high inflamma tory markers and increasing oxygen requirements. #Acute hypoxic respiratory failure: Now on CPAP #Morbid obesity Recs: -High-dose steroids per pulmonary -Leukocytosis likely secondary to steroids -s/p Actemra once -Completed IV Remdesivir. -Procalcitonin remains low. -prophylactic anticoagulation based on d-dimer per hospital protocol -trend ferritin, LDH, d-dimer, CRP every 2-3 days for risk stratification and to assess disease progression ID will continue to follow. Please call with concerns. Pato Kruse MD [facility] ([facility] O: [phone] F: [phone] Subjective Date of service: 06/25/21 Principal diagnosis: Acute hypoxic respiratory failure Interval history: Afebrile, no acute changes. On CPAP. Objective - Exam Narrative Exam: Physical exam deferred to reduce risk of transmission of COVID-19. Please refer to primary team's note. - Constitutional Vitals: Vital Signs Temp Pulse Resp BP Pulse Ox 97.8 F 109 H 18 111/78 92 06/25/21 08:00 06/25/21 15:00 06/25/21 15:00 06/25/21 15:00 06/25/21 15:00 Temperature -Last 24 Hours Temperature 97.8 F Temperature 98.9 F Temperature 98.9 F Temperature 99.2 F Temperature 99.2 F Temperature 97.1 F - Labs CBC & Chem 7: 06/22/21 04:58 06/24/21 05:25
[2021-06-25] MEDS: oxyCODONE /ACETAMINOPHEN 5-325MG TAB PO PRN (21:30)
[2021-06-25] MEDS: guaiFENesin 200 MG TAB PO PRN (21:31)
[2021-06-26] MEDS: ALPRAZolam 0.25 MG TAB PO PRN (05:30)
[2021-06-26] MEDS: oxyCODONE /ACETAMINOPHEN 5-325MG TAB PO PRN (05:30)
[2021-06-26] MEDS: methylPREDNISolone Sod Succinate 40 MG/1 ML INJ IV SCH ×3 (05:31→21:54)
[2021-06-26] MEDS: guaiFENesin 200 MG TAB PO PRN (05:31)
[2021-06-26] MEDS: FAMOTIDINE 20 MG TAB PO SCH ×2 (09:41→21:55)
[2021-06-26] MEDS: ENOXAPARIN 120 MG/0.8 ML INJ SUB-Q SCH ×3 (09:45→21:55)
[2021-06-26] MEDS: AYR SALINE NASAL GEL 14.1 GM NS SCH ×2 (09:53→21:58)
[2021-06-26 11:49] LABS: BUN/Creatinine Ratio 56; Blood Urea Nitrogen 39 mg/dL (9-20); C-Reactive Protein < 0.03 mg/dL (0.00-1.30); Calcium 8.9 mg/dL (8.4-10.2); Hemolysis Index 28
--- NOTE | 2021-06-26 12:42 | Progress Note ---
Assessment and Plan 36 y/o male with acute respiratory failure secondary to COVID 19, not vaccinated. 06/26/21: Steroids to continue. Tried to encourage proning but per patient too much pressure in his chest. Lasix again today. Guarded prognosis. : Steroids today, but now solumedrol [id number]. Will continue these indefinitely until oxygen requirement starts to improve. Encouraged proning as much as possible. will give lasix again today but will check labs tomorrow to monitor chemistry. 06/24/21: Guideline steroids end today but will like continue with Solumedrol starting tomorrow if no improvement overnight in oxygen requirement. Very high risk for intubation with increased mortality once intubated. Guarded prognosis. 06/20/21: Continue IV steroids. Encouraged patient to prone. Lasix today. Guarded prognosis 06/19/21: Continue IV steroids. Prone if possible. Lasix again today. 06/18/21: Continue IV steroids, IV remdesivir. Gave lasix 40mg today. Guarded prognosis. 06/17/21: Continue IV steroids. Prone. IV remdesivir 06/16/21: Given patient size will increase steroids to BID dosing. Continue Remdesivir. Need to prone as tolerated during the day and sleep prone at night. Guarded prognosis. 1. Prone as tolerated during the day and sleep prone at night 2. IV steroids and remdesivir, per ID would be a candidate for actemra 3. Agree with lasix therapy, monitor renal function and electrolytes closely 4. Guarded prognosis Subjective Date of service: 06/26/21 Principal diagnosis: Acute hypoxic respiratory failure Interval history: Patient still not proning. Currently on bipap but about to be switched to HFNC. No distress noted. Objective Vital Signs - 12hr 06/26/21 06/26/21 06/26/21 01:00 02:00 03:00 Temperature Pulse Rate 87 81 84 Pulse Rate [ From Monitor] Respiratory 27 H 22 24 Rate Blood Pressure 118/78 121/72 136/88 O2 Sat by Pulse 90 91 93 Oximetry 06/26/21 06/26/21 06/26/21 04:00 05:00 05:30 Temperature 97.5 F L Pulse Rate 80 87 Pulse Rate [ 80 From Monitor] Respiratory 25 H 28 H 29 H Rate Blood Pressure 124/88 134/91 O2 Sat by Pulse 95 93 Oximetry 06/26/21 06/26/21 06/26/21 06:00 07:00 08:00 Temperature 97.7 F Pulse Rate 85 78 Pulse Rate [ From Monitor] Respiratory 25 H 19 Rate Blood Pressure 145/91 124/89 O2 Sat by Pulse 93 91 Oximetry 06/26/21 06/26/21 10:18 12:00 Temperature 98.2 F Pulse Rate 97 H Pulse Rate [ From Monitor] Respiratory 22 Rate Blood Pressure 120/73 O2 Sat by Pulse 94 Oximetry Constitutional: alert, other (mild distress) Eyes: non-icteric ENT: oropharynx moist Neck: supple Ascultation: Bilateral: diminished breath sounds Cardiovascular: regular rate and rhythm Gastrointestinal: normoactive bowel sounds Integumentary: normal Extremities: no cyanosis Neurologic: normal mental status Psychiatric: anxious CBC and BMP: 06/22/21 04:58 06/26/21 10:46 ABG, PT/INR, D-dimer: ABG ABG pH 7.475 (7.320-7.450) H 06/22/21 10:35 POC ABG pCO2 29.2 mmHg (32.0-48.0) L 06/22/21 10:35 ABG pCO2 40.4 mm Hg 06/15/21 Unknown POC ABG pO2 51.5 mmHg (83-108) L 06/22/21 10:35 ABG pO2 61.0 mm Hg (80.0-90.0) L 06/15/21 Unknown POC ABG HCO3 21.0 06/22/21 10:35 ABG O2 Saturation 86.7 (0-100) 06/22/21 10:35 PT/INR, D-dimer D-Dimer 532.29 ng/mlDDU (0-234) H 06/26/21 10:46 Abnormal lab findings: Abnormal Labs 06/13/21 06/13/21 06/13/21 20:09 20:09 20:09 WBC 2.6 L RBC Hgb Hct MCHC 35 H Plt Count 112 L Lymph # (Auto) 0.6 L Seg Neuts % (Manual) Seg Neutrophils # Man Lymphocytes # (Manual) D-Dimer 560.90 H ABG pH POC ABG pCO2 POC ABG pO2 ABG pO2 ABG O2 Saturation ABG Hemoglobin ABG Oxyhemoglobin ABG Glucose Oxyhemoglobin Carboxyhemoglobin Sodium 134 L Chloride BUN Creatinine Glucose 105 H Ferritin AST ALT Lactate Dehydrogenase C-Reactive Protein Total Protein Albumin Arterial Blood Glucose Coronavirus (PCR) 06/13/21 06/13/21 06/14/21 20:09 20:09 05:12 WBC 2.0 L RBC Hgb Hct MCHC 35 H Plt Count 106 L Lymph # (Auto) Seg Neuts % (Manual) 82.0 H Seg Neutrophils # Man 1.6 L Lymphocytes # (Manual) 0.3 L D-Dimer ABG pH POC ABG pCO2 POC ABG pO2 ABG pO2 ABG O2 Saturation ABG Hemoglobin ABG Oxyhemoglobin ABG Glucose Oxyhemoglobin Carboxyhemoglobin Sodium Chloride BUN Creatinine Glucose 105 H Ferritin 1876.0 H AST ALT Lactate Dehydrogenase 634 H C-Reactive Protein 9.20 H Total Protein Albumin Arterial Blood Glucose Coronavirus (PCR) 06/14/21 06/14/21 06/14/21 05:12 23:50 Unknown WBC RBC Hgb Hct MCHC Plt Count Lymph # (Auto) Seg Neuts % (Manual) Seg Neutrophils # Man Lymphocytes # (Manual) D-Dimer ABG pH POC ABG pCO2 POC ABG pO2 ABG pO2 ABG O2 Saturation ABG Hemoglobin ABG Oxyhemoglobin ABG Glucose Oxyhemoglobin Carboxyhemoglobin Sodium Chloride BUN Creatinine Glucose 214 H 135 H Ferritin AST 52 H ALT Lactate Dehydrogenase C-Reactive Protein Total Protein Albumin 3.2 L Arterial Blood Glucose Coronavirus (PCR) Positive A 06/15/21 06/15/21 06/15/21 05:21 05:21 05:21 WBC RBC Hgb Hct MCHC Plt Count Lymph # (Auto) Seg Neuts % (Manual) Seg Neutrophils # Man Lymphocytes # (Manual) D-Dimer 360.79 H ABG pH POC ABG pCO2 POC ABG pO2 ABG pO2 ABG O2 Saturation ABG Hemoglobin ABG Oxyhemoglobin ABG Glucose Oxyhemoglobin Carboxyhemoglobin Sodium Chloride BUN Creatinine 0.7 L Glucose 167 H Ferritin 1869.0 H AST 65 H ALT Lactate Dehydrogenase C-Reactive Protein Total Protein 6.1 L Albumin 3.4 L Arterial Blood Glucose Coronavirus (PCR) 06/15/21 06/15/21 06/16/21 05:21 Unknown 07:16 WBC RBC Hgb Hct MCHC Plt Count Lymph # (Auto) Seg Neuts % (Manual) Seg Neutrophils # Man Lymphocytes # (Manual) D-Dimer ABG pH POC ABG pCO2 POC ABG pO2 ABG pO2 61.0 L ABG O2 Saturation 91.3 L ABG Hemoglobin ABG Oxyhemoglobin ABG Glucose Oxyhemoglobin 89.9 L Carboxyhemoglobin Sodium Chloride BUN Creatinine Glucose 130 H Ferritin AST 77 H ALT 57 H Lactate Dehydrogenase C-Reactive Protein 3.10 H Total Protein 6.0 L Albumin 3.5 L Arterial Blood Glucose Coronavirus (PCR) 06/17/21 06/17/21 06/22/21 04:36 04:36 04:58 WBC 16.3 H RBC 5.55 H Hgb 16.7 H Hct 48.2 H MCHC 36 H 35 H Plt Count Lymph # (Auto) Seg Neuts % (Manual) Seg Neutrophils # Man Lymphocytes # (Manual) D-Dimer ABG pH POC ABG pCO2 POC ABG pO2 ABG pO2 ABG O2 Saturation ABG Hemoglobin ABG Oxyhemoglobin ABG Glucose Oxyhemoglobin Carboxyhemoglobin Sodium Chloride BUN 29 H Creatinine Glucose 125 H Ferritin AST 59 H ALT 57 H Lactate Dehydrogenase C-Reactive Protein Total Protein 6.0 L Albumin 3.6 L Arterial Blood Glucose Coronavirus (PCR) 06/22/21 06/22/21 06/22/21 04:58 04:58 04:58 WBC RBC Hgb Hct MCHC Plt Count Lymph # (Auto) Seg Neuts % (Manual) Seg Neutrophils # Man Lymphocytes # (Manual) D-Dimer 335.27 H ABG pH POC ABG pCO2 POC ABG pO2 ABG pO2 ABG O2 Saturation ABG Hemoglobin ABG Oxyhemoglobin ABG Glucose Oxyhemoglobin Carboxyhemoglobin Sodium 135 L Chloride 96.8 L BUN 32 H Creatinine Glucose 172 H Ferritin 1251.0 H AST ALT Lactate Dehydrogenase 816 H C-Reactive Protein Total Protein 6.1 L Albumin 3.6 L Arterial Blood Glucose Coronavirus (PCR) 06/22/21 06/24/21 06/24/21 10:35 05:25 05:25 WBC RBC Hgb Hct MCHC Plt Count Lymph # (Auto) Seg Neuts % (Manual) Seg Neutrophils # Man Lymphocytes # (Manual) D-Dimer 570.75 H ABG pH 7.475 H POC ABG pCO2 29.2 L POC ABG pO2 51.5 L ABG pO2 ABG O2 Saturation ABG Hemoglobin 18.3 H ABG Oxyhemoglobin 86.3 L ABG Glucose 143 H Oxyhemoglobin Carboxyhemoglobin 0.2 L Sodium Chloride BUN Creatinine Glucose Ferritin 1621.0 H AST ALT Lactate Dehydrogenase C-Reactive Protein Total Protein Albumin Arterial Blood Glucose 143 H Coronavirus (PCR) 06/24/21 06/26/21 06/26/21 05:25 10:46 10:46 WBC RBC Hgb Hct MCHC Plt Count Lymph # (Auto) Seg Neuts % (Manual) Seg Neutrophils # Man Lymphocytes # (Manual) D-Dimer 532.29 H ABG pH POC ABG pCO2 POC ABG pO2 ABG pO2 ABG O2 Saturation ABG Hemoglobin ABG Oxyhemoglobin ABG Glucose Oxyhemoglobin Carboxyhemoglobin Sodium Chloride BUN 34 H Creatinine 0.7 L Glucose 131 H Ferritin 2549.0 H AST ALT Lactate Dehydrogenase 691 H C-Reactive Protein Total Protein Albumin Arterial Blood Glucose Coronavirus (PCR) 06/26/21 10:46 WBC RBC Hgb Hct MCHC Plt Count Lymph # (Auto) Seg Neuts % (Manual) Seg Neutrophils # Man Lymphocytes # (Manual) D-Dimer ABG pH POC ABG pCO2 POC ABG pO2 ABG pO2 ABG O2 Saturation ABG Hemoglobin ABG Oxyhemoglobin ABG Glucose Oxyhemoglobin Carboxyhemoglobin Sodium 135 L Chloride 95.1 L BUN 39 H Creatinine 0.7 L Glucose 202 H Ferritin AST ALT Lactate Dehydrogenase 644 H C-Reactive Protein Total Protein Albumin Arterial Blood Glucose Coronavirus (PCR)
[2021-06-26] MEDS ORDERED: FUROSEMIDE 20 MG/2 ML INJ IV ONE (13:00)
--- NOTE | 2021-06-26 13:46 | Progress Note ---
Assessment and Plan Assessment and plan: 36-year-old with a history of asthma, obesity presented with shortness of breath fever chills arthralgias myalgias approximately 8 days after testing positive for COVID. Patient at present hypoxic requiring 15 L facemask at present. Patient is able to speak in full sentences however remains hypoxic. Hospital course complicated by nonproductive cough. (1) Acute respiratory failure due to COVID-19 Current Visit: Yes Status: Acute Plan to address problem: Patient requires 15 L oxygen to prevent hypoxemia. Currently started on steroids dexamethasone Supportive care with oxygen 15 L We will add Hycodan for cough Follow inflammatory markers Empiric antibiotics Rocephin azithromycin Initiate remdesivir Zinc, vitamin C, vitamin D (2) Asthma Current Visit: Yes Status: Acute Plan to address problem: We will place nebulizers. Albuterol nebulizers patient seemed to be doing well as far as asthma limited wheezing. Respiratory failure secondary to Covid (3) COVID-19 pneumonia (4) severe sepsis secondary to COVID-19 (5) multifocal pneumonia Current Visit: Yes Status: Acute Plan to address problem: Consistent with Covid pneumonia 06/15: Considering gradual decline will transfer patient to IMCU. We'll also consult pulmonary GI. I have requested the patient be put on high flow and also trial of BiPAP. ID is consulted and currently following patient management. Weight loss recommended. Continue steroids. Chest x-ray reviewed by me shows bilateral infiltrates 06/16: Patient seen and examined Remains on HFNC but now at 40 and 100%. SAts in the mid 90's. Continue to monitor renal function with Lasix. Continue IMCU. Can downgrade this oxygen weaning again this. Continue prone positioning. Case dis cussed with cooking instructor 06/17: Continue supportive care. High flow down to 35 L continuous 100% with saturation in the mid to low 90s. Per cooking instructor steroid has been increased to twice daily dosing due to patient size. Patient continues on IV remdesivir. We will continue to monitor inflammatory markers. Prognosis is guarded. 06/18: Patient seen and examined, Continues supportive care, wean as tolerated. still with persitent hypoxia, he did not like the High flow, affects his nostriles, and now is on NRB satting 94%. Continue to encourage prone position. condition is still guarded 06/19: Continue supportive care, wean oxygen as tolerated, patient ok with me speaking with mother, will call and update. 06/20: Patient seen and examined continues to be weaned down on high flow oxygen down to 85%. Saturation remains around 92%. I did discuss extensively with the mother. She verbalized understanding. This discussion was done with permission with the patient. We will do another trial of Lasix. Patient is continued on the steroids he is status post Actemra and has completed his remdesivir. 06/21: Patient's prognosis still remains guarded. Continue to encourage prone positioning. Went back up on oxygen demand. But states that he does not feel less winded as before. Continue diuresis and monitor renal function. Also monitor inflammatory markers. 06/22: Patient more mobile but still profoundly hypoxic, continue to monitor and wean oxygen as tolerated. Will re-evaluate if repeated Lasix will help. 06/23: Patient seen and examined remains on high flow refusing to prone states is uncomfortable. We will continue with aggressive measures. Will change to full dose Lovenox discussed with sand slinger. Condition is still guarded 06/24; patient was seen and evaluated this morning. Patient was on 15L of high flow oxygen. Patient finished remdesivir, Decadron, Actemra. Prognosis is guarded. 06/25; patient was on 40 L of high flow oxygen with FiO2 of 100%. Prognosis is g uarded. Continue IMCU care. Patient was anxious and put on Xanax as needed. 06/26; patient was on 40 L of high flow oxygen with FiO2 of 100%. Prognosis is guarded. Continue IMCU care. Patient was anxious and put on Xanax as needed. The high probability of a clinically significant, sudden or life threatening deterioration of the [pulmonary] system(s) required my full and direct attention, intervention and personal management. The aggregate critical care time was [35] minutes. This time is in addition to time spent performing reported procedures but includes the following: [x] Data Review and interpretation [x] Patient assessment and monitoring of vital signs [x] Documentation [x] Medication orders and management History Interval history: Patient was seen and evaluated this morning Patient has shortness of breath Patient on 4 L of oxygen with FiO2 of 100% Hospitalist Physical - Physical exam Narrative exam: Patient was on CPAP, 20 L of oxygen The patient appeared well nourished and normally developed. Vital signs as documented. Head exam is unremarkable. No scleral icterus . Neck is without jugular venous distension, thyromegaly, or carotid bruits. Lungs decreased air entry Cardiac exam reveals regular rate and Rhythm. Abdominal exam reveals normal bowel sounds, nontender, no organomegaly. Extremities are nonedematous and both femoral and pedal pulses are normal. BASEBALL PITCHER: Alert and oriented 3. No focal weakness. - Constitutional Vitals: Temp Pulse Resp BP Pulse Ox 98.2 F 82 29 H 121/68 89 06/26/21 12:00 06/26/21 13:00 06/26/21 13:00 06/26/21 13:00 06/26/21 13:00 General appearance: Present: no acute distress, well-nourished Results - Labs CBC & Chem 7: 06/22/21 04:58 06/26/21 10:46 Labs: Laboratory Last Values WBC 16.3 K/mm3 (4.5-11.0) H 06/22/21 04:58 RBC 5.55 M/mm3 (3.65-5.03) H 06/22/21 04:58 Hgb 16.7 gm/dl (11.8-15.2) H 06/22/21 04:58 Hct 48.2 % (35.5-45.6) H 06/22/21 04:58 MCV 87 fl (84-94) 06/22/21 04:58 MCH 30 pg (28-32) 06/22/21 04:58 MCHC 35 % (32-34) H 06/22/21 04:58 RDW 13.7 % (13.2-15.2) 06/22/21 04:58 Plt Count 227 K/mm3 (140-440) 06/22/21 04:58 Lymph % (Auto) 25.5 % (13.4-35.0) 06/13/21 20:09 Rowan % (Auto) 4.3 % (0.0-7.3) 06/13/21 20:09 Eos % (Auto) 0.0 % (0.0-4.3) 06/13/21 20:09 Baso % (Auto) 0.3 % (0.0-1.8) 06/13/21 20:09 Lymph # (Auto) 0.6 K/mm3 (1.2-5.4) L 06/13/21 20:09 Rowan # (Auto) 0.1 K/mm3 (0.0-0.8) 06/13/21 20:09 Eos # (Auto) 0.0 K/mm3 (0.0-0.4) 06/13/21 20:09 Baso # (Auto) 0.0 K/mm3 (0.0-0.1) 06/13/21 20:09 Add Manual Diff Complete 06/14/21 05:12 Total Counted 50 06/14/21 05:12 Seg Neutrophils % 69.9 % (40.0-70.0) 06/13/21 20:09 Seg Neuts % (Manual) 82.0 % (40.0-70.0) H 06/14/21 05:12 Lymphocytes % (Manual) 14.0 % (13.4-35.0) 06/14/21 05:12 Monocytes % (Manual) 4.0 % (0.0-7.3) 06/14/21 05:12 Nucleated RBC % Not Reportable 06/14/21 05:12 Seg Neutrophils # 1.8 K/mm3 (1.8-7.7) 06/13/21 20:09 Seg Neutrophils # Man 1.6 K/mm3 (1.8-7.7) L 06/14/21 05:12 Band Neutrophils # 0.0 K/mm3 06/14/21 05:12 Lymphocytes # (Manual) 0.3 K/mm3 (1.2-5.4) L 06/14/21 05:12 Abs React Lymphs (Man) 0.0 K/mm3 06/14/21 05:12 Monocytes # (Manual) 0.1 K/mm3 (0.0-0.8) 06/14/21 05:12 Eosinophils # (Manual) 0.0 K/mm3 (0.0-0.4) 06/14/21 05:12 Basophils # (Manual) 0.0 K/mm3 (0.0-0.1) 06/14/21 05:12 Metamyelocytes # 0.0 K/mm3 06/14/21 05:12 Myelocytes # 0.0 K/mm3 06/14/21 05:12 Promyelocytes # 0.0 K/mm3 06/14/21 05:12 Blast Cells # 0.0 K/mm3 06/14/21 05:12 WBC Morphology Not Reportable 06/14/21 05:12 Hypersegmented Neuts Not Reportable 06/14/21 05:12 Hyposegmented Neuts Not Reportable 06/14/21 05:12 Hypogranular Neuts Not Reportable 06/14/21 05:12 Smudge Cells Not Reportable 06/14/21 05:12 Toxic Granulation Not Reportable 06/14/21 05:12 Toxic Vacuolation Not Reportable 06/14/21 05:12 Dohle Bodies Not Reportable 06/14/21 05:12 Pelger-Huet Anomaly Not Reportable 06/14/21 05:12 Sheri Rods Not Reportable 06/14/21 05:12 Platelet Estimate Consistent w auto 06/14/21 05:12 Clumped Platelets Not Reportable 06/14/21 05:12 Plt Clumps, EDTA Not Reportable 06/14/21 05:12 Large Platelets Not Reportable 06/14/21 05:12 Giant Platelets Not Reportable 06/14/21 05:12 Platelet Satelliting Not Reportable 06/14/21 05:12 Plt Morphology Comment Not Reportable 06/14/21 05:12 RBC Morphology Not Reportable 06/14/21 05:12 Dimorphic RBCs Not Reportable 06/14/21 05:12 Polychromasia Not Reportable 06/14/21 05:12 Hypochromasia Not Reportable 06/14/21 05:12 Poikilocytosis Not Reportable 06/14/21 05:12 Anisocytosis 1+ 06/14/21 05:12 Microcytosis Not Reportable 06/14/21 05:12 Macrocytosis Not Reportable 06/14/21 05:12 Spherocytes Not Reportable 06/14/21 05:12 Pappenheimer Bodies Not Reportable 06/14/21 05:12 Sickle Cells Not Reportable 06/14/21 05:12 Target Cells Not Reportable 06/14/21 05:12 Tear Drop Cells Not Reportable 06/14/21 05:12 Ovalocytes Not Reportable 06/14/21 05:12 Helmet Cells Not Reportable 06/14/21 05:12 Macdonald-Boles Bodies Not Reportable 06/14/21 05:12 [place] Rings Not Reportable 06/14/21 05:12 Alen Cells Not Reportable 06/14/21 05:12 Bite Cells Not Reportable 06/14/21 05:12 Crenated Cell Not Reportable 06/14/21 05:12 Elliptocytes Not Reportable 06/14/21 05:12 Acanthocytes (Spur) Not Reportable 06/14/21 05:12 Rouleaux Not Reportable 06/14/21 05:12 Hemoglobin C Crystals Not Reportable 06/14/21 05:12 Schistocytes Not Reportable 06/14/21 05:12 Malaria parasites Not Reportable 06/14/21 05:12 Swapnil Bodies Not Reportable 06/14/21 05:12 Hem Pathologist Commnt No 06/14/21 05:12 D-Dimer 532.29 ng/mlDDU (0-234) H 06/26/21 10:46 ABG pH 7.475 (7.320-7.450) H 06/22/21 10:35 POC ABG pCO2 29.2 mmHg (32.0-48.0) L 06/22/21 10:35 ABG pCO2 40.4 mm Hg 06/15/21 Unknown POC ABG pO2 51.5 mmHg (83-108) L 06/22/21 10:35 ABG pO2 61.0 mm Hg (80.0-90.0) L 06/15/21 Unknown POC ABG HCO3 21.0 06/22/21 10:35 ABG HCO3 23.7 mmol/L (20.0-26.0) 06/15/21 Unknown ABG O2 Saturation 86.7 (0-100) 06/22/21 10:35 ABG O2 Content 21.0 (0.0-44) 06/15/21 Unknown POC ABG Base Excess -0.9 06/22/21 10:35 ABG Base Excess -1.1 mmol/L (-2.0-3.0) 06/15/21 Unknown ABG Hemoglobin 18.3 (12.0-17.5) H 06/22/21 10:35 ABG Oxyhemoglobin 86.3 (94-98) L 06/22/21 10:35 ABG Carboxyhemoglobin 1.0 % (0.0-5.0) 06/15/21 Unknown ABG Methemoglobin 0.3 (0.0-1.5) 06/22/21 10:35 ABG Potassium 3.9 mmol/L (3.40-4.50) 06/22/21 10:35 ABG Chloride 100.0 mmol/L (98-107) 06/22/21 10:35 ABG Glucose 143 mg/dL (65-95) H 06/22/21 10:35 Oxyhemoglobin 89.9 % (95.0-99.0) L 06/15/21 Unknown Carboxyhemoglobin 0.2 (0.5-1.5) L 06/22/21 10:35 FiO2 100 % 06/15/21 Unknown FiO2 % 100.0 06/22/21 10:35 Sodium 135 mmol/L (137-145) L 06/26/21 10:46 Potassium 4.6 mmol/L (3.6-5.0) 06/26/21 10:46 Chloride 95.1 mmol/L (98-107) L 06/26/21 10:46 Carbon Dioxide 26 mmol/L (22-30) 06/26/21 10:46 Anion Gap 19 mmol/L 06/26/21 10:46 BUN 39 mg/dL (9-20) H 06/26/21 10:46 Creatinine 0.7 mg/dL (0.8-1.3) L 06/26/21 10:46 Estimated GFR > 60 ml/min 06/26/21 10:46 BUN/Creatinine Ratio 56 % 06/26/21 10:46 Glucose 202 mg/dL (75-100) H 06/26/21 10:46 Calcium 8.9 mg/dL (8.4-10.2) 06/26/21 10:46 Ferritin 2549.0 ng/mL (30.0-300.0) H 06/26/21 10:46 Total Bilirubin 0.70 mg/dL (0.1-1.2) 06/22/21 04:58 AST 22 units/L (5-40) 06/22/21 04:58 ALT 28 units/L (7-56) 06/22/21 04:58 Alkaline Phosphatase 69 units/L (35-129) 06/22/21 04:58 Lactate Dehydrogenase 644 units/L (91-180) H 06/26/21 10:46 C-Reactive Protein < 0.03 mg/dL (0.00-1.30) 06/26/21 10:46 Total Protein 6.1 g/dL (6.3-8.2) L 06/22/21 04:58 Albumin 3.6 g/dL (3.9-5) L 06/22/21 04:58 Albumin/Globulin Ratio 1.4 % 06/22/21 04:58 Procalcitonin < 0.05 ng/mL (<0.15) 06/24/21 05:25 Arterial Blood Glucose 143 mg/dL (65-95) H 06/22/21 10:35 Arterial Blood Ionized Calcium 4.8 mg/dL (4.6-5.3) 06/22/21 10:35 Coronavirus (PCR) Positive (Negative) A 06/14/21 Unknown Mao/IV: Voiding Method Urinal Active Medications - Current Medications Current Medications: Generic Name Dose Route Start Last Admin Trade Name Freq PRN Reason Stop Dose Admin Acetaminophen 650 mg 06/13/21 22:49 06/23/21 21:13 Acetaminophen 325 Mg Tab PO 650 mg Q4H PRN Administration Pain MILD(1-3)/Fever >100.5/HAYNES Albuterol 5 mg 06/25/21 11:52 Albuterol 2.5 Mg/3 Ml Nebu IH Q4HRT PRN Shortness Of Breath Alprazolam 0.25 mg 06/25/21 11:49 06/26/21 05:30 Alprazolam 0.25 Mg Tab PO 0.25 mg Q8H PRN Administration Anxiety Enoxaparin Sodium 120 mg 06/23/21 22:00 06/26/21 09:48 Enoxaparin 120 Mg/0.8 Ml Inj SUB-Q 120 mg Q12HR SIMÓN Administration Protocol Famotidine 20 mg 06/14/21 10:00 06/26/21 09:41 Famotidine 20 Mg Tab PO 20 mg BID SIMÓN Administration Guaifenesin 200 mg 06/15/21 00:33 06/26/21 05:31 Guaifenesin 200 Mg Tab PO 200 mg Q6H PRN Administration Cough Hydralazine HCl 10 mg 06/13/21 22:52 Hydralazine 20 Mg/1 Ml Inj IV Q6H PRN SBP >/=160; DBP >/=100 Hydromorphone HCl 0.5 mg 06/13/21 22:49 Hydromorphone 1 Mg/1 Ml Inj IV Q3H PRN Pain , Severe (7-10) Methylprednisolone Sodium Succinate 40 mg 06/25/21 14:00 06/26/21 13:04 Methylprednisolone Sod Succinate 40 Mg/1 Ml Inj IV 40 mg Q8HR SIMÓN Administration Ondansetron HCl 4 mg 06/13/21 22:49 06/17/21 18:48 Ondansetron 4 Mg/2 Ml Inj IV 4 mg Q8H PRN Administration Nausea And Vomiting Oxycodone/Acetaminophen 1 tab 06/13/21 22:49 06/26/21 05:30 Oxycodone /Acetaminophen 5-325mg Tab PO 1 tab Q6H PRN Administration Pain, Moderate (4-6) Phenol 1 spray 06/15/21 14:00 Phenol 1.4% 177 Ml Bottle MM PRN PRN Sore Throat Sodium Chloride 10 ml 06/14/21 10:00 06/26/21 09:53 Sodium Chloride 0.9% 10 Ml Flush Syringe IV 10 ml BID SIMÓN Administration Sodium Chloride 10 ml 06/13/21 22:49 Sodium Chloride 0.9% 10 Ml Flush Syringe IV PRN PRN LINE FLUSH Sodium Chloride 1 applic 06/22/21 11:00 06/26/21 09:53 Victoria Saline Nasal Gel 14.1 Gm NS 1 applic BID SIMÓN Administration Nutrition/Malnutrition Assess - Dietary Evaluation Nutrition/Malnutrition Findings: Nutrition Notes Start: 06/19/21 11:11 Freq: Status: Active Protocol: Document 06/26/21 13:01 (Rec: 06/26/21 13:05 [email or web address]) Nutrition Notes Initial or Follow up Reassessment Current Diagnosis Respiratory Failure Other Pertinent Diagnosis pneu, COVID-19 Current Diet Regular Labs/Tests Na 135 BUN 39 Cr 0.7 BG 202 Pertinent Medications Solu Medrol Height 5 ft 9 in Weight 115.9 kg [place] Body Weight (kg) 72.72 BMI 37.7 Weight Status Obese Subjective/Other Information Pt eating 100% of meals and ONS as needed. Percent of energy/protein needs met: 100%/100% Burn Absent Trauma Absent Current % PO Good (75-100%) Minimum of two criteria No physical signs of malnutrition #1 Nutrition Diagnosis Inadequate oral intake As Evidenced by Signs and Symptoms pt eating 100% of meals Diagnosis Progress(for reassessment Improved documentation) Is patient on ventilator? No Is Patient Ambulatory and/or Out of Bed No [facility] 2497.320 Kcal/Kg value to use for calculation 14 Approximate Energy Requirements Using 1623 kcal/Kg Calculation Used for Recommendations Kcal/kg Additional Notes Protein: (0.8-1g/kg AdjBW: 83kg) 67-83g Fluid: 1 ml/kcal Nutrition Intervention Change Diet Order: Continue Add Supplement/Snack (indicate name/kcal Ensure Enlive daily /protein ) Provides kCal: 350 Provides Protein (gm) 20 Goal #1 Meet at least 75% of energy and protein needs via PO and ONS Anticipated Discharge Needs: regular Follow-Up By: 06/30/21 Additional Comments F/u: intakes and ONS tolerance
--- NOTE | 2021-06-26 15:48 | Progress Note ---
Assessment and Plan Cultures: SARS CoV2 PCR: Positive as outpatient 06/13/2021 blood culture: In process A/P: 36-year-old male with history of asthma, renal stones, unvaccinated for COVID-19 was diagnosed with COVID-19 as an outpatient: #Bilateral pneumonia: Secondary to COVID-19. Severe disease, with high inflamma tory markers and increasing oxygen requirements. #Acute hypoxic respiratory failure: Now on CPAP #Morbid obesity Recs: -High-dose steroids per pulmonary -Leukocytosis likely secondary to steroids -s/p Actemra once -Completed IV Remdesivir. -Procalcitonin remains low. -prophylactic anticoagulation based on d-dimer per hospital protocol -trend ferritin, LDH, d-dimer, CRP every 2-3 days for risk stratification and to assess disease progression ID will sign off. Please call with concerns. Pato Kruse MD [facility] O: [phone] F: [phone] Subjective Date of service: 06/26/21 Principal diagnosis: Acute hypoxic respiratory failure Interval history: Afebrile, on CPAP/HFNC. Objective - Exam Narrative Exam: Physical exam deferred to reduce risk of transmission of COVID-19. Please refer to primary team's note. - Constitutional Vitals: Vital Signs Temp Pulse Resp BP Pulse Ox 98.2 F 82 29 H 121/68 89 06/26/21 12:00 06/26/21 13:00 06/26/21 13:00 06/26/21 13:00 06/26/21 13:00 Temperature -Last 24 Hours Temperature 98.2 F Temperature 97.7 F Temperature 97.5 F Temperature 97.9 F Temperature 99.0 F Temperature 97.3 F - Labs CBC & Chem 7: 06/22/21 04:58 06/26/21 10:46 Labs: Abnormal lab results 06/26/21 06/26/21 06/26/21 Range/Units 10:46 10:46 10:46 D-Dimer 532.29 H (0-234) ng/mlDDU Sodium 135 L (137-145) mmol/L Chloride 95.1 L (98-107) mmol/L BUN 39 H (9-20) mg/dL Creatinine 0.7 L (0.8-1.3) mg/dL Glucose 202 H (75-100) mg/dL Ferritin 2549.0 H (30.0-300.0) ng/mL Lactate Dehydrogenase 644 H (91-180) units/L
[2021-06-27] MEDS: ACETAMINOPHEN 325 MG TAB PO PRN (03:31)
[2021-06-27] MEDS: ALPRAZolam 0.25 MG TAB PO PRN ×3 (03:31→22:24)
[2021-06-27] MEDS: methylPREDNISolone Sod Succinate 40 MG/1 ML INJ IV SCH ×3 (05:44→22:26)
[2021-06-27] MEDS: oxyCODONE /ACETAMINOPHEN 5-325MG TAB PO PRN ×2 (09:10→22:25)
[2021-06-27] MEDS: ENOXAPARIN 120 MG/0.8 ML INJ SUB-Q SCH ×2 (09:11→22:28)
[2021-06-27] MEDS: FAMOTIDINE 20 MG TAB PO SCH ×2 (09:11→22:25)
[2021-06-27] MEDS: AYR SALINE NASAL GEL 14.1 GM NS SCH ×2 (09:12→22:29)
--- NOTE | 2021-06-27 10:16 | Progress Note ---
Assessment and Plan Assessment and plan: 36-year-old with a history of asthma, obesity presented with shortness of breath fever chills arthralgias myalgias approximately 8 days after testing positive for COVID. Patient at present hypoxic requiring 15 L facemask at present. Patient is able to speak in full sentences however remains hypoxic. Hospital course complicated by nonproductive cough. (1) Acute respiratory failure due to COVID-19 Current Visit: Yes Status: Acute Plan to address problem: Patient requires 15 L oxygen to prevent hypoxemia. Currently started on steroids dexamethasone Supportive care with oxygen 15 L We will add Hycodan for cough Follow inflammatory markers Empiric antibiotics Rocephin azithromycin Initiate remdesivir Zinc, vitamin C, vitamin D (2) Asthma Current Visit: Yes Status: Acute Plan to address problem: We will place nebulizers. Albuterol nebulizers patient seemed to be doing well as far as asthma limited wheezing. Respiratory failure secondary to Covid (3) COVID-19 pneumonia (4) severe sepsis secondary to COVID-19 (5) multifocal pneumonia Current Visit: Yes Status: Acute Plan to address problem: Consistent with Covid pneumonia 06/15: Considering gradual decline will transfer patient to IMCU. We'll also consult pulmonary GI. I have requested the patient be put on high flow and also trial of BiPAP. ID is consulted and currently following patient management. Weight loss recommended. Continue steroids. Chest x-ray reviewed by me shows bilateral infiltrates 06/16: Patient seen and examined Remains on HFNC but now at 40 and 100%. SAts in the mid 90's. Continue to monitor renal function with Lasix. Continue IMCU. Can downgrade this oxygen weaning again this. Continue prone positioning. Case dis cussed with director global strategic publisher sales 06/17: Continue supportive care. High flow down to 35 L continuous 100% with saturation in the mid to low 90s. Per director global strategic publisher sales steroid has been increased to twice daily dosing due to patient size. Patient continues on IV remdesivir. We will continue to monitor inflammatory markers. Prognosis is guarded. 06/18: Patient seen and examined, Continues supportive care, wean as tolerated. still with persitent hypoxia, he did not like the High flow, affects his nostriles, and now is on NRB satting 94%. Continue to encourage prone position. condition is still guarded 06/19: Continue supportive care, wean oxygen as tolerated, patient ok with me speaking with mother, will call and update. 06/20: Patient seen and examined continues to be weaned down on high flow oxygen down to 85%. Saturation remains around 92%. I did discuss extensively with the mother. She verbalized understanding. This discussion was done with permission with the patient. We will do another trial of Lasix. Patient is continued on the steroids he is status post Actemra and has completed his remdesivir. 06/21: Patient's prognosis still remains guarded. Continue to encourage prone positioning. Went back up on oxygen demand. But states that he does not feel less winded as before. Continue diuresis and monitor renal function. Also monitor inflammatory markers. 06/22: Patient more mobile but still profoundly hypoxic, continue to monitor and wean oxygen as tolerated. Will re-evaluate if repeated Lasix will help. 06/23: Patient seen and examined remains on high flow refusing to prone states is uncomfortable. We will continue with aggressive measures. Will change to full dose Lovenox discussed with manufacturing quality inspector. Condition is still guarded 06/24; patient was seen and evaluated this morning. Patient was on 15L of high flow oxygen. Patient finished remdesivir, Decadron, Actemra. Prognosis is guarded. 06/25; patient was on 40 L of high flow oxygen with FiO2 of 100%. Prognosis is g uarded. Continue IMCU care. Patient was anxious and put on Xanax as needed. 06/26; patient was on 40 L of high flow oxygen with FiO2 of 100%. Prognosis is guarded. Continue IMCU care. Patient was anxious and put on Xanax as needed. 06/27; patient is on 40 L of oxygen and 15 L via nonrebreather mask. Prognosis is guarded The high probability of a clinically significant, sudden or life threatening deterioration of the [pulmonary] system(s) required my full and direct attention, intervention and personal management. The aggregate critical care time was [35] minutes. This time is in addition to time spent performing reported procedures but includes the following: [x] Data Review and interpretation [x] Patient assessment and monitoring of vital signs [x] Documentation [x] Medication orders and management History Interval history: Patient was seen and evaluated this morning Patient has shortness of breath Patient was on 40 L of oxygen via Vapotherm, and on nonrebreather mask Hospitalist Physical - Physical exam Narrative exam: Patient was on CPAP, 20 L of oxygen The patient appeared well nourished and normally developed. Vital signs as documented. Head exam is unremarkable. No scleral icterus . Neck is without jugular venous distension, thyromegaly, or carotid bruits. Lungs decreased air entry Cardiac exam reveals regular rate and Rhythm. Abdominal exam reveals normal bowel sounds, nontender, no organomegaly. Extremities are nonedematous and both femoral and pedal pulses are normal. SYSTEMS TRAINER: Alert and oriented 3. No focal weakness. - Constitutional Vitals: Temp Pulse Resp BP Pulse Ox 97.3 F L 92 H 23 129/91 91 06/27/21 07:31 06/27/21 06:00 06/27/21 06:00 06/27/21 06:00 06/27/21 07:54 General appearance: Present: no acute distress, well-nourished Results - Labs CBC & Chem 7: 06/22/21 04:58 06/26/21 10:46 Labs: Laboratory Last Values WBC 16.3 K/mm3 (4.5-11.0) H 06/22/21 04:58 RBC 5.55 M/mm3 (3.65-5.03) H 06/22/21 04:58 Hgb 16.7 gm/dl (11.8-15.2) H 06/22/21 04:58 Hct 48.2 % (35.5-45.6) H 06/22/21 04:58 MCV 87 fl (84-94) 06/22/21 04:58 MCH 30 pg (28-32) 06/22/21 04:58 MCHC 35 % (32-34) H 06/22/21 04:58 RDW 13.7 % (13.2-15.2) 06/22/21 04:58 Plt Count 227 K/mm3 (140-440) 06/22/21 04:58 Lymph % (Auto) 25.5 % (13.4-35.0) 06/13/21 20:09 [place] % (Auto) 4.3 % (0.0-7.3) 06/13/21 20:09 Eos % (Auto) 0.0 % (0.0-4.3) 06/13/21 20:09 Baso % (Auto) 0.3 % (0.0-1.8) 06/13/21 20:09 Lymph # (Auto) 0.6 K/mm3 (1.2-5.4) L 06/13/21 20:09 [place] # (Auto) 0.1 K/mm3 (0.0-0.8) 06/13/21 20:09 Eos # (Auto) 0.0 K/mm3 (0.0-0.4) 06/13/21 20:09 Baso # (Auto) 0.0 K/mm3 (0.0-0.1) 06/13/21 20:09 Add Manual Diff Complete 06/14/21 05:12 Total Counted 50 06/14/21 05:12 Seg Neutrophils % 69.9 % (40.0-70.0) 06/13/21 20:09 Seg Neuts % (Manual) 82.0 % (40.0-70.0) H 06/14/21 05:12 Lymphocytes % (Manual) 14.0 % (13.4-35.0) 06/14/21 05:12 Monocytes % (Manual) 4.0 % (0.0-7.3) 06/14/21 05:12 Nucleated RBC % Not Reportable 06/14/21 05:12 Seg Neutrophils # 1.8 K/mm3 (1.8-7.7) 06/13/21 20:09 Seg Neutrophils # Man 1.6 K/mm3 (1.8-7.7) L 06/14/21 05:12 Band Neutrophils # 0.0 K/mm3 06/14/21 05:12 Lymphocytes # (Manual) 0.3 K/mm3 (1.2-5.4) L 06/14/21 05:12 Abs React Lymphs (Man) 0.0 K/mm3 06/14/21 05:12 Monocytes # (Manual) 0.1 K/mm3 (0.0-0.8) 06/14/21 05:12 Eosinophils # (Manual) 0.0 K/mm3 (0.0-0.4) 06/14/21 05:12 Basophils # (Manual) 0.0 K/mm3 (0.0-0.1) 06/14/21 05:12 Metamyelocytes # 0.0 K/mm3 06/14/21 05:12 Myelocytes # 0.0 K/mm3 06/14/21 05:12 Promyelocytes # 0.0 K/mm3 06/14/21 05:12 Blast Cells # 0.0 K/mm3 06/14/21 05:12 WBC Morphology Not Reportable 06/14/21 05:12 Hypersegmented Neuts Not Reportable 06/14/21 05:12 Hyposegmented Neuts Not Reportable 06/14/21 05:12 Hypogranular Neuts Not Reportable 06/14/21 05:12 Smudge Cells Not Reportable 06/14/21 05:12 Toxic Granulation Not Reportable 06/14/21 05:12 Toxic Vacuolation Not Reportable 06/14/21 05:12 Dohle Bodies Not Reportable 06/14/21 05:12 Pelger-Huet Anomaly Not Reportable 06/14/21 05:12 Sheri Rods Not Reportable 06/14/21 05:12 Platelet Estimate Consistent w auto 06/14/21 05:12 Clumped Platelets Not Reportable 06/14/21 05:12 Plt Clumps, EDTA Not Reportable 06/14/21 05:12 Large Platelets Not Reportable 06/14/21 05:12 Giant Platelets Not Reportable 06/14/21 05:12 Platelet Satelliting Not Reportable 06/14/21 05:12 Plt Morphology Comment Not Reportable 06/14/21 05:12 RBC Morphology Not Reportable 06/14/21 05:12 Dimorphic RBCs Not Reportable 06/14/21 05:12 Polychromasia Not Reportable 06/14/21 05:12 Hypochromasia Not Reportable 06/14/21 05:12 Poikilocytosis Not Reportable 06/14/21 05:12 Anisocytosis 1+ 06/14/21 05:12 Microcytosis Not Reportable 06/14/21 05:12 Macrocytosis Not Reportable 06/14/21 05:12 Spherocytes Not Reportable 06/14/21 05:12 Pappenheimer Bodies Not Reportable 06/14/21 05:12 Sickle Cells Not Reportable 06/14/21 05:12 Target Cells Not Reportable 06/14/21 05:12 Tear Drop Cells Not Reportable 06/14/21 05:12 Ovalocytes Not Reportable 06/14/21 05:12 Helmet Cells Not Reportable 06/14/21 05:12 Macdonald-Tignall Bodies Not Reportable 06/14/21 05:12 [place] Rings Not Reportable 06/14/21 05:12 Alen Cells Not Reportable 06/14/21 05:12 Bite Cells Not Reportable 06/14/21 05:12 Crenated Cell Not Reportable 06/14/21 05:12 Elliptocytes Not Reportable 06/14/21 05:12 Acanthocytes (Spur) Not Reportable 06/14/21 05:12 Rouleaux Not Reportable 06/14/21 05:12 Hemoglobin C Crystals Not Reportable 06/14/21 05:12 Schistocytes Not Reportable 06/14/21 05:12 Malaria parasites Not Reportable 06/14/21 05:12 Swapnil Bodies Not Reportable 06/14/21 05:12 Hem Pathologist Commnt No 06/14/21 05:12 D-Dimer 532.29 ng/mlDDU (0-234) H 06/26/21 10:46 ABG pH 7.475 (7.320-7.450) H 06/22/21 10:35 POC ABG pCO2 29.2 mmHg (32.0-48.0) L 06/22/21 10:35 ABG pCO2 40.4 mm Hg 06/15/21 Unknown POC ABG pO2 51.5 mmHg (83-108) L 06/22/21 10:35 ABG pO2 61.0 mm Hg (80.0-90.0) L 06/15/21 Unknown POC ABG HCO3 21.0 06/22/21 10:35 ABG HCO3 23.7 mmol/L (20.0-26.0) 06/15/21 Unknown ABG O2 Saturation 86.7 (0-100) 06/22/21 10:35 ABG O2 Content 21.0 (0.0-44) 06/15/21 Unknown POC ABG Base Excess -0.9 06/22/21 10:35 ABG Base Excess -1.1 mmol/L (-2.0-3.0) 06/15/21 Unknown ABG Hemoglobin 18.3 (12.0-17.5) H 06/22/21 10:35 ABG Oxyhemoglobin 86.3 (94-98) L 06/22/21 10:35 ABG Carboxyhemoglobin 1.0 % (0.0-5.0) 06/15/21 Unknown ABG Methemoglobin 0.3 (0.0-1.5) 06/22/21 10:35 ABG Potassium 3.9 mmol/L (3.40-4.50) 06/22/21 10:35 ABG Chloride 100.0 mmol/L (98-107) 06/22/21 10:35 ABG Glucose 143 mg/dL (65-95) H 06/22/21 10:35 Oxyhemoglobin 89.9 % (95.0-99.0) L 06/15/21 Unknown Carboxyhemoglobin 0.2 (0.5-1.5) L 06/22/21 10:35 FiO2 100 % 06/15/21 Unknown FiO2 % 100.0 06/22/21 10:35 Sodium 135 mmol/L (137-145) L 06/26/21 10:46 Potassium 4.6 mmol/L (3.6-5.0) 06/26/21 10:46 Chloride 95.1 mmol/L (98-107) L 06/26/21 10:46 Carbon Dioxide 26 mmol/L (22-30) 06/26/21 10:46 Anion Gap 19 mmol/L 06/26/21 10:46 BUN 39 mg/dL (9-20) H 06/26/21 10:46 Creatinine 0.7 mg/dL (0.8-1.3) L 06/26/21 10:46 Estimated GFR > 60 ml/min 06/26/21 10:46 BUN/Creatinine Ratio 56 % 06/26/21 10:46 Glucose 202 mg/dL (75-100) H 06/26/21 10:46 Calcium 8.9 mg/dL (8.4-10.2) 06/26/21 10:46 Ferritin 2549.0 ng/mL (30.0-300.0) H 06/26/21 10:46 Total Bilirubin 0.70 mg/dL (0.1-1.2) 06/22/21 04:58 AST 22 units/L (5-40) 06/22/21 04:58 ALT 28 units/L (7-56) 06/22/21 04:58 Alkaline Phosphatase 69 units/L (35-129) 06/22/21 04:58 Lactate Dehydrogenase 644 units/L (91-180) H 06/26/21 10:46 C-Reactive Protein < 0.03 mg/dL (0.00-1.30) 06/26/21 10:46 Total Protein 6.1 g/dL (6.3-8.2) L 06/22/21 04:58 Albumin 3.6 g/dL (3.9-5) L 06/22/21 04:58 Albumin/Globulin Ratio 1.4 % 06/22/21 04:58 Procalcitonin < 0.05 ng/mL (<0.15) 06/24/21 05:25 Arterial Blood Glucose 143 mg/dL (65-95) H 06/22/21 10:35 Arterial Blood Ionized Calcium 4.8 mg/dL (4.6-5.3) 06/22/21 10:35 Coronavirus (PCR) Positive (Negative) A 06/14/21 Unknown Mao/IV: Voiding Method Urinal Active Medications - Current Medications Current Medications: Generic Name Dose Route Start Last Admin Trade Name Freq PRN Reason Stop Dose Admin Acetaminophen 650 mg 06/13/21 22:49 06/27/21 03:31 Acetaminophen 325 Mg Tab PO 650 mg Q4H PRN Administration Pain MILD(1-3)/Fever >100.5/HAYNES Albuterol 5 mg 06/25/21 11:52 Albuterol 2.5 Mg/3 Ml Nebu IH Q4HRT PRN Shortness Of Breath Alprazolam 0.25 mg 06/25/21 11:49 06/27/21 03:31 Alprazolam 0.25 Mg Tab PO 0.25 mg Q8H PRN Administration Anxiety Enoxaparin Sodium 120 mg 06/23/21 22:00 06/27/21 09:11 Enoxaparin 120 Mg/0.8 Ml Inj SUB-Q 120 mg Q12HR SIMÓN Administration Protocol Famotidine 20 mg 06/14/21 10:00 06/27/21 09:11 Famotidine 20 Mg Tab PO 20 mg BID SIMÓN Administration Guaifenesin 200 mg 06/15/21 00:33 06/26/21 05:31 Guaifenesin 200 Mg Tab PO 200 mg Q6H PRN Administration Cough Hydralazine HCl 10 mg 06/13/21 22:52 Hydralazine 20 Mg/1 Ml Inj IV Q6H PRN SBP >/=160; DBP >/=100 Hydromorphone HCl 0.5 mg 06/13/21 22:49 Hydromorphone 1 Mg/1 Ml Inj IV Q3H PRN Pain , Severe (7-10) Methylprednisolone Sodium Succinate 40 mg 06/25/21 14:00 06/27/21 05:44 Methylprednisolone Sod Succinate 40 Mg/1 Ml Inj IV 40 mg Q8HR SIMÓN Administration Ondansetron HCl 4 mg 06/13/21 22:49 06/17/21 18:48 Ondansetron 4 Mg/2 Ml Inj IV 4 mg Q8H PRN Administration Nausea And Vomiting Oxycodone/Acetaminophen 1 tab 06/13/21 22:49 06/27/21 09:10 Oxycodone /Acetaminophen 5-325mg Tab PO 1 tab Q6H PRN Administration Pain, Moderate (4-6) Phenol 1 spray 06/15/21 14:00 Phenol 1.4% 177 Ml Bottle MM PRN PRN Sore Throat Sodium Chloride 10 ml 06/14/21 10:00 06/27/21 09:12 Sodium Chloride 0.9% 10 Ml Flush Syringe IV 10 ml BID SIMÓN Administration Sodium Chloride 10 ml 06/13/21 22:49 Sodium Chloride 0.9% 10 Ml Flush Syringe IV PRN PRN LINE FLUSH Sodium Chloride 1 applic 06/22/21 11:00 06/27/21 09:12 Clever Saline Nasal Gel 14.1 Gm NS 1 applic BID SIMÓN Administration Nutrition/Malnutrition Assess - Dietary Evaluation Nutrition/Malnutrition Findings: Nutrition Notes Start: 06/19/21 11:11 Freq: Status: Active Protocol: Document 06/26/21 13:01 (Rec: 06/26/21 13:05 [email or web address]) Nutrition Notes Initial or Follow up Reassessment Current Diagnosis Respiratory Failure Other Pertinent Diagnosis pneu, COVID-19 Current Diet Regular Labs/Tests Na 135 BUN 39 Cr 0.7 BG 202 Pertinent Medications Solu Medrol Height 5 ft 9 in Weight 115.9 kg [place] Body Weight (kg) 72.72 BMI 37.7 Weight Status Obese Subjective/Other Information Pt eating 100% of meals and ONS as needed. Percent of energy/protein needs met: 100%/100% Burn Absent Trauma Absent Current % PO Good (75-100%) Minimum of two criteria No physical signs of malnutrition #1 Nutrition Diagnosis Inadequate oral intake As Evidenced by Signs and Symptoms pt eating 100% of meals Diagnosis Progress(for reassessment Improved documentation) Is patient on ventilator? No Is Patient Ambulatory and/or Out of Bed No REE-([place]-confined to bed) 2497.320 Kcal/Kg value to use for calculation 14 Approximate Energy Requirements Using 1623 kcal/Kg Calculation Used for Recommendations Kcal/kg Additional Notes Protein: (0.8-1g/kg AdjBW: 83kg) 67-83g Fluid: 1 ml/kcal Nutrition Intervention Change Diet Order: Continue Add Supplement/Snack (indicate name/kcal Ensure Enlive daily /protein ) Provides kCal: 350 Provides Protein (gm) 20 Goal #1 Meet at least 75% of energy and protein needs via PO and ONS Anticipated Discharge Needs: regular Follow-Up By: 06/30/21 Additional Comments F/u: intakes and ONS tolerance
--- NOTE | 2021-06-27 12:32 | Progress Note ---
Assessment and Plan 36 y/o male with acute respiratory failure secondary to COVID 19, not vaccinated. 06/27/21: Continue steroids at current dosing. Continue proning and asked patient to stay like this for as long as he could. In theory should be lying fl at for best effect but we will take what we can get. Lasix again today. Should check chemistry tomorrow. 06/26/21: Steroids to continue. Tried to encourage proning but per patient too much pressure in his chest. Lasix again today. Guarded prognosis. : Steroids today, but now solumedrol 40IVq8. Will continue these indefinitely until oxygen requirement starts to improve. Encouraged proning as much as possible. will give lasix again today but will check labs tomorrow to monitor chemistry. 06/24/21: Guideline steroids end today but will like continue with Solumedrol starting tomorrow if no improvement overnight in oxygen requirement. Very high risk for intubation with increased mortality once intubated. Guarded prognosis. 06/20/21: Continue IV steroids. Encouraged patient to prone. Lasix today. Guarded prognosis 06/19/21: Continue IV steroids. Prone if possible. Lasix again today. 06/18/21: Continue IV steroids, IV remdesivir. Gave lasix 40mg today. Guarded prognosis. 06/17/21: Continue IV steroids. Prone. IV remdesivir 06/16/21: Given patient size will increase steroids to BID dosing. Continue Remdesivir. Need to prone as tolerated during the day and sleep prone at night. Guarded prognosis. 1. Prone as tolerated during the day and sleep prone at night 2. IV steroids and remdesivir, per ID would be a candidate for actemra 3. Agree with lasix therapy, monitor renal function and electrolytes closely 4. Guarded prognosis Subjective Date of service: 06/27/21 Principal diagnosis: Acute hypoxic respiratory failure Interval history: Patient is finally proning. Currently proned now on HFNC and NRB mask. Bed is in reverse trendelenberg. Anxiety is better with xanax. Objective Vital Signs - 12hr 06/27/21 06/27/21 06/27/21 01:00 02:00 02:01 Temperature Pulse Rate 96 H 96 H Pulse Rate [ From Monitor] Respiratory 45 H 44 H Rate Blood Pressure 106/74 105/75 O2 Sat by Pulse 100 90 90 Oximetry 06/27/21 06/27/21 06/27/21 03:00 03:31 03:57 Temperature 98.6 F Pulse Rate 113 H Pulse Rate [ From Monitor] Respiratory 27 H 35 H Rate Blood Pressure 118/79 O2 Sat by Pulse 88 Oximetry 06/27/21 06/27/21 06/27/21 04:00 04:33 05:00 Temperature Pulse Rate 101 H 94 H 97 H Pulse Rate [ 101 H From Monitor] Respiratory 24 24 28 H Rate Blood Pressure 119/84 121/88 O2 Sat by Pulse 95 94 92 Oximetry 06/27/21 06/27/21 06/27/21 06:00 07:31 07:54 Temperature 97.3 F L Pulse Rate 92 H Pulse Rate [ From Monitor] Respiratory 23 Rate Blood Pressure 129/91 O2 Sat by Pulse 94 91 Oximetry Constitutional: alert, other (mild distress) Eyes: non-icteric ENT: oropharynx moist Neck: supple Ascultation: Bilateral: diminished breath sounds Cardiovascular: regular rate and rhythm Gastrointestinal: normoactive bowel sounds Integumentary: normal Extremities: no cyanosis Neurologic: normal mental status Psychiatric: anxious CBC and BMP: 06/22/21 04:58 06/26/21 10:46 ABG, PT/INR, D-dimer: ABG ABG pH 7.475 (7.320-7.450) H 06/22/21 10:35 POC ABG pCO2 29.2 mmHg (32.0-48.0) L 06/22/21 10:35 ABG pCO2 40.4 mm Hg 06/15/21 Unknown POC ABG pO2 51.5 mmHg (83-108) L 06/22/21 10:35 ABG pO2 61.0 mm Hg (80.0-90.0) L 06/15/21 Unknown POC ABG HCO3 21.0 06/22/21 10:35 ABG O2 Saturation 86.7 (0-100) 06/22/21 10:35 PT/INR, D-dimer D-Dimer 532.29 ng/mlDDU (0-234) H 06/26/21 10:46 Abnormal lab findings: Abnormal Labs 06/13/21 06/13/21 06/13/21 20:09 20:09 20:09 WBC 2.6 L RBC Hgb Hct MCHC 35 H Plt Count 112 L Lymph # (Auto) 0.6 L Seg Neuts % (Manual) Seg Neutrophils # Man Lymphocytes # (Manual) D-Dimer 560.90 H ABG pH POC ABG pCO2 POC ABG pO2 ABG pO2 ABG O2 Saturation ABG Hemoglobin ABG Oxyhemoglobin ABG Glucose Oxyhemoglobin Carboxyhemoglobin Sodium 134 L Chloride BUN Creatinine Glucose 105 H Ferritin AST ALT Lactate Dehydrogenase C-Reactive Protein Total Protein Albumin Arterial Blood Glucose Coronavirus (PCR) 06/13/21 06/13/21 06/14/21 20:09 20:09 05:12 WBC 2.0 L RBC Hgb Hct MCHC 35 H Plt Count 106 L Lymph # (Auto) Seg Neuts % (Manual) 82.0 H Seg Neutrophils # Man 1.6 L Lymphocytes # (Manual) 0.3 L D-Dimer ABG pH POC ABG pCO2 POC ABG pO2 ABG pO2 ABG O2 Saturation ABG Hemoglobin ABG Oxyhemoglobin ABG Glucose Oxyhemoglobin Carboxyhemoglobin Sodium Chloride BUN Creatinine Glucose 105 H Ferritin 1876.0 H AST ALT Lactate Dehydrogenase 634 H C-Reactive Protein 9.20 H Total Protein Albumin Arterial Blood Glucose Coronavirus (PCR) 06/14/21 06/14/21 06/14/21 05:12 23:50 Unknown WBC RBC Hgb Hct MCHC Plt Count Lymph # (Auto) Seg Neuts % (Manual) Seg Neutrophils # Man Lymphocytes # (Manual) D-Dimer ABG pH POC ABG pCO2 POC ABG pO2 ABG pO2 ABG O2 Saturation ABG Hemoglobin ABG Oxyhemoglobin ABG Glucose Oxyhemoglobin Carboxyhemoglobin Sodium Chloride BUN Creatinine Glucose 214 H 135 H Ferritin AST 52 H ALT Lactate Dehydrogenase C-Reactive Protein Total Protein Albumin 3.2 L Arterial Blood Glucose Coronavirus (PCR) Positive A 06/15/21 06/15/21 06/15/21 05:21 05:21 05:21 WBC RBC Hgb Hct MCHC Plt Count Lymph # (Auto) Seg Neuts % (Manual) Seg Neutrophils # Man Lymphocytes # (Manual) D-Dimer 360.79 H ABG pH POC ABG pCO2 POC ABG pO2 ABG pO2 ABG O2 Saturation ABG Hemoglobin ABG Oxyhemoglobin ABG Glucose Oxyhemoglobin Carboxyhemoglobin Sodium Chloride BUN Creatinine 0.7 L Glucose 167 H Ferritin 1869.0 H AST 65 H ALT Lactate Dehydrogenase C-Reactive Protein Total Protein 6.1 L Albumin 3.4 L Arterial Blood Glucose Coronavirus (PCR) 06/15/21 06/15/21 06/16/21 05:21 Unknown 07:16 WBC RBC Hgb Hct MCHC Plt Count Lymph # (Auto) Seg Neuts % (Manual) Seg Neutrophils # Man Lymphocytes # (Manual) D-Dimer ABG pH POC ABG pCO2 POC ABG pO2 ABG pO2 61.0 L ABG O2 Saturation 91.3 L ABG Hemoglobin ABG Oxyhemoglobin ABG Glucose Oxyhemoglobin 89.9 L Carboxyhemoglobin Sodium Chloride BUN Creatinine Glucose 130 H Ferritin AST 77 H ALT 57 H Lactate Dehydrogenase C-Reactive Protein 3.10 H Total Protein 6.0 L Albumin 3.5 L Arterial Blood Glucose Coronavirus (PCR) 06/17/21 06/17/21 06/22/21 04:36 04:36 04:58 WBC 16.3 H RBC 5.55 H Hgb 16.7 H Hct 48.2 H MCHC 36 H 35 H Plt Count Lymph # (Auto) Seg Neuts % (Manual) Seg Neutrophils # Man Lymphocytes # (Manual) D-Dimer ABG pH POC ABG pCO2 POC ABG pO2 ABG pO2 ABG O2 Saturation ABG Hemoglobin ABG Oxyhemoglobin ABG Glucose Oxyhemoglobin Carboxyhemoglobin Sodium Chloride BUN 29 H Creatinine Glucose 125 H Ferritin AST 59 H ALT 57 H Lactate Dehydrogenase C-Reactive Protein Total Protein 6.0 L Albumin 3.6 L Arterial Blood Glucose Coronavirus (PCR) 06/22/21 06/22/21 06/22/21 04:58 04:58 04:58 WBC RBC Hgb Hct MCHC Plt Count Lymph # (Auto) Seg Neuts % (Manual) Seg Neutrophils # Man Lymphocytes # (Manual) D-Dimer 335.27 H ABG pH POC ABG pCO2 POC ABG pO2 ABG pO2 ABG O2 Saturation ABG Hemoglobin ABG Oxyhemoglobin ABG Glucose Oxyhemoglobin Carboxyhemoglobin Sodium 135 L Chloride 96.8 L BUN 32 H Creatinine Glucose 172 H Ferritin 1251.0 H AST ALT Lactate Dehydrogenase 816 H C-Reactive Protein Total Protein 6.1 L Albumin 3.6 L Arterial Blood Glucose Coronavirus (PCR) 06/22/21 06/24/21 06/24/21 10:35 05:25 05:25 WBC RBC Hgb Hct MCHC Plt Count Lymph # (Auto) Seg Neuts % (Manual) Seg Neutrophils # Man Lymphocytes # (Manual) D-Dimer 570.75 H ABG pH 7.475 H POC ABG pCO2 29.2 L POC ABG pO2 51.5 L ABG pO2 ABG O2 Saturation ABG Hemoglobin 18.3 H ABG Oxyhemoglobin 86.3 L ABG Glucose 143 H Oxyhemoglobin Carboxyhemoglobin 0.2 L Sodium Chloride BUN Creatinine Glucose Ferritin 1621.0 H AST ALT Lactate Dehydrogenase C-Reactive Protein Total Protein Albumin Arterial Blood Glucose 143 H Coronavirus (PCR) 06/24/21 06/26/21 06/26/21 05:25 10:46 10:46 WBC RBC Hgb Hct MCHC Plt Count Lymph # (Auto) Seg Neuts % (Manual) Seg Neutrophils # Man Lymphocytes # (Manual) D-Dimer 532.29 H ABG pH POC ABG pCO2 POC ABG pO2 ABG pO2 ABG O2 Saturation ABG Hemoglobin ABG Oxyhemoglobin ABG Glucose Oxyhemoglobin Carboxyhemoglobin Sodium Chloride BUN 34 H Creatinine 0.7 L Glucose 131 H Ferritin 2549.0 H AST ALT Lactate Dehydrogenase 691 H C-Reactive Protein Total Protein Albumin Arterial Blood Glucose Coronavirus (PCR) 06/26/21 10:46 WBC RBC Hgb Hct MCHC Plt Count Lymph # (Auto) Seg Neuts % (Manual) Seg Neutrophils # Man Lymphocytes # (Manual) D-Dimer ABG pH POC ABG pCO2 POC ABG pO2 ABG pO2 ABG O2 Saturation ABG Hemoglobin ABG Oxyhemoglobin ABG Glucose Oxyhemoglobin Carboxyhemoglobin Sodium 135 L Chloride 95.1 L BUN 39 H Creatinine 0.7 L Glucose 202 H Ferritin AST ALT Lactate Dehydrogenase 644 H C-Reactive Protein Total Protein Albumin Arterial Blood Glucose Coronavirus (PCR)
[2021-06-27] MEDS ORDERED: ALPRAZolam 0.25 MG TAB PO ONE (13:00)
[2021-06-27] MEDS ORDERED: FUROSEMIDE 20 MG/2 ML INJ IV ONE (13:00)
--- NOTE | 2021-06-28 03:40 | Progress Note ---
Assessment and Plan 36 y/o male with acute respiratory failure secondary to COVID 19, not vaccinated. 06/28/21: Hopeful patient can prone again today. Continue steroids. Please give lasix later today once chemistry is done and assessed. 06/27/21: Continue steroids at current dosing. Continue proning and asked patient to stay like this for as long as he could. In theory should be lying flat for best effect but we will take what we can get. Lasix again today. Should check chemistry tomorrow. 06/26/21: Steroids to continue. Tried to encourage proning but per patient too much pressure in his chest. Lasix again today. Guarded prognosis. : Steroids today, but now solumedrol [id number]. Will continue these indefinitely until oxygen requirement starts to improve. Encouraged proning as much as possible. will give lasix again today but will check labs tomorrow to monitor chemistry. 06/24/21: Guideline steroids end today but will like continue with Solumedrol starting tomorrow if no improvement overnight in oxygen requirement. Very high risk for intubation with increased mortality once intubated. Guarded prognosis. 06/20/21: Continue IV steroids. Encouraged patient to prone. Lasix today. Guarded prognosis 06/19/21: Continue IV steroids. Prone if possible. Lasix again today. 06/18/21: Continue IV steroids, IV remdesivir. Gave lasix 40mg today. Guarded prognosis. 06/17/21: Continue IV steroids. Prone. IV remdesivir 06/16/21: Given patient size will increase steroids to BID dosing. Continue Remdesivir. Need to prone as tolerated during the day and sleep prone at night. Guarded prognosis. 1. Prone as tolerated during the day and sleep prone at night 2. IV steroids and remdesivir, per ID would be a candidate for actemra 3. Agree with lasix therapy, monitor renal function and electrolytes closely 4. Guarded prognosis Subjective Date of service: 06/28/21 Principal diagnosis: Acute hypoxic respiratory failure Interval history: Patient proned the majority of the day yesterday. Stable but sats still marginal. Currently on Vaportherm and NRB. Objective Vital Signs - 12hr 06/27/21 06/27/21 06/27/21 16:00 16:43 17:01 Temperature 97.6 F Pulse Rate 98 H 102 H Pulse Rate [ 113 H From Monitor] Respiratory 28 H 31 H Rate Blood Pressure 125/85 125/85 O2 Sat by Pulse 88 89 Oximetry 06/27/21 06/27/21 06/27/21 18:01 19:00 20:00 Temperature 97.0 F L Pulse Rate 91 H 133 H 117 H Pulse Rate [ 117 H From Monitor] Respiratory 29 H 30 H 22 Rate Blood Pressure 125/85 128/71 126/75 O2 Sat by Pulse 89 86 91 Oximetry 06/27/21 06/27/21 06/27/21 21:00 21:56 22:00 Temperature Pulse Rate 118 H 117 H 115 H Pulse Rate [ From Monitor] Respiratory 38 H 22 32 H Rate Blood Pressure 125/75 125/75 125/75 O2 Sat by Pulse 87 91 91 Oximetry 06/27/21 06/27/21 06/28/21 22:25 23:00 00:00 Temperature 97.6 F Pulse Rate 101 H 113 H Pulse Rate [ 113 H From Monitor] Respiratory 28 H 34 H 38 H Rate Blood Pressure 129/84 125/92 O2 Sat by Pulse 90 87 Oximetry 06/28/21 06/28/21 01:00 02:00 Temperature Pulse Rate 106 H 122 H Pulse Rate [ From Monitor] Respiratory 32 H 29 H Rate Blood Pressure 130/91 135/63 O2 Sat by Pulse 88 88 Oximetry Constitutional: alert, other (mild distress) Eyes: non-icteric ENT: oropharynx moist Neck: supple Ascultation: Bilateral: diminished breath sounds Cardiovascular: regular rate and rhythm Gastrointestinal: normoactive bowel sounds Integumentary: normal Extremities: no cyanosis Neurologic: normal mental status Psychiatric: anxious CBC and BMP: 06/22/21 04:58 06/26/21 10:46 ABG, PT/INR, D-dimer: ABG ABG pH 7.475 (7.320-7.450) H 06/22/21 10:35 POC ABG pCO2 29.2 mmHg (32.0-48.0) L 06/22/21 10:35 ABG pCO2 40.4 mm Hg 06/15/21 Unknown POC ABG pO2 51.5 mmHg (83-108) L 06/22/21 10:35 ABG pO2 61.0 mm Hg (80.0-90.0) L 06/15/21 Unknown POC ABG HCO3 21.0 06/22/21 10:35 ABG O2 Saturation 86.7 (0-100) 06/22/21 10:35 PT/INR, D-dimer D-Dimer 532.29 ng/mlDDU (0-234) H 06/26/21 10:46 Abnormal lab findings: Abnormal Labs 06/13/21 06/13/21 06/13/21 20:09 20:09 20:09 WBC 2.6 L RBC Hgb Hct MCHC 35 H Plt Count 112 L Lymph # (Auto) 0.6 L Seg Neuts % (Manual) Seg Neutrophils # Man Lymphocytes # (Manual) D-Dimer 560.90 H ABG pH POC ABG pCO2 POC ABG pO2 ABG pO2 ABG O2 Saturation ABG Hemoglobin ABG Oxyhemoglobin ABG Glucose Oxyhemoglobin Carboxyhemoglobin Sodium 134 L Chloride BUN Creatinine Glucose 105 H Ferritin AST ALT Lactate Dehydrogenase C-Reactive Protein Total Protein Albumin Arterial Blood Glucose Coronavirus (PCR) 06/13/21 06/13/21 06/14/21 20:09 20:09 05:12 WBC 2.0 L RBC Hgb Hct MCHC 35 H Plt Count 106 L Lymph # (Auto) Seg Neuts % (Manual) 82.0 H Seg Neutrophils # Man 1.6 L Lymphocytes # (Manual) 0.3 L D-Dimer ABG pH POC ABG pCO2 POC ABG pO2 ABG pO2 ABG O2 Saturation ABG Hemoglobin ABG Oxyhemoglobin ABG Glucose Oxyhemoglobin Carboxyhemoglobin Sodium Chloride BUN Creatinine Glucose 105 H Ferritin 1876.0 H AST ALT Lactate Dehydrogenase 634 H C-Reactive Protein 9.20 H Total Protein Albumin Arterial Blood Glucose Coronavirus (PCR) 06/14/21 06/14/21 06/14/21 05:12 23:50 Unknown WBC RBC Hgb Hct MCHC Plt Count Lymph # (Auto) Seg Neuts % (Manual) Seg Neutrophils # Man Lymphocytes # (Manual) D-Dimer ABG pH POC ABG pCO2 POC ABG pO2 ABG pO2 ABG O2 Saturation ABG Hemoglobin ABG Oxyhemoglobin ABG Glucose Oxyhemoglobin Carboxyhemoglobin Sodium Chloride BUN Creatinine Glucose 214 H 135 H Ferritin AST 52 H ALT Lactate Dehydrogenase C-Reactive Protein Total Protein Albumin 3.2 L Arterial Blood Glucose Coronavirus (PCR) Positive A 06/15/21 06/15/2106/15/21 05:21 05:21 05:21 WBC RBC Hgb Hct MCHC Plt Count Lymph # (Auto) Seg Neuts % (Manual) Seg Neutrophils # Man Lymphocytes # (Manual) D-Dimer 360.79 H ABG pH POC ABG pCO2 POC ABG pO2 ABG pO2 ABG O2 Saturation ABG Hemoglobin ABG Oxyhemoglobin ABG Glucose Oxyhemoglobin Carboxyhemoglobin Sodium Chloride BUN Creatinine 0.7 L Glucose 167 H Ferritin 1869.0 H AST 65 H ALT Lactate Dehydrogenase C-Reactive Protein Total Protein 6.1 L Albumin 3.4 L Arterial Blood Glucose Coronavirus (PCR) 06/15/21 06/15/21 06/16/21 05:21 Unknown 07:16 WBC RBC Hgb Hct MCHC Plt Count Lymph # (Auto) Seg Neuts % (Manual) Seg Neutrophils # Man Lymphocytes # (Manual) D-Dimer ABG pH POC ABG pCO2 POC ABG pO2 ABG pO2 61.0 L ABG O2 Saturation 91.3 L ABG Hemoglobin ABG Oxyhemoglobin ABG Glucose Oxyhemoglobin 89.9 L Carboxyhemoglobin Sodium Chloride BUN Creatinine Glucose 130 H Ferritin AST 77 H ALT 57 H Lactate Dehydrogenase C-Reactive Protein 3.10 H Total Protein 6.0 L Albumin 3.5 L Arterial Blood Glucose Coronavirus (PCR) 06/17/21 06/17/21 06/22/21 04:36 04:36 04:58 WBC 16.3 H RBC 5.55 H Hgb 16.7 H Hct 48.2 H MCHC 36 H 35 H Plt Count Lymph # (Auto) Seg Neuts % (Manual) Seg Neutrophils # Man Lymphocytes # (Manual) D-Dimer ABG pH POC ABG pCO2 POC ABG pO2 ABG pO2 ABG O2 Saturation ABG Hemoglobin ABG Oxyhemoglobin ABG Glucose Oxyhemoglobin Carboxyhemoglobin Sodium Chloride BUN 29 H Creatinine Glucose 125 H Ferritin AST 59 H ALT 57 H Lactate Dehydrogenase C-Reactive Protein Total Protein 6.0 L Albumin 3.6 L Arterial Blood Glucose Coronavirus (PCR) 06/22/21 06/22/21 06/22/21 04:58 04:58 04:58 WBC RBC Hgb Hct MCHC Plt Count Lymph # (Auto) Seg Neuts % (Manual) Seg Neutrophils # Man Lymphocytes # (Manual) D-Dimer 335.27 H ABG pH POC ABG pCO2 POC ABG pO2 ABG pO2 ABG O2 Saturation ABG Hemoglobin ABG Oxyhemoglobin ABG Glucose Oxyhemoglobin Carboxyhemoglobin Sodium 135 L Chloride 96.8 L BUN 32 H Creatinine Glucose 172 H Ferritin 1251.0 H AST ALT Lactate Dehydrogenase 816 H C-Reactive Protein Total Protein 6.1 L Albumin 3.6 L Arterial Blood Glucose Coronavirus (PCR) 06/22/21 06/24/21 06/24/21 10:35 05:25 05:25 WBC RBC Hgb Hct MCHC Plt Count Lymph # (Auto) Seg Neuts % (Manual) Seg Neutrophils # Man Lymphocytes # (Manual) D-Dimer 570.75 H ABG pH 7.475 H POC ABG pCO2 29.2 L POC ABG pO2 51.5 L ABG pO2 ABG O2 Saturation ABG Hemoglobin 18.3 H ABG Oxyhemoglobin 86.3 L ABG Glucose 143 H Oxyhemoglobin Carboxyhemoglobin 0.2 L Sodium Chloride BUN Creatinine Glucose Ferritin 1621.0 H AST ALT Lactate Dehydrogenase C-Reactive Protein Total Protein Albumin Arterial Blood Glucose 143 H Coronavirus (PCR) 06/24/21 06/26/21 06/26/21 05:25 10:46 10:46 WBC RBC Hgb Hct MCHC Plt Count Lymph # (Auto) Seg Neuts % (Manual) Seg Neutrophils # Man Lymphocytes # (Manual) D-Dimer 532.29 H ABG pH POC ABG pCO2 POC ABG pO2 ABG pO2 ABG O2 Saturation ABG Hemoglobin ABG Oxyhemoglobin ABG Glucose Oxyhemoglobin Carboxyhemoglobin Sodium Chloride BUN 34 H Creatinine 0.7 L Glucose 131 H Ferritin 2549.0 H AST ALT Lactate Dehydrogenase 691 H C-Reactive Protein Total Protein Albumin Arterial Blood Glucose Coronavirus (PCR) 06/26/21 10:46 WBC RBC Hgb Hct MCHC Plt Count Lymph # (Auto) Seg Neuts % (Manual) Seg Neutrophils # Man Lymphocytes # (Manual) D-Dimer ABG pH POC ABG pCO2 POC ABG pO2 ABG pO2 ABG O2 Saturation ABG Hemoglobin ABG Oxyhemoglobin ABG Glucose Oxyhemoglobin Carboxyhemoglobin Sodium 135 L Chloride 95.1 L BUN 39 H Creatinine 0.7 L Glucose 202 H Ferritin AST ALT Lactate Dehydrogenase 644 H C-Reactive Protein Total Protein Albumin Arterial Blood Glucose Coronavirus (PCR)
[2021-06-28] MEDS: methylPREDNISolone Sod Succinate 40 MG/1 ML INJ IV SCH ×3 (05:33→22:00)
[2021-06-28] MEDS: ALPRAZolam 0.25 MG TAB PO PRN ×3 (07:46→21:59)
[2021-06-28] MEDS: oxyCODONE /ACETAMINOPHEN 5-325MG TAB PO PRN ×2 (07:46→21:59)
[2021-06-28] MEDS: ENOXAPARIN 120 MG/0.8 ML INJ SUB-Q SCH ×2 (09:50→21:59)
[2021-06-28] MEDS: FAMOTIDINE 20 MG TAB PO SCH ×2 (09:50→22:00)
[2021-06-28] MEDS: guaiFENesin 200 MG TAB PO PRN ×2 (09:50→23:22)
--- NOTE | 2021-06-28 10:18 | Progress Note ---
Assessment and Plan Assessment and plan: 36-year-old with a history of asthma, obesity presented with shortness of breath fever chills arthralgias myalgias approximately 8 days after testing positive for COVID. Patient at present hypoxic requiring 15 L facemask at present. Patient is able to speak in full sentences however remains hypoxic. Hospital course complicated by nonproductive cough. (1) Acute respiratory failure due to COVID-19 Current Visit: Yes Status: Acute Plan to address problem: Patient requires 15 L oxygen to prevent hypoxemia. Currently started on steroids dexamethasone Supportive care with oxygen 15 L We will add Hycodan for cough Follow inflammatory markers Empiric antibiotics Rocephin azithromycin Initiate remdesivir Zinc, vitamin C, vitamin D (2) Asthma Current Visit: Yes Status: Acute Plan to address problem: We will place nebulizers. Albuterol nebulizers patient seemed to be doing well as far as asthma limited wheezing. Respiratory failure secondary to Covid (3) COVID-19 pneumonia (4) severe sepsis secondary to COVID-19 (5) multifocal pneumonia Current Visit: Yes Status: Acute Plan to address problem: Consistent with Covid pneumonia 06/15: Considering gradual decline will transfer patient to IMCU. We'll also consult pulmonary GI. I have requested the patient be put on high flow and also trial of BiPAP. ID is consulted and currently following patient management. Weight loss recommended. Continue steroids. Chest x-ray reviewed by me shows bilateral infiltrates 06/16: Patient seen and examined Remains on HFNC but now at 40 and 100%. SAts in the mid 90's. Continue to monitor renal function with Lasix. Continue IMCU. Can downgrade this oxygen weaning again this. Continue prone positioning. Case dis cussed with registrar museum 06/17: Continue supportive care. High flow down to 35 L continuous 100% with saturation in the mid to low 90s. Per registrar museum steroid has been increased to twice daily dosing due to patient size. Patient continues on IV remdesivir. We will continue to monitor inflammatory markers. Prognosis is guarded. 06/18: Patient seen and examined, Continues supportive care, wean as tolerated. still with persitent hypoxia, he did not like the High flow, affects his nostriles, and now is on NRB satting 94%. Continue to encourage prone position. condition is still guarded 06/19: Continue supportive care, wean oxygen as tolerated, patient ok with me speaking with mother, will call and update. 06/20: Patient seen and examined continues to be weaned down on high flow oxygen down to 85%. Saturation remains around 92%. I did discuss extensively with the mother. She verbalized understanding. This discussion was done with permission with the patient. We will do another trial of Lasix. Patient is continued on the steroids he is status post Actemra and has completed his remdesivir. 06/21: Patient's prognosis still remains guarded. Continue to encourage prone positioning. Went back up on oxygen demand. But states that he does not feel less winded as before. Continue diuresis and monitor renal function. Also monitor inflammatory markers. 06/22: Patient more mobile but still profoundly hypoxic, continue to monitor and wean oxygen as tolerated. Will re-evaluate if repeated Lasix will help. 06/23: Patient seen and examined remains on high flow refusing to prone states is uncomfortable. We will continue with aggressive measures. Will change to full dose Lovenox discussed with biomedical engineering internship. Condition is still guarded 06/24; patient was seen and evaluated this morning. Patient was on 15L of high flow oxygen. Patient finished remdesivir, Decadron, Actemra. Prognosis is guarded. 06/25; patient was on 40 L of high flow oxygen with FiO2 of 100%. Prognosis is g uarded. Continue IMCU care. Patient was anxious and put on Xanax as needed. 06/26; patient was on 40 L of high flow oxygen with FiO2 of 100%. Prognosis is guarded. Continue IMCU care. Patient was anxious and put on Xanax as needed. 06/27; patient is on 40 L of oxygen and 15 L via nonrebreather mask. Prognosis is guarded 06/28; patient is on 40 L of high flow oxygen. Will give Lasix. Patient is on Xanax 0.5 mg p.o. 3 times daily. Self proning. The high probability of a clinically significant, sudden or life threatening deterioration of the [pulmonary] system(s) required my full and direct attention, intervention and personal management. The aggregate critical care time was [35] minutes. This time is in addition to time spent performing reported procedures but includes the following: [x] Data Review and interpretation [x] Patient assessment and monitoring of vital signs [x] Documentation [x] Medication orders and management History Interval history: Patient was seen and evaluated this morning Patient has shortness of breath Patient was on 40 L of oxygen via Vapotherm, and on nonrebreather mask Hospitalist Physical - Physical exam Narrative exam: Patient was on CPAP, 20 L of oxygen The patient appeared well nourished and normally developed. Vital signs as documented. Head exam is unremarkable. No scleral icterus . Neck is without jugular venous distension, thyromegaly, or carotid bruits. Lungs decreased air entry Cardiac exam reveals regular rate and Rhythm. Abdominal exam reveals normal bowel sounds, nontender, no organomegaly. Extremities are nonedematous and both femoral and pedal pulses are normal. TIPPLE WORKER: Alert and oriented 3. No focal weakness. - Constitutional Vitals: Temp Pulse Resp BP Pulse Ox 97.4 F L 96 H 49 H 135/63 83 L 06/28/21 04:00 06/28/21 06:01 06/28/21 06:01 06/28/21 06:01 06/28/21 06:01 General appearance: Present: no acute distress, well-nourished Results - Labs CBC & Chem 7: 06/22/21 04:58 06/26/21 10:46 Labs: Laboratory Last Values WBC 16.3 K/mm3 (4.5-11.0) H 06/22/21 04:58 RBC 5.55 M/mm3 (3.65-5.03) H 06/22/21 04:58 Hgb 16.7 gm/dl (11.8-15.2) H 06/22/21 04:58 Hct 48.2 % (35.5-45.6) H 06/22/21 04:58 MCV 87 fl (84-94) 06/22/21 04:58 MCH 30 pg (28-32) 06/22/21 04:58 MCHC 35 % (32-34) H 06/22/21 04:58 RDW 13.7 % (13.2-15.2) 06/22/21 04:58 Plt Count 227 K/mm3 (140-440) 06/22/21 04:58 Lymph % (Auto) 25.5 % (13.4-35.0) 06/13/21 20:09 Morton % (Auto) 4.3 % (0.0-7.3) 06/13/21 20:09 Eos % (Auto) 0.0 % (0.0-4.3) 06/13/21 20:09 Baso % (Auto) 0.3 % (0.0-1.8) 06/13/21 20:09 Lymph # (Auto) 0.6 K/mm3 (1.2-5.4) L 06/13/21 20:09 Morton # (Auto) 0.1 K/mm3 (0.0-0.8) 06/13/21 20:09 Eos # (Auto) 0.0 K/mm3 (0.0-0.4) 06/13/21 20:09 Baso # (Auto) 0.0 K/mm3 (0.0-0.1) 06/13/21 20:09 Add Manual Diff Complete 06/14/21 05:12 Total Counted 50 06/14/21 05:12 Seg Neutrophils % 69.9 % (40.0-70.0) 06/13/21 20:09 Seg Neuts % (Manual) 82.0 % (40.0-70.0) H 06/14/21 05:12 Lymphocytes % (Manual) 14.0 % (13.4-35.0) 06/14/21 05:12 Monocytes % (Manual) 4.0 % (0.0-7.3) 06/14/21 05:12 Nucleated RBC % Not Reportable 06/14/21 05:12 Seg Neutrophils # 1.8 K/mm3 (1.8-7.7) 06/13/21 20:09 Seg Neutrophils # Man 1.6 K/mm3 (1.8-7.7) L 06/14/21 05:12 Band Neutrophils # 0.0 K/mm3 06/14/21 05:12 Lymphocytes # (Manual) 0.3 K/mm3 (1.2-5.4) L 06/14/21 05:12 Abs React Lymphs (Man) 0.0 K/mm3 06/14/21 05:12 Monocytes # (Manual) 0.1 K/mm3 (0.0-0.8) 06/14/21 05:12 Eosinophils # (Manual) 0.0 K/mm3 (0.0-0.4) 06/14/21 05:12 Basophils # (Manual) 0.0 K/mm3 (0.0-0.1) 06/14/21 05:12 Metamyelocytes # 0.0 K/mm3 06/14/21 05:12 Myelocytes # 0.0 K/mm3 06/14/21 05:12 Promyelocytes # 0.0 K/mm3 06/14/21 05:12 Blast Cells # 0.0 K/mm3 06/14/21 05:12 WBC Morphology Not Reportable 06/14/21 05:12 Hypersegmented Neuts Not Reportable 06/14/21 05:12 Hyposegmented Neuts Not Reportable 06/14/21 05:12 Hypogranular Neuts Not Reportable 06/14/21 05:12 Smudge Cells Not Reportable 06/14/21 05:12 Toxic Granulation Not Reportable 06/14/21 05:12 Toxic Vacuolation Not Reportable 06/14/21 05:12 Dohle Bodies Not Reportable 06/14/21 05:12 Pelger-Huet Anomaly Not Reportable 06/14/21 05:12 Sheri Rods Not Reportable 06/14/21 05:12 Platelet Estimate Consistent w auto 06/14/21 05:12 Clumped Platelets Not Reportable 06/14/21 05:12 Plt Clumps, EDTA Not Reportable 06/14/21 05:12 Large Platelets Not Reportable 06/14/21 05:12 Giant Platelets Not Reportable 06/14/21 05:12 Platelet Satelliting Not Reportable 06/14/21 05:12 Plt Morphology Comment Not Reportable 06/14/21 05:12 RBC Morphology Not Reportable 06/14/21 05:12 Dimorphic RBCs Not Reportable 06/14/21 05:12 Polychromasia Not Reportable 06/14/21 05:12 Hypochromasia Not Reportable 06/14/21 05:12 Poikilocytosis Not Reportable 06/14/21 05:12 Anisocytosis 1+ 06/14/21 05:12 Microcytosis Not Reportable 06/14/21 05:12 Macrocytosis Not Reportable 06/14/21 05:12 Spherocytes Not Reportable 06/14/21 05:12 Pappenheimer Bodies Not Reportable 06/14/21 05:12 Sickle Cells Not Reportable 06/14/21 05:12 Target Cells Not Reportable 06/14/21 05:12 Tear Drop Cells Not Reportable 06/14/21 05:12 Ovalocytes Not Reportable 06/14/21 05:12 Helmet Cells Not Reportable 06/14/21 05:12 Macdonald-[place] Bodies Not Reportable 06/14/21 05:12 Canon Rings Not Reportable 06/14/21 05:12 Alen Cells Not Reportable 06/14/21 05:12 Bite Cells Not Reportable 06/14/21 05:12 Crenated Cell Not Reportable 06/14/21 05:12 Elliptocytes Not Reportable 06/14/21 05:12 Acanthocytes (Spur) Not Reportable 06/14/21 05:12 Rouleaux Not Reportable 06/14/21 05:12 Hemoglobin C Crystals Not Reportable 06/14/21 05:12 Schistocytes Not Reportable 06/14/21 05:12 Malaria parasites Not Reportable 06/14/21 05:12 Swapnil Bodies Not Reportable 06/14/21 05:12 Hem Pathologist Commnt No 06/14/21 05:12 D-Dimer 532.29 ng/mlDDU (0-234) H 06/26/21 10:46 ABG pH 7.475 (7.320-7.450) H 06/22/21 10:35 POC ABG pCO2 29.2 mmHg (32.0-48.0) L 06/22/21 10:35 ABG pCO2 40.4 mm Hg 06/15/21 Unknown POC ABG pO2 51.5 mmHg (83-108) L 06/22/21 10:35 ABG pO2 61.0 mm Hg (80.0-90.0) L 06/15/21 Unknown POC ABG HCO3 21.0 06/22/21 10:35 ABG HCO3 23.7 mmol/L (20.0-26.0) 06/15/21 Unknown ABG O2 Saturation 86.7 (0-100) 06/22/21 10:35 ABG O2 Content 21.0 (0.0-44) 06/15/21 Unknown POC ABG Base Excess -0.9 06/22/21 10:35 ABG Base Excess -1.1 mmol/L (-2.0-3.0) 06/15/21 Unknown ABG Hemoglobin 18.3 (12.0-17.5) H 06/22/21 10:35 ABG Oxyhemoglobin 86.3 (94-98) L 06/22/21 10:35 ABG Carboxyhemoglobin 1.0 % (0.0-5.0) 06/15/21 Unknown ABG Methemoglobin 0.3 (0.0-1.5) 06/22/21 10:35 ABG Potassium 3.9 mmol/L (3.40-4.50) 06/22/21 10:35 ABG Chloride 100.0 mmol/L (98-107) 06/22/21 10:35 ABG Glucose 143 mg/dL (65-95) H 06/22/21 10:35 Oxyhemoglobin 89.9 % (95.0-99.0) L 06/15/21 Unknown Carboxyhemoglobin 0.2 (0.5-1.5) L 06/22/21 10:35 FiO2 100 % 06/15/21 Unknown FiO2 % 100.0 06/22/21 10:35 Sodium 135 mmol/L (137-145) L 06/26/21 10:46 Potassium 4.6 mmol/L (3.6-5.0) 06/26/21 10:46 Chloride 95.1 mmol/L (98-107) L 06/26/21 10:46 Carbon Dioxide 26 mmol/L (22-30) 06/26/21 10:46 Anion Gap 19 mmol/L 06/26/21 10:46 BUN 39 mg/dL (9-20) H 06/26/21 10:46 Creatinine 0.7 mg/dL (0.8-1.3) L 06/26/21 10:46 Estimated GFR > 60 ml/min 06/26/21 10:46 BUN/Creatinine Ratio 56 % 06/26/21 10:46 Glucose 202 mg/dL (75-100) H 06/26/21 10:46 Calcium 8.9 mg/dL (8.4-10.2) 06/26/21 10:46 Ferritin 2549.0 ng/mL (30.0-300.0) H 06/26/21 10:46 Total Bilirubin 0.70 mg/dL (0.1-1.2) 06/22/21 04:58 AST 22 units/L (5-40) 06/22/21 04:58 ALT 28 units/L (7-56) 06/22/21 04:58 Alkaline Phosphatase 69 units/L (35-129) 06/22/21 04:58 Lactate Dehydrogenase 644 units/L (91-180) H 06/26/21 10:46 C-Reactive Protein < 0.03 mg/dL (0.00-1.30) 06/26/21 10:46 Total Protein 6.1 g/dL (6.3-8.2) L 06/22/21 04:58 Albumin 3.6 g/dL (3.9-5) L 06/22/21 04:58 Albumin/Globulin Ratio 1.4 % 06/22/21 04:58 Procalcitonin < 0.05 ng/mL (<0.15) 06/24/21 05:25 Arterial Blood Glucose 143 mg/dL (65-95) H 06/22/21 10:35 Arterial Blood Ionized Calcium 4.8 mg/dL (4.6-5.3) 06/22/21 10:35 Coronavirus (PCR) Positive (Negative) A 06/14/21 Unknown Mao/IV: Voiding Method Urinal Active Medications - Current Medications Current Medications: Generic Name Dose Route Start Last Admin Trade Name Freq PRN Reason Stop Dose Admin Acetaminophen 650 mg 06/13/21 22:49 06/27/21 03:31 Acetaminophen 325 Mg Tab PO 650 mg Q4H PRN Administration Pain MILD(1-3)/Fever >100.5/HAYNES Albuterol 5 mg 06/25/21 11:52 Albuterol 2.5 Mg/3 Ml Nebu IH Q4HRT PRN Shortness Of Breath Alprazolam 0.5 mg 06/27/21 13:00 06/28/21 07:46 Alprazolam 0.25 Mg Tab PO 0.5 mg Q4H PRN Administration Anxiety Enoxaparin Sodium 120 mg 06/23/21 22:00 06/28/21 09:50 Enoxaparin 120 Mg/0.8 Ml Inj SUB-Q 120 mg Q12HR SIMÓN Administration Protocol Famotidine 20 mg 06/14/21 10:00 06/28/21 09:50 Famotidine 20 Mg Tab PO 20 mg BID SIMÓN Administration Guaifenesin 200 mg 06/15/21 00:33 06/28/21 09:50 Guaifenesin 200 Mg Tab PO 200 mg Q6H PRN Administration Cough Hydralazine HCl 10 mg 06/13/21 22:52 Hydralazine 20 Mg/1 Ml Inj IV Q6H PRN SBP >/=160; DBP >/=100 Hydromorphone HCl 0.5 mg 06/13/21 22:49 Hydromorphone 1 Mg/1 Ml Inj IV Q3H PRN Pain , Severe (7-10) Methylprednisolone Sodium Succinate 40 mg 06/25/21 14:00 06/28/21 05:33 Methylprednisolone Sod Succinate 40 Mg/1 Ml Inj IV 40 mg Q8HR SIMÓN Administration Ondansetron HCl 4 mg 06/13/21 22:49 06/17/21 18:48 Ondansetron 4 Mg/2 Ml Inj IV 4 mg Q8H PRN Administration Nausea And Vomiting Oxycodone/Acetaminophen 1 tab 06/13/21 22:49 06/28/21 07:46 Oxycodone /Acetaminophen 5-325mg Tab PO 1 tab Q6H PRN Administration Pain, Moderate (4-6) Phenol 1 spray 06/15/21 14:00 Phenol 1.4% 177 Ml Bottle MM PRN PRN Sore Throat Sodium Chloride 10 ml 06/14/21 10:00 06/28/21 09:56 Sodium Chloride 0.9% 10 Ml Flush Syringe IV 10 ml BID SIMÓN Administration Sodium Chloride 10 ml 06/13/21 22:49 Sodium Chloride 0.9% 10 Ml Flush Syringe IV PRN PRN LINE FLUSH Sodium Chloride 1 applic 06/22/21 11:00 06/27/21 22:29 [place] Saline Nasal Gel 14.1 Gm NS 1 applic BID SIMÓN Administration Nutrition/Malnutrition Assess - Dietary Evaluation Nutrition/Malnutrition Findings: Nutrition Notes Start: 06/19/21 11:11 Freq: Status: Active Protocol: Document 06/26/21 13:01 JUSTICE (Rec: 06/26/21 13:05 JUSTICE [id number]) Nutrition Notes Initial or Follow up Reassessment Current Diagnosis Respiratory Failure Other Pertinent Diagnosis pneu, COVID-19 Current Diet Regular Labs/Tests Na 135 BUN 39 Cr 0.7 BG 202 Pertinent Medications Solu Medrol Height 5 ft 9 in Weight 115.9 kg [place] Body Weight (kg) 72.72 BMI 37.7 Weight Status Obese Subjective/Other Information Pt eating 100% of meals and ONS as needed. Percent of energy/protein needs met: 100%/100% Burn Absent Trauma Absent Current % PO Good (75-100%) Minimum of two criteria No physical signs of malnutrition #1 Nutrition Diagnosis Inadequate oral intake As Evidenced by Signs and Symptoms pt eating 100% of meals Diagnosis Progress(for reassessment Improved documentation) Is patient on ventilator? No Is Patient Ambulatory and/or Out of Bed No REE-([facility]-confined to bed) 2497.320 Kcal/Kg value to use for calculation 14 Approximate Energy Requirements Using 1623 kcal/Kg Calculation Used for Recommendations Kcal/kg Additional Notes Protein: (0.8-1g/kg AdjBW: 83kg) 67-83g Fluid: 1 ml/kcal Nutrition Intervention Change Diet Order: Continue Add Supplement/Snack (indicate name/kcal Ensure Enlive daily /protein ) Provides kCal: 350 Provides Protein (gm) 20 Goal #1 Meet at least 75% of energy and protein needs via PO and ONS Anticipated Discharge Needs: regular Follow-Up By: 06/30/21 Additional Comments F/u: intakes and ONS tolerance
[2021-06-28] MEDS: HYDROmorphone 1 MG/1 ML INJ IV PRN (16:48)
[2021-06-28] MEDS: AYR SALINE NASAL GEL 14.1 GM NS SCH ×2 (20:08→22:02)
[2021-06-29] MEDS: HYDROmorphone 1 MG/1 ML INJ IV PRN ×3 (01:14→20:17)
[2021-06-29] MEDS: guaiFENesin 200 MG TAB PO PRN ×2 (05:55→22:55)
[2021-06-29] MEDS: ALPRAZolam 0.25 MG TAB PO PRN ×2 (05:55→20:18)
[2021-06-29] MEDS: methylPREDNISolone Sod Succinate 40 MG/1 ML INJ IV SCH ×3 (05:55→22:55)
[2021-06-29 06:55] LABS: Blood Urea Nitrogen 28 mg/dL (9-20); Hemolysis Index 16
[2021-06-29 06:58] LABS: BUN/Creatinine Ratio 47
[2021-06-29] MEDS ORDERED: LORazepam 2 MG/ML VIAL IV ONE (10:00)
[2021-06-29] MEDS: AYR SALINE NASAL GEL 14.1 GM NS SCH ×2 (10:41→23:34)
[2021-06-29] MEDS: ENOXAPARIN 120 MG/0.8 ML INJ SUB-Q SCH ×2 (10:43→22:56)
[2021-06-29] MEDS: FAMOTIDINE 20 MG TAB PO SCH ×2 (10:43→22:55)
--- NOTE | 2021-06-29 14:04 | Progress Note ---
Subjective Date of service: 06/29/21 Principal diagnosis: Acute hypoxic respiratory failure Interval history: Assessment and plan: 36-year-old with a history of asthma, obesity presented with shortness of breath fever chills arthralgias myalgias approximately 8 days after testing positive for COVID. Patient at present hypoxic requiring 15 L facemask at present. Patient is able to speak in full sentences however remains hypoxic. Hospital course complicated by nonproductive cough. (1) Acute respiratory failure due to COVID-19 Current Visit: Yes Status: Acute Plan to address problem: pulmonary note reviewed and appreciated cont. IV solumedrol proning as tolerated on BIPAP at 100 % Fio2 (2) Asthma Current Visit: Yes Status: Acute Plan to address problem: fair (3) COVID-19 pneumonia completed remdesivir therapy 06/15: Considering gradual decline will transfer patient to IMCU. We'll also consult pulmonary GI. I have requested the patient be put on high flow and also trial of BiPAP. ID is consulted and currently following patient management. Weight loss recommended. Continue steroids. Chest x-ray reviewed by me shows bilateral infiltrates 06/16: Patient seen and examined Remains on HFNC but now at 40 and 100%. SAts in the mid 90's. Continue to monitor renal function with Lasix. Continue IMCU. Can downgrade this oxygen weaning again this. Continue prone positioning. Case discussed with rotary dryer operator 06/17: Continue supportive care. High flow down to 35 L continuous 100% with saturation in the mid to low 90s. Per rotary dryer operator steroid has been increased to twice daily dosing due to patient size. Patient continues on IV remdesivir. We will continue to monitor inflammatory markers. Prognosis is guarded. 06/18: Patient seen and examined, Continues supportive care, wean as tolerated. still with persitent hypoxia, he did not like the High flow, affects his nostriles, and now is on NRB satting 94%. Continue to encourage prone position. condition is still guarded 06/19: Continue supportive care, wean oxygen as tolerated, patient ok with me speaking with mother, will call and update. 06/20: Patient seen and examined continues to be weaned down on high flow oxygen down to 85%. Saturation remains around 92%. I did discuss extensively with the mother. She verbalized understanding. This discussion was done with permission with the patient. We will do another trial of Lasix. Patient is continued on the steroids he is status post Actemra and has completed his remdesivir. 06/21: Patient's prognosis still remains guarded. Continue to encourage prone positioning. Went back up on oxygen demand. But states that he does not feel less winded as before. Continue diuresis and monitor renal function. Also monitor inflammatory markers. 06/22: Patient more mobile but still profoundly hypoxic, continue to monitor and wean oxygen as tolerated. Will re-evaluate if repeated Lasix will help. 06/23: Patient seen and examined remains on high flow refusing to prone states is uncomfortable. We will continue with aggressive measures. Will change to full dose Lovenox discussed with inventory analyst. Condition is still guarded 06/24; patient was seen and evaluated this morning. Patient was on 15L of high flow oxygen. Patient finished remdesivir, Decadron, Actemra. Prognosis is g uarded. 06/25; patient was on 40 L of high flow oxygen with FiO2 of 100%. Prognosis is guarded. Continue IMCU care. Patient was anxious and put on Xanax as needed. 06/26; patient was on 40 L of high flow oxygen with FiO2 of 100%. Prognosis is guarded. Continue IMCU care. Patient was anxious and put on Xanax as needed. 06/27; patient is on 40 L of oxygen and 15 L via nonrebreather mask. Prognosis is guarded 06/28; patient is on 40 L of high flow oxygen. Will give Lasix. Patient is on Xanax 0.5 mg p.o. 3 times daily. Self proning. 06/29 patient is alert, no complaints, he is on BIPAP at 100 Fio2, moderately dyspneic, pulmonary note reviewed, lab results reviewed Objective - Constitutional Vitals: Vital Signs - 12hr 06/29/21 06/29/21 06/29/21 02:31 03:00 03:31 Temperature Pulse Rate 90 105 H 101 H Pulse Rate [ From Monitor] Respiratory 24 32 H 27 H Rate Blood Pressure 124/81 124/85 124/81 O2 Sat by Pulse 91 88 90 Oximetry 06/29/21 06/29/21 06/29/21 04:00 04:25 04:31 Temperature 96.6 F L Pulse Rate 108 H 102 H 99 H Pulse Rate [ 108 H From Monitor] Respiratory 33 H 20 Rate Blood Pressure 138/84 138/84 O2 Sat by Pulse 89 92 Oximetry 06/29/21 06/29/21 06/29/21 05:00 05:31 06:01 Temperature Pulse Rate 93 H 108 H 106 H Pulse Rate [ From Monitor] Respiratory 24 25 H 33 H Rate Blood Pressure 125/86 125/86 143/94 O2 Sat by Pulse 87 89 Oximetry 06/29/21 06/29/21 06/29/21 06:30 06:31 07:01 Temperature Pulse Rate 111 H 112 H Pulse Rate [ From Monitor] Respiratory 29 H Rate Blood Pressure 143/94 129/69 O2 Sat by Pulse 89 82 L Oximetry 06/29/21 06/29/21 06/29/21 07:31 08:00 08:27 Temperature Pulse Rate 115 H 124 H 123 H Pulse Rate [ 122 H From Monitor] Respiratory 26 H 36 H Rate Blood Pressure 129/69 147/63 147/63 O2 Sat by Pulse 81 L 78 L 86 Oximetry 06/29/21 06/29/21 06/29/21 08:31 09:00 09:10 Temperature Pulse Rate 123 H 117 H Pulse Rate [ From Monitor] Respiratory Rate Blood Pressure 147/63 149/99 O2 Sat by Pulse 87 80 L 89 Oximetry 06/29/21 06/29/21 06/29/21 09:25 09:31 10:01 Temperature Pulse Rate 135 H 135 H Pulse Rate [ From Monitor] Respiratory 25 H Rate Blood Pressure 149/99 150/65 O2 Sat by Pulse 84 78 L Oximetry 06/29/21 06/29/21 06/29/21 10:31 11:01 11:31 Temperature Pulse Rate 124 H 119 H 117 H Pulse Rate [ From Monitor] Respiratory 28 H 26 H Rate Blood Pressure 150/65 143/94 143/94 O2 Sat by Pulse 89 88 89 Oximetry 06/29/21 06/29/21 06/29/21 12:00 12:01 12:31 Temperature Pulse Rate 125 H 122 H 110 H Pulse Rate [ 111 H From Monitor] Respiratory 31 H 29 H 26 H Rate Blood Pressure 113/77 143/94 O2 Sat by Pulse 91 86 90 Oximetry 06/29/21 06/29/21 13:01 13:31 Temperature Pulse Rate 126 H 103 H Pulse Rate [ From Monitor] Respiratory 40 H 24 Rate Blood Pressure 143/94 143/94 O2 Sat by Pulse 83 L 92 Oximetry General appearance: Present: mild distress - EENT Eyes: PERRL, EOM intact ENT: hearing intact - Neck Neck: supple, normal ROM - Respiratory Respiratory effort: other (dyspneic) Respiratory: bilateral: diminished, rhonchi, wheezing - Cardiovascular Rhythm: regular Heart Sounds: Present: S1 & S2 Extremities: No edema - Gastrointestinal General gastrointestinal: Present: soft, non-tender Rectal Exam: deferred - Integumentary Integumentary: clear - Musculoskeletal Musculoskeletal: strength equal bilaterally - Neurologic Neurologic: no focal deficits - Psychiatric Psychiatric: appropriate mood/affect - Labs CBC & Chem 7: 06/22/21 04:58 06/29/21 05:27 Labs: Abnormal lab results 06/29/21 Range/Units 05:27 BUN 28 H (9-20) mg/dL Creatinine 0.6 L (0.8-1.3) mg/dL Glucose 159 H (75-100) mg/dL
[2021-06-29] MEDS ORDERED: FUROSEMIDE 40 MG/4 ML INJ IV NR (14:08)
--- NOTE | 2021-06-29 14:08 | Progress Note ---
Assessment and Plan 36 y/o male with acute respiratory failure secondary to COVID 19, not vaccinated. 06/29/21: Long discussion at bedside again with patient about the importance of proning and keeping mask on. Lasix again today. Continue steroids. 06/28/21: Hopeful patient can prone again today. Continue steroids. Please give lasix later today once chemistry is done and assessed. 06/27/21: Continue steroids at current dosing. Continue proning and asked patient to stay like this for as long as he could. In theory should be lying flat for best effect but we will take what we can get. Lasix again today. Should check chemistry tomorrow. 06/26/21: Steroids to continue. Tried to encourage proning but per patient too much pressure in his chest. Lasix again today. Guarded prognosis. : Steroids today, but now solumedrol [id number]. Will continue these indefinitely until oxygen requirement starts to improve. Encouraged proning as much as possible. will give lasix again today but will check labs tomorrow to monitor chemistry. 06/24/21: Guideline steroids end today but will like continue with Solumedrol starting tomorrow if no improvement overnight in oxygen requirement. Very high risk for intubation with increased mortality once intubated. Guarded prognosis. 06/20/21: Continue IV steroids. Encouraged patient to prone. Lasix today. Guarded prognosis 06/19/21: Continue IV steroids. Prone if possible. Lasix again today. 06/18/21: Continue IV steroids, IV remdesivir. Gave lasix 40mg today. Guarded prognosis. 06/17/21: Continue IV steroids. Prone. IV remdesivir 06/16/21: Given patient size will increase steroids to BID dosing. Continue Remdesivir. Need to prone as tolerated during the day and sleep prone at night. Guarded prognosis. 1. Prone as tolerated during the day and sleep prone at night 2. IV steroids and remdesivir, per ID would be a candidate for actemra 3. Agree with lasix therapy, monitor renal function and electrolytes closely 4. Guarded prognosis Subjective Date of service: 06/29/21 Principal diagnosis: Acute hypoxic respiratory failure Interval history: Currently on bipap. Awake and alert. Wants to eat but desats quickly when off the mask. Objective Vital Signs - 12hr 06/29/21 06/29/21 06/29/21 02:31 03:00 03:31 Temperature Pulse Rate 90 105 H 101 H Pulse Rate [ From Monitor] Respiratory 24 32 H 27 H Rate Blood Pressure 124/81 124/85 124/81 O2 Sat by Pulse 91 88 90 Oximetry 06/29/21 06/29/21 06/29/21 04:00 04:25 04:31 Temperature 96.6 F L Pulse Rate 108 H 102 H 99 H Pulse Rate [ 108 H From Monitor] Respiratory 33 H 20 Rate Blood Pressure 138/84 138/84 O2 Sat by Pulse 89 92 Oximetry 06/29/21 06/29/21 06/29/21 05:00 05:31 06:01 Temperature Pulse Rate 93 H 108 H 106 H Pulse Rate [ From Monitor] Respiratory 24 25 H 33 H Rate Blood Pressure 125/86 125/86 143/94 O2 Sat by Pulse 87 89 Oximetry 06/29/21 06/29/21 06/29/21 06:30 06:31 07:01 Temperature Pulse Rate 111 H 112 H Pulse Rate [ From Monitor] Respiratory 29 H Rate Blood Pressure 143/94 129/69 O2 Sat by Pulse 89 82 L Oximetry 06/29/21 06/29/21 06/29/21 07:31 08:00 08:27 Temperature Pulse Rate 115 H 124 H 123 H Pulse Rate [ 122 H From Monitor] Respiratory 26 H 36 H Rate Blood Pressure 129/69 147/63 147/63 O2 Sat by Pulse 81 L 78 L 86 Oximetry 06/29/21 06/29/21 06/29/21 08:31 09:00 09:10 Temperature Pulse Rate 123 H 117 H Pulse Rate [ From Monitor] Respiratory Rate Blood Pressure 147/63 149/99 O2 Sat by Pulse 87 80 L 89 Oximetry 06/29/21 06/29/21 06/29/21 09:25 09:31 10:01 Temperature Pulse Rate 135 H 135 H Pulse Rate [ From Monitor] Respiratory 25 H Rate Blood Pressure 149/99 150/65 O2 Sat by Pulse 84 78 L Oximetry 06/29/21 06/29/21 06/29/21 10:31 11:01 11:31 Temperature Pulse Rate 124 H 119 H 117 H Pulse Rate [ From Monitor] Respiratory 28 H 26 H Rate Blood Pressure 150/65 143/94 143/94 O2 Sat by Pulse 89 88 89 Oximetry 08/15/21 08/15/21 08/15/21 12:00 12:01 12:31 Temperature Pulse Rate 125 H 122 H 110 H Pulse Rate [ 111 H From Monitor] Respiratory 31 H 29 H 26 H Rate Blood Pressure 113/77 143/94 O2 Sat by Pulse 91 86 90 Oximetry 06/29/21 06/29/21 13:01 13:31 Temperature Pulse Rate 126 H 103 H Pulse Rate [ From Monitor] Respiratory 40 H 24 Rate Blood Pressure 143/94 143/94 O2 Sat by Pulse 83 L 92 Oximetry Constitutional: alert, other (mild distress) Eyes: non-icteric ENT: oropharynx moist Neck: supple Ascultation: Bilateral: diminished breath sounds Cardiovascular: regular rate and rhythm Gastrointestinal: normoactive bowel sounds Integumentary: normal Extremities: no cyanosis Neurologic: normal mental status Psychiatric: anxious CBC and BMP: 06/22/21 04:58 06/29/21 05:27 ABG, PT/INR, D-dimer: ABG ABG pH 7.475 (7.320-7.450) H 06/22/21 10:35 POC ABG pCO2 29.2 mmHg (32.0-48.0) L 06/22/21 10:35 ABG pCO2 40.4 mm Hg 06/15/21 Unknown POC ABG pO2 51.5 mmHg (83-108) L 06/22/21 10:35 ABG pO2 61.0 mm Hg (80.0-90.0) L 06/15/21 Unknown POC ABG HCO3 21.0 06/22/21 10:35 ABG O2 Saturation 86.7 (0-100) 06/22/21 10:35 PT/INR, D-dimer D-Dimer 532.29 ng/mlDDU (0-234) H 06/26/21 10:46 Abnormal lab findings: Abnormal Labs 06/13/21 06/13/21 06/13/21 20:09 20:09 20:09 WBC 2.6 L RBC Hgb Hct MCHC 35 H Plt Count 112 L Lymph # (Auto) 0.6 L Seg Neuts % (Manual) Seg Neutrophils # Man Lymphocytes # (Manual) D-Dimer 560.90 H ABG pH POC ABG pCO2 POC ABG pO2 ABG pO2 ABG O2 Saturation ABG Hemoglobin ABG Oxyhemoglobin ABG Glucose Oxyhemoglobin Carboxyhemoglobin Sodium 134 L Chloride BUN Creatinine Glucose 105 H Ferritin AST ALT Lactate Dehydrogenase C-Reactive Protein Total Protein Albumin Arterial Blood Glucose Coronavirus (PCR) 06/13/21 06/13/21 06/14/21 20:09 20:09 05:12 WBC 2.0 L RBC Hgb Hct MCHC 35 H Plt Count 106 L Lymph # (Auto) Seg Neuts % (Manual) 82.0 H Seg Neutrophils # Man 1.6 L Lymphocytes # (Manual) 0.3 L D-Dimer ABG pH POC ABG pCO2 POC ABG pO2 ABG pO2 ABG O2 Saturation ABG Hemoglobin ABG Oxyhemoglobin ABG Glucose Oxyhemoglobin Carboxyhemoglobin Sodium Chloride BUN Creatinine Glucose 105 H Ferritin 1876.0 H AST ALT Lactate Dehydrogenase 634 H C-Reactive Protein 9.20 H Total Protein Albumin Arterial Blood Glucose Coronavirus (PCR) 06/14/21 06/14/21 06/14/21 05:12 23:50 Unknown WBC RBC Hgb Hct MCHC Plt Count Lymph # (Auto) Seg Neuts % (Manual) Seg Neutrophils # Man Lymphocytes # (Manual) D-Dimer ABG pH POC ABG pCO2 POC ABG pO2 ABG pO2 ABG O2 Saturation ABG Hemoglobin ABG Oxyhemoglobin ABG Glucose Oxyhemoglobin Carboxyhemoglobin Sodium Chloride BUN Creatinine Glucose 214 H 135 H Ferritin AST 52 H ALT Lactate Dehydrogenase C-Reactive Protein Total Protein Albumin 3.2 L Arterial Blood Glucose Coronavirus (PCR) Positive A 06/15/21 06/15/21 06/15/21 05:21 05:21 05:21 WBC RBC Hgb Hct MCHC Plt Count Lymph # (Auto) Seg Neuts % (Manual) Seg Neutrophils # Man Lymphocytes # (Manual) D-Dimer 360.79 H ABG pH POC ABG pCO2 POC ABG pO2 ABG pO2 ABG O2 Saturation ABG Hemoglobin ABG Oxyhemoglobin ABG Glucose Oxyhemoglobin Carboxyhemoglobin Sodium Chloride BUN Creatinine 0.7 L Glucose 167 H Ferritin 1869.0 H AST 65 H ALT Lactate Dehydrogenase C-Reactive Protein Total Protein 6.1 L Albumin 3.4 L Arterial Blood Glucose Coronavirus (PCR) 06/15/21 06/15/21 06/16/21 05:21 Unknown 07:16 WBC RBC Hgb Hct MCHC Plt Count Lymph # (Auto) Seg Neuts % (Manual) Seg Neutrophils # Man Lymphocytes # (Manual) D-Dimer ABG pH POC ABG pCO2 POC ABG pO2 ABG pO2 61.0 L ABG O2 Saturation 91.3 L ABG Hemoglobin ABG Oxyhemoglobin ABG Glucose Oxyhemoglobin 89.9 L Carboxyhemoglobin Sodium Chloride BUN Creatinine Glucose 130 H Ferritin AST 77 H ALT 57 H Lactate Dehydrogenase C-Reactive Protein 3.10 H Total Protein 6.0 L Albumin 3.5 L Arterial Blood Glucose Coronavirus (PCR) 06/17/21 06/17/21 06/22/21 04:36 04:36 04:58 WBC 16.3 H RBC 5.55 H Hgb 16.7 H Hct 48.2 H MCHC 36 H 35 H Plt Count Lymph # (Auto) Seg Neuts % (Manual) Seg Neutrophils # Man Lymphocytes # (Manual) D-Dimer ABG pH POC ABG pCO2 POC ABG pO2 ABG pO2 ABG O2 Saturation ABG Hemoglobin ABG Oxyhemoglobin ABG Glucose Oxyhemoglobin Carboxyhemoglobin Sodium Chloride BUN 29 H Creatinine Glucose 125 H Ferritin AST 59 H ALT 57 H Lactate Dehydrogenase C-Reactive Protein Total Protein 6.0 L Albumin 3.6 L Arterial Blood Glucose Coronavirus (PCR) 06/22/21 06/22/21 06/22/21 04:58 04:58 04:58 WBC RBC Hgb Hct MCHC Plt Count Lymph # (Auto) Seg Neuts % (Manual) Seg Neutrophils # Man Lymphocytes # (Manual) D-Dimer 335.27 H ABG pH POC ABG pCO2 POC ABG pO2 ABG pO2 ABG O2 Saturation ABG Hemoglobin ABG Oxyhemoglobin ABG Glucose Oxyhemoglobin Carboxyhemoglobin Sodium 135 L Chloride 96.8 L BUN 32 H Creatinine Glucose 172 H Ferritin 1251.0 H AST ALT Lactate Dehydrogenase 816 H C-Reactive Protein Total Protein 6.1 L Albumin 3.6 L Arterial Blood Glucose Coronavirus (PCR) 06/22/21 06/24/21 06/24/21 10:35 05:25 05:25 WBC RBC Hgb Hct MCHC Plt Count Lymph # (Auto) Seg Neuts % (Manual) Seg Neutrophils # Man Lymphocytes # (Manual) D-Dimer 570.75 H ABG pH 7.475 H POC ABG pCO2 29.2 L POC ABG pO2 51.5 L ABG pO2 ABG O2 Saturation ABG Hemoglobin 18.3 H ABG Oxyhemoglobin 86.3 L ABG Glucose 143 H Oxyhemoglobin Carboxyhemoglobin 0.2 L Sodium Chloride BUN Creatinine Glucose Ferritin 1621.0 H AST ALT Lactate Dehydrogenase C-Reactive Protein Total Protein Albumin Arterial Blood Glucose 143 H Coronavirus (PCR) 06/24/21 06/26/21 06/26/21 05:25 10:46 10:46 WBC RBC Hgb Hct MCHC Plt Count Lymph # (Auto) Seg Neuts % (Manual) Seg Neutrophils # Man Lymphocytes # (Manual) D-Dimer 532.29 H ABG pH POC ABG pCO2 POC ABG pO2 ABG pO2 ABG O2 Saturation ABG Hemoglobin ABG Oxyhemoglobin ABG Glucose Oxyhemoglobin Carboxyhemoglobin Sodium Chloride BUN 34 H Creatinine 0.7 L Glucose 131 H Ferritin 2549.0 H AST ALT Lactate Dehydrogenase 691 H C-Reactive Protein Total Protein Albumin Arterial Blood Glucose Coronavirus (PCR) 06/26/21 06/29/21 10:46 05:27 WBC RBC Hgb Hct MCHC Plt Count Lymph # (Auto) Seg Neuts % (Manual) Seg Neutrophils # Man Lymphocytes # (Manual) D-Dimer ABG pH POC ABG pCO2 POC ABG pO2 ABG pO2 ABG O2 Saturation ABG Hemoglobin ABG Oxyhemoglobin ABG Glucose Oxyhemoglobin Carboxyhemoglobin Sodium 135 L Chloride 95.1 L BUN 39 H 28 H Creatinine 0.7 L 0.6 L Glucose 202 H 159 H Ferritin AST ALT Lactate Dehydrogenase 644 H C-Reactive Protein Total Protein Albumin Arterial Blood Glucose Coronavirus (PCR)
[2021-06-30] MEDS: methylPREDNISolone Sod Succinate 40 MG/1 ML INJ IV SCH ×2 (05:11→14:00)
[2021-06-30 09:17] LABS: Hematocrit 43.9 % (35.5-45.6); Hemoglobin 14.9 gm/dl (11.8-15.2); Mean Corpuscular HGB Conc 34 % (32-34); Mean Corpuscular Volume 89 fl (84-94); Red Blood Count 4.93 M/mm3 (3.65-5.03); Red Cell Distribution Width 14.4 % (13.2-15.2)
[2021-06-30 09:24] LABS: Platelet Count 90 K/mm3 (140-440)
[2021-06-30 09:51] LABS: Blood Urea Nitrogen 37 mg/dL (9-20); Calcium 8.7 mg/dL (8.4-10.2); Hemolysis Index 24
[2021-06-30 10:06] LABS: BUN/Creatinine Ratio 74
[2021-06-30] MEDS: ENOXAPARIN 120 MG/0.8 ML INJ SUB-Q SCH (10:42)
[2021-06-30] MEDS: AYR SALINE NASAL GEL 14.1 GM NS SCH (10:42)
[2021-06-30] MEDS: FAMOTIDINE 20 MG TAB PO SCH (10:43)
--- NOTE | 2021-06-30 12:13 | Progress Note ---
Assessment and Plan Assessment and plan: 36-year-old with a history of asthma, obesity presented with shortness of breath fever chills arthralgias myalgias approximately 8 days after testing positive for COVID. Patient at present hypoxic requiring 15 L facemask at present. Patient is able to speak in full sentences however remains hypoxic. Hospital course complicated by nonproductive cough. (1) Acute hypoxic respiratory failure due to COVID-19 Current Visit: Yes Status: Acute Plan to address problem: Pulmonary note reviewed and appreciated cont. IV solumedrol proning as tolerated on BIPAP at 100 % Fio2 (2) Asthma Current Visit: Yes Status: Acute Plan to address problem: fair (3) COVID-19 pneumonia completed remdesivir therapy 06/15: Considering gradual decline will transfer patient to IMCU. We'll also consult pulmonary GI. I have requested the patient be put on high flow and also trial of BiPAP. ID is consulted and currently following patient management. Weight loss recommended. Continue steroids. Chest x-ray reviewed by me shows bilateral infiltrates 06/16: Patient seen and examined Remains on HFNC but now at 40 and 100%. SAts in the mid 90's. Continue to monitor renal function with Lasix. Continue IMCU. Can downgrade this oxygen weaning again this. Continue prone positioning. Case discussed with planing machine operator 06/17: Continue supportive care. High flow down to 35 L continuous 100% with saturation in the mid to low 90s. Per planing machine operator steroid has been increased to twice daily dosing due to patient size. Patient continues on IV remdesivir. We will continue to monitor inflammatory markers. Prognosis is guarded. 06/18: Patient seen and examined, Continues supportive care, wean as tolerated. still with persitent hypoxia, he did not like the High flow, affects his nostriles, and now is on NRB satting 94%. Continue to encourage prone position. condition is still guarded 06/19: Continue supportive care, wean oxygen as tolerated, patient ok with me speaking with mother, will call and update. 06/20: Patient seen and examined continues to be weaned down on high flow oxygen down to 85%. Saturation remains around 92%. I did discuss extensively with the mother. She verbalized understanding. This discussion was done with permission with the patient. We will do another trial of Lasix. Patient is continued on the steroids he is status post Actemra and has completed his remdesivir. 06/21: Patient's prognosis still remains guarded. Continue to encourage prone positioning. Went back up on oxygen demand. But states that he does not feel less winded as before. Continue diuresis and monitor renal function. Also monitor inflammatory markers. 06/22: Patient more mobile but still profoundly hypoxic, continue to monitor and wean oxygen as tolerated. Will re-evaluate if repeated Lasix will help. 06/23: Patient seen and examined remains on high flow refusing to prone states is uncomfortable. We will continue with aggressive measures. Will change to full dose Lovenox discussed with expedition supervisor. Condition is still guarded 06/24; patient was seen and evaluated this morning. Patient was on 15L of high flow oxygen. Patient finished remdesivir, Decadron, Actemra. Prognosis is guarded. 06/25; patient was on 40 L of high flow oxygen with FiO2 of 100%. Prognosis is guarded. Continue IMCU care. Patient was anxious and put on Xanax as needed. 06/26; patient was on 40 L of high flow oxygen with FiO2 of 100%. Prognosis is guarded. Continue IMCU care. Patient was anxious and put on Xanax as needed. 06/27; patient is on 40 L of oxygen and 15 L via nonrebreather mask. Prognosis is guarded 06/28; patient is on 40 L of high flow oxygen. Will give Lasix. Patient is on Xanax 0.5 mg p.o. 3 times daily. Self proning. 06/29 Patient is alert, no complaints, he is on BIPAP at 100 Fio2, moderately dyspneic, pulmonary note reviewed, lab results reviewed 06/30: Patient remains on BiPAP with full facemask still dyspneic. Still encourage prone positioning patient sometimes refuses the importance discussed in detail. Plan discussed with nursing staff at bedside The high probability of a clinically significant, sudden or life threatening deterioration of the [pulmonary] system(s) required my full and direct attention, intervention and personal management. The aggregate critical care t ruby was [35] minutes. This time is in addition to time spent performing reported procedures but includes the following: [x] Data Review and interpretation [x] Patient assessment and monitoring of vital signs [x] Documentation [x] Medication orders and management History Interval history: Patient seen and examined currently still on BiPAP intermittently changed to high flow also. Due to desaturation. Hospitalist Physical - Physical exam Narrative exam: General appearance: Present: Mild to moderate distress, well-nourished, on high flow - EENT Eyes: PERRL, EOM intact ENT: hearing intact, clear oral mucosa Ears: bilateral: normal - Neck Neck: supple, normal ROM - Respiratory Respiratory effort: normal Respiratory: bilateral: diminished - Breasts Breasts: normal - Cardiovascular Rhythm: regular Heart Sounds: Present: S1 & S2. Absent: gallop, rub Extremities: pulses intact, No edema, normal color, Full ROM - Gastrointestinal General gastrointestinal: Present: soft, non-tender, non-distended, normal bowel sounds - Genitourinary Male genitourinary: normal - Integumentary Integumentary: clear, warm, dry - Musculoskeletal Musculoskeletal: 1, strength equal bilaterally - Neurologic Neurologic: moves all extremities - Psychiatric Psychiatric: memory intact, appropriate mood/affect, intact judgment & insight - Constitutional Vitals: Temp Pulse Resp BP Pulse Ox 97.0 F L 68 24 124/84 91 06/30/21 07:35 06/30/21 10:00 06/30/21 10:00 06/30/21 10:00 06/30/21 10:00 General appearance: Present: mild distress Results - Labs CBC & Chem 7: 06/30/21 07:11 06/30/21 07:11 Labs: Laboratory Last Values WBC 9.7 K/mm3 (4.5-11.0) 06/30/21 07:11 RBC 4.93 M/mm3 (3.65-5.03) 06/30/21 07:11 Hgb 14.9 gm/dl (11.8-15.2) 06/30/21 07:11 Hct 43.9 % (35.5-45.6) 06/30/21 07:11 MCV 89 fl (84-94) 06/30/21 07:11 MCH 30 pg (28-32) 06/30/21 07:11 MCHC 34 % (32-34) 06/30/21 07:11 RDW 14.4 % (13.2-15.2) 06/30/21 07:11 Plt Count 90 K/mm3 (140-440) L 06/30/21 07:11 Lymph % (Auto) 25.5 % (13.4-35.0) 06/13/21 20:09 [place] % (Auto) 4.3 % (0.0-7.3) 06/13/21 20:09 Eos % (Auto) 0.0 % (0.0-4.3) 06/13/21 20:09 Baso % (Auto) 0.3 % (0.0-1.8) 06/13/21 20:09 Lymph # (Auto) 0.6 K/mm3 (1.2-5.4) L 06/13/21 20:09 [place] # (Auto) 0.1 K/mm3 (0.0-0.8) 06/13/21 20:09 Eos # (Auto) 0.0 K/mm3 (0.0-0.4) 06/13/21 20:09 Baso # (Auto) 0.0 K/mm3 (0.0-0.1) 06/13/21 20:09 Add Manual Diff Complete 06/14/21 05:12 Total Counted 50 06/14/21 05:12 Seg Neutrophils % 69.9 % (40.0-70.0) 06/13/21 20:09 Seg Neuts % (Manual) 82.0 % (40.0-70.0) H 06/14/21 05:12 Lymphocytes % (Manual) 14.0 % (13.4-35.0) 06/14/21 05:12 Monocytes % (Manual) 4.0 % (0.0-7.3) 06/14/21 05:12 Nucleated RBC % Not Reportable 06/14/21 05:12 Seg Neutrophils # 1.8 K/mm3 (1.8-7.7) 06/13/21 20:09 Seg Neutrophils # Man 1.6 K/mm3 (1.8-7.7) L 06/14/21 05:12 Band Neutrophils # 0.0 K/mm3 06/14/21 05:12 Lymphocytes # (Manual) 0.3 K/mm3 (1.2-5.4) L 06/14/21 05:12 Abs React Lymphs (Man) 0.0 K/mm3 06/14/21 05:12 Monocytes # (Manual) 0.1 K/mm3 (0.0-0.8) 06/14/21 05:12 Eosinophils # (Manual) 0.0 K/mm3 (0.0-0.4) 06/14/21 05:12 Basophils # (Manual) 0.0 K/mm3 (0.0-0.1) 06/14/21 05:12 Metamyelocytes # 0.0 K/mm3 06/14/21 05:12 Myelocytes # 0.0 K/mm3 06/14/21 05:12 Promyelocytes # 0.0 K/mm3 06/14/21 05:12 Blast Cells # 0.0 K/mm3 06/14/21 05:12 WBC Morphology Not Reportable 06/14/21 05:12 Hypersegmented Neuts Not Reportable 06/14/21 05:12 Hyposegmented Neuts Not Reportable 06/14/21 05:12 Hypogranular Neuts Not Reportable 06/14/21 05:12 Smudge Cells Not Reportable 06/14/21 05:12 Toxic Granulation Not Reportable 06/14/21 05:12 Toxic Vacuolation Not Reportable 06/14/21 05:12 Dohle Bodies Not Reportable 06/14/21 05:12 Pelger-Huet Anomaly Not Reportable 06/14/21 05:12 Sheri Rods Not Reportable 06/14/21 05:12 Platelet Estimate Consistent w auto 06/14/21 05:12 Clumped Platelets Not Reportable 06/14/21 05:12 Plt Clumps, EDTA Not Reportable 06/14/21 05:12 Large Platelets Not Reportable 06/14/21 05:12 Giant Platelets Not Reportable 06/14/21 05:12 Platelet Satelliting Not Reportable 06/14/21 05:12 Plt Morphology Comment Not Reportable 06/14/21 05:12 RBC Morphology Not Reportable 06/14/21 05:12 Dimorphic RBCs Not Reportable 06/14/21 05:12 Polychromasia Not Reportable 06/14/21 05:12 Hypochromasia Not Reportable 06/14/21 05:12 Poikilocytosis Not Reportable 06/14/21 05:12 Anisocytosis 1+ 06/14/21 05:12 Microcytosis Not Reportable 06/14/21 05:12 Macrocytosis Not Reportable 06/14/21 05:12 Spherocytes Not Reportable 06/14/21 05:12 Pappenheimer Bodies Not Reportable 06/14/21 05:12 Sickle Cells Not Reportable 06/14/21 05:12 Target Cells Not Reportable 06/14/21 05:12 Tear Drop Cells Not Reportable 06/14/21 05:12 Ovalocytes Not Reportable 06/14/21 05:12 Helmet Cells Not Reportable 06/14/21 05:12 [place] Bodies Not Reportable 06/14/21 05:12 [place] Rings Not Reportable 06/14/21 05:12 Alen Cells Not Reportable 06/14/21 05:12 Bite Cells Not Reportable 06/14/21 05:12 Crenated Cell Not Reportable 06/14/21 05:12 Elliptocytes Not Reportable 06/14/21 05:12 Acanthocytes (Spur) Not Reportable 06/14/21 05:12 Rouleaux Not Reportable 06/14/21 05:12 Hemoglobin C Crystals Not Reportable 06/14/21 05:12 Schistocytes Not Reportable 06/14/21 05:12 Malaria parasites Not Reportable 06/14/21 05:12 Swapnil Bodies Not Reportable 06/14/21 05:12 Hem Pathologist Commnt No 06/14/21 05:12 D-Dimer 532.29 ng/mlDDU (0-234) H 06/26/21 10:46 ABG pH 7.475 (7.320-7.450) H 06/22/21 10:35 POC ABG pCO2 29.2 mmHg (32.0-48.0) L 06/22/21 10:35 ABG pCO2 40.4 mm Hg 06/15/21 Unknown POC ABG pO2 51.5 mmHg (83-108) L 06/22/21 10:35 ABG pO2 61.0 mm Hg (80.0-90.0) L 06/15/21 Unknown POC ABG HCO3 21.0 06/22/21 10:35 ABG HCO3 23.7 mmol/L (20.0-26.0) 06/15/21 Unknown ABG O2 Saturation 86.7 (0-100) 06/22/21 10:35 ABG O2 Content 21.0 (0.0-44) 06/15/21 Unknown POC ABG Base Excess -0.9 06/22/21 10:35 ABG Base Excess -1.1 mmol/L (-2.0-3.0) 06/15/21 Unknown ABG Hemoglobin 18.3 (12.0-17.5) H 06/22/21 10:35 ABG Oxyhemoglobin 86.3 (94-98) L 06/22/21 10:35 ABG Carboxyhemoglobin 1.0 % (0.0-5.0) 06/15/21 Unknown ABG Methemoglobin 0.3 (0.0-1.5) 06/22/21 10:35 ABG Sodium Not Reportable 06/22/21 10:35 ABG Potassium 3.9 mmol/L (3.40-4.50) 06/22/21 10:35 ABG Chloride 100.0 mmol/L (98-107) 06/22/21 10:35 ABG Glucose 143 mg/dL (65-95) H 06/22/21 10:35 Oxyhemoglobin 89.9 % (95.0-99.0) L 06/15/21 Unknown Carboxyhemoglobin 0.2 (0.5-1.5) L 06/22/21 10:35 FiO2 100 % 06/15/21 Unknown FiO2 % 100.0 06/22/21 10:35 Sodium 136 mmol/L (137-145) L 06/30/21 07:11 Potassium 5.4 mmol/L (3.6-5.0) H 06/30/21 07:11 Chloride 98.4 mmol/L (98-107) 06/30/21 07:11 Carbon Dioxide 25 mmol/L (22-30) 06/30/21 07:11 Anion Gap 18 mmol/L 06/30/21 07:11 BUN 37 mg/dL (9-20) H 06/30/21 07:11 Creatinine 0.5 mg/dL (0.8-1.3) L 06/30/21 07:11 Estimated GFR > 60 ml/min 06/30/21 07:11 BUN/Creatinine Ratio 74 % 06/30/21 07:11 Glucose 126 mg/dL (75-100) H 06/30/21 07:11 POC Glucose 147 mg/dL (70-105) H 06/30/21 07:26 Calcium 8.7 mg/dL (8.4-10.2) 06/30/21 07:11 Ferritin 2549.0 ng/mL (30.0-300.0) H 06/26/21 10:46 Total Bilirubin 0.70 mg/dL (0.1-1.2) 06/22/21 04:58 AST 22 units/L (5-40) 06/22/21 04:58 ALT 28 units/L (7-56) 06/22/21 04:58 Alkaline Phosphatase 69 units/L (35-129) 06/22/21 04:58 Lactate Dehydrogenase 644 units/L (91-180) H 06/26/21 10:46 C-Reactive Protein < 0.03 mg/dL (0.00-1.30) 06/26/21 10:46 Total Protein 6.1 g/dL (6.3-8.2) L 06/22/21 04:58 Albumin 3.6 g/dL (3.9-5) L 06/22/21 04:58 Albumin/Globulin Ratio 1.4 % 06/22/21 04:58 Procalcitonin < 0.05 ng/mL (<0.15) 06/24/21 05:25 Arterial Blood Glucose 143 mg/dL (65-95) H 06/22/21 10:35 Arterial Blood Ionized Calcium 4.8 mg/dL (4.6-5.3) 06/22/21 10:35 Coronavirus (PCR) Positive (Negative) A 06/14/21 Unknown Mao/IV: Voiding Method Urinal Active Medications - Current Medications Current Medications: Generic Name Dose Route Start Last Admin Trade Name Freq PRN Reason Stop Dose Admin Acetaminophen 650 mg 06/13/21 22:49 06/27/21 03:31 Acetaminophen 325 Mg Tab PO 650 mg Q4H PRN Administration Pain MILD(1-3)/Fever >100.5/HAYNES Albuterol 5 mg 06/25/21 11:52 Albuterol 2.5 Mg/3 Ml Nebu IH Q4HRT PRN Shortness Of Breath Alprazolam 0.5 mg 06/27/21 13:00 06/29/21 20:18 Alprazolam 0.25 Mg Tab PO 0.5 mg Q4H PRN Administration Anxiety Enoxaparin Sodium 120 mg 06/23/21 22:00 06/30/21 10:42 Enoxaparin 120 Mg/0.8 Ml Inj SUB-Q 120 mg Q12HR SIMÓN Administration Protocol Famotidine 20 mg 06/14/21 10:00 06/30/21 10:43 Famotidine 20 Mg Tab PO 20 mg BID SIMÓN Administration Guaifenesin 200 mg 06/15/21 00:33 06/29/21 22:55 Guaifenesin 200 Mg Tab PO 200 mg Q6H PRN Administration Cough Hydralazine HCl 10 mg 06/13/21 22:52 Hydralazine 20 Mg/1 Ml Inj IV Q6H PRN SBP >/=160; DBP >/=100 Hydromorphone HCl 0.5 mg 06/13/21 22:49 06/29/21 20:17 Hydromorphone 1 Mg/1 Ml Inj IV 0.5 mg Q3H PRN Administration Pain , Severe (7-10) Dexmedetomidine HCl 400 mcg/ 104 mls @ 5.928 mls/hr 06/29/21 10:00 06/30/21 10:43 Sodium Chloride IV 1.2 mcg/kg/hr TITRATE SIMÓN 35.568 mls/hr Administration Protocol 0.2 MCG/KG/HR Methylprednisolone Sodium Succinate 40 mg 06/25/21 14:00 06/30/21 05:11 Methylprednisolone Sod Succinate 40 Mg/1 Ml Inj IV 40 mg Q8HR SIMÓN Administration Ondansetron HCl 4 mg 06/13/21 22:49 06/17/21 18:48 Ondansetron 4 Mg/2 Ml Inj IV 4 mg Q8H PRN Administration Nausea And Vomiting Oxycodone/Acetaminophen 1 tab 06/13/21 22:49 06/28/21 21:59 Oxycodone /Acetaminophen 5-325mg Tab PO 1 tab Q6H PRN Administration Pain, Moderate (4-6) Phenol 1 spray 06/15/21 14:00 Phenol 1.4% 177 Ml Bottle MM PRN PRN Sore Throat Sodium Chloride 10 ml 06/14/21 10:00 06/30/21 10:43 Sodium Chloride 0.9% 10 Ml Flush Syringe IV 10 ml BID SIMÓN Administration Sodium Chloride 10 ml 06/13/21 22:49 Sodium Chloride 0.9% 10 Ml Flush Syringe IV PRN PRN LINE FLUSH Sodium Chloride 1 applic 06/22/21 11:00 06/30/21 10:42 [place] Saline Nasal Gel 14.1 Gm NS Not Given BID SIMÓN Nutrition/Malnutrition Assess - Dietary Evaluation Nutrition/Malnutrition Findings: Nutrition Notes Start: 06/19/21 11:11 Freq: Status: Active Protocol: Document 06/26/21 13:01 JUSTICE (Rec: 06/26/21 13:05 [email or web address]) Nutrition Notes Initial or Follow up Reassessment Current Diagnosis Respiratory Failure Other Pertinent Diagnosis pneu, COVID-19 Current Diet Regular Labs/Tests Na 135 BUN 39 Cr 0.7 BG 202 Pertinent Medications Solu Medrol Height 5 ft 9 in Weight 115.9 kg [place] Body Weight (kg) 72.72 BMI 37.7 Weight Status Obese Subjective/Other Information Pt eating 100% of meals and ONS as needed. Percent of energy/protein needs met: 100%/100% Burn Absent Trauma Absent Current % PO Good (75-100%) Minimum of two criteria No physical signs of malnutrition #1 Nutrition Diagnosis Inadequate oral intake As Evidenced by Signs and Symptoms pt eating 100% of meals Diagnosis Progress(for reassessment Improved documentation) Is patient on ventilator? No Is Patient Ambulatory and/or Out of Bed No REE-([place]-confined to bed) 2497.320 Kcal/Kg value to use for calculation 14 Approximate Energy Requirements Using 1623 kcal/Kg Calculation Used for Recommendations Kcal/kg Additional Notes Protein: (0.8-1g/kg AdjBW: 83kg) 67-83g Fluid: 1 ml/kcal Nutrition Intervention Change Diet Order: Continue Add Supplement/Snack (indicate name/kcal Ensure Enlive daily /protein ) Provides kCal: 350 Provides Protein (gm) 20 Goal #1 Meet at least 75% of energy and protein needs via PO and ONS Anticipated Discharge Needs: regular Follow-Up By: 06/30/21 Additional Comments F/u: intakes and ONS tolerance
--- NOTE | 2021-06-30 12:28 | Progress Note ---
Assessment and Plan 36 y/o male with acute respiratory failure secondary to COVID 19 06/30/21: VEry very close to intubation. Spoke with mother over the phone who wishes to come and visit to see if she can help calm him down and encourage more proning. Will continue bipap and IV steroids for now. Prognosis remains very guarded 1. Prone as tolerated during the day and sleep prone at night 2. IV steroids and remdesivir, per ID would be a candidate for actemra 3. Agree with lasix therapy, monitor renal function and electrolytes closely 4. Guarded prognosis Subjective Date of service: 06/30/21 Principal diagnosis: Acute hypoxic respiratory failure Interval history: Sats in the high 80's on bipap. Very anxious despite precedex and pRN therapy. Objective Vital Signs - 12hr 06/30/21 06/30/21 06/30/21 01:00 02:01 03:01 Temperature Pulse Rate 72 92 H 73 Pulse Rate [ From Monitor] Respiratory 21 32 H 21 Rate Blood Pressure 98/70 138/81 106/56 O2 Sat by Pulse 89 79 L 86 Oximetry 06/30/21 06/30/21 06/30/21 04:00 04:10 04:46 Temperature Pulse Rate 72 72 70 Pulse Rate [ 72 From Monitor] Respiratory 26 H 34 H Rate Blood Pressure 114/64 114/64 O2 Sat by Pulse 88 89 Oximetry 06/30/21 06/30/21 06/30/21 04:48 05:00 06:00 Temperature Pulse Rate 72 67 Pulse Rate [ From Monitor] Respiratory 21 20 Rate Blood Pressure 113/69 104/72 O2 Sat by Pulse 89 87 88 Oximetry 06/30/21 06/30/21 06/30/21 07:00 07:35 08:00 Temperature 97.0 F L Pulse Rate 66 67 Pulse Rate [ From Monitor] Respiratory 20 19 Rate Blood Pressure 106/73 112/75 O2 Sat by Pulse 88 91 Oximetry 06/30/21 06/30/21 06/30/21 09:00 10:00 12:00 Temperature 98.0 F Pulse Rate 66 68 Pulse Rate [ From Monitor] Respiratory 23 24 Rate Blood Pressure 111/69 124/84 O2 Sat by Pulse 90 91 Oximetry Constitutional: alert, other (mild distress) Eyes: non-icteric ENT: oropharynx moist Neck: supple Ascultation: Bilateral: diminished breath sounds Cardiovascular: regular rate and rhythm Gastrointestinal: normoactive bowel sounds Integumentary: normal Extremities: no cyanosis Neurologic: normal mental status Psychiatric: anxious CBC and BMP: 06/30/21 07:11 06/30/21 07:11 ABG, PT/INR, D-dimer: ABG ABG pH 7.475 (7.320-7.450) H 06/22/21 10:35 POC ABG pCO2 29.2 mmHg (32.0-48.0) L 06/22/21 10:35 ABG pCO2 40.4 mm Hg 06/15/21 Unknown POC ABG pO2 51.5 mmHg (83-108) L 06/22/21 10:35 ABG pO2 61.0 mm Hg (80.0-90.0) L 06/15/21 Unknown POC ABG HCO3 21.0 06/22/21 10:35 ABG O2 Saturation 86.7 (0-100) 06/22/21 10:35 PT/INR, D-dimer D-Dimer 532.29 ng/mlDDU (0-234) H 06/26/21 10:46 Abnormal lab findings: Abnormal Labs 06/13/21 06/13/21 06/13/21 20:09 20:09 20:09 WBC 2.6 L RBC Hgb Hct MCHC 35 H Plt Count 112 L Lymph # (Auto) 0.6 L Seg Neuts % (Manual) Seg Neutrophils # Man Lymphocytes # (Manual) D-Dimer 560.90 H ABG pH POC ABG pCO2 POC ABG pO2 ABG pO2 ABG O2 Saturation ABG Hemoglobin ABG Oxyhemoglobin ABG Glucose Oxyhemoglobin Carboxyhemoglobin Sodium 134 L Potassium Chloride BUN Creatinine Glucose 105 H POC Glucose Ferritin AST ALT Lactate Dehydrogenase C-Reactive Protein Total Protein Albumin Arterial Blood Glucose Coronavirus (PCR) 06/13/21 06/13/21 06/14/21 20:09 20:09 05:12 WBC 2.0 L RBC Hgb Hct MCHC 35 H Plt Count 106 L Lymph # (Auto) Seg Neuts % (Manual) 82.0 H Seg Neutrophils # Man 1.6 L Lymphocytes # (Manual) 0.3 L D-Dimer ABG pH POC ABG pCO2 POC ABG pO2 ABG pO2 ABG O2 Saturation ABG Hemoglobin ABG Oxyhemoglobin ABG Glucose Oxyhemoglobin Carboxyhemoglobin Sodium Potassium Chloride BUN Creatinine Glucose 105 H POC Glucose Ferritin 1876.0 H AST ALT Lactate Dehydrogenase 634 H C-Reactive Protein 9.20 H Total Protein Albumin Arterial Blood Glucose Coronavirus (PCR) 06/14/21 06/14/21 06/14/21 05:12 23:50 Unknown WBC RBC Hgb Hct MCHC Plt Count Lymph # (Auto) Seg Neuts % (Manual) Seg Neutrophils # Man Lymphocytes # (Manual) D-Dimer ABG pH POC ABG pCO2 POC ABG pO2 ABG pO2 ABG O2 Saturation ABG Hemoglobin ABG Oxyhemoglobin ABG Glucose Oxyhemoglobin Carboxyhemoglobin Sodium Potassium Chloride BUN Creatinine Glucose 214 H 135 H POC Glucose Ferritin AST 52 H ALT Lactate Dehydrogenase C-Reactive Protein Total Protein Albumin 3.2 L Arterial Blood Glucose Coronavirus (PCR) Positive A 06/15/21 06/15/21 06/15/21 05:21 05:21 05:21 WBC RBC Hgb Hct MCHC Plt Count Lymph # (Auto) Seg Neuts % (Manual) Seg Neutrophils # Man Lymphocytes # (Manual) D-Dimer 360.79 H ABG pH POC ABG pCO2 POC ABG pO2 ABG pO2 ABG O2 Saturation ABG Hemoglobin ABG Oxyhemoglobin ABG Glucose Oxyhemoglobin Carboxyhemoglobin Sodium Potassium Chloride BUN Creatinine 0.7 L Glucose 167 H POC Glucose Ferritin 1869.0 H AST 65 H ALT Lactate Dehydrogenase C-Reactive Protein Total Protein 6.1 L Albumin 3.4 L Arterial Blood Glucose Coronavirus (PCR) 06/15/21 06/15/21 06/16/21 05:21 Unknown 07:16 WBC RBC Hgb Hct MCHC Plt Count Lymph # (Auto) Seg Neuts % (Manual) Seg Neutrophils # Man Lymphocytes # (Manual) D-Dimer ABG pH POC ABG pCO2 POC ABG pO2 ABG pO2 61.0 L ABG O2 Saturation 91.3 L ABG Hemoglobin ABG Oxyhemoglobin ABG Glucose Oxyhemoglobin 89.9 L Carboxyhemoglobin Sodium Potassium Chloride BUN Creatinine Glucose 130 H POC Glucose Ferritin AST 77 H ALT 57 H Lactate Dehydrogenase C-Reactive Protein 3.10 H Total Protein 6.0 L Albumin 3.5 L Arterial Blood Glucose Coronavirus (PCR) 06/17/21 06/17/21 06/22/21 04:36 04:36 04:58 WBC 16.3 H RBC 5.55 H Hgb 16.7 H Hct 48.2 H MCHC 36 H 35 H Plt Count Lymph # (Auto) Seg Neuts % (Manual) Seg Neutrophils # Man Lymphocytes # (Manual) D-Dimer ABG pH POC ABG pCO2 POC ABG pO2 ABG pO2 ABG O2 Saturation ABG Hemoglobin ABG Oxyhemoglobin ABG Glucose Oxyhemoglobin Carboxyhemoglobin Sodium Potassium Chloride BUN 29 H Creatinine Glucose 125 H POC Glucose Ferritin AST 59 H ALT 57 H Lactate Dehydrogenase C-Reactive Protein Total Protein 6.0 L Albumin 3.6 L Arterial Blood Glucose Coronavirus (PCR) 06/22/21 06/22/21 06/22/21 04:58 04:58 04:58 WBC RBC Hgb Hct MCHC Plt Count Lymph # (Auto) Seg Neuts % (Manual) Seg Neutrophils # Man Lymphocytes # (Manual) D-Dimer 335.27 H ABG pH POC ABG pCO2 POC ABG pO2 ABG pO2 ABG O2 Saturation ABG Hemoglobin ABG Oxyhemoglobin ABG Glucose Oxyhemoglobin Carboxyhemoglobin Sodium 135 L Potassium Chloride 96.8 L BUN 32 H Creatinine Glucose 172 H POC Glucose Ferritin 1251.0 H AST ALT Lactate Dehydrogenase 816 H C-Reactive Protein Total Protein 6.1 L Albumin 3.6 L Arterial Blood Glucose Coronavirus (PCR) 06/22/21 06/24/21 06/24/21 10:35 05:25 05:25 WBC RBC Hgb Hct MCHC Plt Count Lymph # (Auto) Seg Neuts % (Manual) Seg Neutrophils # Man Lymphocytes # (Manual) D-Dimer 570.75 H ABG pH 7.475 H POC ABG pCO2 29.2 L POC ABG pO2 51.5 L ABG pO2 ABG O2 Saturation ABG Hemoglobin 18.3 H ABG Oxyhemoglobin 86.3 L ABG Glucose 143 H Oxyhemoglobin Carboxyhemoglobin 0.2 L Sodium Potassium Chloride BUN Creatinine Glucose POC Glucose Ferritin 1621.0 H AST ALT Lactate Dehydrogenase C-Reactive Protein Total Protein Albumin Arterial Blood Glucose 143 H Coronavirus (PCR) 06/24/21 06/26/21 06/26/21 05:25 10:46 10:46 WBC RBC Hgb Hct MCHC Plt Count Lymph # (Auto) Seg Neuts % (Manual) Seg Neutrophils # Man Lymphocytes # (Manual) D-Dimer 532.29 H ABG pH POC ABG pCO2 POC ABG pO2 ABG pO2 ABG O2 Saturation ABG Hemoglobin ABG Oxyhemoglobin ABG Glucose Oxyhemoglobin Carboxyhemoglobin Sodium Potassium Chloride BUN 34 H Creatinine 0.7 L Glucose 131 H POC Glucose Ferritin 2549.0 H AST ALT Lactate Dehydrogenase 691 H C-Reactive Protein Total Protein Albumin Arterial Blood Glucose Coronavirus (PCR) 06/26/21 06/29/21 06/30/21 10:46 05:27 07:11 WBC RBC Hgb Hct MCHC Plt Count 90 L Lymph # (Auto) Seg Neuts % (Manual) Seg Neutrophils # Man Lymphocytes # (Manual) D-Dimer ABG pH POC ABG pCO2 POC ABG pO2 ABG pO2 ABG O2 Saturation ABG Hemoglobin ABG Oxyhemoglobin ABG Glucose Oxyhemoglobin Carboxyhemoglobin Sodium 135 L Potassium Chloride 95.1 L BUN 39 H 28 H Creatinine 0.7 L 0.6 L Glucose 202 H 159 H POC Glucose Ferritin AST ALT Lactate Dehydrogenase 644 H C-Reactive Protein Total Protein Albumin Arterial Blood Glucose Coronavirus (PCR) 06/30/21 06/30/21 07:11 07:26 WBC RBC Hgb Hct MCHC Plt Count Lymph # (Auto) Seg Neuts % (Manual) Seg Neutrophils # Man Lymphocytes # (Manual) D-Dimer ABG pH POC ABG pCO2 POC ABG pO2 ABG pO2 ABG O2 Saturation ABG Hemoglobin ABG Oxyhemoglobin ABG Glucose Oxyhemoglobin Carboxyhemoglobin Sodium 136 L Potassium 5.4 H Chloride BUN 37 H Creatinine 0.5 L Glucose 126 H POC Glucose 147 H Ferritin AST ALT Lactate Dehydrogenase C-Reactive Protein Total Protein Albumin Arterial Blood Glucose Coronavirus (PCR)
[2021-06-30] MEDS ORDERED: ETOMIDATE 20 MG/10 ML INJ IV ONE (17:35)
[2021-06-30] MEDS ORDERED: SUCCINYLCHOLINE CHLORIDE 200 MG/10 ML INJ MDV IV ONE (17:36)
[2021-06-30] MEDS ORDERED: MINERAL OIL/PETROLATUM, WHITE OPHTH OINT 3.5 GM OU PRN (18:00)
[2021-06-30] MEDS ORDERED: fentaNYL 100 MCG/2 ML INJ IV PRN (18:00)
[2021-06-30] MEDS ORDERED: LIP THERAPY VASELINE TP PRN (18:00)
--- NOTE | 2021-06-30 18:13 | Event Note ---
Date: 06/30/21 (intubation) Pt progressively more hypoxic and with inc wob this afternoon. Dr Macdonald aware. Pt has been on bipap but not compliant- removing mask sats 75-85 ST MAP 100 Pt educated on the need for mechanical ventilator and intubation to support him. He concurs. Reports to me his NOK is his mother and father. Prior to intubation appropriate, oriented and COATSE. Medicated with etomodate 20mg and succin. 100 mg IV x 1 Intubated without difficulty 8.0 ETT, 24 cm lips end tidal CO2 color change/ bilateral rise and fall of chest Moved to ICU- placed on vent chest xray ordered Dr Macdonald updated Time spent not included in daily critical care time.
[2021-06-30] MEDS ORDERED: LORazepam 2 MG/ML VIAL ONE (18:17)
[2021-06-30] MEDS ORDERED: LORazepam 2 MG/ML VIAL IV PRN (18:23)
[2021-06-30] MEDS: fentaNYL DRIP Premix 2,000 MCG/100 ML BAG IV SCH (18:36)
[2021-06-30] MEDS: NORepinephrine/NS 4 MG-250 ML 4 MG/250 ML BAG IV SCH (18:36)
--- NOTE | 2021-06-30 18:51 | XRay Report ---
CHEST 1 VIEW 06/30/2021 6:13 PM INDICATION / CLINICAL INFORMATION: ETT placement. COMPARISON: 06/23/2021 FINDINGS: SUPPORT DEVICES: Endotracheal tube in satisfactory position. HEART / MEDIASTINUM: Unchanged. LUNGS / PLEURA: Persistent bilateral infiltrates with mild worsening. No pneumothorax. ADDITIONAL FINDINGS: No significant additional findings. IMPRESSION: 1. Endotracheal tube in satisfactory position. 2. Persistent bilateral infiltrates with mild worsening. Signer Name: Feng Costa MD Signed: 06/30/2021 6:47 PM Workstation Name: [id number]
[2021-06-30] MEDS ORDERED: LORazepam 100 MG in SODIUM CHLORIDE 0.9% 50 ML, EMPTY BAG 0 ML IV SCH (19:00)
[2021-06-30] MEDS ORDERED: SENNOSIDES/DOCUSATE SODIUM 8.6/50 MG TAB FEEDTUBE SCH (22:00)
[2021-07-01] MEDS: FAMOTIDINE 20 MG TAB PO SCH (00:32)
[2021-07-01] MEDS: methylPREDNISolone Sod Succinate 40 MG/1 ML INJ IV SCH ×4 (00:32→22:27)
[2021-07-01] MEDS: ENOXAPARIN 120 MG/0.8 ML INJ SUB-Q SCH (01:25)
[2021-07-01] MEDS: fentaNYL DRIP Premix 2,000 MCG/100 ML BAG IV SCH ×4 (02:10→19:40)
--- NOTE | 2021-07-01 03:21 | XRay Report ---
ABDOMEN 1 VIEW(S) 07/01/2021 1:55 AM INDICATION / CLINICAL INFORMATION: new dobhoff. COMPARISON: None available. FINDINGS: The tip of a weighted feeding tube projects over the gastric fundus. Extensive bilateral pneumonia an d pneumomediastinum Signer Name: Jorge L Cervantes MD Signed: 07/01/2021 3:16 AM Workstation Name: [id number]
[2021-07-01 06:23] LABS: Hematocrit 47.1 % (35.5-45.6); Hemoglobin 16.1 gm/dl (11.8-15.2); Mean Corpuscular HGB Conc 34 % (32-34); Mean Corpuscular Volume 89 fl (84-94); Platelet Count 116 K/mm3 (140-440); Red Blood Count 5.31 M/mm3 (3.65-5.03); Red Cell Distribution Width 14.3 % (13.2-15.2)
[2021-07-01 06:46] LABS: Alanine Aminotransferase 53 units/L (7-56); BUN/Creatinine Ratio 64; Blood Urea Nitrogen 51 mg/dL (9-20); Calcium 8.4 mg/dL (8.4-10.2); Hemolysis Index 57
[2021-07-01 07:11] LABS: Band Neutrophils # (Manual) 0.2 K/mm3; Total Cells Counted 100
[2021-07-01 07:12] LABS: Platelet Estimate Consistent w Auto; RBC Morphology Normal
[2021-07-01] MEDS ORDERED: LACTATED RINGERS 1,000 ML ONE (08:46)
--- NOTE | 2021-07-01 09:22 | Procedure Note ---
Date of procedure: 07/01/21 (right radial av) Pre-op diagnosis: respiratory failure Post-op diagnosis: same Procedure: right radial av placed without difficulty site prepped with CHG sterile technique of involved extremity artery cannulated without difficulty flushes well with good wave form on monitor line sutured in place biopatch and dressing applied ABG ordered time spent not included in daily critical care time Estimated blood loss: none Pathology: none Condition: stable Disposition: ICU
--- NOTE | 2021-07-01 09:35 | Progress Note ---
Assessment and Plan 36 y/o male with acute respiratory failure secondary to COVID 19 07/01/21: Intubated now and sedated. Will prone today for 16 hours. Adjust tube feeds accordingly. Low lung volume high PEEP strategy to obtain sats >88 and PaO2 >55. Maintain daily net negative volume state if BP and renal function will allow. Sedation to rass of -4. Continue IV steroids. Anticoagulation. Very very guarded prognosis. 06/30/21: VEey very close to intubation. Spoke with mother over the phone who wishes to come and visit to see if she can help calm him down and encourage more proning. Will continue bipap and IV steroids for now. Prognosis remains very guarded 1. Prone as tolerated during the day and sleep prone at night 2. IV steroids and remdesivir, per ID would be a candidate for actemra 3. Agree with lasix therapy, monitor renal function and electrolytes closely 4. Guarded prognosis Subjective Date of service: 07/01/21 Principal diagnosis: Acute hypoxic respiratory failure Interval history: Intubated yesterday afternoon. ABG post intubation and this am are about the same. Objective Vital Signs - 12hr 06/30/21 06/30/21 07/01/21 22:00 23:00 00:00 Temperature 97.8 F Pulse Rate 87 93 H 87 Respiratory 11 L 10 L 30 H Rate Blood Pressure 121/71 96/60 97/60 O2 Sat by Pulse 93 91 92 Oximetry 07/01/21 07/01/21 07/01/21 00:08 01:00 02:00 Temperature Pulse Rate 86 94 H 98 H Respiratory 28 H 30 H Rate Blood Pressure 95/59 82/55 O2 Sat by Pulse 91 93 95 Oximetry 07/01/21 07/01/21 07/01/21 02:57 03:00 04:00 Temperature 97.8 F Pulse Rate 99 H 100 H 104 H Respiratory 14 30 H Rate Blood Pressure 94/58 96/63 O2 Sat by Pulse 92 90 91 Oximetry 07/01/21 07/01/21 07/01/21 04:55 05:01 06:00 Temperature Pulse Rate 97 H 101 H Respiratory 27 H 11 L Rate Blood Pressure 96/63 107/71 O2 Sat by Pulse 94 95 94 Oximetry 07/01/21 07/01/21 07/01/21 07:00 07:25 08:00 Temperature Pulse Rate 105 H 106 H 111 H Respiratory 8 L 12 Rate Blood Pressure 113/69 113/69 112/72 O2 Sat by Pulse 89 90 90 Oximetry 07/01/21 09:00 Temperature Pulse Rate 126 H Respiratory 22 Rate Blood Pressure 118/81 O2 Sat by Pulse 88 Oximetry Constitutional: comatose, other (orally intubated and sedated) Eyes: non-icteric ENT: other (orally intubated, 8.0 tube) Neck: supple Ascultation: Bilateral: diminished breath sounds Percussion: Bilateral: not dull Cardiovascular: regular rate and rhythm Gastrointestinal: normoactive bowel sounds Integumentary: normal Extremities: no cyanosis Neurologic: unable to assess CBC and BMP: 07/01/21 05:50 07/01/21 05:50 ABG, PT/INR, D-dimer: ABG ABG pH 7.279 (7.320-7.450) L 07/01/21 03:45 POC ABG pCO2 51.9 mmHg (32.0-48.0) H 07/01/21 03:45 ABG pCO2 40.4 mm Hg 06/15/21 Unknown POC ABG pO2 79.1 mmHg (83-108) L 07/01/21 03:45 ABG pO2 61.0 mm Hg (80.0-90.0) L 06/15/21 Unknown POC ABG HCO3 23.8 07/01/21 03:45 ABG O2 Saturation 93.8 (0-100) 07/01/21 03:45 PT/INR, D-dimer D-Dimer 532.29 ng/mlDDU (0-234) H 06/26/21 10:46 Abnormal lab findings: Abnormal Labs 06/13/21 06/13/21 06/13/21 20:09 20:09 20:09 WBC 2.6 L RBC Hgb Hct MCHC 35 H Plt Count 112 L Lymph # (Auto) 0.6 L Seg Neuts % (Manual) Seg Neutrophils # Man Lymphocytes # (Manual) D-Dimer 560.90 H ABG pH POC ABG pCO2 POC ABG pO2 ABG pO2 ABG O2 Saturation ABG Hemoglobin ABG Oxyhemoglobin ABG Potassium ABG Glucose Oxyhemoglobin Carboxyhemoglobin Sodium 134 L Potassium Chloride BUN Creatinine Glucose 105 H POC Glucose Phosphorus Magnesium Ferritin AST ALT Alkaline Phosphatase Lactate Dehydrogenase C-Reactive Protein Total Protein Albumin Arterial Blood Glucose Coronavirus (PCR) 06/13/21 06/13/21 06/14/21 20:09 20:09 05:12 WBC 2.0 L RBC Hgb Hct MCHC 35 H Plt Count 106 L Lymph # (Auto) Seg Neuts % (Manual) 82.0 H Seg Neutrophils # Man 1.6 L Lymphocytes # (Manual) 0.3 L D-Dimer ABG pH POC ABG pCO2 POC ABG pO2 ABG pO2 ABG O2 Saturation ABG Hemoglobin ABG Oxyhemoglobin ABG Potassium ABG Glucose Oxyhemoglobin Carboxyhemoglobin Sodium Potassium Chloride BUN Creatinine Glucose 105 H POC Glucose Phosphorus Magnesium Ferritin 1876.0 H AST ALT Alkaline Phosphatase Lactate Dehydrogenase 634 H C-Reactive Protein 9.20 H Total Protein Albumin Arterial Blood Glucose Coronavirus (PCR) 06/14/21 06/14/21 06/14/21 05:12 23:50 Unknown WBC RBC Hgb Hct MCHC Plt Count Lymph # (Auto) Seg Neuts % (Manual) Seg Neutrophils # Man Lymphocytes # (Manual) D-Dimer ABG pH POC ABG pCO2 POC ABG pO2 ABG pO2 ABG O2 Saturation ABG Hemoglobin ABG Oxyhemoglobin ABG Potassium ABG Glucose Oxyhemoglobin Carboxyhemoglobin Sodium Potassium Chloride BUN Creatinine Glucose 214 H 135 H POC Glucose Phosphorus Magnesium Ferritin AST 52 H ALT Alkaline Phosphatase Lactate Dehydrogenase C-Reactive Protein Total Protein Albumin 3.2 L Arterial Blood Glucose Coronavirus (PCR) Positive A 06/15/21 06/15/21 06/15/21 05:21 05:21 05:21 WBC RBC Hgb Hct MCHC Plt Count Lymph # (Auto) Seg Neuts % (Manual) Seg Neutrophils # Man Lymphocytes # (Manual) D-Dimer 360.79 H ABG pH POC ABG pCO2 POC ABG pO2 ABG pO2 ABG O2 Saturation ABG Hemoglobin ABG Oxyhemoglobin ABG Potassium ABG Glucose Oxyhemoglobin Carboxyhemoglobin Sodium Potassium Chloride BUN Creatinine 0.7 L Glucose 167 H POC Glucose Phosphorus Magnesium Ferritin 1869.0 H AST 65 H ALT Alkaline Phosphatase Lactate Dehydrogenase C-Reactive Protein Total Protein 6.1 L Albumin 3.4 L Arterial Blood Glucose Coronavirus (PCR) 06/15/21 06/15/21 06/16/21 05:21 Unknown 07:16 WBC RBC Hgb Hct MCHC Plt Count Lymph # (Auto) Seg Neuts % (Manual) Seg Neutrophils # Man Lymphocytes # (Manual) D-Dimer ABG pH POC ABG pCO2 POC ABG pO2 ABG pO2 61.0 L ABG O2 Saturation 91.3 L ABG Hemoglobin ABG Oxyhemoglobin ABG Potassium ABG Glucose Oxyhemoglobin 89.9 L Carboxyhemoglobin Sodium Potassium Chloride BUN Creatinine Glucose 130 H POC Glucose Phosphorus Magnesium Ferritin AST 77 H ALT 57 H Alkaline Phosphatase Lactate Dehydrogenase C-Reactive Protein 3.10 H Total Protein 6.0 L Albumin 3.5 L Arterial Blood Glucose Coronavirus (PCR) 06/17/21 06/17/21 06/22/21 04:36 04:36 04:58 WBC 16.3 H RBC 5.55 H Hgb 16.7 H Hct 48.2 H MCHC 36 H 35 H Plt Count Lymph # (Auto) Seg Neuts % (Manual) Seg Neutrophils # Man Lymphocytes # (Manual) D-Dimer ABG pH POC ABG pCO2 POC ABG pO2 ABG pO2 ABG O2 Saturation ABG Hemoglobin ABG Oxyhemoglobin ABG Potassium ABG Glucose Oxyhemoglobin Carboxyhemoglobin Sodium Potassium Chloride BUN 29 H Creatinine Glucose 125 H POC Glucose Phosphorus Magnesium Ferritin AST 59 H ALT 57 H Alkaline Phosphatase Lactate Dehydrogenase C-Reactive Protein Total Protein 6.0 L Albumin 3.6 L Arterial Blood Glucose Coronavirus (PCR) 06/22/21 06/22/21 06/22/21 04:58 04:58 04:58 WBC RBC Hgb Hct MCHC Plt Count Lymph # (Auto) Seg Neuts % (Manual) Seg Neutrophils # Man Lymphocytes # (Manual) D-Dimer 335.27 H ABG pH POC ABG pCO2 POC ABG pO2 ABG pO2 ABG O2 Saturation ABG Hemoglobin ABG Oxyhemoglobin ABG Potassium ABG Glucose Oxyhemoglobin Carboxyhemoglobin Sodium 135 L Potassium Chloride 96.8 L BUN 32 H Creatinine Glucose 172 H POC Glucose Phosphorus Magnesium Ferritin 1251.0 H AST ALT Alkaline Phosphatase Lactate Dehydrogenase 816 H C-Reactive Protein Total Protein 6.1 L Albumin 3.6 L Arterial Blood Glucose Coronavirus (PCR) 06/22/21 06/24/21 06/24/21 10:35 05:25 05:25 WBC RBC Hgb Hct MCHC Plt Count Lymph # (Auto) Seg Neuts % (Manual) Seg Neutrophils # Man Lymphocytes # (Manual) D-Dimer 570.75 H ABG pH 7.475 H POC ABG pCO2 29.2 L POC ABG pO2 51.5 L ABG pO2 ABG O2 Saturation ABG Hemoglobin 18.3 H ABG Oxyhemoglobin 86.3 L ABG Potassium ABG Glucose 143 H Oxyhemoglobin Carboxyhemoglobin 0.2 L Sodium Potassium Chloride BUN Creatinine Glucose POC Glucose Phosphorus Magnesium Ferritin 1621.0 H AST ALT Alkaline Phosphatase Lactate Dehydrogenase C-Reactive Protein Total Protein Albumin Arterial Blood Glucose 143 H Coronavirus (PCR) 06/24/21 06/26/21 06/26/21 05:25 10:46 10:46 WBC RBC Hgb Hct MCHC Plt Count Lymph # (Auto) Seg Neuts % (Manual) Seg Neutrophils # Man Lymphocytes # (Manual) D-Dimer 532.29 H ABG pH POC ABG pCO2 POC ABG pO2 ABG pO2 ABG O2 Saturation ABG Hemoglobin ABG Oxyhemoglobin ABG Potassium ABG Glucose Oxyhemoglobin Carboxyhemoglobin Sodium Potassium Chloride BUN 34 H Creatinine 0.7 L Glucose 131 H POC Glucose Phosphorus Magnesium Ferritin 2549.0 H AST ALT Alkaline Phosphatase Lactate Dehydrogenase 691 H C-Reactive Protein Total Protein Albumin Arterial Blood Glucose Coronavirus (PCR) 06/26/21 06/29/21 06/30/21 10:46 05:27 07:11 WBC RBC Hgb Hct MCHC Plt Count 90 L Lymph # (Auto) Seg Neuts % (Manual) Seg Neutrophils # Man Lymphocytes # (Manual) D-Dimer ABG pH POC ABG pCO2 POC ABG pO2 ABG pO2 ABG O2 Saturation ABG Hemoglobin ABG Oxyhemoglobin ABG Potassium ABG Glucose Oxyhemoglobin Carboxyhemoglobin Sodium 135 L Potassium Chloride 95.1 L BUN 39 H 28 H Creatinine 0.7 L 0.6 L Glucose 202 H 159 H POC Glucose Phosphorus Magnesium Ferritin AST ALT Alkaline Phosphatase Lactate Dehydrogenase 644 H C-Reactive Protein Total Protein Albumin Arterial Blood Glucose Coronavirus (PCR) 06/30/21 06/30/21 07/01/21 07:11 07:26 03:45 WBC RBC Hgb Hct MCHC Plt Count Lymph # (Auto) Seg Neuts % (Manual) Seg Neutrophils # Man Lymphocytes # (Manual) D-Dimer ABG pH 7.279 L POC ABG pCO2 51.9 H POC ABG pO2 79.1 L ABG pO2 ABG O2 Saturation ABG Hemoglobin 21.9 H ABG Oxyhemoglobin 93.2 L ABG Potassium 5.3 H ABG Glucose 145 H Oxyhemoglobin Carboxyhemoglobin 0.3 L Sodium 136 L Potassium 5.4 H Chloride BUN 37 H Creatinine 0.5 L Glucose 126 H POC Glucose 147 H Phosphorus Magnesium Ferritin AST ALT Alkaline Phosphatase Lactate Dehydrogenase C-Reactive Protein Total Protein Albumin Arterial Blood Glucose 145 H Coronavirus (PCR) 07/01/21 07/01/21 05:50 05:50 WBC 16.4 H RBC 5.31 H Hgb 16.1 H Hct 47.1 H MCHC Plt Count 116 L Lymph # (Auto) Seg Neuts % (Manual) 99.0 H Seg Neutrophils # Man 16.2 H Lymphocytes # (Manual) 0.0 L D-Dimer ABG pH POC ABG pCO2 POC ABG pO2 ABG pO2 ABG O2 Saturation ABG Hemoglobin ABG Oxyhemoglobin ABG Potassium ABG Glucose Oxyhemoglobin Carboxyhemoglobin Sodium 136 L Potassium 5.5 H Chloride BUN 51 H Creatinine Glucose 133 H POC Glucose Phosphorus 6.40 H Magnesium 3.00 H Ferritin AST ALT Alkaline Phosphatase 144 H Lactate Dehydrogenase C-Reactive Protein Total Protein 5.7 L Albumin 3.0 L Arterial Blood Glucose Coronavirus (PCR) Chest x-ray: image reviewed
[2021-07-01] MEDS ORDERED: SODIUM POLYSTYRENE 15 GM/60 ML ORAL LIQD PO ONE (11:00)
--- NOTE | 2021-07-01 12:07 | Progress Note ---
<MERLINLORI A - Last Filed: 07/01/21 12:26> Assessment and Plan Assessment and plan: 36-year-old with a history of asthma, obesity presented with shortness of breath fever chills arthralgias myalgias approximately 8 days after testing positive for COVID. Patient at present hypoxic requiring 15 L facemask at present. Patient is able to speak in full sentences however remains hypoxic. Hospital course complicated by nonproductive cough. NEURO-sedation; anxiety sedated on fentanyl and prop follows commands; COATES restrained for safety PRN tylenol mother updated on plan of care CV- tachycardia ST fluid balance has been net neg for several days PRN NE off pressors RESP-hx asthma; acute hypoxic resp failure due to [id number] intubated last night 8.0 tube mechancally ventilated requiring max vent support ABG noted this AM av placed this AM will prone today continue nebs GI- protein calorie deficit nutrition consult TF ordered pepcid bowel reg-colace - hyperK trend Cr strict I/O pt was net neg 366 ml over the last 24 hours K high today; normal Cr kaexalate ordered labs ordered for 1800 and in AM HEME- thrombocytopenia VTE lovenox 40 mg BID trend plt trend CBC no bleeding on exam ID- covid pna; sepsis PICC team consult methylpred 40 Q8h blood and sputum cultures sent last night urine reordered follow culture data WBC uptrending to 16.4 trend temp continue to follow temp and WBC curve ID following completed remdesovir ENDO obese; hyperglycemia likely steroid induced monitor blood glucose Add SSI PRN 06/15: Considering gradual decline will transfer patient to IMCU. We'll also consult pulmonary GI. I have requested the patient be put on high flow and also trial of BiPAP. ID is consulted and currently following patient management. Weight loss recommended. Continue steroids. Chest x-ray reviewed by me shows bilateral infiltrates 06/16: Patient seen and examined Remains on HFNC but now at 40 and 100%. SAts in the mid 90's. Continue to monitor renal function with Lasix. Continue IMCU. Can downgrade this oxygen weaning again this. Continue prone positioning. Case discussed with extern 06/17: Continue supportive care. High flow down to 35 L continuous 100% with saturation in the mid to low 90s. Per extern steroid has been increased to twice daily dosing due to patient size. Patient continues on IV remdesivir. We will continue to monitor inflammatory markers. Prognosis is guarded. 06/18: Patient seen and examined, Continues supportive care, wean as tolerated. still with persitent hypoxia, he did not like the High flow, affects his nostriles, and now is on NRB satting 94%. Continue to encourage prone position. condition is still guarded 06/19: Continue supportive care, wean oxygen as tolerated, patient ok with me speaking with mother, will call and update. 06/20: Patient seen and examined continues to be weaned down on high flow oxygen down to 85%. Saturation remains around 92%. I did discuss extensively with the mother. She verbalized understanding. This discussion was done with permission with the patient. We will do another trial of Lasix. Patient is continued on the steroids he is status post Actemra and has completed his remdesivir. 06/21: Patient's prognosis still remains guarded. Continue to encourage prone positioning. Went back up on oxygen demand. But states that he does not feel less winded as before. Continue diuresis and monitor renal function. Also monitor inflammatory markers. 06/22: Patient more mobile but still profoundly hypoxic, continue to monitor and wean oxygen as tolerated. Will re-evaluate if repeated Lasix will help. 06/23: Patient seen and examined remains on high flow refusing to prone states is uncomfortable. We will continue with aggressive measures. Will change to full dose Lovenox discussed with plant and machinery valuer. Condition is still guarded 06/24; patient was seen and evaluated this morning. Patient was on 15L of high flow oxygen. Patient finished remdesivir, Decadron, Actemra. Prognosis is guarded. 06/25; patient was on 40 L of high flow oxygen with FiO2 of 100%. Prognosis is guarded. Continue IMCU care. Patient was anxious and put on Xanax as needed. 06/26; patient was on 40 L of high flow oxygen with FiO2 of 100%. Prognosis is guarded. Continue IMCU care. Patient was anxious and put on Xanax as needed. 06/27; patient is on 40 L of oxygen and 15 L via nonrebreather mask. Prognosis is guarded 06/28; patient is on 40 L of high flow oxygen. Will give Lasix. Patient is on X anax 0.5 mg p.o. 3 times daily. Self proning. 06/29 Patient is alert, no complaints, he is on BIPAP at 100 Fio2, moderately dyspneic, pulmonary note reviewed, lab results reviewed 06/30: Patient remains on BiPAP with full facemask still dyspneic. Still encourage prone positioning patient sometimes refuses the importance discussed in detail. Plan discussed with nursing staff at bedside 07-01 intubated last night The high probability of a clinically significant, sudden or life threatening det erioration of the [pulmonary] system(s) required my full and direct attention, intervention and personal management. The aggregate critical care time was [60] minutes. This time is in addition to time spent performing reported procedures but includes the following: [x] Data Review and interpretation [x] Patient assessment and monitoring of vital signs [x] Documentation [x] Medication orders and management Disposition Plan: ICU Total Time Spent with Patient (Minutes): 60 History Interval history: intubated last night Hospitalist Physical - Constitutional Vitals: Temp Pulse Resp BP Pulse Ox 97.6 F 139 H 13 114/77 89 07/01/21 08:00 07/01/21 12:01 07/01/21 12:01 07/01/21 12:01 07/01/21 12:01 General appearance: Present: mild distress - EENT Eyes: Present: PERRL, EOM intact ENT: hearing intact - Neck Neck: Present: supple, normal ROM - Respiratory Respiratory effort: normal - Cardiovascular Rhythm: regular Heart Sounds: Present: S1 & S2 - Extremities Extremities: no ischemia - Abdominal General gastrointestinal: soft, non-tender - Integumentary Integumentary: Present: clear, warm, dry - Psychiatric Psychiatric: other (following commands) - Allied Health Allied health notes reviewed: nursing, RT, social work, case management Results - Labs CBC & Chem 7: 07/01/21 05:50 07/01/21 05:50 Labs: Laboratory Last Values WBC 16.4 K/mm3 (4.5-11.0) H 07/01/21 05:50 RBC 5.31 M/mm3 (3.65-5.03) H 07/01/21 05:50 Hgb 16.1 gm/dl (11.8-15.2) H 07/01/21 05:50 Hct 47.1 % (35.5-45.6) H 07/01/21 05:50 MCV 89 fl (84-94) 07/01/21 05:50 MCH 30 pg (28-32) 07/01/21 05:50 MCHC 34 % (32-34) 07/01/21 05:50 RDW 14.3 % (13.2-15.2) 07/01/21 05:50 Plt Count 116 K/mm3 (140-440) L 07/01/21 05:50 Lymph % (Auto) 25.5 % (13.4-35.0) 06/13/21 20:09 [place] % (Auto) 4.3 % (0.0-7.3) 06/13/21 20:09 Eos % (Auto) 0.0 % (0.0-4.3) 06/13/21 20:09 Baso % (Auto) 0.3 % (0.0-1.8) 06/13/21 20:09 Lymph # (Auto) 0.6 K/mm3 (1.2-5.4) L 06/13/21 20:09 [place] # (Auto) 0.1 K/mm3 (0.0-0.8) 06/13/21 20:09 Eos # (Auto) 0.0 K/mm3 (0.0-0.4) 06/13/21 20:09 Baso # (Auto) 0.0 K/mm3 (0.0-0.1) 06/13/21 20:09 Add Manual Diff Complete 07/01/21 05:50 Total Counted 100 07/01/21 05:50 Seg Neutrophils % Dock Or Pier Laborer 07/01/21 05:50 Seg Neuts % (Manual) 99.0 % (40.0-70.0) H 07/01/21 05:50 Band Neutrophils % 1.0 % 07/01/21 05:50 Lymphocytes % (Manual) 14.0 % (13.4-35.0) 06/14/21 05:12 Monocytes % (Manual) 4.0 % (0.0-7.3) 06/14/21 05:12 Nucleated RBC % Not Reportable 07/01/21 05:50 Seg Neutrophils # 1.8 K/mm3 (1.8-7.7) 06/13/21 20:09 Seg Neutrophils # Man 16.2 K/mm3 (1.8-7.7) H 07/01/21 05:50 Band Neutrophils # 0.2 K/mm3 07/01/21 05:50 Lymphocytes # (Manual) 0.0 K/mm3 (1.2-5.4) L 07/01/21 05:50 Abs React Lymphs (Man) 0.0 K/mm3 07/01/21 05:50 Monocytes # (Manual) 0.0 K/mm3 (0.0-0.8) 07/01/21 05:50 Eosinophils # (Manual) 0.0 K/mm3 (0.0-0.4) 07/01/21 05:50 Basophils # (Manual) 0.0 K/mm3 (0.0-0.1) 07/01/21 05:50 Metamyelocytes # 0.0 K/mm3 07/01/21 05:50 Myelocytes # 0.0 K/mm3 07/01/21 05:50 Promyelocytes # 0.0 K/mm3 07/01/21 05:50 Blast Cells # 0.0 K/mm3 07/01/21 05:50 WBC Morphology Not Reportable 07/01/21 05:50 Hypersegmented Neuts Not Reportable 07/01/21 05:50 Hyposegmented Neuts Not Reportable 07/01/21 05:50 Hypogranular Neuts Not Reportable 07/01/21 05:50 Smudge Cells Not Reportable 07/01/21 05:50 Toxic Granulation Not Reportable 07/01/21 05:50 Toxic Vacuolation Not Reportable 07/01/21 05:50 Dohle Bodies Not Reportable 07/01/21 05:50 Pelger-Huet Anomaly Not Reportable 07/01/21 05:50 Sheri Rods Not Reportable 07/01/21 05:50 Platelet Estimate Consistent w auto 07/01/21 05:50 Clumped Platelets Not Reportable 07/01/21 05:50 Plt Clumps, EDTA Not Reportable 07/01/21 05:50 Large Platelets Not Reportable 07/01/21 05:50 Giant Platelets Not Reportable 07/01/21 05:50 Platelet Satelliting Not Reportable 07/01/21 05:50 Plt Morphology Comment Not Reportable 07/01/21 05:50 RBC Morphology Normal 07/01/21 05:50 Dimorphic RBCs Not Reportable 07/01/21 05:50 Polychromasia Not Reportable 07/01/21 05:50 Hypochromasia Not Reportable 07/01/21 05:50 Poikilocytosis Not Reportable 07/01/21 05:50 Anisocytosis Not Reportable 07/01/21 05:50 Microcytosis Not Reportable 07/01/21 05:50 Macrocytosis Not Reportable 07/01/21 05:50 Spherocytes Not Reportable 07/01/21 05:50 Pappenheimer Bodies Not Reportable 07/01/21 05:50 Sickle Cells Not Reportable 07/01/21 05:50 Target Cells Not Reportable 07/01/21 05:50 Tear Drop Cells Not Reportable 07/01/21 05:50 Ovalocytes Not Reportable 07/01/21 05:50 Helmet Cells Not Reportable 07/01/21 05:50 Macdonald-Landusky Bodies Not Reportable 07/01/21 05:50 [place] Rings Not Reportable 07/01/21 05:50 [place] Cells Not Reportable 07/01/21 05:50 Bite Cells Not Reportable 07/01/21 05:50 Crenated Cell Not Reportable 07/01/21 05:50 Elliptocytes Not Reportable 07/01/21 05:50 Acanthocytes (Spur) Not Reportable 07/01/21 05:50 Rouleaux Not Reportable 07/01/21 05:50 Hemoglobin C Crystals Not Reportable 07/01/21 05:50 Schistocytes Not Reportable 07/01/21 05:50 Malaria parasites Not Reportable 07/01/21 05:50 Swapnil Bodies Not Reportable 07/01/21 05:50 Hem Pathologist Commnt No 07/01/21 05:50 D-Dimer 532.29 ng/mlDDU (0-234) H 06/26/21 10:46 ABG pH 7.279 (7.320-7.450) L 07/01/21 03:45 POC ABG pCO2 51.9 mmHg (32.0-48.0) H 07/01/21 03:45 ABG pCO2 40.4 mm Hg 06/15/21 Unknown POC ABG pO2 79.1 mmHg (83-108) L 07/01/21 03:45 ABG pO2 61.0 mm Hg (80.0-90.0) L 06/15/21 Unknown POC ABG HCO3 23.8 07/01/21 03:45 ABG HCO3 23.7 mmol/L (20.0-26.0) 06/15/21 Unknown ABG O2 Saturation 93.8 (0-100) 07/01/21 03:45 ABG O2 Content 21.0 (0.0-44) 06/15/21 Unknown POC ABG Base Excess -4.0 07/01/21 03:45 ABG Base Excess -1.1 mmol/L (-2.0-3.0) 06/15/21 Unknown ABG Hemoglobin 21.9 (12.0-17.5) H 07/01/21 03:45 ABG Oxyhemoglobin 93.2 (94-98) L 07/01/21 03:45 ABG Carboxyhemoglobin 1.0 % (0.0-5.0) 06/15/21 Unknown ABG Methemoglobin 0.3 (0.0-1.5) 07/01/21 03:45 ABG Sodium 138.9 mmol/L (136.0-145.0) 07/01/21 03:45 ABG Potassium 5.3 mmol/L (3.40-4.50) H 07/01/21 03:45 ABG Chloride 101.0 mmol/L (98-107) 07/01/21 03:45 ABG Glucose 145 mg/dL (65-95) H 07/01/21 03:45 Oxyhemoglobin 89.9 % (95.0-99.0) L 06/15/21 Unknown Carboxyhemoglobin 0.3 (0.5-1.5) L 07/01/21 03:45 FiO2 100 % 06/15/21 Unknown FiO2 % 100.0 07/01/21 03:45 Sodium 136 mmol/L (137-145) L 07/01/21 05:50 Potassium 5.5 mmol/L (3.6-5.0) H 07/01/21 05:50 Chloride 101.0 mmol/L (98-107) 07/01/21 05:50 Carbon Dioxide 24 mmol/L (22-30) 07/01/21 05:50 Anion Gap 17 mmol/L 07/01/21 05:50 BUN 51 mg/dL (9-20) H 07/01/21 05:50 Creatinine 0.8 mg/dL (0.8-1.3) D 07/01/21 05:50 Estimated GFR > 60 ml/min 07/01/21 05:50 BUN/Creatinine Ratio 64 % 07/01/21 05:50 Glucose 133 mg/dL (75-100) H 07/01/21 05:50 POC Glucose 147 mg/dL (70-105) H 06/30/21 07:26 Calcium 8.4 mg/dL (8.4-10.2) 07/01/21 05:50 Phosphorus 6.40 mg/dL (2.5-4.5) H 07/01/21 05:50 Magnesium 3.00 mg/dL (1.7-2.3) H 07/01/21 05:50 Ferritin 2549.0 ng/mL (30.0-300.0) H 06/26/21 10:46 Total Bilirubin 0.50 mg/dL (0.1-1.2) 07/01/21 05:50 AST 27 units/L (5-40) 07/01/21 05:50 ALT 53 units/L (7-56) 07/01/21 05:50 Alkaline Phosphatase 144 units/L (35-129) H 07/01/21 05:50 Lactate Dehydrogenase 644 units/L (91-180) H 06/26/21 10:46 C-Reactive Protein < 0.03 mg/dL (0.00-1.30) 06/26/21 10:46 Total Protein 5.7 g/dL (6.3-8.2) L 07/01/21 05:50 Albumin 3.0 g/dL (3.9-5) L 07/01/21 05:50 Albumin/Globulin Ratio 1.1 % 07/01/21 05:50 Procalcitonin < 0.05 ng/mL (<0.15) 06/24/21 05:25 Arterial Blood Glucose 145 mg/dL (65-95) H 07/01/21 03:45 Arterial Blood Ionized Calcium 5.1 mg/dL (4.6-5.3) 07/01/21 03:45 Coronavirus (PCR) Positive (Negative) A 06/14/21 Unknown Microbiology: Microbiology 06/30/21 21:17 Peripheral/Venous Blood Culture - Preliminary Culture in Progress 06/30/21 21:17 Peripheral/Venous Blood Culture - Preliminary Culture in Progress Mao/IV: Voiding Method Indwelling Catheter Active Medications - Current Medications Current Medications: Generic Name Dose Route Start Last Admin Trade Name Freq PRN Reason Stop Dose Admin Acetaminophen 650 mg 06/13/21 22:49 06/27/21 03:31 Acetaminophen 325 Mg Tab PO 650 mg Q4H PRN Administration Pain MILD(1-3)/Fever >100.5/HAYNES Albuterol 5 mg 06/25/21 11:52 Albuterol 2.5 Mg/3 Ml Nebu IH Q4HRT PRN Shortness Of Breath Enoxaparin Sodium 40 mg 07/01/21 22:00 Enoxaparin 40 Mg/0.4 Ml Inj SUB-Q QDAY@2200 SIMÓN Famotidine 20 mg 07/01/21 10:00 Famotidine 20 Mg/2 Ml Inj IV BID SIMÓN Hydralazine HCl 10 mg 06/13/21 22:52 Hydralazine 20 Mg/1 Ml Inj IV Q6H PRN SBP >/=160; DBP >/=100 Norepinephrine 4 mg in 250 mls @ 7.5 mls/hr 06/30/21 18:00 06/30/21 22:30 Levophed Drip 4 Mg/Ns 250 Ml IV 0 mcg/min TITR SIMÓN 0 mls/hr Titration Protocol 2 MCG/MIN Fentanyl Citrate 2,000 mcg in 100 mls @ 5.7 mls/hr 06/30/21 18:00 07/01/21 09:26 Fentanyl Drip Premix IV 2 mcg/kg/hr TITR SIMÓN 11.4 mls/hr Administration Protocol 1 MCG/KG/HR Lorazepam 100 mg/ Sodium 100 mls @ 1 mls/hr 06/30/21 19:00 Chloride/ Miscellaneous IV Information TITR SIMÓN Protocol 1 MG/HR Propofol 1,000 mg in 100 mls @ 17.1 mls/hr 06/30/21 22:00 07/01/21 09:29 Diprivan 10 Mg/Ml IV 30 mcg/kg/min TITR SIMÓN 20.52 mls/hr Titration Protocol 25 MCG/KG/MIN Lorazepam 2 mg 06/30/21 18:23 Lorazepam 2 Mg/Ml Vial IV Q10MIN PRN Agitation Methylprednisolone Sodium Succinate 40 mg 06/25/21 14:00 07/01/21 05:55 Methylprednisolone Sod Succinate 40 Mg/1 Ml Inj IV 40 mg Q8HR SIMÓN Administration Sodium Chloride 10 ml 06/14/21 10:00 06/30/21 22:00 Sodium Chloride 0.9% 10 Ml Flush Syringe IV 10 ml BID SIMÓN Administration Sodium Chloride 10 ml 06/13/21 22:49 Sodium Chloride 0.9% 10 Ml Flush Syringe IV PRN PRN LINE FLUSH Nutrition/Malnutrition Assess - Dietary Evaluation Nutrition/Malnutrition Findings: Nutrition Notes Start: 06/19/21 11:11 Freq: Status: Active Protocol: Document 06/30/21 14:25 ARIS (Rec: 06/30/21 14:30 ARIS [id number]) Nutrition Notes Initial or Follow up Reassessment Current Diagnosis Sepsis Other Pertinent Diagnosis COVID-19 pneu Current Diet Regular + Ensure Enlive daily Labs/Tests Na 136 K 5.4 BUN 37 Pertinent Medications Reviewed Height 5 ft 9 in Weight 114 kg [place] Body Weight (kg) 72.72 BMI 37.0 Weight Status Obese Subjective/Other Information Inconsistent documentation of PO intakes; last meal intake documented for dinner on 06/28 at 100%. Unable to reach pt via phone at 14:16. Burn Absent Trauma Absent #1 Nutrition Diagnosis Inadequate oral intake As Evidenced by Signs and Symptoms pt likely consuming adequate PO Diagnosis Progress(for reassessment Resolved documentation) Is patient on ventilator? No Is Patient Ambulatory and/or Out of Bed No REE-([facility]-confined to bed) 2474.544 Kcal/Kg value to use for calculation 17 Approximate Energy Requirements Using 1938 kcal/Kg Calculation Used for Recommendations Kcal/kg Additional Notes Pro needs 0.8-1g/kg adjBW: 75- 93g/day Fluid needs 1ml/kcal Nutrition Intervention Follow-Up By: 07/07/21 Additional Comments F/U: stable intakes, wt - Attestation Statement I have reviewed and agreed w/ Malnutrition eval & tx plan: Yes <TIMBO ARREDONDO - Last Filed: 07/02/21 06:59> Assessment and Plan Assessment and plan: I saw and evaluated the patient. I agree with the findings and the plan of care as documented in the Nurse Practitioner's~note, with the following corrections and additions. Hospitalist Physical - Constitutional Vitals: Temp Pulse Resp BP Pulse Ox 98.7 F 127 H 30 H 113/70 92 07/02/21 04:00 07/02/21 06:00 07/02/21 06:00 07/02/21 06:00 07/02/21 06:00 Results - Labs CBC & Chem 7: 07/02/21 05:50 07/02/21 05:50 Labs: Laboratory Last Values WBC 26.5 K/mm3 (4.5-11.0) H 07/02/21 05:50 RBC 4.95 M/mm3 (3.65-5.03) 07/02/21 05:50 Hgb 14.7 gm/dl (11.8-15.2) 07/02/21 05:50 Hct 44.3 % (35.5-45.6) 07/02/21 05:50 MCV 90 fl (84-94) 07/02/21 05:50 MCH 30 pg (28-32) 07/02/21 05:50 MCHC 33 % (32-34) 07/02/21 05:50 RDW 14.5 % (13.2-15.2) 07/02/21 05:50 Plt Count 122 K/mm3 (140-440) L 07/02/21 05:50 Lymph % (Auto) 25.5 % (13.4-35.0) 06/13/21 20:09 [place] % (Auto) 4.3 % (0.0-7.3) 06/13/21 20:09 Eos % (Auto) 0.0 % (0.0-4.3) 06/13/21 20:09 Baso % (Auto) 0.3 % (0.0-1.8) 06/13/21 20:09 Lymph # (Auto) 0.6 K/mm3 (1.2-5.4) L 06/13/21 20:09 [place] # (Auto) 0.1 K/mm3 (0.0-0.8) 06/13/21 20:09 Eos # (Auto) 0.0 K/mm3 (0.0-0.4) 06/13/21 20:09 Baso # (Auto) 0.0 K/mm3 (0.0-0.1) 06/13/21 20:09 Add Manual Diff Complete 07/01/21 05:50 Total Counted 100 07/01/21 05:50 Seg Neutrophils % Dock Or Pier Laborer 07/01/21 05:50 Seg Neuts % (Manual) 99.0 % (40.0-70.0) H 07/01/21 05:50 Band Neutrophils % 1.0 % 07/01/21 05:50 Lymphocytes % (Manual) 14.0 % (13.4-35.0) 06/14/21 05:12 Monocytes % (Manual) 4.0 % (0.0-7.3) 06/14/21 05:12 Nucleated RBC % Not Reportable 07/01/21 05:50 Seg Neutrophils # 1.8 K/mm3 (1.8-7.7) 06/13/21 20:09 Seg Neutrophils # Man 16.2 K/mm3 (1.8-7.7) H 07/01/21 05:50 Band Neutrophils # 0.2 K/mm3 07/01/21 05:50 Lymphocytes # (Manual) 0.0 K/mm3 (1.2-5.4) L 07/01/21 05:50 Abs React Lymphs (Man) 0.0 K/mm3 07/01/21 05:50 Monocytes # (Manual) 0.0 K/mm3 (0.0-0.8) 07/01/21 05:50 Eosinophils # (Manual) 0.0 K/mm3 (0.0-0.4) 07/01/21 05:50 Basophils # (Manual) 0.0 K/mm3 (0.0-0.1) 07/01/21 05:50 Metamyelocytes # 0.0 K/mm3 07/01/21 05:50 Myelocytes # 0.0 K/mm3 07/01/21 05:50 Promyelocytes # 0.0 K/mm3 07/01/21 05:50 Blast Cells # 0.0 K/mm3 07/01/21 05:50 WBC Morphology Not Reportable 07/01/21 05:50 Hypersegmented Neuts Not Reportable 07/01/21 05:50 Hyposegmented Neuts Not Reportable 07/01/21 05:50 Hypogranular Neuts Not Reportable 07/01/21 05:50 Smudge Cells Not Reportable 07/01/21 05:50 Toxic Granulation Not Reportable 07/01/21 05:50 Toxic Vacuolation Not Reportable 07/01/21 05:50 Dohle Bodies Not Reportable 07/01/21 05:50 Pelger-Huet Anomaly Not Reportable 07/01/21 05:50 Sheri Rods Not Reportable 07/01/21 05:50 Platelet Estimate Consistent w auto 07/01/21 05:50 Clumped Platelets Not Reportable 07/01/21 05:50 Plt Clumps, EDTA Not Reportable 07/01/21 05:50 Large Platelets Not Reportable 07/01/21 05:50 Giant Platelets Not Reportable 07/01/21 05:50 Platelet Satelliting Not Reportable 07/01/21 05:50 Plt Morphology Comment Not Reportable 07/01/21 05:50 RBC Morphology Normal 07/01/21 05:50 Dimorphic RBCs Not Reportable 07/01/21 05:50 Polychromasia Not Reportable 07/01/21 05:50 Hypochromasia Not Reportable 07/01/21 05:50 Poikilocytosis Not Reportable 07/01/21 05:50 Anisocytosis Not Reportable 07/01/21 05:50 Microcytosis Not Reportable 07/01/21 05:50 Macrocytosis Not Reportable 07/01/21 05:50 Spherocytes Not Reportable 07/01/21 05:50 Pappenheimer Bodies Not Reportable 07/01/21 05:50 Sickle Cells Not Reportable 07/01/21 05:50 Target Cells Not Reportable 07/01/21 05:50 Tear Drop Cells Not Reportable 07/01/21 05:50 Ovalocytes Not Reportable 07/01/21 05:50 Helmet Cells Not Reportable 07/01/21 05:50 Macdonald-Landusky Bodies Not Reportable 07/01/21 05:50 [place] Rings Not Reportable 07/01/21 05:50 [place] Cells Not Reportable 07/01/21 05:50 Bite Cells Not Reportable 07/01/21 05:50 Crenated Cell Not Reportable 07/01/21 05:50 Elliptocytes Not Reportable 07/01/21 05:50 Acanthocytes (Spur) Not Reportable 07/01/21 05:50 Rouleaux Not Reportable 07/01/21 05:50 Hemoglobin C Crystals Not Reportable 07/01/21 05:50 Schistocytes Not Reportable 07/01/21 05:50 Malaria parasites Not Reportable 07/01/21 05:50 Swapnil Bodies Not Reportable 07/01/21 05:50 Hem Pathologist Commnt No 07/01/21 05:50 D-Dimer 532.29 ng/mlDDU (0-234) H 06/26/21 10:46 ABG pH 7.208 (7.320-7.450) L 07/02/21 05:00 POC ABG pCO2 71.4 mmHg (32.0-48.0) H 07/02/21 05:00 ABG pCO2 40.4 mm Hg 06/15/21 Unknown POC ABG pO2 79.6 mmHg (83-108) L 07/02/21 05:00 ABG pO2 61.0 mm Hg (80.0-90.0) L 06/15/21 Unknown POC ABG HCO3 27.8 07/02/21 05:00 ABG HCO3 23.7 mmol/L (20.0-26.0) 06/15/21 Unknown ABG O2 Saturation 94.6 (0-100) 07/02/21 05:00 ABG O2 Content 21.0 (0.0-44) 06/15/21 Unknown POC ABG Base Excess -2.2 07/02/21 05:00 ABG Base Excess -1.1 mmol/L (-2.0-3.0) 06/15/21 Unknown ABG Hemoglobin 15.6 (12.0-17.5) 07/02/21 05:00 ABG Oxyhemoglobin 93.8 (94-98) L 07/02/21 05:00 ABG Carboxyhemoglobin 1.0 % (0.0-5.0) 06/15/21 Unknown ABG Methemoglobin 0.2 (0.0-1.5) 07/02/21 05:00 ABG Sodium 139.6 mmol/L (136.0-145.0) 07/02/21 05:00 ABG Potassium 5.8 mmol/L (3.40-4.50) H 07/02/21 05:00 ABG Chloride 104.0 mmol/L (98-107) 07/02/21 05:00 ABG Glucose 226 mg/dL (65-95) H 07/02/21 05:00 Oxyhemoglobin 89.9 % (95.0-99.0) L 06/15/21 Unknown Carboxyhemoglobin 0.6 (0.5-1.5) 07/02/21 05:00 FiO2 100 % 06/15/21 Unknown FiO2 % 100.0 07/02/21 05:00 Sodium 140 mmol/L (137-145) 07/02/21 05:50 Potassium 5.5 mmol/L (3.6-5.0) H 07/01/21 05:50 Chloride 100.5 mmol/L (98-107) 07/02/21 05:50 Carbon Dioxide 30 mmol/L (22-30) 07/02/21 05:50 Anion Gap 16 mmol/L 07/02/21 05:50 BUN 65 mg/dL (9-20) H 07/02/21 05:50 Creatinine 1.2 mg/dL (0.8-1.3) 07/02/21 05:50 Estimated GFR > 60 ml/min 07/02/21 05:50 BUN/Creatinine Ratio 54 % 07/02/21 05:50 Glucose 217 mg/dL (75-100) H 07/02/21 05:50 POC Glucose 247 mg/dL (70-105) H 07/02/21 05:42 Calcium 9.0 mg/dL (8.4-10.2) 07/02/21 05:50 Phosphorus 6.70 mg/dL (2.5-4.5) H 07/01/21 Unknown Magnesium 3.40 mg/dL (1.7-2.3) H 07/02/21 05:50 Ferritin 2549.0 ng/mL (30.0-300.0) H 06/26/21 10:46 Total Bilirubin 0.60 mg/dL (0.1-1.2) 07/02/21 05:50 AST 25 units/L (5-40) 07/02/21 05:50 ALT 84 units/L (7-56) H 07/02/21 05:50 Alkaline Phosphatase 108 units/L (35-129) 07/02/21 05:50 Lactate Dehydrogenase 644 units/L (91-180) H 06/26/21 10:46 C-Reactive Protein < 0.03 mg/dL (0.00-1.30) 06/26/21 10:46 Total Protein 5.8 g/dL (6.3-8.2) L 07/02/21 05:50 Albumin 2.9 g/dL (3.9-5) L 07/02/21 05:50 Albumin/Globulin Ratio 1.0 % 07/02/21 05:50 Procalcitonin < 0.05 ng/mL (<0.15) 06/24/21 05:25 Arterial Blood Glucose 226 mg/dL (65-95) H 07/02/21 05:00 Arterial Blood Ionized Calcium 5.0 mg/dL (4.6-5.3) 07/02/21 05:00 Urine Color Yellow (Yellow) 07/01/21 12:11 Urine Turbidity Slightly-cloudy (Clear) 07/01/21 12:11 Urine pH 5.0 (5.0-7.0) 07/01/21 12:11 Ur Specific [place] 1.023 (1.003-1.030) 07/01/21 12:11 Urine Protein 30 mg/dl mg/dL (Negative) 07/01/21 12:11 Urine Glucose (UA) Neg mg/dL (Negative) 07/01/21 12:11 Urine Ketones Neg mg/dL (Negative) 07/01/21 12:11 Urine Blood Sm (Negative) 07/01/21 12:11 Urine Nitrite Neg (Negative) 07/01/21 12:11 Urine Bilirubin Neg (Negative) 07/01/21 12:11 Urine Urobilinogen < 2.0 mg/dL (<2.0) 07/01/21 12:11 Ur Leukocyte Esterase Neg (Negative) 07/01/21 12:11 Urine WBC (Auto) 16.0 /HPF (0.0-6.0) H 07/01/21 12:11 Urine RBC (Auto) 16.0 /HPF (0.0-6.0) 07/01/21 12:11 U Epithel Cells (Auto) < 1.0 /HPF (0-13.0) 07/01/21 12:11 Hyaline Casts 22 /LPF 07/01/21 12:11 Urine Mucus Few /HPF 07/01/21 12:11 Coronavirus (PCR) Positive (Negative) A 06/14/21 Unknown Microbiology: Microbiology 06/30/21 21:17 Peripheral/Venous Blood Culture - Preliminary NO GROWTH AFTER 24 HOURS 06/30/21 21:17 Peripheral/Venous Blood Culture - Preliminary NO GROWTH AFTER 24 HOURS Mao/IV: Voiding Method Indwelling Catheter Active Medications - Current Medications Current Medications: Generic Name Dose Route Start Last Admin Trade Name Freq PRN Reason Stop Dose Admin Acetaminophen 650 mg 06/13/21 22:49 06/27/21 03:31 Acetaminophen 325 Mg Tab PO 650 mg Q4H PRN Administration Pain MILD(1-3)/Fever >100.5/HAYNES Albuterol 5 mg 06/25/21 11:52 Albuterol 2.5 Mg/3 Ml Nebu IH Q4HRT PRN Shortness Of Breath Lipase/Protease/Amylase 1 each 07/01/21 13:00 Lipase 10,500/Protease 25,000/Amylase 43,750 (Units) Dr Cap FEEDTUBE PRN PRN For Clogged Feeding Tube Docusate Sodium 100 mg 07/01/21 22:00 07/01/21 22:28 Docusate Sodium 100 Mg/10 Ml Oral Liqd PO 100 mg BID SIMÓN Administration Enoxaparin Sodium 40 mg 07/01/21 22:00 07/01/21 22:28 Enoxaparin 40 Mg/0.4 Ml Inj SUB-Q 40 mg QDAY@2200 SIMÓN Administration Famotidine 20 mg 07/01/21 10:00 07/01/21 22:28 Famotidine 20 Mg/2 Ml Inj IV 20 mg BID SIMÓN Administration Hydralazine HCl 10 mg 06/13/21 22:52 Hydralazine 20 Mg/1 Ml Inj IV Q6H PRN SBP >/=160; DBP >/=100 Norepinephrine 4 mg in 250 mls @ 7.5 mls/hr 06/30/21 18:00 07/02/21 04:54 Levophed Drip 4 Mg/Ns 250 Ml IV 14 mcg/min TITR SIMÓN 52.5 mls/hr Administration Protocol 2 MCG/MIN Fentanyl Citrate 2,000 mcg in 100 mls @ 5.7 mls/hr 06/30/21 18:00 07/02/21 03:58 Fentanyl Drip Premix IV 4 mcg/kg/hr TITR SIMÓN 22.8 mls/hr Administration Protocol 1 MCG/KG/HR Propofol 1,000 mg in 100 mls @ 17.1 mls/hr 06/30/21 22:00 07/02/21 06:45 Diprivan 10 Mg/Ml IV 50 mcg/kg/min TITR SIMÓN 34.2 mls/hr Administration Protocol 25 MCG/KG/MIN Methylprednisolone Sodium Succinate 40 mg 06/25/21 14:00 07/02/21 05:24 Methylprednisolone Sod Succinate 40 Mg/1 Ml Inj IV 40 mg Q8HR SIMÓN Administration Simple Syrup 15 ml 07/01/21 13:00 Simple Syrup 15 Ml FEEDTUBE PRN PRN Hypoglycemia Simple Syrup 30 ml 07/01/21 13:00 Simple Syrup 15 Ml FEEDTUBE PRN PRN Hypoglycemia Sodium Bicarbonate 325 mg 07/01/21 13:00 Sodium Bicarbonate 325 Mg Tab FEEDTUBE PRN PRN For Clogged Feeding Tube Sodium Chloride 10 ml 06/14/21 10:00 07/01/21 22:28 Sodium Chloride 0.9% 10 Ml Flush Syringe IV 10 ml BID SIMÓN Administration Sodium Chloride 10 ml 06/13/21 22:49 Sodium Chloride 0.9% 10 Ml Flush Syringe IV PRN PRN LINE FLUSH Nutrition/Malnutrition Assess - Dietary Evaluation Nutrition/Malnutrition Findings: Nutrition Notes Start: 06/19/21 11:11 Freq: Status: Active Protocol: Document 07/01/21 12:37 EB (Rec: 07/01/21 12:58 [email or web address]) Nutrition Notes Need for Assessment generated from: MD Order Initial or Follow up Reassessment Current Diagnosis Sepsis,Respiratory Failure Other Pertinent Diagnosis Covid + Current Diet NPO Labs/Tests Na 136 K 5.5 Glu 133 Height 5 ft 8.9 in Weight 114 kg [place] Body Weight (kg) 72.45 BMI 37.2 Weight Status Obese Subjective/Other Information RD consulted for Tube Feed. Pt was intubated last night. Burn Absent Trauma Absent Difficulty In Swallowing,Chewing Food Allergy No Current % PO Negligible Minimum of two criteria No physical signs of malnutrition #1 Nutrition Diagnosis Inadequate oral intake Etiology Respiratory failure As Evidenced by Signs and Symptoms Pt unable to consume PO due to vent Is patient on ventilator? Yes Is Patient Ambulatory and/or Out of Bed No [facility] [phone] Calculation Used for Recommendations Brandee Hale Additional Notes Protein Needs: 108 g/day (1.5 g/kg IBW) Fluid needs 1 mL/kcal Nutrition Intervention Change Diet Order: TF consult Nutrition Support: Jevity 1.2 at 70 mL/hr Flush 110 mL/hr q4H Kcal 2,016 Protein (gm) 93 Fluid (mL) 1,355 Goal #1 Meet at least 75% of protein and calorie needs via TF Anticipated Discharge Needs: Unable to determine at this time Follow-Up By: 07/02/21 Additional Comments Follow for TF initiation and tolerance
[2021-07-01] MEDS ORDERED: LIPASE 10,500/PROTEASE 25,000/AMYLASE 43,750 (UNITS) DR CAP FEEDTUBE PRN ×2 (12:58→13:00)
[2021-07-01] MEDS ORDERED: SIMPLE SYRUP 15 ML FEEDTUBE PRN ×4 (12:58→13:00)
[2021-07-01] MEDS ORDERED: SODIUM BICARBONATE 325 MG TAB FEEDTUBE PRN ×2 (12:58→13:00)
[2021-07-01] MEDS: FAMOTIDINE 20 MG/2 ML INJ IV SCH ×2 (14:07→22:28)
[2021-07-01 14:56] LABS: Bilirubin,Urine NEG (Negative); Blood,Urine SM (Negative); Color,Urine Yellow (Yellow); Hyaline Casts,Urine 22 /LPF; Mucus,Urine FEW /HPF; Urobilinogen,Urine < 2.0 mg/dL (<2.0)
[2021-07-01] MEDS: NORepinephrine/NS 4 MG-250 ML 4 MG/250 ML BAG IV SCH (19:40)
[2021-07-01] MEDS: DOCUSATE SODIUM 100 MG/10 ML ORAL LIQD PO SCH (22:28)
[2021-07-01] MEDS: ENOXAPARIN 40 MG/0.4 ML INJ SUB-Q SCH (22:28)
[2021-07-02] MEDS: fentaNYL DRIP Premix 2,000 MCG/100 ML BAG IV SCH ×6 (00:16→21:22)
[2021-07-02] MEDS: NORepinephrine/NS 4 MG-250 ML 4 MG/250 ML BAG IV SCH ×6 (00:17→21:24)
[2021-07-02] MEDS: methylPREDNISolone Sod Succinate 40 MG/1 ML INJ IV SCH ×2 (05:24→13:28)
[2021-07-02 06:27] LABS: Hematocrit 44.3 % (35.5-45.6); Hemoglobin 14.7 gm/dl (11.8-15.2); Mean Corpuscular HGB Conc 33 % (32-34); Mean Corpuscular Volume 90 fl (84-94); Platelet Count 122 K/mm3 (140-440); Red Blood Count 4.95 M/mm3 (3.65-5.03); Red Cell Distribution Width 14.5 % (13.2-15.2)
[2021-07-02 06:57] LABS: Alanine Aminotransferase 84 units/L (7-56); Albumin 2.9 g/dL (3.9-5); BUN/Creatinine Ratio 54; Blood Urea Nitrogen 65 mg/dL (9-20); Hemolysis Index 7
[2021-07-02] MEDS ORDERED: SODIUM POLYSTYRENE 15 GM/60 ML ORAL LIQD PO ONE ×2 (08:15→11:00)
[2021-07-02] MEDS ORDERED: DEXTROSE 50% IN WATER (25GM) 50 ML SYRINGE IV ONE (08:15)
[2021-07-02] MEDS ORDERED: INSULIN REGULAR, HUMAN 100 UNITS/1 ML IV ONE (08:15)
[2021-07-02] MEDS: DOCUSATE SODIUM 100 MG/10 ML ORAL LIQD PO SCH (09:52)
[2021-07-02] MEDS: FAMOTIDINE 20 MG/2 ML INJ IV SCH (09:52)
[2021-07-02] MEDS: FAMOTIDINE 20 MG TAB PO SCH (09:52)
[2021-07-02] MEDS: INSULIN GLARGINE 100 UNITS/ML SUB-Q SCH (09:52)
--- NOTE | 2021-07-02 11:04 | Progress Note ---
<MERLINLORI A - Last Filed: 07/02/21 13:12> Assessment and Plan Assessment and plan: 36-year-old with a history of asthma, obesity presented with shortness of breath fever chills arthralgias myalgias approximately 8 days after testing positive for COVID. Patient at present hypoxic requiring 15 L facemask at present. Patient is able to speak in full sentences however remains hypoxic. Hospital course complicated by nonproductive cough. Progressive hypoxia and failed bipap resulted in intubation 06-30 evening. NEURO-sedation; anxiety sedated on fentanyl and prop not following commands today triglyceride ordered for AM restrained for safety PRN tylenol mother updated on plan of care CV- tachycardia ST MAP goal 65 PRN NE off pressors RESP-hx asthma; acute hypoxic resp failure due to [id number] intubated 06-30 mechancally ventilated requiring max vent support ACPRV [id number] ABG noted this AM- [id number] proned overnight; will prone today oral swelling noted on exam continue nebs GI- protein calorie deficit nutrition consult TF ordered and being started today pepcid bowel reg-colace - hyperK trend Cr-1.2 today (1.0 on admit) strict I/O pt was net pos 175 ml over the last 24 hours K high today; normal Cr treated medically this AM repeat K ordered continue to trend Cr AM labs ordered HEME-coagulopathy of covid; on AC VTE enoxaparin daily had been on higher dose but yesterday his plts fell plt on admit 112-- 06-30 90----yesterday 116 (dec lovenox dose)-- today 122 continue to monitor CTA was neg for PE on admit 8 trend inflammatory markers ddimer ordered trend CBC no bleeding on exam ID- covid pna; sepsis trend temp and WBC curve WBC up to 27 methylpred 40 Q8h follow culture data trend temp completed remdesovir ID signed off prior to intubation- may need to reconsult ENDO obese; hyperglycemia likely steroid induced monitor blood glucose glargine daily Add SSI PRN 06/15: Considering gradual decline will transfer patient to IMCU. We'll also consult pulmonary GI. I have requested the patient be put on high flow and also trial of BiPAP. ID is consulted and currently following patient management. Weight loss recommended. Continue steroids. Chest x-ray reviewed by me shows bilateral infiltrates 06/16: Patient seen and examined Remains on HFNC but now at 40 and 100%. SAts in the mid 90's. Continue to monitor renal function with Lasix. Continue IMCU. Can downgrade this oxygen weaning again this. Continue prone positioning. Case discussed with crew leader 06/17: Continue supportive care. High flow down to 35 L continuous 100% with saturation in the mid to low 90s. Per crew leader steroid has been increased to twice daily dosing due to patient size. Patient continues on IV remdesivir. We will continue to monitor inflammatory markers. Prognosis is guarded. 06/18: Patient seen and examined, Continues supportive care, wean as tolerated. still with persitent hypoxia, he did not like the High flow, affects his nostriles, and now is on NRB satting 94%. Continue to encourage prone position. condition is still guarded 06/19: Continue supportive care, wean oxygen as tolerated, patient ok with me speaking with mother, will call and update. 06/20: Patient seen and examined continues to be weaned down on high flow oxygen down to 85%. Saturation remains around 92%. I did discuss extensively with the mother. She verbalized understanding. This discussion was done with permission with the patient. We will do another trial of Lasix. Patient is continued on the steroids he is status post Actemra and has completed his remdesivir. 06/21: Patient's prognosis still remains guarded. Continue to encourage prone positioning. Went back up on oxygen demand. But states that he does not feel less winded as before. Continue diuresis and monitor renal function. Also monitor inflammatory markers. 06/22: Patient more mobile but still profoundly hypoxic, continue to monitor and wean oxygen as tolerated. Will re-evaluate if repeated Lasix will help. 06/23: Patient seen and examined remains on high flow refusing to prone states is uncomfortable. We will continue with aggressive measures. Will change to full dose Lovenox discussed with wiener packer. Condition is still guarded 06/24; patient was seen and evaluated this morning. Patient was on 15L of high flow oxygen. Patient finished remdesivir, Decadron, Actemra. Prognosis is guarded. 06/25; patient was on 40 L of high flow oxygen with FiO2 of 100%. Prognosis is guarded. Continue IMCU care. Patient was anxious and put on Xanax as needed. 06/26; patient was on 40 L of high flow oxygen with FiO2 of 100%. Prognosis is guarded. Continue IMCU care. Patient was anxious and put on Xanax as needed. 06/27; patient is on 40 L of oxygen and 15 L via nonrebreather mask. Prognosis is guarded 06/28; patient is on 40 L of high flow oxygen. Will give Lasix. Patient is on Xanax 0.5 mg p.o. 3 times daily. Self proning. 06/29 Patient is alert, no complaints, he is on BIPAP at 100 Fio2, moderately dyspneic, pulmonary note reviewed, lab results reviewed 06/30: Patient remains on BiPAP with full facemask still dyspneic. Still encourage prone positioning patient sometimes refuses the importance discussed in detail. Plan discussed with nursing staff at bedside 07-01 intubated last night- see event note 07-02 proned overnight- see systems review above The high probability of a clinically significant, sudden or life threatening deterioration of the [pulmonary] system(s) required my full and direct attention, intervention and personal management. The aggregate critical care time was [60] minutes. This time is in addition to time spent performing reported procedures but includes the following: [x] Data Review and interpretation [x] Patient assessment and monitoring of vital signs [x] Documentation [x] Medication orders and management Disposition Plan: icu Total Time Spent with Patient (Minutes): 60 History Interval history: proned overnight Hospitalist Physical - Constitutional Vitals: Temp Pulse Resp BP Pulse Ox 98.7 F 127 H 30 H 113/70 92 07/02/21 04:00 07/02/21 06:00 07/02/21 06:00 07/02/21 06:00 07/02/21 06:00 General appearance: Present: mild distress - EENT Eyes: Present: PERRL ENT: clear oral mucosa - Neck Neck: Present: supple - Respiratory Respiratory effort: normal - Cardiovascular Rhythm: regular Heart Sounds: Present: S1 & S2 - Extremities Extremity abnormal: edema - Abdominal General gastrointestinal: soft - Integumentary Integumentary: Present: clear, warm - Psychiatric Psychiatric: other - Neurologic Neurologic: other - Allied Health Allied health notes reviewed: nursing, RT, social work, case management Results - Labs CBC & Chem 7: 07/02/21 05:50 07/02/21 05:50 Labs: Laboratory Last Values WBC 26.5 K/mm3 (4.5-11.0) H 07/02/21 05:50 RBC 4.95 M/mm3 (3.65-5.03) 07/02/21 05:50 Hgb 14.7 gm/dl (11.8-15.2) 07/02/21 05:50 Hct 44.3 % (35.5-45.6) 07/02/21 05:50 MCV 90 fl (84-94) 07/02/21 05:50 MCH 30 pg (28-32) 07/02/21 05:50 MCHC 33 % (32-34) 07/02/21 05:50 RDW 14.5 % (13.2-15.2) 07/02/21 05:50 Plt Count 122 K/mm3 (140-440) L 07/02/21 05:50 Lymph % (Auto) 25.5 % (13.4-35.0) 06/13/21 20:09 [place] % (Auto) 4.3 % (0.0-7.3) 06/13/21 20:09 Eos % (Auto) 0.0 % (0.0-4.3) 06/13/21 20:09 Baso % (Auto) 0.3 % (0.0-1.8) 06/13/21 20:09 Lymph # (Auto) 0.6 K/mm3 (1.2-5.4) L 06/13/21 20:09 [place] # (Auto) 0.1 K/mm3 (0.0-0.8) 06/13/21 20:09 Eos # (Auto) 0.0 K/mm3 (0.0-0.4) 06/13/21 20:09 Baso # (Auto) 0.0 K/mm3 (0.0-0.1) 06/13/21 20:09 Add Manual Diff Complete 07/01/21 05:50 Total Counted 100 07/01/21 05:50 Seg Neutrophils % Stove Bottom Worker 07/01/21 05:50 Seg Neuts % (Manual) 99.0 % (40.0-70.0) H 07/01/21 05:50 Band Neutrophils % 1.0 % 07/01/21 05:50 Lymphocytes % (Manual) 14.0 % (13.4-35.0) 06/14/21 05:12 Monocytes % (Manual) 4.0 % (0.0-7.3) 06/14/21 05:12 Nucleated RBC % Not Reportable 07/01/21 05:50 Seg Neutrophils # 1.8 K/mm3 (1.8-7.7) 06/13/21 20:09 Seg Neutrophils # Man 16.2 K/mm3 (1.8-7.7) H 07/01/21 05:50 Band Neutrophils # 0.2 K/mm3 07/01/21 05:50 Lymphocytes # (Manual) 0.0 K/mm3 (1.2-5.4) L 07/01/21 05:50 Abs React Lymphs (Man) 0.0 K/mm3 07/01/21 05:50 Monocytes # (Manual) 0.0 K/mm3 (0.0-0.8) 07/01/21 05:50 Eosinophils # (Manual) 0.0 K/mm3 (0.0-0.4) 07/01/21 05:50 Basophils # (Manual) 0.0 K/mm3 (0.0-0.1) 07/01/21 05:50 Metamyelocytes # 0.0 K/mm3 07/01/21 05:50 Myelocytes # 0.0 K/mm3 07/01/21 05:50 Promyelocytes # 0.0 K/mm3 07/01/21 05:50 Blast Cells # 0.0 K/mm3 07/01/21 05:50 WBC Morphology Not Reportable 07/01/21 05:50 Hypersegmented Neuts Not Reportable 07/01/21 05:50 Hyposegmented Neuts Not Reportable 07/01/21 05:50 Hypogranular Neuts Not Reportable 07/01/21 05:50 Smudge Cells Not Reportable 07/01/21 05:50 Toxic Granulation Not Reportable 07/01/21 05:50 Toxic Vacuolation Not Reportable 07/01/21 05:50 Dohle Bodies Not Reportable 07/01/21 05:50 Pelger-Huet Anomaly Not Reportable 07/01/21 05:50 Sheri Rods Not Reportable 07/01/21 05:50 Platelet Estimate Consistent w auto 07/01/21 05:50 Clumped Platelets Not Reportable 07/01/21 05:50 Plt Clumps, EDTA Not Reportable 07/01/21 05:50 Large Platelets Not Reportable 07/01/21 05:50 Giant Platelets Not Reportable 07/01/21 05:50 Platelet Satelliting Not Reportable 07/01/21 05:50 Plt Morphology Comment Not Reportable 07/01/21 05:50 RBC Morphology Normal 07/01/21 05:50 Dimorphic RBCs Not Reportable 07/01/21 05:50 Polychromasia Not Reportable 07/01/21 05:50 Hypochromasia Not Reportable 07/01/21 05:50 Poikilocytosis Not Reportable 07/01/21 05:50 Anisocytosis Not Reportable 07/01/21 05:50 Microcytosis Not Reportable 07/01/21 05:50 Macrocytosis Not Reportable 07/01/21 05:50 Spherocytes Not Reportable 07/01/21 05:50 Pappenheimer Bodies Not Reportable 07/01/21 05:50 Sickle Cells Not Reportable 07/01/21 05:50 Target Cells Not Reportable 07/01/21 05:50 Tear Drop Cells Not Reportable 07/01/21 05:50 Ovalocytes Not Reportable 07/01/21 05:50 Helmet Cells Not Reportable 07/01/21 05:50 [place] Bodies Not Reportable 07/01/21 05:50 [place] Rings Not Reportable 07/01/21 05:50 [place] Cells Not Reportable 07/01/21 05:50 Bite Cells Not Reportable 07/01/21 05:50 Crenated Cell Not Reportable 07/01/21 05:50 Elliptocytes Not Reportable 07/01/21 05:50 Acanthocytes (Spur) Not Reportable 07/01/21 05:50 Rouleaux Not Reportable 07/01/21 05:50 Hemoglobin C Crystals Not Reportable 07/01/21 05:50 Schistocytes Not Reportable 07/01/21 05:50 Malaria parasites Not Reportable 07/01/21 05:50 Swapnil Bodies Not Reportable 07/01/21 05:50 Hem Pathologist Commnt No 07/01/21 05:50 D-Dimer 532.29 ng/mlDDU (0-234) H 06/26/21 10:46 ABG pH 7.208 (7.320-7.450) L 07/02/21 05:00 POC ABG pCO2 71.4 mmHg (32.0-48.0) H 07/02/21 05:00 ABG pCO2 40.4 mm Hg 06/15/21 Unknown POC ABG pO2 79.6 mmHg (83-108) L 07/02/21 05:00 ABG pO2 61.0 mm Hg (80.0-90.0) L 06/15/21 Unknown POC ABG HCO3 27.8 07/02/21 05:00 ABG HCO3 23.7 mmol/L (20.0-26.0) 06/15/21 Unknown ABG O2 Saturation 94.6 (0-100) 07/02/21 05:00 ABG O2 Content 21.0 (0.0-44) 06/15/21 Unknown POC ABG Base Excess -2.2 07/02/21 05:00 ABG Base Excess -1.1 mmol/L (-2.0-3.0) 06/15/21 Unknown ABG Hemoglobin 15.6 (12.0-17.5) 07/02/21 05:00 ABG Oxyhemoglobin 93.8 (94-98) L 07/02/21 05:00 ABG Carboxyhemoglobin 1.0 % (0.0-5.0) 06/15/21 Unknown ABG Methemoglobin 0.2 (0.0-1.5) 07/02/21 05:00 ABG Sodium 139.6 mmol/L (136.0-145.0) 07/02/21 05:00 ABG Potassium 5.8 mmol/L (3.40-4.50) H 07/02/21 05:00 ABG Chloride 104.0 mmol/L (98-107) 07/02/21 05:00 ABG Glucose 226 mg/dL (65-95) H 07/02/21 05:00 Oxyhemoglobin 89.9 % (95.0-99.0) L 06/15/21 Unknown Carboxyhemoglobin 0.6 (0.5-1.5) 07/02/21 05:00 FiO2 100 % 06/15/21 Unknown FiO2 % 100.0 07/02/21 05:00 Sodium 140 mmol/L (137-145) 07/02/21 05:50 Potassium 6.1 mmol/L (3.6-5.0) H* 07/02/21 05:50 Chloride 100.5 mmol/L (98-107) 07/02/21 05:50 Carbon Dioxide 30 mmol/L (22-30) 07/02/21 05:50 Anion Gap 16 mmol/L 07/02/21 05:50 BUN 65 mg/dL (9-20) H 07/02/21 05:50 Creatinine 1.2 mg/dL (0.8-1.3) 07/02/21 05:50 Estimated GFR > 60 ml/min 07/02/21 05:50 BUN/Creatinine Ratio 54 % 07/02/21 05:50 Glucose 217 mg/dL (75-100) H 07/02/21 05:50 POC Glucose 247 mg/dL (70-105) H 07/02/21 05:42 Calcium 9.0 mg/dL (8.4-10.2) 07/02/21 05:50 Phosphorus 5.20 mg/dL (2.5-4.5) H D 07/02/21 05:50 Magnesium 3.40 mg/dL (1.7-2.3) H 07/02/21 05:50 Ferritin 2549.0 ng/mL (30.0-300.0) H 06/26/21 10:46 Total Bilirubin 0.60 mg/dL (0.1-1.2) 07/02/21 05:50 AST 25 units/L (5-40) 07/02/21 05:50 ALT 84 units/L (7-56) H 07/02/21 05:50 Alkaline Phosphatase 108 units/L (35-129) 07/02/21 05:50 Lactate Dehydrogenase 644 units/L (91-180) H 06/26/21 10:46 C-Reactive Protein < 0.03 mg/dL (0.00-1.30) 06/26/21 10:46 Total Protein 5.8 g/dL (6.3-8.2) L 07/02/21 05:50 Albumin 2.9 g/dL (3.9-5) L 07/02/21 05:50 Albumin/Globulin Ratio 1.0 % 07/02/21 05:50 Procalcitonin < 0.05 ng/mL (<0.15) 06/24/21 05:25 Arterial Blood Glucose 226 mg/dL (65-95) H 07/02/21 05:00 Arterial Blood Ionized Calcium 5.0 mg/dL (4.6-5.3) 07/02/21 05:00 Urine Color Yellow (Yellow) 07/01/21 12:11 Urine Turbidity Slightly-cloudy (Clear) 07/01/21 12:11 Urine pH 5.0 (5.0-7.0) 07/01/21 12:11 Ur Specific [place] 1.023 (1.003-1.030) 07/01/21 12:11 Urine Protein 30 mg/dl mg/dL (Negative) 07/01/21 12:11 Urine Glucose (UA) Neg mg/dL (Negative) 07/01/21 12:11 Urine Ketones Neg mg/dL (Negative) 07/01/21 12:11 Urine Blood Sm (Negative) 07/01/21 12:11 Urine Nitrite Neg (Negative) 07/01/21 12:11 Urine Bilirubin Neg (Negative) 07/01/21 12:11 Urine Urobilinogen < 2.0 mg/dL (<2.0) 07/01/21 12:11 Ur Leukocyte Esterase Neg (Negative) 07/01/21 12:11 Urine WBC (Auto) 16.0 /HPF (0.0-6.0) H 07/01/21 12:11 Urine RBC (Auto) 16.0 /HPF (0.0-6.0) 07/01/21 12:11 U Epithel Cells (Auto) < 1.0 /HPF (0-13.0) 07/01/21 12:11 Hyaline Casts 22 /LPF 07/01/21 12:11 Urine Mucus Few /HPF 07/01/21 12:11 Coronavirus (PCR) Positive (Negative) A 06/14/21 Unknown Microbiology: Microbiology 06/30/21 21:17 Peripheral/Venous Blood Culture - Preliminary NO GROWTH AFTER 24 HOURS 06/30/21 21:17 Peripheral/Venous Blood Culture - Preliminary NO GROWTH AFTER 24 HOURS Mao/IV: Voiding Method Indwelling Catheter Active Medications - Current Medications Current Medications: Generic Name Dose Route Start Last Admin Trade Name Freq PRN Reason Stop Dose Admin Acetaminophen 650 mg 06/13/21 22:49 06/27/21 03:31 Acetaminophen 325 Mg Tab PO 650 mg Q4H PRN Administration Pain MILD(1-3)/Fever >100.5/HAYNES Albuterol 5 mg 06/25/21 11:52 Albuterol 2.5 Mg/3 Ml Nebu IH Q4HRT PRN Shortness Of Breath Lipase/Protease/Amylase 1 each 07/01/21 13:00 Lipase 10,500/Protease 25,000/Amylase 43,750 (Units) Dr Hoyos FEEDTUBE PRN PRN For Clogged Feeding Tube Docusate Sodium 100 mg 07/01/21 22:00 07/02/21 09:52 Docusate Sodium 100 Mg/10 Ml Oral Liqd PO 100 mg BID SIMÓN Administration Enoxaparin Sodium 40 mg 07/01/21 22:00 07/01/21 22:28 Enoxaparin 40 Mg/0.4 Ml Inj SUB-Q 40 mg QDAY@2200 SIMÓN Administration Famotidine 20 mg 07/02/21 10:00 07/02/21 09:52 Famotidine 20 Mg Tab PO Not Given BID SMIÓN Hydralazine HCl 10 mg 06/13/21 22:52 Hydralazine 20 Mg/1 Ml Inj IV Q6H PRN SBP >/=160; DBP >/=100 Norepinephrine 4 mg in 250 mls @ 7.5 mls/hr 06/30/21 18:00 07/02/21 09:13 Levophed Drip 4 Mg/Ns 250 Ml IV 14 mcg/min TITR SIMÓN 52.5 mls/hr Administration Protocol 2 MCG/MIN Fentanyl Citrate 2,000 mcg in 100 mls @ 5.7 mls/hr 06/30/21 18:00 07/02/21 08:11 Fentanyl Drip Premix IV 4 mcg/kg/hr TITR SIMÓN 22.8 mls/hr Administration Protocol 1 MCG/KG/HR Propofol 1,000 mg in 100 mls @ 17.1 mls/hr 06/30/21 22:00 07/02/21 09:50 Diprivan 10 Mg/Ml IV 50 mcg/kg/min TITR SIMÓN 34.2 mls/hr Administration Protocol 25 MCG/KG/MIN Insulin Glargine 10 units 07/02/21 10:00 07/02/21 09:52 Insulin Glargine 100 Units/Ml SUB-Q 10 units DAILY SIMÓN Administration Insulin Human Lispro 0 unit 07/02/21 12:00 Insulin Lispro 100 Unit/Ml SUB-Q Q6HR [facility] Protocol Methylprednisolone Sodium Succinate 40 mg 06/25/21 14:00 07/02/21 05:24 Methylprednisolone Sod Succinate 40 Mg/1 Ml Inj IV 40 mg Q8HR SIMÓN Administration Simple Syrup 15 ml 07/01/21 13:00 Simple Syrup 15 Ml FEEDTUBE PRN PRN Hypoglycemia Simple Syrup 30 ml 07/01/21 13:00 Simple Syrup 15 Ml FEEDTUBE PRN PRN Hypoglycemia Sodium Bicarbonate 325 mg 07/01/21 13:00 Sodium Bicarbonate 325 Mg Tab FEEDTUBE PRN PRN For Clogged Feeding Tube Sodium Chloride 10 ml 06/14/21 10:00 07/02/21 09:52 Sodium Chloride 0.9% 10 Ml Flush Syringe IV 10 ml BID SIMÓN Administration Sodium Chloride 10 ml 06/13/21 22:49 Sodium Chloride 0.9% 10 Ml Flush Syringe IV PRN PRN LINE FLUSH Nutrition/Malnutrition Assess - Dietary Evaluation Nutrition/Malnutrition Findings: Nutrition Notes Start: 06/19/21 11:11 Freq: Status: Active Protocol: Document 07/01/21 12:37 EB (Rec: 07/01/21 12:58 [id number]) Nutrition Notes Need for Assessment generated from: MD Order Initial or Follow up Reassessment Current Diagnosis Sepsis,Respiratory Failure Other Pertinent Diagnosis Covid + Current Diet NPO Labs/Tests Na 136 K 5.5 Glu 133 Height 5 ft 8.9 in Weight 114 kg [place] Body Weight (kg) 72.45 BMI 37.2 Weight Status Obese Subjective/Other Information RD consulted for Tube Feed. Pt was intubated last night. Burn Absent Trauma Absent Difficulty In Swallowing,Chewing Food Allergy No Current % PO Negligible Minimum of two criteria No physical signs of malnutrition #1 Nutrition Diagnosis Inadequate oral intake Etiology Respiratory failure As Evidenced by Signs and Symptoms Pt unable to consume PO due to vent Is patient on ventilator? Yes Is Patient Ambulatory and/or Out of Bed No REE-([facility]-confined to bed) 0931.360 Calculation Used for Recommendations [facility] Additional Notes Protein Needs: 108 g/day (1.5 g/kg IBW) Fluid needs 1 mL/kcal Nutrition Intervention Change Diet Order: TF consult Nutrition Support: Jevity 1.2 at 70 mL/hr Flush 110 mL/hr q4H Kcal 2,016 Protein (gm) 93 Fluid (mL) 1,355 Goal #1 Meet at least 75% of protein and calorie needs via TF Anticipated Discharge Needs: Unable to determine at this time Follow-Up By: 07/02/21 Additional Comments Follow for TF initiation and tolerance <TIMBO ARREDONDO - Last Filed: 07/02/21 18:58> Assessment and Plan Assessment and plan: I saw and evaluated the patient. I agree with the findings and the plan of care as documented in the Nurse Practitioner's~note, with the following corrections and additions. Hospitalist Physical - Constitutional Vitals: Temp Pulse Resp BP Pulse Ox 98.8 F 144 H 30 H 105/66 95 07/02/21 12:00 07/02/21 18:00 07/02/21 18:00 07/02/21 18:00 07/02/21 18:00 Results - Labs CBC & Chem 7: 07/02/21 05:50 07/02/21 05:50 Labs: Laboratory Last Values WBC 26.5 K/mm3 (4.5-11.0) H 07/02/21 05:50 RBC 4.95 M/mm3 (3.65-5.03) 07/02/21 05:50 Hgb 14.7 gm/dl (11.8-15.2) 07/02/21 05:50 Hct 44.3 % (35.5-45.6) 07/02/21 05:50 MCV 90 fl (84-94) 07/02/21 05:50 MCH 30 pg (28-32) 07/02/21 05:50 MCHC 33 % (32-34) 07/02/21 05:50 RDW 14.5 % (13.2-15.2) 07/02/21 05:50 Plt Count 122 K/mm3 (140-440) L 07/02/21 05:50 Lymph % (Auto) 25.5 % (13.4-35.0) 06/13/21 20:09 [place] % (Auto) 4.3 % (0.0-7.3) 06/13/21 20:09 Eos % (Auto) 0.0 % (0.0-4.3) 06/13/21 20:09 Baso % (Auto) 0.3 % (0.0-1.8) 06/13/21 20:09 Lymph # (Auto) 0.6 K/mm3 (1.2-5.4) L 06/13/21 20:09 [place] # (Auto) 0.1 K/mm3 (0.0-0.8) 06/13/21 20:09 Eos # (Auto) 0.0 K/mm3 (0.0-0.4) 06/13/21 20:09 Baso # (Auto) 0.0 K/mm3 (0.0-0.1) 06/13/21 20:09 Add Manual Diff Complete 07/01/21 05:50 Total Counted 100 07/01/21 05:50 Seg Neutrophils % Stove Bottom Worker 07/01/21 05:50 Seg Neuts % (Manual) 99.0 % (40.0-70.0) H 07/01/21 05:50 Band Neutrophils % 1.0 % 07/01/21 05:50 Lymphocytes % (Manual) 14.0 % (13.4-35.0) 06/14/21 05:12 Monocytes % (Manual) 4.0 % (0.0-7.3) 06/14/21 05:12 Nucleated RBC % Not Reportable 07/01/21 05:50 Seg Neutrophils # 1.8 K/mm3 (1.8-7.7) 06/13/21 20:09 Seg Neutrophils # Man 16.2 K/mm3 (1.8-7.7) H 07/01/21 05:50 Band Neutrophils # 0.2 K/mm3 07/01/21 05:50 Lymphocytes # (Manual) 0.0 K/mm3 (1.2-5.4) L 07/01/21 05:50 Abs React Lymphs (Man) 0.0 K/mm3 07/01/21 05:50 Monocytes # (Manual) 0.0 K/mm3 (0.0-0.8) 07/01/21 05:50 Eosinophils # (Manual) 0.0 K/mm3 (0.0-0.4) 07/01/21 05:50 Basophils # (Manual) 0.0 K/mm3 (0.0-0.1) 07/01/21 05:50 Metamyelocytes # 0.0 K/mm3 07/01/21 05:50 Myelocytes # 0.0 K/mm3 07/01/21 05:50 Promyelocytes # 0.0 K/mm3 07/01/21 05:50 Blast Cells # 0.0 K/mm3 07/01/21 05:50 WBC Morphology Not Reportable 07/01/21 05:50 Hypersegmented Neuts Not Reportable 07/01/21 05:50 Hyposegmented Neuts Not Reportable 07/01/21 05:50 Hypogranular Neuts Not Reportable 07/01/21 05:50 Smudge Cells Not Reportable 07/01/21 05:50 Toxic Granulation Not Reportable 07/01/21 05:50 Toxic Vacuolation Not Reportable 07/01/21 05:50 Dohle Bodies Not Reportable 07/01/21 05:50 [place] Anomaly Not Reportable 07/01/21 05:50 Sheri Rods Not Reportable 07/01/21 05:50 Platelet Estimate Consistent w auto 07/01/21 05:50 Clumped Platelets Not Reportable 07/01/21 05:50 Plt Clumps, EDTA Not Reportable 07/01/21 05:50 Large Platelets Not Reportable 07/01/21 05:50 Giant Platelets Not Reportable 07/01/21 05:50 Platelet Satelliting Not Reportable 07/01/21 05:50 Plt Morphology Comment Not Reportable 07/01/21 05:50 RBC Morphology Normal 07/01/21 05:50 Dimorphic RBCs Not Reportable 07/01/21 05:50 Polychromasia Not Reportable 07/01/21 05:50 Hypochromasia Not Reportable 07/01/21 05:50 Poikilocytosis Not Reportable 07/01/21 05:50 Anisocytosis Not Reportable 07/01/21 05:50 Microcytosis Not Reportable 07/01/21 05:50 Macrocytosis Not Reportable 07/01/21 05:50 Spherocytes Not Reportable 07/01/21 05:50 Pappenheimer Bodies Not Reportable 07/01/21 05:50 Sickle Cells Not Reportable 07/01/21 05:50 Target Cells Not Reportable 07/01/21 05:50 Tear Drop Cells Not Reportable 07/01/21 05:50 Ovalocytes Not Reportable 07/01/21 05:50 Helmet Cells Not Reportable 07/01/21 05:50 [place] Bodies Not Reportable 07/01/21 05:50 [place] Rings Not Reportable 07/01/21 05:50 [place] Cells Not Reportable 07/01/21 05:50 Bite Cells Not Reportable 07/01/21 05:50 Crenated Cell Not Reportable 07/01/21 05:50 Elliptocytes Not Reportable 07/01/21 05:50 Acanthocytes (Spur) Not Reportable 07/01/21 05:50 Rouleaux Not Reportable 07/01/21 05:50 Hemoglobin C Crystals Not Reportable 07/01/21 05:50 Schistocytes Not Reportable 07/01/21 05:50 Malaria parasites Not Reportable 07/01/21 05:50 Swapnil Bodies Not Reportable 07/01/21 05:50 Hem Pathologist Commnt No 07/01/21 05:50 D-Dimer 532.29 ng/mlDDU (0-234) H 06/26/21 10:46 ABG pH 7.242 (7.320-7.450) L 07/02/21 14:05 POC ABG pCO2 66.6 mmHg (32.0-48.0) H 07/02/21 14:05 ABG pCO2 84.3 mm Hg 07/02/21 10:38 POC ABG pO2 61.0 mmHg (83-108) L 07/02/21 14:05 ABG pO2 125.3 mm Hg (80.0-90.0) H 07/02/21 10:38 POC ABG HCO3 28.0 07/02/21 14:05 ABG HCO3 30.3 mmol/L (20.0-26.0) H 07/02/21 10:38 ABG O2 Saturation 90.4 (0-100) 07/02/21 14:05 ABG O2 Content 20.7 (0.0-44) 07/02/21 10:38 POC ABG Base Excess -1.1 07/02/21 14:05 ABG Base Excess -0.9 mmol/L (-2.0-3.0) 07/02/21 10:38 ABG Hemoglobin 15.0 (12.0-17.5) 07/02/21 14:05 ABG Oxyhemoglobin 89.9 (94-98) L 07/02/21 14:05 ABG Carboxyhemoglobin 1.3 % (0.0-5.0) 07/02/21 10:38 ABG Methemoglobin 0.2 (0.0-1.5) 07/02/21 14:05 ABG Sodium 140.2 mmol/L (136.0-145.0) 07/02/21 14:05 ABG Potassium 5.9 mmol/L (3.40-4.50) H 07/02/21 14:05 ABG Chloride 104.0 mmol/L (98-107) 07/02/21 14:05 ABG Glucose 293 mg/dL (65-95) H 07/02/21 14:05 Oxyhemoglobin 95.8 % (95.0-99.0) 07/02/21 10:38 Carboxyhemoglobin 0.4 (0.5-1.5) L 07/02/21 14:05 FiO2 21 % 07/02/21 10:38 FiO2 % 80 07/02/21 14:05 Sodium 140 mmol/L (137-145) 07/02/21 05:50 Potassium 6.1 mmol/L (3.6-5.0) H* 07/02/21 05:50 Chloride 100.5 mmol/L (98-107) 07/02/21 05:50 Carbon Dioxide 30 mmol/L (22-30) 07/02/21 05:50 Anion Gap 16 mmol/L 07/02/21 05:50 BUN 65 mg/dL (9-20) H 07/02/21 05:50 Creatinine 1.2 mg/dL (0.8-1.3) 07/02/21 05:50 Estimated GFR > 60 ml/min 07/02/21 05:50 BUN/Creatinine Ratio 54 % 07/02/21 05:50 Glucose 217 mg/dL (75-100) H 07/02/21 05:50 POC Glucose 220 mg/dL (70-105) H 07/02/21 17:28 Calcium 9.0 mg/dL (8.4-10.2) 07/02/21 05:50 Phosphorus 5.20 mg/dL (2.5-4.5) H D 07/02/21 05:50 Magnesium 3.40 mg/dL (1.7-2.3) H 07/02/21 05:50 Ferritin 2549.0 ng/mL (30.0-300.0) H 06/26/21 10:46 Total Bilirubin 0.60 mg/dL (0.1-1.2) 07/02/21 05:50 AST 25 units/L (5-40) 07/02/21 05:50 ALT 84 units/L (7-56) H 07/02/21 05:50 Alkaline Phosphatase 108 units/L (35-129) 07/02/21 05:50 Lactate Dehydrogenase 644 units/L (91-180) H 06/26/21 10:46 C-Reactive Protein < 0.03 mg/dL (0.00-1.30) 06/26/21 10:46 Total Protein 5.8 g/dL (6.3-8.2) L 07/02/21 05:50 Albumin 2.9 g/dL (3.9-5) L 07/02/21 05:50 Albumin/Globulin Ratio 1.0 % 07/02/21 05:50 Procalcitonin < 0.05 ng/mL (<0.15) 06/24/21 05:25 Arterial Blood Glucose 293 mg/dL (65-95) H 07/02/21 14:05 Arterial Blood Ionized Calcium 4.9 mg/dL (4.6-5.3) 07/02/21 14:05 Urine Color Yellow (Yellow) 07/01/21 12:11 Urine Turbidity Slightly-cloudy (Clear) 07/01/21 12:11 Urine pH 5.0 (5.0-7.0) 07/01/21 12:11 Ur Specific [place] 1.023 (1.003-1.030) 07/01/21 12:11 Urine Protein 30 mg/dl mg/dL (Negative) 07/01/21 12:11 Urine Glucose (UA) Neg mg/dL (Negative) 07/01/21 12:11 Urine Ketones Neg mg/dL (Negative) 07/01/21 12:11 Urine Blood Sm (Negative) 07/01/21 12:11 Urine Nitrite Neg (Negative) 07/01/21 12:11 Urine Bilirubin Neg (Negative) 07/01/21 12:11 Urine Urobilinogen < 2.0 mg/dL (<2.0) 07/01/21 12:11 Ur Leukocyte Esterase Neg (Negative) 07/01/21 12:11 Urine WBC (Auto) 16.0 /HPF (0.0-6.0) H 07/01/21 12:11 Urine RBC (Auto) 16.0 /HPF (0.0-6.0) 07/01/21 12:11 U Epithel Cells (Auto) < 1.0 /HPF (0-13.0) 07/01/21 12:11 Hyaline Casts 22 /LPF 07/01/21 12:11 Urine Mucus Few /HPF 07/01/21 12:11 Coronavirus (PCR) Positive (Negative) A 06/14/21 Unknown Microbiology: Microbiology 06/30/21 Unknown Urine,[place] Urine Culture - Preliminary NO GROWTH AFTER 24 HOURS 06/30/21 21:17 Peripheral/Venous Blood Culture - Preliminary NO GROWTH AFTER 24 HOURS 06/30/21 21:17 Peripheral/Venous Blood Culture - Preliminary NO GROWTH AFTER 24 HOURS Mao/IV: Voiding Method Indwelling Catheter Active Medications - Current Medications Current Medications: Generic Name Dose Route Start Last Admin Trade Name Freq PRN Reason Stop Dose Admin Acetaminophen 650 mg 06/13/21 22:49 06/27/21 03:31 Acetaminophen 325 Mg Tab PO 650 mg Q4H PRN Administration Pain MILD(1-3)/Fever >100.5/HAYNES Albuterol 5 mg 06/25/21 11:52 Albuterol 2.5 Mg/3 Ml Nebu IH Q4HRT PRN Shortness Of Breath Lipase/Protease/Amylase 1 each 07/01/21 13:00 Lipase 10,500/Protease 25,000/Amylase 43,750 (Units) Dr Hoyos FEEDTUBE PRN PRN For Clogged Feeding Tube Docusate Sodium 100 mg 07/01/21 22:00 07/02/21 09:52 Docusate Sodium 100 Mg/10 Ml Oral Liqd PO 100 mg BID SIMÓN Administration Enoxaparin Sodium 40 mg 07/01/21 22:00 07/01/21 22:28 Enoxaparin 40 Mg/0.4 Ml Inj SUB-Q 40 mg QDAY@2200 SIMÓN Administration Famotidine 20 mg 07/02/21 10:00 07/02/21 09:52 Famotidine 20 Mg Tab PO Not Given BID [facility] Norepinephrine 4 mg in 250 mls @ 7.5 mls/hr 06/30/21 18:00 07/02/21 16:32 Levophed Drip 4 Mg/Ns 250 Ml IV 20 mcg/min TITR SIMÓN 75 mls/hr Administration Protocol 2 MCG/MIN Fentanyl Citrate 2,000 mcg in 100 mls @ 5.7 mls/hr 06/30/21 18:00 07/02/21 16:32 Fentanyl Drip Premix IV 4 mcg/kg/hr TITR SIMÓN 22.8 mls/hr Administration Protocol 1 MCG/KG/HR Propofol 1,000 mg in 100 mls @ 17.1 mls/hr 06/30/21 22:00 07/02/21 17:49 Diprivan 10 Mg/Ml IV 50 mcg/kg/min TITR SIMÓN 34.2 mls/hr Administration Protocol 25 MCG/KG/MIN Vasopressin 20 unit/ Sodium 101 mls @ 9.09 mls/hr 07/02/21 19:00 Chloride IV TITR [facility] Protocol 0.03 UNITS/MIN Insulin Glargine 10 units 07/02/21 10:00 07/02/21 09:52 Insulin Glargine 100 Units/Ml SUB-Q 10 units DAILY [facility] Administration Insulin Human Lispro 0 unit 07/02/21 12:00 07/02/21 18:34 Insulin Lispro 100 Unit/Ml SUB-Q 4 unit Q6HR [facility] Administration Protocol Methylprednisolone Sodium Succinate 40 mg 06/25/21 14:00 07/02/21 13:28 Methylprednisolone Sod Succinate 40 Mg/1 Ml Inj IV 40 mg Q8HR SIMÓN Administration Simple Syrup 15 ml 07/01/21 13:00 Simple Syrup 15 Ml FEEDTUBE PRN PRN Hypoglycemia Simple Syrup 30 ml 07/01/21 13:00 Simple Syrup 15 Ml FEEDTUBE PRN PRN Hypoglycemia Sodium Bicarbonate 325 mg 07/01/21 13:00 Sodium Bicarbonate 325 Mg Tab FEEDTUBE PRN PRN For Clogged Feeding Tube Sodium Bicarbonate 100 meq 07/02/21 18:47 Sodium Bicarb 8.4% 50 Meq/50 Ml Syringe IV 07/02/21 18:48 ONCE ONE Sodium Chloride 10 ml 06/14/21 10:00 07/02/21 09:52 Sodium Chloride 0.9% 10 Ml Flush Syringe IV 10 ml BID SIMÓN Administration Sodium Chloride 10 ml 06/13/21 22:49 Sodium Chloride 0.9% 10 Ml Flush Syringe IV PRN PRN LINE FLUSH Nutrition/Malnutrition Assess - Dietary Evaluation Nutrition/Malnutrition Findings: Nutrition Notes Start: 06/19/21 11:11 Freq: Status: Active Protocol: Document 07/02/21 12:18 SG (Rec: 07/02/21 12:23 SG [id number]) Nutrition Notes Initial or Follow up Brief Note Current Diagnosis Sepsis,Respiratory Failure Other Pertinent Diagnosis Covid + Current Diet TF Jevity 1.2 Weight Status Obese Subjective/Other Information RD spoke with nursing staff about TF. Nurse reports TF initiated and pt tolerating. Burn Absent Trauma Absent #1 Diagnosis Progress(for reassessment Continues documentation) Is patient on ventilator? Yes Is Patient Ambulatory and/or Out of Bed No REE-([facility]-confined to bed) 0 Nutrition Intervention Goal #1 continues Follow-Up By: 07/03/21 Additional Comments TF tolerance
[2021-07-02 11:53] LABS: ABG Base Excess -0.9 mmol/L (-2.0-3.0); ABG HCO3 30.3 mmol/L (20.0-26.0); ABG Methemoglobin 0.7 % (0.0-1.5); ABG Oxygen Saturation 97.7 % (95.0-99.0); ABG PCO2 84.3 mm Hg; ABG PO2 125.3 mm Hg (80.0-90.0)
[2021-07-02 11:54] LABS: ABG PH 7.174 pH Units (7.350-7.450)
--- NOTE | 2021-07-02 11:58 | XRay Report ---
XR abdomen 1V ap INDICATION: NGT placement. COMPARISON: None available. FINDINGS: The tip of the esophagogastric tube projects over the body of the stomach. Signer Name: Phil Harris MD Signed: 07/02/2021 11:54 AM Workstation Name: [id number]
--- NOTE | 2021-07-02 12:00 | XRay Report ---
CHEST 1 VIEW 07/02/2021 11:21 AM INDICATION / CLINICAL INFORMATION: fever-covid. COMPARISON: 06/30/2021 FINDINGS: SUPPORT DEVICES: Stable, satisfactory device positioning. HEART / MEDIASTINUM: Stable. LUNGS / PLEURA: Stable diffuse bilateral pulmonary opacities. No pneumothorax. ADDITIONAL FINDINGS: No significant additional findings. IMPRESSION: 1. No adverse change from the prior exam. Signer Name: Phil Harris MD Signed: 07/02/2021 11:55 AM Workstation Name: [id number]
--- NOTE | 2021-07-02 12:29 | Progress Note ---
Assessment and Plan 36 y/o male with acute respiratory failure secondary to COVID 19 07/02/21: Repeat ABG now that changed modes of ventilation to help with Peak Pressures. Sats still in the 90's and Peak Pressures in the 20's. Concern about ventilation but more concerned about oxygenation. Continue pressors to maintain adequate BP and perfusion pressure. Will prone again tonight with ABG 30 minutes post prone. Continue IV steroids. Anticoagulation. Prognosis remains guarded to poor. Discussed with Mother over the phone. 07/01/21: Intubated now and sedated. Will prone today for 16 hours. Adjust tube feeds accordingly. Low lung volume high PEEP strategy to obtain sats >88 and PaO2 >55. Maintain daily net negative volume state if BP and renal function will allow. Sedation to rass of -4. Continue IV steroids. Anticoagulation. Very very guarded prognosis. 06/30/21: Very very close to intubation. Spoke with mother over the phone who wishes to come and visit to see if she can help calm him down and encourage more proning. Will continue bipap and IV steroids for now. Prognosis remains very guarded 1. Prone as tolerated during the day and sleep prone at night 2. IV steroids and remdesivir, per ID would be a candidate for actemra 3. Agree with lasix therapy, monitor renal function and electrolytes closely 4. Guarded prognosis Subjective Date of service: 07/02/21 Principal diagnosis: Acute hypoxic respiratory failure Interval history: Proned last night and tolerated well. Repeat ABG unproned showed a PaO2 of 125. Objective Vital Signs - 12hr 07/02/21 07/02/21 07/02/21 00:48 01:00 02:00 Temperature Pulse Rate 126 H 123 H 124 H Respiratory 29 H 29 H Rate Blood Pressure 105/70 113/70 111/73 O2 Sat by Pulse 93 90 Oximetry 07/02/21 07/02/21 07/02/21 03:00 04:00 04:18 Temperature 98.7 F Pulse Rate 127 H 125 H 128 H Respiratory 29 H 29 H Rate Blood Pressure 109/72 110/72 118/73 O2 Sat by Pulse 90 93 94 Oximetry 07/02/21 07/02/21 05:00 06:00 Temperature Pulse Rate 131 H 127 H Respiratory 30 H 30 H Rate Blood Pressure 107/70 113/70 O2 Sat by Pulse 90 92 Oximetry Constitutional: comatose, other (orally intubated and sedated) Eyes: non-icteric ENT: other (orally intubated, 8.0 tube) Neck: supple Ascultation: Bilateral: diminished breath sounds Percussion: Bilateral: not dull Cardiovascular: regular rate and rhythm Gastrointestinal: normoactive bowel sounds Integumentary: normal Extremities: no cyanosis Neurologic: unable to assess Psychiatric: anxious CBC and BMP: 07/02/21 05:50 07/02/21 05:50 ABG, PT/INR, D-dimer: ABG ABG pH 7.174 pH Units (7.350-7.450) L* 07/02/21 10:38 POC ABG pCO2 71.4 mmHg (32.0-48.0) H 07/02/21 05:00 ABG pCO2 84.3 mm Hg 07/02/21 10:38 POC ABG pO2 79.6 mmHg (83-108) L 07/02/21 05:00 ABG pO2 125.3 mm Hg (80.0-90.0) H 07/02/21 10:38 POC ABG HCO3 27.8 07/02/21 05:00 ABG O2 Saturation 97.7 % (95.0-99.0) 07/02/21 10:38 PT/INR, D-dimer D-Dimer 532.29 ng/mlDDU (0-234) H 06/26/21 10:46 Abnormal lab findings: Abnormal Labs 06/13/21 06/13/21 06/13/21 20:09 20:09 20:09 WBC 2.6 L RBC Hgb Hct MCHC 35 H Plt Count 112 L Lymph # (Auto) 0.6 L Seg Neuts % (Manual) Seg Neutrophils # Man Lymphocytes # (Manual) D-Dimer 560.90 H ABG pH POC ABG pCO2 POC ABG pO2 ABG pO2 ABG HCO3 ABG O2 Saturation ABG Hemoglobin ABG Oxyhemoglobin ABG Potassium ABG Glucose Oxyhemoglobin Carboxyhemoglobin Sodium 134 L Potassium Chloride BUN Creatinine Glucose 105 H POC Glucose Phosphorus Magnesium Ferritin AST ALT Alkaline Phosphatase Lactate Dehydrogenase C-Reactive Protein Total Protein Albumin Arterial Blood Glucose Urine WBC (Auto) Coronavirus (PCR) 06/13/21 06/13/21 06/14/21 20:09 20:09 05:12 WBC 2.0 L RBC Hgb Hct MCHC 35 H Plt Count 106 L Lymph # (Auto) Seg Neuts % (Manual) 82.0 H Seg Neutrophils # Man 1.6 L Lymphocytes # (Manual) 0.3 L D-Dimer ABG pH POC ABG pCO2 POC ABG pO2 ABG pO2 ABG HCO3 ABG O2 Saturation ABG Hemoglobin ABG Oxyhemoglobin ABG Potassium ABG Glucose Oxyhemoglobin Carboxyhemoglobin Sodium Potassium Chloride BUN Creatinine Glucose 105 H POC Glucose Phosphorus Magnesium Ferritin 1876.0 H AST ALT Alkaline Phosphatase Lactate Dehydrogenase 634 H C-Reactive Protein 9.20 H Total Protein Albumin Arterial Blood Glucose Urine WBC (Auto) Coronavirus (PCR) 06/14/21 06/14/21 06/14/21 05:12 23:50 Unknown WBC RBC Hgb Hct MCHC Plt Count Lymph # (Auto) Seg Neuts % (Manual) Seg Neutrophils # Man Lymphocytes # (Manual) D-Dimer ABG pH POC ABG pCO2 POC ABG pO2 ABG pO2 ABG HCO3 ABG O2 Saturation ABG Hemoglobin ABG Oxyhemoglobin ABG Potassium ABG Glucose Oxyhemoglobin Carboxyhemoglobin Sodium Potassium Chloride BUN Creatinine Glucose 214 H 135 H POC Glucose Phosphorus Magnesium Ferritin AST 52 H ALT Alkaline Phosphatase Lactate Dehydrogenase C-Reactive Protein Total Protein Albumin 3.2 L Arterial Blood Glucose Urine WBC (Auto) Coronavirus (PCR) Positive A 06/15/21 06/15/21 06/15/21 05:21 05:21 05:21 WBC RBC Hgb Hct MCHC Plt Count Lymph # (Auto) Seg Neuts % (Manual) Seg Neutrophils # Man Lymphocytes # (Manual) D-Dimer 360.79 H ABG pH POC ABG pCO2 POC ABG pO2 ABG pO2 ABG HCO3 ABG O2 Saturation ABG Hemoglobin ABG Oxyhemoglobin ABG Potassium ABG Glucose Oxyhemoglobin Carboxyhemoglobin Sodium Potassium Chloride BUN Creatinine 0.7 L Glucose 167 H POC Glucose Phosphorus Magnesium Ferritin 1869.0 H AST 65 H ALT Alkaline Phosphatase Lactate Dehydrogenase C-Reactive Protein Total Protein 6.1 L Albumin 3.4 L Arterial Blood Glucose Urine WBC (Auto) Coronavirus (PCR) 06/15/21 06/15/21 06/16/21 05:21 Unknown 07:16 WBC RBC Hgb Hct MCHC Plt Count Lymph # (Auto) Seg Neuts % (Manual) Seg Neutrophils # Man Lymphocytes # (Manual) D-Dimer ABG pH POC ABG pCO2 POC ABG pO2 ABG pO2 61.0 L ABG HCO3 ABG O2 Saturation 91.3 L ABG Hemoglobin ABG Oxyhemoglobin ABG Potassium ABG Glucose Oxyhemoglobin 89.9 L Carboxyhemoglobin Sodium Potassium Chloride BUN Creatinine Glucose 130 H POC Glucose Phosphorus Magnesium Ferritin AST 77 H ALT 57 H Alkaline Phosphatase Lactate Dehydrogenase C-Reactive Protein 3.10 H Total Protein 6.0 L Albumin 3.5 L Arterial Blood Glucose Urine WBC (Auto) Coronavirus (PCR) 06/17/21 06/17/21 06/22/21 04:36 04:36 04:58 WBC 16.3 H RBC 5.55 H Hgb 16.7 H Hct 48.2 H MCHC 36 H 35 H Plt Count Lymph # (Auto) Seg Neuts % (Manual) Seg Neutrophils # Man Lymphocytes # (Manual) D-Dimer ABG pH POC ABG pCO2 POC ABG pO2 ABG pO2 ABG HCO3 ABG O2 Saturation ABG Hemoglobin ABG Oxyhemoglobin ABG Potassium ABG Glucose Oxyhemoglobin Carboxyhemoglobin Sodium Potassium Chloride BUN 29 H Creatinine Glucose 125 H POC Glucose Phosphorus Magnesium Ferritin AST 59 H ALT 57 H Alkaline Phosphatase Lactate Dehydrogenase C-Reactive Protein Total Protein 6.0 L Albumin 3.6 L Arterial Blood Glucose Urine WBC (Auto) Coronavirus (PCR) 06/22/21 06/22/21 06/22/21 04:58 04:58 04:58 WBC RBC Hgb Hct MCHC Plt Count Lymph # (Auto) Seg Neuts % (Manual) Seg Neutrophils # Man Lymphocytes # (Manual) D-Dimer 335.27 H ABG pH POC ABG pCO2 POC ABG pO2 ABG pO2 ABG HCO3 ABG O2 Saturation ABG Hemoglobin ABG Oxyhemoglobin ABG Potassium ABG Glucose Oxyhemoglobin Carboxyhemoglobin Sodium 135 L Potassium Chloride 96.8 L BUN 32 H Creatinine Glucose 172 H POC Glucose Phosphorus Magnesium Ferritin 1251.0 H AST ALT Alkaline Phosphatase Lactate Dehydrogenase 816 H C-Reactive Protein Total Protein 6.1 L Albumin 3.6 L Arterial Blood Glucose Urine WBC (Auto) Coronavirus (PCR) 06/22/21 06/24/21 06/24/21 10:35 05:25 05:25 WBC RBC Hgb Hct MCHC Plt Count Lymph # (Auto) Seg Neuts % (Manual) Seg Neutrophils # Man Lymphocytes # (Manual) D-Dimer 570.75 H ABG pH 7.475 H POC ABG pCO2 29.2 L POC ABG pO2 51.5 L ABG pO2 ABG HCO3 ABG O2 Saturation ABG Hemoglobin 18.3 H ABG Oxyhemoglobin 86.3 L ABG Potassium ABG Glucose 143 H Oxyhemoglobin Carboxyhemoglobin 0.2 L Sodium Potassium Chloride BUN Creatinine Glucose POC Glucose Phosphorus Magnesium Ferritin 1621.0 H AST ALT Alkaline Phosphatase Lactate Dehydrogenase C-Reactive Protein Total Protein Albumin Arterial Blood Glucose 143 H Urine WBC (Auto) Coronavirus (PCR) 06/24/21 06/26/21 06/26/21 05:25 10:46 10:46 WBC RBC Hgb Hct MCHC Plt Count Lymph # (Auto) Seg Neuts % (Manual) Seg Neutrophils # Man Lymphocytes # (Manual) D-Dimer 532.29 H ABG pH POC ABG pCO2 POC ABG pO2 ABG pO2 ABG HCO3 ABG O2 Saturation ABG Hemoglobin ABG Oxyhemoglobin ABG Potassium ABG Glucose Oxyhemoglobin Carboxyhemoglobin Sodium Potassium Chloride BUN 34 H Creatinine 0.7 L Glucose 131 H POC Glucose Phosphorus Magnesium Ferritin 2549.0 H AST ALT Alkaline Phosphatase Lactate Dehydrogenase 691 H C-Reactive Protein Total Protein Albumin Arterial Blood Glucose Urine WBC (Auto) Coronavirus (PCR) 06/26/21 06/29/21 06/30/21 10:46 05:27 07:11 WBC RBC Hgb Hct MCHC Plt Count 90 L Lymph # (Auto) Seg Neuts % (Manual) Seg Neutrophils # Man Lymphocytes # (Manual) D-Dimer ABG pH POC ABG pCO2 POC ABG pO2 ABG pO2 ABG HCO3 ABG O2 Saturation ABG Hemoglobin ABG Oxyhemoglobin ABG Potassium ABG Glucose Oxyhemoglobin Carboxyhemoglobin Sodium 135 L Potassium Chloride 95.1 L BUN 39 H 28 H Creatinine 0.7 L 0.6 L Glucose 202 H 159 H POC Glucose Phosphorus Magnesium Ferritin AST ALT Alkaline Phosphatase Lactate Dehydrogenase 644 H C-Reactive Protein Total Protein Albumin Arterial Blood Glucose Urine WBC (Auto) Coronavirus (PCR) 06/30/21 06/30/21 07/01/21 07:11 07:26 03:45 WBC RBC Hgb Hct MCHC Plt Count Lymph # (Auto) Seg Neuts % (Manual) Seg Neutrophils # Man Lymphocytes # (Manual) D-Dimer ABG pH 7.279 L POC ABG pCO2 51.9 H POC ABG pO2 79.1 L ABG pO2 ABG HCO3 ABG O2 Saturation ABG Hemoglobin 21.9 H ABG Oxyhemoglobin 93.2 L ABG Potassium 5.3 H ABG Glucose 145 H Oxyhemoglobin Carboxyhemoglobin 0.3 L Sodium 136 L Potassium 5.4 H Chloride BUN 37 H Creatinine 0.5 L Glucose 126 H POC Glucose 147 H Phosphorus Magnesium Ferritin AST ALT Alkaline Phosphatase Lactate Dehydrogenase C-Reactive Protein Total Protein Albumin Arterial Blood Glucose 145 H Urine WBC (Auto) Coronavirus (PCR) 07/01/21 07/01/21 07/01/21 05:50 05:50 11:00 WBC 16.4 H RBC 5.31 H Hgb 16.1 H Hct 47.1 H MCHC Plt Count 116 L Lymph # (Auto) Seg Neuts % (Manual) 99.0 H Seg Neutrophils # Man 16.2 H Lymphocytes # (Manual) 0.0 L D-Dimer ABG pH 7.250 L POC ABG pCO2 54.0 H POC ABG pO2 68.1 L ABG pO2 ABG HCO3 ABG O2 Saturation ABG Hemoglobin ABG Oxyhemoglobin 89.2 L ABG Potassium 5.4 H ABG Glucose 191 H Oxyhemoglobin Carboxyhemoglobin Sodium 136 L Potassium 5.5 H Chloride BUN 51 H Creatinine Glucose 133 H POC Glucose Phosphorus 6.40 H Magnesium 3.00 H Ferritin AST ALT Alkaline Phosphatase 144 H Lactate Dehydrogenase C-Reactive Protein Total Protein 5.7 L Albumin 3.0 L Arterial Blood Glucose 191 H Urine WBC (Auto) Coronavirus (PCR) 07/01/21 07/01/21 07/01/21 12:11 17:52 18:23 WBC RBC Hgb Hct MCHC Plt Count Lymph # (Auto) Seg Neuts % (Manual) Seg Neutrophils # Man Lymphocytes # (Manual) D-Dimer ABG pH 7.126 L POC ABG pCO2 79.4 H POC ABG pO2 ABG pO2 ABG HCO3 ABG O2 Saturation ABG Hemoglobin ABG Oxyhemoglobin 92.7 L ABG Potassium 6.0 H ABG Glucose 232 H Oxyhemoglobin Carboxyhemoglobin Sodium Potassium Chloride BUN Creatinine Glucose POC Glucose 242 H Phosphorus Magnesium Ferritin AST ALT Alkaline Phosphatase Lactate Dehydrogenase C-Reactive Protein Total Protein Albumin Arterial Blood Glucose 232 H Urine WBC (Auto) 16.0 H Coronavirus (PCR) 08/07/01/21 07/02/21 20:30 Unknown 00:16 WBC RBC Hgb Hct MCHC Plt Count Lymph # (Auto) Seg Neuts % (Manual) Seg Neutrophils # Man Lymphocytes # (Manual) D-Dimer ABG pH 7.214 L POC ABG pCO2 61.2 H POC ABG pO2 76.8 L ABG pO2 ABG HCO3 ABG O2 Saturation ABG Hemoglobin ABG Oxyhemoglobin 92.2 L ABG Potassium 5.9 H ABG Glucose 233 H Oxyhemoglobin Carboxyhemoglobin 0.4 L Sodium Potassium Chloride BUN Creatinine Glucose POC Glucose 274 H Phosphorus 6.70 H Magnesium Ferritin AST ALT Alkaline Phosphatase Lactate Dehydrogenase C-Reactive Protein Total Protein Albumin Arterial Blood Glucose 233 H Urine WBC (Auto) Coronavirus (PCR) 07/02/21 07/02/21 07/02/21 05:00 05:42 05:50 WBC 26.5 H RBC Hgb Hct MCHC Plt Count 122 L Lymph # (Auto) Seg Neuts % (Manual) Seg Neutrophils # Man Lymphocytes # (Manual) D-Dimer ABG pH 7.208 L POC ABG pCO2 71.4 H POC ABG pO2 79.6 L ABG pO2 ABG HCO3 ABG O2 Saturation ABG Hemoglobin ABG Oxyhemoglobin 93.8 L ABG Potassium 5.8 H ABG Glucose 226 H Oxyhemoglobin Carboxyhemoglobin Sodium Potassium Chloride BUN Creatinine Glucose POC Glucose 247 H Phosphorus Magnesium Ferritin AST ALT Alkaline Phosphatase Lactate Dehydrogenase C-Reactive Protein Total Protein Albumin Arterial Blood Glucose 226 H Urine WBC (Auto) Coronavirus (PCR) 07/02/21 07/02/21 05:50 10:38 WBC RBC Hgb Hct MCHC Plt Count Lymph # (Auto) Seg Neuts % (Manual) Seg Neutrophils # Man Lymphocytes # (Manual) D-Dimer ABG pH 7.174 L* POC ABG pCO2 POC ABG pO2 ABG pO2 125.3 H ABG HCO3 30.3 H ABG O2 Saturation ABG Hemoglobin ABG Oxyhemoglobin ABG Potassium ABG Glucose Oxyhemoglobin Carboxyhemoglobin Sodium Potassium 6.1 H* Chloride BUN 65 H Creatinine Glucose 217 H POC Glucose Phosphorus 5.20 H D Magnesium 3.40 H Ferritin AST ALT 84 H Alkaline Phosphatase Lactate Dehydrogenase C-Reactive Protein Total Protein 5.8 L Albumin 2.9 L Arterial Blood Glucose Urine WBC (Auto) Coronavirus (PCR)
[2021-07-02] MEDS: INSULIN LISPRO 100 UNIT/ML SUB-Q SCH ×2 (13:28→18:34)
[2021-07-02] MEDS ORDERED: SODIUM BICARB 8.4% 50 MEQ/50 ML SYRINGE IV ONE (19:30)
--- NOTE | 2021-07-02 21:29 | Event Note ---
Date: 07/02/21 BOBBI STERLING called on 36-year-old male who has been on admission for COVID-19 pneumonia. He was intubated and had been placed in the prone position earlier today but patient was said to have self extubated himself. Immediate resuscitative measures were commenced and patient got spontaneous return of circulation. He was reintubated again by the ER physician. We will continue on current management and he has also been started on pressor -dopamine.
--- NOTE | 2021-07-02 21:31 | Event Note ---
Date: 07/02/21 CODE ASHER called at approximately 2115. Patient was in room 252 on my arrival to the patient's room for ACS protocol was being followed and after chest compressions were given. The patient had received 1 mg of epinephrine. Prior to the patient coding he was in a prone position intubated. The patient self extubated and immediately went into cardiac arrest. As mentioned above when I arrived to the patient's room chest compressions were being done. On pulse check the patient had return of spontaneous circulation. At this time the patient was reintubated. Hospitalist at bedside. Procedure note Intubation [place] scope was used 4 MAC blade used No anxiolytic or paralytic or sedation was required The epiglottic folds were located with a glide scope chronic pressure was applied and visualized of the cords where visualized. 8.0 ET tube was placed through the cords. A 10 ml syringe used to inflate the cuff. Breath sounds her in both lung valadez. CO2 indicator with positive color change. Chest x-ray ordered by the hospitalist who will follow its interpretation
[2021-07-02] MEDS: VASOPRESSIN 20 UNIT in SODIUM CHLORIDE 0.9% 100 ML IV SCH (21:32)
[2021-07-02] MEDS ORDERED: DOPamine/D5W 800 MG/250 ML 800 MG/250 ML BAG IV SCH (22:00)
[2021-07-02] MEDS ORDERED: DOPamine/D5W 800 MG/250 ML DRIP IV ONE (22:20)
[2021-07-02] MEDS ORDERED: ATROPINE 0.1% (1 MG/10 ML) CARDIAC SYRINGE ONE (22:20)
[2021-07-02] MEDS ORDERED: EPINEPHrine 1 MG/10 ML SYRINGE ONE (22:20)
--- NOTE | 2021-07-02 22:54 | XRay Report ---
CHEST 1 VIEW 07/02/2021 9:43 PM INDICATION / CLINICAL INFORMATION: tube placement. COMPARISON: 07/02/2021 FINDINGS: SUPPORT DEVICES: New esophageal pH probe projects over the upper thoracic esophagus. NG tube has tip in proximal stomach with sidehole noted in distal thoracic esophagus. ET tube and right PICC line pro ject in expected position. HEART / MEDIASTINUM: Mild pneumomediastinum, slightly improved with less pericardial gas noted LUNGS / PLEURA: Moderate bilateral airspace disease, unchanged. No pneumothorax. ADDITIONAL FINDINGS: Mild subcutaneous emphysema both supraclavicular regions has decreased. IMPRESSION: 1. Resolving pneumomediastinum 2. Stable bilateral pneumonia 3. NG tube sidehole noted in distal thoracic esophagus could be advanced another 10 to 15 cm Signer Name: Jorge L Cervantes MD Signed: 07/02/2021 10:50 PM Workstation Name: [id number]
[2021-07-03] MEDS: NORepinephrine/NS 4 MG-250 ML 4 MG/250 ML BAG IV SCH ×8 (00:37→22:55)
[2021-07-03] MEDS: methylPREDNISolone Sod Succinate 40 MG/1 ML INJ IV SCH ×4 (00:37→22:52)
[2021-07-03] MEDS: FAMOTIDINE 20 MG TAB PO SCH ×3 (00:38→22:52)
[2021-07-03] MEDS: ENOXAPARIN 40 MG/0.4 ML INJ SUB-Q SCH ×2 (00:38→22:53)
[2021-07-03] MEDS: DOCUSATE SODIUM 100 MG/10 ML ORAL LIQD PO SCH ×2 (00:38→10:32)
[2021-07-03] MEDS: INSULIN LISPRO 100 UNIT/ML SUB-Q SCH ×4 (00:39→18:29)
[2021-07-03 00:53] LABS: BUN/Creatinine Ratio 43; Blood Urea Nitrogen 51 mg/dL (9-20); Calcium 6.1 mg/dL (8.4-10.2); Hemolysis Index 5
[2021-07-03] MEDS: fentaNYL DRIP Premix 2,000 MCG/100 ML BAG IV SCH ×5 (02:24→22:02)
[2021-07-03] MEDS ORDERED: SODIUM CHLORIDE 0.9% 1000 ML 1,000 ML ONE (03:56)
[2021-07-03] MEDS: EPINEPHrine 1 MG/1 ML 16 MG in SODIUM CHLORIDE 0.9% 250ML 234 ML IV SCH (04:10)
[2021-07-03] MEDS: PHENYLEPHRINE 100 MG in SODIUM CHLORIDE 0.9% 90 ML IV SCH ×2 (05:07→14:57)
[2021-07-03] MEDS ORDERED: SODIUM CHLORIDE 0.9% 1000 ML 1,000 ML IV ONE ×2 (05:12→05:14)
[2021-07-03] MEDS: VASOPRESSIN 20 UNIT in SODIUM CHLORIDE 0.9% 100 ML IV SCH ×2 (06:39→17:18)
[2021-07-03] MEDS ORDERED: SODIUM CHLORIDE 0.9% 1000 ML 2,000 ML IV ONE ×3 (06:59→18:04)
[2021-07-03 07:10] LABS: Hematocrit 42.3 % (35.5-45.6); Mean Corpuscular HGB Conc 33 % (32-34); Mean Corpuscular Volume 91 fl (84-94); Red Blood Count 4.63 M/mm3 (3.65-5.03)
--- NOTE | 2021-07-03 07:26 | Progress Note ---
Assessment and Plan 36 y/o male with acute respiratory failure secondary to COVID 19 07/03/21: Worsening clinical status secondary to cardiac arrest last night. Currently on 3 pressors and hypotensive. Will max out talha. Amio Bolus and start Amio drip. Awaiting EKG but on monitor appears to be flutter as patient is hanging pretty consistently in the 140-150 range. Will give 2 amps of NaHCO3 now and then start bicarb drip. Trendelenburg to help with blood pressure. Repeat CXR later today and repeat ABG after bicarb administration. Overall prognosis at this point is extremely guarded to poor. Continue IV steroids. Mother very upset about current situation, attempted to calm her and explain the severity of illness. Will request administration allow her and the patient's father to visit later. Spoke with Fred Edward and he will help to facilitate this. 07/02/21: Repeat ABG now that changed modes of ventilation to help with Peak Pressures. Sats still in the 90's and Peak Pressures in the 20's. Concern about ventilation but more concerned about oxygenation. Continue pressors to maintain adequate BP and perfusion pressure. Will prone again tonight with ABG 30 minutes post prone. Continue IV steroids. Anticoagulation. Prognosis remains guarded to poor. Discussed with Mother over the phone. 07/01/21: Intubated now and sedated. Will prone today for 16 hours. Adjust tube feeds accordingly. Low lung volume high PEEP strategy to obtain sats >88 and PaO2 >55. Maintain daily net negative volume state if BP and renal function will allow. Sedation to rass of -4. Continue IV steroids. Anticoagulation. Very very guarded prognosis. 06/30/21: Very very close to intubation. Spoke with mother over the phone who wishes to come and visit to see if she can help calm him down and encourage more proning. Will continue bipap and IV steroids for now. Prognosis remains very guarded 1. Prone as tolerated during the day and sleep prone at night 2. IV steroids and remdesivir, per ID would be a candidate for actemra 3. Agree with lasix therapy, monitor renal function and electrolytes closely 4. Guarded prognosis Subjective Date of service: 07/03/21 Principal diagnosis: Acute hypoxic respiratory failure Interval history: Patient self-extubated overnight while prone while on sedation. Unproned, coded reintubated and regained circulation in about 8 minutes per report. This am tachy to the 140'-150's and hypotensive despite being on Levophed, Talha, Epi and was on dopamine earlier in the night but discontinued secondary to worsening tachycardia. Last ABG this am showed a pH of 7.25 and PaO2 of 51. Objective Vital Signs - 12hr 07/02/21 07/02/21 07/02/21 19:52 20:00 21:20 Temperature 99.4 F Pulse Rate 114 H 169 H Blood Pressure 120/74 124/89 O2 Sat by Pulse 96 95 Oximetry 07/03/21 07/03/21 07/03/21 00:00 00:43 04:42 Temperature 99.2 F Pulse Rate 161 H 165 H Blood Pressure 96/69 50/39 O2 Sat by Pulse 88 85 Oximetry Constitutional: comatose, other (orally intubated and sedated) Eyes: non-icteric ENT: other (orally intubated, 8.0 tube) Neck: supple Ascultation: Bilateral: diminished breath sounds Percussion: Bilateral: not dull Cardiovascular: regular rate and rhythm Gastrointestinal: normoactive bowel sounds Integumentary: normal Extremities: no cyanosis Neurologic: unable to assess Psychiatric: anxious CBC and BMP: 07/02/21 05:50 07/03/21 00:06 ABG, PT/INR, D-dimer: ABG ABG pH 7.250 (7.320-7.450) L 07/03/21 05:00 POC ABG pCO2 68.1 mmHg (32.0-48.0) H 07/03/21 05:00 ABG pCO2 84.3 mm Hg 07/02/21 10:38 POC ABG pO2 51.7 mmHg (83-108) L 07/03/21 05:00 ABG pO2 125.3 mm Hg (80.0-90.0) H 07/02/21 10:38 POC ABG HCO3 29.2 07/03/21 05:00 ABG O2 Saturation 84.2 (0-100) 07/03/21 05:00 PT/INR, D-dimer D-Dimer 842.88 ng/mlDDU (0-234) H 07/03/21 00:06 Abnormal lab findings: Abnormal Labs 06/13/21 06/13/21 06/13/21 20:09 20:09 20:09 WBC 2.6 L RBC Hgb Hct MCHC 35 H Plt Count 112 L Lymph # (Auto) 0.6 L Seg Neuts % (Manual) Seg Neutrophils # Man Lymphocytes # (Manual) D-Dimer 560.90 H ABG pH POC ABG pCO2 POC ABG pO2 ABG pO2 ABG HCO3 ABG O2 Saturation ABG Hemoglobin ABG Oxyhemoglobin ABG Potassium ABG Glucose Oxyhemoglobin Carboxyhemoglobin Sodium 134 L Potassium Chloride BUN Creatinine Glucose 105 H POC Glucose Calcium Phosphorus Magnesium Ferritin AST ALT Alkaline Phosphatase Lactate Dehydrogenase C-Reactive Protein Total Protein Albumin Arterial Blood Glucose Urine WBC (Auto) Coronavirus (PCR) 06/13/21 06/13/21 06/14/21 20:09 20:09 05:12 WBC 2.0 L RBC Hgb Hct MCHC 35 H Plt Count 106 L Lymph # (Auto) Seg Neuts % (Manual) 82.0 H Seg Neutrophils # Man 1.6 L Lymphocytes # (Manual) 0.3 L D-Dimer ABG pH POC ABG pCO2 POC ABG pO2 ABG pO2 ABG HCO3 ABG O2 Saturation ABG Hemoglobin ABG Oxyhemoglobin ABG Potassium ABG Glucose Oxyhemoglobin Carboxyhemoglobin Sodium Potassium Chloride BUN Creatinine Glucose 105 H POC Glucose Calcium Phosphorus Magnesium Ferritin 1876.0 H AST ALT Alkaline Phosphatase Lactate Dehydrogenase 634 H C-Reactive Protein 9.20 H Total Protein Albumin Arterial Blood Glucose Urine WBC (Auto) Coronavirus (PCR) 06/14/21 06/14/21 06/14/21 05:12 23:50 Unknown WBC RBC Hgb Hct MCHC Plt Count Lymph # (Auto) Seg Neuts % (Manual) Seg Neutrophils # Man Lymphocytes # (Manual) D-Dimer ABG pH POC ABG pCO2 POC ABG pO2 ABG pO2 ABG HCO3 ABG O2 Saturation ABG Hemoglobin ABG Oxyhemoglobin ABG Potassium ABG Glucose Oxyhemoglobin Carboxyhemoglobin Sodium Potassium Chloride BUN Creatinine Glucose 214 H 135 H POC Glucose Calcium Phosphorus Magnesium Ferritin AST 52 H ALT Alkaline Phosphatase Lactate Dehydrogenase C-Reactive Protein Total Protein Albumin 3.2 L Arterial Blood Glucose Urine WBC (Auto) Coronavirus (PCR) Positive A 06/15/21 06/15/21 06/15/21 05:21 05:21 05:21 WBC RBC Hgb Hct MCHC Plt Count Lymph # (Auto) Seg Neuts % (Manual) Seg Neutrophils # Man Lymphocytes # (Manual) D-Dimer 360.79 H ABG pH POC ABG pCO2 POC ABG pO2 ABG pO2 ABG HCO3 ABG O2 Saturation ABG Hemoglobin ABG Oxyhemoglobin ABG Potassium ABG Glucose Oxyhemoglobin Carboxyhemoglobin Sodium Potassium Chloride BUN Creatinine 0.7 L Glucose 167 H POC Glucose Calcium Phosphorus Magnesium Ferritin 1869.0 H AST 65 H ALT Alkaline Phosphatase Lactate Dehydrogenase C-Reactive Protein Total Protein 6.1 L Albumin 3.4 L Arterial Blood Glucose Urine WBC (Auto) Coronavirus (PCR) 06/15/21 06/15/21 06/16/21 05:21 Unknown 07:16 WBC RBC Hgb Hct MCHC Plt Count Lymph # (Auto) Seg Neuts % (Manual) Seg Neutrophils # Man Lymphocytes # (Manual) D-Dimer ABG pH POC ABG pCO2 POC ABG pO2 ABG pO2 61.0 L ABG HCO3 ABG O2 Saturation 91.3 L ABG Hemoglobin ABG Oxyhemoglobin ABG Potassium ABG Glucose Oxyhemoglobin 89.9 L Carboxyhemoglobin Sodium Potassium Chloride BUN Creatinine Glucose 130 H POC Glucose Calcium Phosphorus Magnesium Ferritin AST 77 H ALT 57 H Alkaline Phosphatase Lactate Dehydrogenase C-Reactive Protein 3.10 H Total Protein 6.0 L Albumin 3.5 L Arterial Blood Glucose Urine WBC (Auto) Coronavirus (PCR) 06/17/21 06/17/21 06/22/21 04:36 04:36 04:58 WBC 16.3 H RBC 5.55 H Hgb 16.7 H Hct 48.2 H MCHC 36 H 35 H Plt Count Lymph # (Auto) Seg Neuts % (Manual) Seg Neutrophils # Man Lymphocytes # (Manual) D-Dimer ABG pH POC ABG pCO2 POC ABG pO2 ABG pO2 ABG HCO3 ABG O2 Saturation ABG Hemoglobin ABG Oxyhemoglobin ABG Potassium ABG Glucose Oxyhemoglobin Carboxyhemoglobin Sodium Potassium Chloride BUN 29 H Creatinine Glucose 125 H POC Glucose Calcium Phosphorus Magnesium Ferritin AST 59 H ALT 57 H Alkaline Phosphatase Lactate Dehydrogenase C-Reactive Protein Total Protein 6.0 L Albumin 3.6 L Arterial Blood Glucose Urine WBC (Auto) Coronavirus (PCR) 06/22/21 06/22/21 06/22/21 04:58 04:58 04:58 WBC RBC Hgb Hct MCHC Plt Count Lymph # (Auto) Seg Neuts % (Manual) Seg Neutrophils # Man Lymphocytes # (Manual) D-Dimer 335.27 H ABG pH POC ABG pCO2 POC ABG pO2 ABG pO2 ABG HCO3 ABG O2 Saturation ABG Hemoglobin ABG Oxyhemoglobin ABG Potassium ABG Glucose Oxyhemoglobin Carboxyhemoglobin Sodium 135 L Potassium Chloride 96.8 L BUN 32 H Creatinine Glucose 172 H POC Glucose Calcium Phosphorus Magnesium Ferritin 1251.0 H AST ALT Alkaline Phosphatase Lactate Dehydrogenase 816 H C-Reactive Protein Total Protein 6.1 L Albumin 3.6 L Arterial Blood Glucose Urine WBC (Auto) Coronavirus (PCR) 06/22/21 06/24/21 06/24/21 10:35 05:25 05:25 WBC RBC Hgb Hct MCHC Plt Count Lymph # (Auto) Seg Neuts % (Manual) Seg Neutrophils # Man Lymphocytes # (Manual) D-Dimer 570.75 H ABG pH 7.475 H POC ABG pCO2 29.2 L POC ABG pO2 51.5 L ABG pO2 ABG HCO3 ABG O2 Saturation ABG Hemoglobin 18.3 H ABG Oxyhemoglobin 86.3 L ABG Potassium ABG Glucose 143 H Oxyhemoglobin Carboxyhemoglobin 0.2 L Sodium Potassium Chloride BUN Creatinine Glucose POC Glucose Calcium Phosphorus Magnesium Ferritin 1621.0 H AST ALT Alkaline Phosphatase Lactate Dehydrogenase C-Reactive Protein Total Protein Albumin Arterial Blood Glucose 143 H Urine WBC (Auto) Coronavirus (PCR) 06/24/21 06/26/21 06/26/21 05:25 10:46 10:46 WBC RBC Hgb Hct MCHC Plt Count Lymph # (Auto) Seg Neuts % (Manual) Seg Neutrophils # Man Lymphocytes # (Manual) D-Dimer 532.29 H ABG pH POC ABG pCO2 POC ABG pO2 ABG pO2 ABG HCO3 ABG O2 Saturation ABG Hemoglobin ABG Oxyhemoglobin ABG Potassium ABG Glucose Oxyhemoglobin Carboxyhemoglobin Sodium Potassium Chloride BUN 34 H Creatinine 0.7 L Glucose 131 H POC Glucose Calcium Phosphorus Magnesium Ferritin 2549.0 H AST ALT Alkaline Phosphatase Lactate Dehydrogenase 691 H C-Reactive Protein Total Protein Albumin Arterial Blood Glucose Urine WBC (Auto) Coronavirus (PCR) 06/26/21 06/29/21 06/30/21 10:46 05:27 07:11 WBC RBC Hgb Hct MCHC Plt Count 90 L Lymph # (Auto) Seg Neuts % (Manual) Seg Neutrophils # Man Lymphocytes # (Manual) D-Dimer ABG pH POC ABG pCO2 POC ABG pO2 ABG pO2 ABG HCO3 ABG O2 Saturation ABG Hemoglobin ABG Oxyhemoglobin ABG Potassium ABG Glucose Oxyhemoglobin Carboxyhemoglobin Sodium 135 L Potassium Chloride 95.1 L BUN 39 H 28 H Creatinine 0.7 L 0.6 L Glucose 202 H 159 H POC Glucose Calcium Phosphorus Magnesium Ferritin AST ALT Alkaline Phosphatase Lactate Dehydrogenase 644 H C-Reactive Protein Total Protein Albumin Arterial Blood Glucose Urine WBC (Auto) Coronavirus (PCR) 06/30/21 06/30/21 07/01/21 07:11 07:26 03:45 WBC RBC Hgb Hct MCHC Plt Count Lymph # (Auto) Seg Neuts % (Manual) Seg Neutrophils # Man Lymphocytes # (Manual) D-Dimer ABG pH 7.279 L POC ABG pCO2 51.9 H POC ABG pO2 79.1 L ABG pO2 ABG HCO3 ABG O2 Saturation ABG Hemoglobin 21.9 H ABG Oxyhemoglobin 93.2 L ABG Potassium 5.3 H ABG Glucose 145 H Oxyhemoglobin Carboxyhemoglobin 0.3 L Sodium 136 L Potassium 5.4 H Chloride BUN 37 H Creatinine 0.5 L Glucose 126 H POC Glucose 147 H Calcium Phosphorus Magnesium Ferritin AST ALT Alkaline Phosphatase Lactate Dehydrogenase C-Reactive Protein Total Protein Albumin Arterial Blood Glucose 145 H Urine WBC (Auto) Coronavirus (PCR) 07/01/21 07/01/21 07/01/21 05:50 05:50 11:00 WBC 16.4 H RBC 5.31 H Hgb 16.1 H Hct 47.1 H MCHC Plt Count 116 L Lymph # (Auto) Seg Neuts % (Manual) 99.0 H Seg Neutrophils # Man 16.2 H Lymphocytes # (Manual) 0.0 L D-Dimer ABG pH 7.250 L POC ABG pCO2 54.0 H POC ABG pO2 68.1 L ABG pO2 ABG HCO3 ABG O2 Saturation ABG Hemoglobin ABG Oxyhemoglobin 89.2 L ABG Potassium 5.4 H ABG Glucose 191 H Oxyhemoglobin Carboxyhemoglobin Sodium 136 L Potassium 5.5 H Chloride BUN 51 H Creatinine Glucose 133 H POC Glucose Calcium Phosphorus 6.40 H Magnesium 3.00 H Ferritin AST ALT Alkaline Phosphatase 144 H Lactate Dehydrogenase C-Reactive Protein Total Protein 5.7 L Albumin 3.0 L Arterial Blood Glucose 191 H Urine WBC (Auto) Coronavirus (PCR) 07/01/21 07/01/21 07/01/21 12:11 17:52 18:23 WBC RBC Hgb Hct MCHC Plt Count Lymph # (Auto) Seg Neuts % (Manual) Seg Neutrophils # Man Lymphocytes # (Manual) D-Dimer ABG pH 7.126 L POC ABG pCO2 79.4 H POC ABG pO2 ABG pO2 ABG HCO3 ABG O2 Saturation ABG Hemoglobin ABG Oxyhemoglobin 92.7 L ABG Potassium 6.0 H ABG Glucose 232 H Oxyhemoglobin Carboxyhemoglobin Sodium Potassium Chloride BUN Creatinine Glucose POC Glucose 242 H Calcium Phosphorus Magnesium Ferritin AST ALT Alkaline Phosphatase Lactate Dehydrogenase C-Reactive Protein Total Protein Albumin Arterial Blood Glucose 232 H Urine WBC (Auto) 16.0 H Coronavirus (PCR) 07/01/21 07/01/21 07/02/21 20:30 Unknown 00:16 WBC RBC Hgb Hct MCHC Plt Count Lymph # (Auto) Seg Neuts % (Manual) Seg Neutrophils # Man Lymphocytes # (Manual) D-Dimer ABG pH 7.214 L POC ABG pCO2 61.2 H POC ABG pO2 76.8 L ABG pO2 ABG HCO3 ABG O2 Saturation ABG Hemoglobin ABG Oxyhemoglobin 92.2 L ABG Potassium 5.9 H ABG Glucose 233 H Oxyhemoglobin Carboxyhemoglobin 0.4 L Sodium Potassium Chloride BUN Creatinine Glucose POC Glucose 274 H Calcium Phosphorus 6.70 H Magnesium Ferritin AST ALT Alkaline Phosphatase Lactate Dehydrogenase C-Reactive Protein Total Protein Albumin Arterial Blood Glucose 233 H Urine WBC (Auto) Coronavirus (PCR) 07/02/21 07/02/21 07/02/21 05:00 05:42 05:50 WBC 26.5 H RBC Hgb Hct MCHC Plt Count 122 L Lymph # (Auto) Seg Neuts % (Manual) Seg Neutrophils # Man Lymphocytes # (Manual) D-Dimer ABG pH 7.208 L POC ABG pCO2 71.4 H POC ABG pO2 79.6 L ABG pO2 ABG HCO3 ABG O2 Saturation ABG Hemoglobin ABG Oxyhemoglobin 93.8 L ABG Potassium 5.8 H ABG Glucose 226 H Oxyhemoglobin Carboxyhemoglobin Sodium Potassium Chloride BUN Creatinine Glucose POC Glucose 247 H Calcium Phosphorus Magnesium Ferritin AST ALT Alkaline Phosphatase Lactate Dehydrogenase C-Reactive Protein Total Protein Albumin Arterial Blood Glucose 226 H Urine WBC (Auto) Coronavirus (PCR) 07/02/21 07/02/21 07/02/21 05:50 10:38 12:26 WBC RBC Hgb Hct MCHC Plt Count Lymph # (Auto) Seg Neuts % (Manual) Seg Neutrophils # Man Lymphocytes # (Manual) D-Dimer ABG pH 7.174 L* POC ABG pCO2 POC ABG pO2 ABG pO2 125.3 H ABG HCO3 30.3 H ABG O2 Saturation ABG Hemoglobin ABG Oxyhemoglobin ABG Potassium ABG Glucose Oxyhemoglobin Carboxyhemoglobin Sodium Potassium 6.1 H* Chloride BUN 65 H Creatinine Glucose 217 H POC Glucose 237 H Calcium Phosphorus 5.20 H D Magnesium 3.40 H Ferritin AST ALT 84 H Alkaline Phosphatase Lactate Dehydrogenase C-Reactive Protein Total Protein 5.8 L Albumin 2.9 L Arterial Blood Glucose Urine WBC (Auto) Coronavirus (PCR) 07/02/21 07/02/21 07/02/21 13:07 14:05 17:28 WBC RBC Hgb Hct MCHC Plt Count Lymph # (Auto) Seg Neuts % (Manual) Seg Neutrophils # Man Lymphocytes # (Manual) D-Dimer ABG pH 7.028 L 7.242 L POC ABG pCO2 127.4 H 66.6 H POC ABG pO2 61.0 L ABG pO2 ABG HCO3 ABG O2 Saturation ABG Hemoglobin ABG Oxyhemoglobin 89.9 L ABG Potassium 5.9 H 5.9 H ABG Glucose 269 H 293 H Oxyhemoglobin Carboxyhemoglobin 0.4 L 0.4 L Sodium Potassium Chloride BUN Creatinine Glucose POC Glucose 220 H Calcium Phosphorus Magnesium Ferritin AST ALT Alkaline Phosphatase Lactate Dehydrogenase C-Reactive Protein Total Protein Albumin Arterial Blood Glucose 269 H 293 H Urine WBC (Auto) Coronavirus (PCR) 07/02/21 07/02/21 07/02/21 18:22 20:10 21:12 WBC RBC Hgb Hct MCHC Plt Count Lymph # (Auto) Seg Neuts % (Manual) Seg Neutrophils # Man Lymphocytes # (Manual) D-Dimer ABG pH 7.130 L 7.272 L POC ABG pCO2 87.5 H 72.5 H POC ABG pO2 77.2 L 74.3 L ABG pO2 ABG HCO3 ABG O2 Saturation ABG Hemoglobin ABG Oxyhemoglobin 91.9 L 93.6 L ABG Potassium 5.7 H 5.2 H ABG Glucose 257 H 231 H Oxyhemoglobin Carboxyhemoglobin Sodium Potassium Chloride BUN Creatinine Glucose POC Glucose 217 H Calcium Phosphorus Magnesium Ferritin AST ALT Alkaline Phosphatase Lactate Dehydrogenase C-Reactive Protein Total Protein Albumin Arterial Blood Glucose 257 H 231 H Urine WBC (Auto) Coronavirus (PCR) 07/02/21 07/03/21 07/03/21 23:21 00:06 00:06 WBC RBC Hgb Hct MCHC Plt Count Lymph # (Auto) Seg Neuts % (Manual) Seg Neutrophils # Man Lymphocytes # (Manual) D-Dimer 842.88 H ABG pH POC ABG pCO2 POC ABG pO2 ABG pO2 ABG HCO3 ABG O2 Saturation ABG Hemoglobin ABG Oxyhemoglobin ABG Potassium ABG Glucose Oxyhemoglobin Carboxyhemoglobin Sodium 148 H D Potassium Chloride 112.7 H BUN 51 H Creatinine Glucose 210 H POC Glucose 273 H Calcium 6.1 L D Phosphorus Magnesium Ferritin AST ALT Alkaline Phosphatase Lactate Dehydrogenase C-Reactive Protein Total Protein Albumin Arterial Blood Glucose Urine WBC (Auto) Coronavirus (PCR) 07/03/21 07/03/21 05:00 05:15 WBC RBC Hgb Hct MCHC Plt Count Lymph # (Auto) Seg Neuts % (Manual) Seg Neutrophils # Man Lymphocytes # (Manual) D-Dimer ABG pH 7.250 L POC ABG pCO2 68.1 H POC ABG pO2 51.7 L ABG pO2 ABG HCO3 ABG O2 Saturation ABG Hemoglobin ABG Oxyhemoglobin 83.5 L ABG Potassium 4.7 H ABG Glucose 146 H Oxyhemoglobin Carboxyhemoglobin Sodium Potassium Chloride BUN Creatinine Glucose POC Glucose 111 H Calcium Phosphorus Magnesium Ferritin AST ALT Alkaline Phosphatase Lactate Dehydrogenase C-Reactive Protein Total Protein Albumin Arterial Blood Glucose 146 H Urine WBC (Auto) Coronavirus (PCR)
[2021-07-03] MEDS ORDERED: AMIODARONE 150 MG in DEXTROSE 5% IN WATER 97 ML IV ONE (07:30)
[2021-07-03] MEDS ORDERED: SODIUM BICARB 8.4% 50 MEQ/50 ML SYRINGE IV ONE ×3 (07:37→10:13)
[2021-07-03 07:39] LABS: Albumin 2.2 g/dL (3.9-5)
[2021-07-03 07:41] LABS: Platelet Count 70 K/mm3 (140-440)
[2021-07-03] MEDS ORDERED: AMIODARONE 900 MG in DEXTROSE 5% IN WATER 482 ML IV SCH (08:00)
--- NOTE | 2021-07-03 10:08 | Event Note ---
Date: 07/03/21 Called [facility], [facility] as well as [facility] in [place]. No available beds at any of these institutions. Spoke with mother and father about this at the bedside. attempted a recruitment maneuver at the bedside but patient did not tolerate at all. Currently sats in the High 70's to low 80's on 22 of PEEP and 100%. Will increase to 24 and monitor sats. [place] pressures are high but willing to accept the risk to try to help with oxygenation.
[2021-07-03] MEDS ORDERED: SODIUM BICARB 8.4% 50 MEQ/50 ML SYRINGE IV NR ×2 (10:12)
[2021-07-03] MEDS: INSULIN GLARGINE 100 UNITS/ML SUB-Q SCH (10:32)
[2021-07-03] MEDS: SODIUM BICARBONATE 150 MEQ in DEXTROSE 5% IN WATER 1,000 ML IV SCH ×2 (11:13→17:42)
[2021-07-03] MEDS ORDERED: LORazepam 2 MG/ML VIAL IV ONE (11:15)
--- NOTE | 2021-07-03 11:16 | Hem/Onc Progress Note ---
Objective - Constitutional Vitals: Last Vital Signs Temp 100.2 F H 07/03/21 08:00 Pulse 143 H 07/03/21 10:00 Resp 25 H 07/03/21 10:00 BP 105/75 07/03/21 10:00 Pulse Ox 79 L 07/03/21 10:00 - Labs Lab Results: Laboratory Results - last 24 hr 07/01/21 07/02/21 07/02/21 11:00 10:38 12:26 WBC RBC Hgb Hct MCV MCH MCHC RDW Plt Count D-Dimer ABG pH 7.250 L 7.174 L* POC ABG pCO2 54.0 H ABG pCO2 84.3 POC ABG pO2 68.1 L ABG pO2 125.3 H POC ABG HCO3 23.1 ABG HCO3 30.3 H ABG O2 Saturation 89.8 97.7 ABG O2 Content 20.7 POC ABG Base Excess -4.9 ABG Base Excess -0.9 ABG Hemoglobin 17.0 15.2 ABG Oxyhemoglobin 89.2 L ABG Carboxyhemoglobin 1.3 ABG Methemoglobin 0.1 0.7 ABG Sodium 136.9 ABG Potassium 5.4 H ABG Chloride 101.0 ABG Glucose 191 H Oxyhemoglobin 95.8 Carboxyhemoglobin 0.6 FiO2 21 FiO2 % 100.0 Sodium Potassium Chloride Carbon Dioxide Anion Gap BUN Creatinine Estimated GFR BUN/Creatinine Ratio Glucose POC Glucose 237 H Calcium Phosphorus Magnesium Total Bilirubin AST ALT Alkaline Phosphatase Lactate Dehydrogenase Total Protein Albumin Albumin/Globulin Ratio Triglycerides Arterial Blood Glucose 191 H Arterial Blood Ionized Calcium 4.9 07/02/21 07/02/21 07/02/21 13:07 14:05 17:28 WBC RBC Hgb Hct MCV MCH MCHC RDW Plt Count D-Dimer ABG pH 7.028 L 7.242 L POC ABG pCO2 127.4 H 66.6 H ABG pCO2 POC ABG pO2 98.7 61.0 L ABG pO2 POC ABG HCO3 32.8 28.0 ABG HCO3 ABG O2 Saturation 95.6 90.4 ABG O2 Content POC ABG Base Excess -2.2 -1.1 ABG Base Excess ABG Hemoglobin 14.9 15.0 ABG Oxyhemoglobin 94.9 89.9 L ABG Carboxyhemoglobin ABG Methemoglobin 0.3 0.2 ABG Sodium 140.5 140.2 ABG Potassium 5.9 H 5.9 H ABG Chloride 104.0 104.0 ABG Glucose 269 H 293 H Oxyhemoglobin Carboxyhemoglobin 0.4 L 0.4 L FiO2 FiO2 % 80 Sodium Potassium Chloride Carbon Dioxide Anion Gap BUN Creatinine Estimated GFR BUN/Creatinine Ratio Glucose POC Glucose 220 H Calcium Phosphorus Magnesium Total Bilirubin AST ALT Alkaline Phosphatase Lactate Dehydrogenase Total Protein Albumin Albumin/Globulin Ratio Triglycerides Arterial Blood Glucose 269 H 293 H Arterial Blood Ionized Calcium 5.0 4.9 07/02/21 07/02/21 07/02/21 18:22 20:10 21:12 WBC RBC Hgb Hct MCV MCH MCHC RDW Plt Count D-Dimer ABG pH 7.130 L 7.272 L POC ABG pCO2 87.5 H 72.5 H ABG pCO2 POC ABG pO2 77.2 L 74.3 L ABG pO2 POC ABG HCO3 28.5 32.7 ABG HCO3 ABG O2 Saturation 92.8 94.2 ABG O2 Content POC ABG Base Excess -3.3 3.5 ABG Base Excess ABG Hemoglobin 15.0 13.9 ABG Oxyhemoglobin 91.9 L 93.6 L ABG Carboxyhemoglobin ABG Methemoglobin 0.2 0.1 ABG Sodium 141.4 142.2 ABG Potassium 5.7 H 5.2 H ABG Chloride 105.0 105.0 ABG Glucose 257 H 231 H Oxyhemoglobin Carboxyhemoglobin 0.8 0.5 FiO2 FiO2 % 80 80.0 Sodium Potassium Chloride Carbon Dioxide Anion Gap BUN Creatinine Estimated GFR BUN/Creatinine Ratio Glucose POC Glucose 217 H Calcium Phosphorus Magnesium Total Bilirubin AST ALT Alkaline Phosphatase Lactate Dehydrogenase Total Protein Albumin Albumin/Globulin Ratio Triglycerides Arterial Blood Glucose 257 H 231 H Arterial Blood Ionized Calcium 5.0 4.7 07/02/21 07/03/21 07/03/21 23:21 00:06 00:06 WBC RBC Hgb Hct MCV MCH MCHC RDW Plt Count D-Dimer 842.88 H ABG pH POC ABG pCO2 ABG pCO2 POC ABG pO2 ABG pO2 POC ABG HCO3 ABG HCO3 ABG O2 Saturation ABG O2 Content POC ABG Base Excess ABG Base Excess ABG Hemoglobin ABG Oxyhemoglobin ABG Carboxyhemoglobin ABG Methemoglobin ABG Sodium ABG Potassium ABG Chloride ABG Glucose Oxyhemoglobin Carboxyhemoglobin FiO2 FiO2 % Sodium 148 H D Potassium 3.6 D Chloride 112.7 H Carbon Dioxide 26 Anion Gap 13 BUN 51 H Creatinine 1.2 Estimated GFR > 60 BUN/Creatinine Ratio 43 Glucose 210 H POC Glucose 273 H Calcium 6.1 L D Phosphorus Magnesium Total Bilirubin AST ALT Alkaline Phosphatase Lactate Dehydrogenase Total Protein Albumin Albumin/Globulin Ratio Triglycerides Arterial Blood Glucose Arterial Blood Ionized Calcium 07/03/21 07/03/21 07/03/21 05:00 05:15 06:30 WBC RBC Hgb Hct MCV MCH MCHC RDW Plt Count D-Dimer ABG pH 7.250 L POC ABG pCO2 68.1 H ABG pCO2 POC ABG pO2 51.7 L ABG pO2 POC ABG HCO3 29.2 ABG HCO3 ABG O2 Saturation 84.2 ABG O2 Content POC ABG Base Excess -0.1 ABG Base Excess ABG Hemoglobin 15.5 ABG Oxyhemoglobin 83.5 L ABG Carboxyhemoglobin ABG Methemoglobin 0.2 ABG Sodium 144.5 ABG Potassium 4.7 H ABG Chloride 107.0 ABG Glucose 146 H Oxyhemoglobin Carboxyhemoglobin 0.6 FiO2 FiO2 % 100.0 Sodium 150 H Potassium 4.7 D Chloride 111.4 H Carbon Dioxide 29 Anion Gap 14 BUN 62 H Creatinine 1.9 H D Estimated GFR 49 BUN/Creatinine Ratio 33 Glucose 102 H POC Glucose 111 H Calcium 8.0 L D Phosphorus 2.50 D Magnesium 2.90 H Total Bilirubin 0.80 AST 68 H ALT 211 H Alkaline Phosphatase 107 Lactate Dehydrogenase 583 H Total Protein 4.3 L D Albumin 2.2 L Albumin/Globulin Ratio 1.0 Triglycerides 452 H Arterial Blood Glucose 146 H Arterial Blood Ionized Calcium 4.7 07/03/21 07/03/21 07/03/21 06:30 06:30 09:03 WBC 4.3 L RBC 4.63 Hgb 14.0 Hct 42.3 MCV 91 MCH 30 MCHC 33 RDW 15.0 Plt Count 70 L D-Dimer 1967.16 H ABG pH 7.228 L POC ABG pCO2 71.2 H ABG pCO2 POC ABG pO2 49.1 L ABG pO2 POC ABG HCO3 29.0 ABG HCO3 ABG O2 Saturation 82.2 ABG O2 Content POC ABG Base Excess -0.3 ABG Base Excess ABG Hemoglobin 13.4 ABG Oxyhemoglobin 81.7 L ABG Carboxyhemoglobin ABG Methemoglobin 0 ABG Sodium 146.9 H ABG Potassium 3.8 ABG Chloride 110.0 H ABG Glucose 130 H Oxyhemoglobin Carboxyhemoglobin 0.6 FiO2 FiO2 % 100.0 Sodium Potassium Chloride Carbon Dioxide Anion Gap BUN Creatinine Estimated GFR BUN/Creatinine Ratio Glucose POC Glucose Calcium Phosphorus Magnesium Total Bilirubin AST ALT Alkaline Phosphatase Lactate Dehydrogenase Total Protein Albumin Albumin/Globulin Ratio Triglycerides Arterial Blood Glucose 130 H Arterial Blood Ionized Calcium 4.4 L Medications & Allergies - Medications Allergies/Adverse Reactions: Allergies No Known Allergies Allergy (Unverified 06/13/21 20:13) Home Medications: Home Medications Medication Instructions Recorded Confirmed Last Taken Type DOXYCYCLINE Hyclate [Vibramycin] 100 mg PO BID 06/14/21 06/16/21 06/06/21 H istory Active Medications: Generic Name Dose Route Start Last Admin Trade Name Freq PRN Reason Stop Dose Admin Acetaminophen 650 mg 06/13/21 22:49 06/27/21 03:31 Acetaminophen 325 Mg Tab PO 650 mg Q4H PRN Administration Pain MILD(1-3)/Fever >100.5/HAYNES Albuterol 5 mg 06/25/21 11:52 Albuterol 2.5 Mg/3 Ml Nebu IH Q4HRT PRN Shortness Of Breath Lipase/Protease/Amylase 1 each 07/01/21 13:00 Lipase 10,500/Protease 25,000/Amylase 43,750 (Units) Dr Cap FEEDTUBE PRN PRN For Clogged Feeding Tube Docusate Sodium 100 mg 07/01/21 22:00 07/03/21 10:32 Docusate Sodium 100 Mg/10 Ml Oral Liqd PO 100 mg BID SIMÓN Administration Enoxaparin Sodium 40 mg 07/01/21 22:00 07/03/21 00:38 Enoxaparin 40 Mg/0.4 Ml Inj SUB-Q 40 mg QDAY@2200 SIMÓN Administration Famotidine 20 mg 07/02/21 10:00 07/03/21 10:32 Famotidine 20 Mg Tab PO 20 mg BID SIMÓN Administration Norepinephrine 4 mg in 250 mls @ 7.5 mls/hr 06/30/21 18:00 07/03/21 10:40 Levophed Drip 4 Mg/Ns 250 Ml IV 30 mcg/min TITR SIMÓN 112.5 mls/hr Administration Protocol 2 MCG/MIN Fentanyl Citrate 2,000 mcg in 100 mls @ 5.7 mls/hr 06/30/21 18:00 07/03/21 11:13 Fentanyl Drip Premix IV 4 mcg/kg/hr TITR SIMÓN 22.8 mls/hr Administration Protocol 1 MCG/KG/HR Propofol 1,000 mg in 100 mls @ 17.1 mls/hr 06/30/21 22:00 07/03/21 10:39 Diprivan 10 Mg/Ml IV 35 mcg/kg/min TITR SIMÓN 23.94 mls/hr Administration Protocol 25 MCG/KG/MIN Vasopressin 20 unit/ Sodium 101 mls @ 9.09 mls/hr 07/02/21 19:00 07/03/21 06:39 Chloride IV 0.03 units/min TITR SIMÓN 9.09 mls/hr Administration Protocol 0.03 UNITS/MIN Dopamine HCl/Dextrose 800 mg in 250 mls @ 4.275 mls/hr 07/02/21 22:00 07/02/21 22:05 Intropin Drip 800 Mg/D5w 250 Ml IV 0 mcg/kg/min TITR SIMÓN 0 mls/hr Titration Protocol 2 MCG/KG/MIN Epinephrine 16 mg/ Sodium 250 mls @ 1.875 mls/hr 07/02/21 22:00 07/03/21 06:38 Chloride IV 10 mcg/min TITR SIMÓN 9.375 mls/hr Titration Protocol 2 MCG/MIN Phenylephrine HCl 100 mg/ 100 mls @ 3 mls/hr 07/03/21 04:45 07/03/21 06:42 Sodium Chloride IV 80 mcg/min TITR SIMÓN 4.8 mls/hr Titration Protocol 50 MCG/MIN Amiodarone HCl 900 mg/ 500 mls @ 33.333 mls/hr 07/03/21 08:00 07/03/21 08:12 Dextrose IV 1 mg/min DIRECT SIMÓN 33.333 mls/hr Administration Protocol 1 MG/MIN Sodium Bicarbonate 150 meq/ 1,150 mls @ 250 mls/hr 07/03/21 11:00 07/03/21 11:13 Dextrose IV 250 mls/hr DIRECT SIMÓN Administration Insulin Glargine 10 units 07/02/21 10:00 07/03/21 10:32 Insulin Glargine 100 Units/Ml SUB-Q 10 units DAILY SIMÓN Administration Insulin Human Lispro 0 unit 07/02/21 12:00 07/03/21 05:43 Insulin Lispro 100 Unit/Ml SUB-Q Not Given Q6HR [facility] Protocol Methylprednisolone Sodium Succinate 40 mg 06/25/21 14:00 07/03/21 06:37 Methylprednisolone Sod Succinate 40 Mg/1 Ml Inj IV 40 mg Q8HR SIMÓN Administration Simple Syrup 15 ml 07/01/21 13:00 Simple Syrup 15 Ml FEEDTUBE PRN PRN Hypoglycemia Simple Syrup 30 ml 07/01/21 13:00 Simple Syrup 15 Ml FEEDTUBE PRN PRN Hypoglycemia Sodium Bicarbonate 325 mg 07/01/21 13:00 Sodium Bicarbonate 325 Mg Tab FEEDTUBE PRN PRN For Clogged Feeding Tube Sodium Bicarbonate 50 meq 07/03/21 10:12 07/03/21 10:31 Sodium Bicarb 8.4% 50 Meq/50 Ml Syringe IV 07/03/21 12:00 50 meq ONCE NR Administration Sodium Chloride 10 ml 06/14/21 10:00 07/03/21 10:41 Sodium Chloride 0.9% 10 Ml Flush Syringe IV 10 ml BID SIMÓN Administration Sodium Chloride 10 ml 06/13/21 22:49 Sodium Chloride 0.9% 10 Ml Flush Syringe IV PRN PRN LINE FLUSH
[2021-07-03] MEDS ORDERED: LORazepam 2 MG/ML VIAL IV PRN (11:41)
[2021-07-03] MEDS ORDERED: LORazepam 100 MG in SODIUM CHLORIDE 0.9% 50 ML, EMPTY BAG 0 ML IV SCH (12:00)
[2021-07-03] MEDS ORDERED: ACETAMINOPHEN 650 MG RECT SUPP PR ONE (12:00)
--- NOTE | 2021-07-03 12:00 | Event Note ---
Date: 07/03/21 Called [facility] and they are willing to accept patient. Have asked me to prone and paralyze patient and repeat ABG to see how stable patient is. They are willing to fly him up if I feel comfortable with repeat numbers. I have called the patient's mother who is in agreement with this plan and I will keep her updated. She requests to be here before he leaves. Ordering ativan drip in addition to diprovan and fent to maximize sedation so that patient can be paralyzed.
--- NOTE | 2021-07-03 13:04 | Procedure Note ---
Date of procedure: 07/03/21 (RIJ central line) Pre-op diagnosis: covid pna/respiratory failure Procedure: RIJ central line- triple lumen inserted under ultrasound guidance. sterile technique with full drape site prepped with CHG line inserted without difficulty; with US guidance line sutured in place biopatch and dressing applied pt tolerated procedure well xray confirmed placement time spent not included Estimated blood loss: none Pathology: none Disposition: ICU
[2021-07-03] MEDS: CISATRACURIUM 10 MG in SODIUM CHLORIDE 0.9% 95 ML IV SCH ×2 (13:16→17:19)
--- NOTE | 2021-07-03 13:35 | XRay Report ---
CHEST 1 VIEW INDICATION: ARDS, recent IJ placement. COMPARISON: Yesterday FINDINGS: Support devices: Endotracheal tube, nasogastric tube and right arm PICC are unchanged. A right IJ evelyn ous catheter has been placed which terminates in the lower SVC. Heart: Within normal limits. Lungs/Pleura: Diffuse bilateral lung opacities appear stable given differences in technique. No pleur al effusion or pneumothorax. Additional findings: None. IMPRESSION: Stable appearance of the bilateral lung opacities. Adequate placement of the right IJ venous catheter. No pneumothorax. Signer Name: David Bragg Jr, MD Signed: 07/03/2021 1:31 PM Workstation Name: [id number]
[2021-07-03] MEDS ORDERED: ACETAMINOPHEN 500 MG TAB PO ONE (13:39)
--- NOTE | 2021-07-03 15:06 | Progress Note ---
Assessment and Plan Assessment and plan: 36-year-old with a history of asthma, obesity presented with shortness of breath fever chills arthralgias myalgias approximately 8 days after testing positive for COVID. Patient at present hypoxic requiring 15 L facemask at present. Patient is able to speak in full sentences however remains hypoxic. Hospital course complicated by nonproductive cough. Progressive hypoxia and failed bipap resulted in intubation 06-30. NEURO-sedation sedated on fentanyl and prop added cis and ativan today last time I have seen pt follow commands was 07-01 (AM p intubation) his sedation was then inc for proning and SAT limited by hypoxia restrained for safety PRN tylenol family at bedside today CV- tachycardia; sp cardiac arrest overnight ST MAP goal 65 Now on levo/epi/noah for MAP support RESP-hx asthma; acute hypoxic resp failure due to [id number] intubated 06-30 mechancally ventilated requiring max vent support ACPRV [id number] trending ABG acidosis; on bicarb drip proned the last 2 nights proned today continue nebs Dr Macdonald CCM at bedside most of the day today- pt to be transferred to [facility] for VV ECMO GI- protein calorie deficit nutrition consult TF held OG to LIS - bilious drainage pepcid bowel reg-colace - KIRSTIN trend Cr-1.9 today (1.0 on admit) strict I/O pt was net pos 1.7 L over the last 24 hours continue to trend Cr trend electrolytes HEME-coagulopathy of covid; on AC VTE enoxaparin daily had been on higher dose but yesterday his plts fell- currently 701 continue to monitor CTA was neg for PE on admit 06-15 trend inflammatory markers trend CBC no bleeding on exam ID- covid pna; sepsis trend temp and WBC curve WBC 4.3 methylpred 40 Q8h follow culture data trend temp completed remdesovir ENDO obese; hyperglycemia likely steroid induced monitor blood glucose glargine daily - held today given NPO and falling BG SSI PRN 06/15: Considering gradual decline will transfer patient to IMCU. We'll also consult pulmonary GI. I have requested the patient be put on high flow and also trial of BiPAP. ID is consulted and currently following patient management. Weight loss recommended. Continue steroids. Chest x-ray reviewed by me shows bilateral infiltrates 06/16: Patient seen and examined Remains on HFNC but now at 40 and 100%. SAts in the mid 90's. Continue to monitor renal function with Lasix. Continue IMCU. Can downgrade this oxygen weaning again this. Continue prone positioning. Case discussed with assistant grocery store manager 06/17: Continue supportive care. High flow down to 35 L continuous 100% with saturation in the mid to low 90s. Per assistant grocery store manager steroid has been increased to twice daily dosing due to patient size. Patient continues on IV remdesivir. We will continue to monitor inflammatory markers. Prognosis is guarded. 06/18: Patient seen and examined, Continues supportive care, wean as tolerated. still with persitent hypoxia, he did not like the High flow, affects his nostriles, and now is on NRB satting 94%. Continue to encourage prone position. condition is still guarded 06/19: Continue supportive care, wean oxygen as tolerated, patient ok with me speaking with mother, will call and update. 06/20: Patient seen and examined continues to be weaned down on high flow oxygen down to 85%. Saturation remains around 92%. I did discuss extensively with the mother. She verbalized understanding. This discussion was done with permission with the patient. We will do another trial of Lasix. Patient is continued on the steroids he is status post Actemra and has completed his remdesivir. 06/21: Patient's prognosis still remains guarded. Continue to encourage prone positioning. Went back up on oxygen demand. But states that he does not feel less winded as before. Continue diuresis and monitor renal function. Also monitor inflammatory markers. 06/22: Patient more mobile but still profoundly hypoxic, continue to monitor and wean oxygen as tolerated. Will re-evaluate if repeated Lasix will help. 06/23: Patient seen and examined remains on high flow refusing to prone states is uncomfortable. We will continue with aggressive measures. Will change to full dose Lovenox discussed with hematology nurse educator. Condition is still guarded 06/24; patient was seen and evaluated this morning. Patient was on 15L of high flow oxygen. Patient finished remdesivir, Decadron, Actemra. Prognosis is g uarded. 06/25; patient was on 40 L of high flow oxygen with FiO2 of 100%. Prognosis is guarded. Continue IMCU care. Patient was anxious and put on Xanax as needed. 06/26; patient was on 40 L of high flow oxygen with FiO2 of 100%. Prognosis is guarded. Continue IMCU care. Patient was anxious and put on Xanax as needed. 06/27; patient is on 40 L of oxygen and 15 L via nonrebreather mask. Prognosis is guarded 06/28; patient is on 40 L of high flow oxygen. Will give Lasix. Patient is on Xanax 0.5 mg p.o. 3 times daily. Self proning. 06/29 Patient is alert, no complaints, he is on BIPAP at 100 Fio2, moderately dyspneic, pulmonary note reviewed, lab results reviewed 06/30: Patient remains on BiPAP with full facemask still dyspneic. Still encourage prone positioning patient sometimes refuses the importance discussed in detail. Plan discussed with nursing staff at bedside 07-01 intubated last night- see event note 07-02 proned overnight- see systems review above 07-03 PRONED OVERNIGHT; SP CARDIAC ARREST WHILE PRONED The high probability of a clinically significant, sudden or life threatening deterioration of the [pulmonary] system(s) required my full and direct attention, intervention and personal management. The aggregate critical care time was [90] minutes. This time is in addition to time spent performing reported procedures but includes the following: [x] Data Review and interpretation [x] Patient assessment and monitoring of vital signs [x] Documentation [x] Medication orders and management Disposition Plan: ICU-[facility] FOR VV ECMO Total Time Spent with Patient (Minutes): 90 History Interval history: sp cardiac arrest last night while in prone position Hospitalist Physical - Constitutional Vitals: Temp Pulse Resp BP Pulse Ox 100.2 F H 150 H 30 H 64/44 73 L 07/03/21 08:00 07/03/21 11:59 07/03/21 11:00 07/03/21 11:59 07/03/21 11:59 General appearance: Present: mild distress - EENT Eyes: Present: EOM intact ENT: clear oral mucosa - Neck Neck: Present: supple - Respiratory Respiratory effort: labored - Cardiovascular Rhythm: regular Heart Sounds: Present: S1 & S2 - Extremities Extremity abnormal: edema - Abdominal General gastrointestinal: soft - Integumentary Integumentary: Present: clear, warm - Psychiatric Psychiatric: other - Neurologic Neurologic: other - Allied Health Allied health notes reviewed: nursing, RT, case management Results - Labs CBC & Chem 7: 07/03/21 06:30 07/03/21 06:30 Labs: Laboratory Last Values WBC 4.3 K/mm3 (4.5-11.0) L 07/03/21 06:30 RBC 4.63 M/mm3 (3.65-5.03) 07/03/21 06:30 Hgb 14.0 gm/dl (11.8-15.2) 07/03/21 06:30 Hct 42.3 % (35.5-45.6) 07/03/21 06:30 MCV 91 fl (84-94) 07/03/21 06:30 MCH 30 pg (28-32) 07/03/21 06:30 MCHC 33 % (32-34) 07/03/21 06:30 RDW 15.0 % (13.2-15.2) 07/03/21 06:30 Plt Count 70 K/mm3 (140-440) L 07/03/21 06:30 Lymph % (Auto) 25.5 % (13.4-35.0) 06/13/21 20:09 [place] % (Auto) 4.3 % (0.0-7.3) 06/13/21 20:09 Eos % (Auto) 0.0 % (0.0-4.3) 06/13/21 20:09 Baso % (Auto) 0.3 % (0.0-1.8) 06/13/21 20:09 Lymph # (Auto) 0.6 K/mm3 (1.2-5.4) L 06/13/21 20:09 [place] # (Auto) 0.1 K/mm3 (0.0-0.8) 06/13/21 20:09 Eos # (Auto) 0.0 K/mm3 (0.0-0.4) 06/13/21 20:09 Baso # (Auto) 0.0 K/mm3 (0.0-0.1) 06/13/21 20:09 Add Manual Diff Complete 07/01/21 05:50 Total Counted 100 07/01/21 05:50 Seg Neutrophils % [place] 07/01/21 05:50 Seg Neuts % (Manual) 99.0 % (40.0-70.0) H 07/01/21 05:50 Band Neutrophils % 1.0 % 07/01/21 05:50 Lymphocytes % (Manual) 14.0 % (13.4-35.0) 06/14/21 05:12 Monocytes % (Manual) 4.0 % (0.0-7.3) 06/14/21 05:12 Nucleated RBC % Not Reportable 07/01/21 05:50 Seg Neutrophils # 1.8 K/mm3 (1.8-7.7) 06/13/21 20:09 Seg Neutrophils # Man 16.2 K/mm3 (1.8-7.7) H 07/01/21 05:50 Band Neutrophils # 0.2 K/mm3 07/01/21 05:50 Lymphocytes # (Manual) 0.0 K/mm3 (1.2-5.4) L 07/01/21 05:50 Abs React Lymphs (Man) 0.0 K/mm3 07/01/21 05:50 Monocytes # (Manual) 0.0 K/mm3 (0.0-0.8) 07/01/21 05:50 Eosinophils # (Manual) 0.0 K/mm3 (0.0-0.4) 07/01/21 05:50 Basophils # (Manual) 0.0 K/mm3 (0.0-0.1) 07/01/21 05:50 Metamyelocytes # 0.0 K/mm3 07/01/21 05:50 Myelocytes # 0.0 K/mm3 07/01/21 05:50 Promyelocytes # 0.0 K/mm3 07/01/21 05:50 Blast Cells # 0.0 K/mm3 07/01/21 05:50 WBC Morphology Not Reportable 07/01/21 05:50 Hypersegmented Neuts Not Reportable 07/01/21 05:50 Hyposegmented Neuts Not Reportable 07/01/21 05:50 Hypogranular Neuts Not Reportable 07/01/21 05:50 Smudge Cells Not Reportable 07/01/21 05:50 Toxic Granulation Not Reportable 07/01/21 05:50 Toxic Vacuolation Not Reportable 07/01/21 05:50 Dohle Bodies Not Reportable 07/01/21 05:50 Pelger-Huet Anomaly Not Reportable 07/01/21 05:50 Sheri Rods Not Reportable 07/01/21 05:50 Platelet Estimate Consistent w auto 07/01/21 05:50 Clumped Platelets Not Reportable 07/01/21 05:50 Plt Clumps, EDTA Not Reportable 07/01/21 05:50 Large Platelets Not Reportable 07/01/21 05:50 Giant Platelets Not Reportable 07/01/21 05:50 Platelet Satelliting Not Reportable 07/01/21 05:50 Plt Morphology Comment Not Reportable 07/01/21 05:50 RBC Morphology Normal 07/01/21 05:50 Dimorphic RBCs Not Reportable 07/01/21 05:50 Polychromasia Not Reportable 07/01/21 05:50 Hypochromasia Not Reportable 07/01/21 05:50 Poikilocytosis Not Reportable 07/01/21 05:50 Anisocytosis Not Reportable 07/01/21 05:50 Microcytosis Not Reportable 07/01/21 05:50 Macrocytosis Not Reportable 07/01/21 05:50 Spherocytes Not Reportable 07/01/21 05:50 Pappenheimer Bodies Not Reportable 07/01/21 05:50 Sickle Cells Not Reportable 07/01/21 05:50 Target Cells Not Reportable 07/01/21 05:50 Tear Drop Cells Not Reportable 07/01/21 05:50 Ovalocytes Not Reportable 07/01/21 05:50 Helmet Cells Not Reportable 07/01/21 05:50 Macdonald-[place]ren[place] Bodies Not Reportable 07/01/21 05:50 [place] Rings Not Reportable 07/01/21 05:50 Wilson Cells Not Reportable 07/01/21 05:50 Bite Cells Not Reportable 07/01/21 05:50 Crenated Cell Not Reportable 07/01/21 05:50 Elliptocytes Not Reportable 07/01/21 05:50 Acanthocytes (Spur) Not Reportable 07/01/21 05:50 Rouleaux Not Reportable 07/01/21 05:50 Hemoglobin C Crystals Not Reportable 07/01/21 05:50 Schistocytes Not Reportable 07/01/21 05:50 Malaria parasites Not Reportable 07/01/21 05:50 Swapnil Bodies Not Reportable 07/01/21 05:50 Hem Pathologist Commnt No 07/01/21 05:50 D-Dimer 1967.16 ng/mlDDU (0-234) H 07/03/21 06:30 ABG pH 7.244 (7.320-7.450) L 07/03/21 14:41 POC ABG pCO2 68.7 mmHg (32.0-48.0) H 07/03/21 14:41 ABG pCO2 84.3 mm Hg 07/02/21 10:38 POC ABG pO2 50.3 mmHg (83-108) L 07/03/21 14:41 ABG pO2 125.3 mm Hg (80.0-90.0) H 07/02/21 10:38 POC ABG HCO3 29.0 07/03/21 14:41 ABG HCO3 30.3 mmol/L (20.0-26.0) H 07/02/21 10:38 ABG O2 Saturation 83.4 (0-100) 07/03/21 14:41 ABG O2 Content 20.7 (0.0-44) 07/02/21 10:38 POC ABG Base Excess 0.2 07/03/21 14:41 ABG Base Excess -0.9 mmol/L (-2.0-3.0) 07/02/21 10:38 ABG Hemoglobin 12.8 (12.0-17.5) 07/03/21 14:41 ABG Oxyhemoglobin 82.7 (94-98) L 07/03/21 14:41 ABG Carboxyhemoglobin 1.3 % (0.0-5.0) 07/02/21 10:38 ABG Methemoglobin 0.1 (0.0-1.5) 07/03/21 14:41 ABG Sodium 144.0 mmol/L (136.0-145.0) 07/03/21 14:41 ABG Potassium 4.0 mmol/L (3.40-4.50) 07/03/21 14:41 ABG Chloride 108.0 mmol/L (98-107) H 07/03/21 14:41 ABG Glucose 183 mg/dL (65-95) H 07/03/21 14:41 Oxyhemoglobin 95.8 % (95.0-99.0) 07/02/21 10:38 Carboxyhemoglobin 0.7 (0.5-1.5) 07/03/21 14:41 FiO2 21 % 07/02/21 10:38 FiO2 % 100.0 07/03/21 14:41 Sodium 150 mmol/L (137-145) H 07/03/21 06:30 Potassium 4.7 mmol/L (3.6-5.0) D 07/03/21 06:30 Chloride 111.4 mmol/L (98-107) H 07/03/21 06:30 Carbon Dioxide 29 mmol/L (22-30) 07/03/21 06:30 Anion Gap 14 mmol/L 07/03/21 06:30 BUN 62 mg/dL (9-20) H 07/03/21 06:30 Creatinine 1.9 mg/dL (0.8-1.3) H D 07/03/21 06:30 Estimated GFR 49 ml/min 07/03/21 06:30 BUN/Creatinine Ratio 33 % 07/03/21 06:30 Glucose 102 mg/dL (75-100) H 07/03/21 06:30 POC Glucose 111 mg/dL (70-105) H 07/03/21 05:15 Calcium 8.0 mg/dL (8.4-10.2) L D 07/03/21 06:30 Phosphorus 2.50 mg/dL (2.5-4.5) D 07/03/21 06:30 Magnesium 2.90 mg/dL (1.7-2.3) H 07/03/21 06:30 Ferritin 2446.0 ng/mL (30.0-300.0) H 07/03/21 06:30 Total Bilirubin 0.80 mg/dL (0.1-1.2) 07/03/21 06:30 AST 68 units/L (5-40) H 07/03/21 06:30 ALT 211 units/L (7-56) H 07/03/21 06:30 Alkaline Phosphatase 107 units/L (35-129) 07/03/21 06:30 Lactate Dehydrogenase 583 units/L (91-180) H 07/03/21 06:30 C-Reactive Protein < 0.03 mg/dL (0.00-1.30) 06/26/21 10:46 Total Protein 4.3 g/dL (6.3-8.2) L D 07/03/21 06:30 Albumin 2.2 g/dL (3.9-5) L 07/03/21 06:30 Albumin/Globulin Ratio 1.0 % 07/03/21 06:30 Triglycerides 452 mg/dL (2-149) H 07/03/21 06:30 Procalcitonin < 0.05 ng/mL (<0.15) 06/24/21 05:25 Arterial Blood Glucose 183 mg/dL (65-95) H 07/03/21 14:41 Arterial Blood Ionized Calcium 4.0 mg/dL (4.6-5.3) L 07/03/21 14:41 Urine Color Yellow (Yellow) 07/01/21 12:11 Urine Turbidity Slightly-cloudy (Clear) 07/01/21 12:11 Urine pH 5.0 (5.0-7.0) 07/01/21 12:11 Ur Specific [place] 1.023 (1.003-1.030) 07/01/21 12:11 Urine Protein 30 mg/dl mg/dL (Negative) 07/01/21 12:11 Urine Glucose (UA) Neg mg/dL (Negative) 07/01/21 12:11 Urine Ketones Neg mg/dL (Negative) 07/01/21 12:11 Urine Blood Sm (Negative) 07/01/21 12:11 Urine Nitrite Neg (Negative) 07/01/21 12:11 Urine Bilirubin Neg (Negative) 07/01/21 12:11 Urine Urobilinogen < 2.0 mg/dL (<2.0) 07/01/21 12:11 Ur Leukocyte Esterase Neg (Negative) 07/01/21 12:11 Urine WBC (Auto) 16.0 /HPF (0.0-6.0) H 07/01/21 12:11 Urine RBC (Auto) 16.0 /HPF (0.0-6.0) 07/01/21 12:11 U Epithel Cells (Auto) < 1.0 /HPF (0-13.0) 07/01/21 12:11 Hyaline Casts 22 /LPF 07/01/21 12:11 Urine Mucus Few /HPF 07/01/21 12:11 Coronavirus (PCR) Positive (Negative) A 06/14/21 Unknown Microbiology: Microbiology 08/16/21 Unknown Urine,[place] Urine Culture - Final NO GROWTH AFTER 48 HOURS 06/30/21 02:00 Tracheal Aspirate Sputum Culture - Preliminary 06/30/21 21:17 Peripheral/Venous Blood Culture - Preliminary NO GROWTH AFTER 48 HOURS 06/30/21 21:17 Peripheral/Venous Blood Culture - Preliminary NO GROWTH AFTER 48 HOURS Mao/IV: Voiding Method Indwelling Catheter Active Medications - Current Medications Current Medications: Generic Name Dose Route Start Last Admin Trade Name Freq PRN Reason Stop Dose Admin Acetaminophen 650 mg 06/13/21 22:49 06/27/21 03:31 Acetaminophen 325 Mg Tab PO 650 mg Q4H PRN Administration Pain MILD(1-3)/Fever >100.5/HAYNES Albuterol 5 mg 06/25/21 11:52 Albuterol 2.5 Mg/3 Ml Nebu IH Q4HRT PRN Shortness Of Breath Lipase/Protease/Amylase 1 each 07/01/21 13:00 Lipase 10,500/Protease 25,000/Amylase 43,750 (Units) Dr Cap FEEDTUBE PRN PRN For Clogged Feeding Tube Docusate Sodium 100 mg 07/01/21 22:00 07/03/21 10:32 Docusate Sodium 100 Mg/10 Ml Oral Liqd PO 100 mg BID SIMÓN Administration Enoxaparin Sodium 40 mg 07/01/21 22:00 07/03/21 00:38 Enoxaparin 40 Mg/0.4 Ml Inj SUB-Q 40 mg QDAY@2200 SIMÓN Administration Famotidine 20 mg 07/02/21 10:00 07/03/21 10:32 Famotidine 20 Mg Tab PO 20 mg BID SIMÓN Administration Norepinephrine 4 mg in 250 mls @ 7.5 mls/hr 06/30/21 18:00 07/03/21 13:15 Levophed Drip 4 Mg/Ns 250 Ml IV 40 mcg/min TITR SIMÓN 150 mls/hr Administration Protocol 2 MCG/MIN Fentanyl Citrate 2,000 mcg in 100 mls @ 5.7 mls/hr 06/30/21 18:00 07/03/21 11:13 Fentanyl Drip Premix IV 4 mcg/kg/hr TITR SIMÓN 22.8 mls/hr Administration Protocol 1 MCG/KG/HR Propofol 1,000 mg in 100 mls @ 17.1 mls/hr 06/30/21 22:00 07/03/21 15:00 Diprivan 10 Mg/Ml IV 50 mcg/kg/min TITR SIMÓN 34.2 mls/hr Administration Protocol 25 MCG/KG/MIN Vasopressin 20 unit/ Sodium 101 mls @ 9.09 mls/hr 07/02/21 19:00 07/03/21 06:39 Chloride IV 0.03 units/min TITR SIMÓN 9.09 mls/hr Administration Protocol 0.03 UNITS/MIN Dopamine HCl/Dextrose 800 mg in 250 mls @ 4.275 mls/hr 07/02/21 22:00 07/02/21 22:05 Intropin Drip 800 Mg/D5w 250 Ml IV 0 mcg/kg/min TITR SIMÓN 0 mls/hr Titration Protocol 2 MCG/KG/MIN Epinephrine 16 mg/ Sodium 250 mls @ 1.875 mls/hr 07/02/21 22:00 07/03/21 06:38 Chloride IV 10 mcg/min TITR SIMÓN 9.375 mls/hr Titration Protocol 2 MCG/MIN Phenylephrine HCl 100 mg/ 100 mls @ 3 mls/hr 07/03/21 04:45 07/03/21 14:57 Sodium Chloride IV 120 mcg/min TITR SIMÓN 7.2 mls/hr Administration Protocol 50 MCG/MIN Amiodarone HCl 900 mg/ 500 mls @ 33.333 mls/hr 07/03/21 08:00 07/03/21 08:12 Dextrose IV 1 mg/min DIRECT SIMÓN 33.333 mls/hr Administration Protocol 1 MG/MIN Sodium Bicarbonate 150 meq/ 1,150 mls @ 250 mls/hr 07/03/21 11:00 07/03/21 11:13 Dextrose IV 250 mls/hr DIRECT SIMÓN Administration Cisatracurium Besylate 10 mg/ 100 mls @ 68.4 mls/hr 07/03/21 12:00 07/03/21 13:16 Sodium Chloride IV 1 mcg/kg/min TITR SIMÓN 68.4 mls/hr Administration Protocol 1 MCG/KG/MIN Lorazepam 100 mg/ Sodium 100 mls @ 1 mls/hr 07/03/21 12:00 07/03/21 13:15 Chloride/ Miscellaneous IV 1 mg/hr Information TITR SIMÓN 1 mls/hr Administration Protocol 1 MG/HR Insulin Glargine 10 units 07/02/21 10:00 07/03/21 10:32 Insulin Glargine 100 Units/Ml SUB-Q 10 units DAILY SIMÓN Administration Insulin Human Lispro 0 unit 07/02/21 12:00 07/03/21 05:43 Insulin Lispro 100 Unit/Ml SUB-Q Not Given Q6HR [facility] Protocol Lorazepam 2 mg 07/03/21 11:41 Lorazepam 2 Mg/Ml Vial IV Q10MIN PRN Agitation Methylprednisolone Sodium Succinate 40 mg 06/25/21 14:00 07/03/21 14:50 Methylprednisolone Sod Succinate 40 Mg/1 Ml Inj IV 40 mg Q8HR SIMÓN Administration Simple Syrup 15 ml 07/01/21 13:00 Simple Syrup 15 Ml FEEDTUBE PRN PRN Hypoglycemia Simple Syrup 30 ml 07/01/21 13:00 Simple Syrup 15 Ml FEEDTUBE PRN PRN Hypoglycemia Sodium Bicarbonate 325 mg 07/01/21 13:00 Sodium Bicarbonate 325 Mg Tab FEEDTUBE PRN PRN For Clogged Feeding Tube Sodium Chloride 10 ml 06/14/21 10:00 07/03/21 10:41 Sodium Chloride 0.9% 10 Ml Flush Syringe IV 10 ml BID SIMÓN Administration Sodium Chloride 10 ml 06/13/21 22:49 Sodium Chloride 0.9% 10 Ml Flush Syringe IV PRN PRN LINE FLUSH Nutrition/Malnutrition Assess - Dietary Evaluation Nutrition/Malnutrition Findings: Nutrition Notes Start: 06/19/21 11:11 Freq: Status: Active Protocol: Document 07/03/21 13:53 EB (Rec: 07/03/21 14:01 EB [id number]) Nutrition Notes Initial or Follow up Reassessment Current Diagnosis Sepsis,Respiratory Failure Other Pertinent Diagnosis Covid + Current Diet TF Jevity 1.2 Labs/Tests Na 150 BUN 62 Cr 1.9 Glu 102 Calcium 8 Mag 2.9 Pertinent Medications Reviewed Height 5 ft 8.9 in Weight 114 kg [place] Body Weight (kg) 72.45 BMI 37.2 Weight Status Obese Subjective/Other Information Spoke with RN about pt. RN states pt extubated himself early this morning and coded. Since then his TF has been off until they get him controlled and stable. Percent of energy/protein needs met: 0%/0% Burn Absent Trauma Absent Difficulty In Swallowing,Chewing Current % PO Negligible #1 Nutrition Diagnosis Inadequate oral intake Diagnosis Progress(for reassessment Continues documentation) Is patient on ventilator? Yes Is Patient Ambulatory and/or Out of Bed No REE-([place]-confined to bed) 2472.588 Kcal/Kg value to use for calculation 17 Approximate Energy Requirements Using 1938 kcal/Kg Calculation Used for Recommendations Kcal/kg Additional Notes Protein Needs: 108 g/day (1.5 g/kg IBW) Fluid needs 1 mL/kcal Nutrition Intervention Change Diet Order: Continue current TF once stable Nutrition Support: Jevity 1.2 at 70 mL/hr Flush 110 mL/hr q4H Kcal 2,016 Protein (gm) 93 Fluid (mL) 1,355 Goal #1 Restart TF Goal #2 Meet at least 75% dina and protein needs via TF Anticipated Discharge Needs: Unable to determine at this time Follow-Up By: 07/05/21 Additional Comments TF tolerance - Attestation Statement I have reviewed and agreed w/ Malnutrition eval & tx plan: Yes
--- NOTE | 2021-07-03 15:46 | Discharge Summary ---
Providers - Providers Date of Admission: 06/13/21 22:33 Date of discharge: 07/03/21 Attending physician: TIMBO ARREDONDO MD NOK MOTHER AND FATHER 06/13/21 22:53 Consult to Physician [CONS] Routine Comment: Consulting Provider: REJI MARIN Physician Instructions: Reason For Exam: covid 06/15/21 05:43 Consult to Physician [CONS] Routine Comment: Consulting Provider: MARY ELLEN MACDONALD Physician Instructions: Reason For Exam: Hypoxic respiratory failure-covid 06/30/21 18:43 Midline [Consult to PICC Line RN] [CONS] Stat Reason For Exam: please place midline/picc; for numerus drips Type Line:: PICC 07/01/21 09:36 Consult to Dietitian/Nutrition [CONS] Routine Physician Instructions: Reason For Exam: Reason for Consult: Write/Manage Tube Feeding 07/01/21 12:09 Consult to Dietitian/Nutrition [CONS] Routine Physician Instructions: Assess nutrtn needs, initiate, modify, manage TF Reason For Exam: Reason for Consult: Write/Manage Tube Feeding Reason for Consult: Write/Manage Tube Feeding [facility] Reason for admission: shortness of breath Condition: Fair Pertinent studies: CTA - NO PE CARDIAC ECHO- NOT COMPLETED DOPPLER/US- NOT COMPLETED Procedures: 06-30 INTUBATED 07-01 ARTERIAL LINE PLACED 07-03 RIJ TRIPLE LUMEN CATHETER Hospital course: 06-05-21 Diagnosed with COVID19 at clinic 06-13-21 Presented to ER with SOB; was admitted for COVID19 PNA; he was admitted to ICU but as an IMCU hold. At this time he was walking with adequate oxygenation. He was then moved to the IM. Over the coming days he required bipap at night and then around the clock. 06/15: Considering gradual decline will transfer patient to [facility]. We'll also consult pulmonary GI. I have requested the patient be put on high flow and also trial of BiPAP. ID is consulted and currently following patient management. Weight loss recommended. Continue steroids. Chest x-ray reviewed by me shows bilateral infiltrates 06/16: Patient seen and examined Remains on HFNC but now at 40 and 100%. SAts in the mid 90's. Continue to monitor renal function with Lasix. Continue IMCU. Can downgrade this oxygen weaning again this. Continue prone positioning. Case di scussed with central processing technician 06/17: Continue supportive care. High flow down to 35 L continuous 100% with saturation in the mid to low 90s. Per central processing technician steroid has been increased to twice daily dosing due to patient size. Patient continues on IV remdesivir. We will continue to monitor inflammatory markers. Prognosis is guarded. 06/18: Patient seen and examined, Continues supportive care, wean as tolerated. still with persitent hypoxia, he did not like the High flow, affects his nostriles, and now is on NRB satting 94%. Continue to encourage prone position. condition is still guarded 06/19: Continue supportive care, wean oxygen as tolerated, patient ok with me speaking with mother, will call and update. 06/20: Patient seen and examined continues to be weaned down on high flow oxygen down to 85%. Saturation remains around 92%. I did discuss extensively with the mother. She verbalized understanding. This discussion was done with permission with the patient. We will do another trial of Lasix. Patient is continued on the steroids he is status post Actemra and has completed his remdesivir. 06/21: Patient's prognosis still remains guarded. Continue to encourage prone positioning. Went back up on oxygen demand. But states that he does not feel less winded as before. Continue diuresis and monitor renal function. Also monitor inflammatory markers. 06/22: Patient more mobile but still profoundly hypoxic, continue to monitor and wean oxygen as tolerated. Will re-evaluate if repeated Lasix will help. 06/23: Patient seen and examined remains on high flow refusing to prone states is uncomfortable. We will continue with aggressive measures. Will change to full dose Lovenox discussed with dice dealer. Condition is still guarded 06/24; patient was seen and evaluated this morning. Patient was on 15L of high flow oxygen. Patient finished remdesivir, Decadron, Actemra. Prognosis is guarded. 06/25; patient was on 40 L of high flow oxygen with FiO2 of 100%. Prognosis is guarded. Continue IMCU care. Patient was anxious and put on Xanax as needed. 06/26; patient was on 40 L of high flow oxygen with FiO2 of 100%. Prognosis is guarded. Continue IMCU care. Patient was anxious and put on Xanax as needed. 06/27; patient is on 40 L of oxygen and 15 L via nonrebreather mask. Prognosis is guarded 06/28; patient is on 40 L of high flow oxygen. Will give Lasix. Patient is on Xanax 0.5 mg p.o. 3 times daily. Self proning. 06/29 Patient is alert, no complaints, he is on BIPAP at 100 Fio2, moderately dyspneic, pulmonary note reviewed, lab results reviewed 06-30-21 Pt had progressive SOB and hypoxia despite bipap/cpap. This resulted in intubation that evening. Pt was transfered to ICU/ 07-01-21 Pt proned; off pressors 07-02-21 Pt proned; overnight while pt was proned, he self extubated, and suffered a respiratory arrest. Disposition: SHORT TERM HOSPITAL Final Discharge Diagnosis (Prints w/discharge instructions): acute hypoxic respiratory failure; covid19 pna/sepsis; KIRSTIN; obesity Time spent for discharge: 30 Core Measure Documentation - Palliative Care Palliative Care/ Comfort Measures: Not Applicable - Core Measures Any of the following diagnoses?: none - VTE Discharge Requirements Deep Vein Thrombosis/Pulmonary Embolism Present on Admission: No Has pt received <5 days of overlap therapy or INR<2.0: No Anticoagulant overlap therapy prescribed at discharge: No Contraindication No Overlap Therapy order at DC: Not Indicated - Acute MO Discharge Requirements Aspirin at discharge: No Reason for no aspirin on DC: Medical contraindication LUIS ANGEL/ARB for LVSD if EF <40%: Not Applicable Reason for no LUIS ANGEL/ARB: Medical contraindication Beta deniz at discharge: No Reason for no beta deniz on DC: Medical contraindication Statin for LDL = or >100 mg/dl on DC: No Reason for no statin on DC: Medical contraindication - Heart Failure Discharge Requirements LUIS ANGEL/ARB for LVSD if EF <40%: Not Applicable - Stroke Discharge Requirements Statin for LDL = or >70 mg/dl on DC: Not Applicable Exam - Physical Exam Narrative exam: NEURO-sedation/paralysis sedated on fentanyl and prop added cis and ativan today last time I have seen pt follow commands was 8-17 (AM p intubation) his sedation was then inc for proning and SAT limited by hypoxia restrained for safety PRN tylenol family at bedside today CV- tachycardia; sp cardiac arrest overnight ST MAP goal 65 Now on levo/epi/noah for MAP support RESP-hx asthma; acute hypoxic resp failure due to [id number] intubated 06-30 mechancally ventilated requiring max vent support ACPRV [id number] trending ABG acidosis; on bicarb drip proned the last 2 nights proned today continue nebs Dr Macdonald CCM at bedside most of the day today- pt to be transferred to [facility] for VV ECMO GI- protein calorie deficit nutrition consult TF held OG to LIS - bilious drainage pepcid bowel reg-colace - KIRSTIN trend Cr-1.9 today (1.0 on admit) strict I/O pt was net pos 1.7 L over the last 24 hours continue to trend Cr trend electrolytes HEME-coagulopathy of covid; on AC VTE enoxaparin daily had been on higher dose but yesterday his plts fell- currently 701 continue to monitor CTA was neg for PE on admit 06-15 trend inflammatory markers trend CBC no bleeding on exam 1615 STAT LABS ORDERED ID- covid pna; sepsis trend temp and WBC curve WBC 4.3 methylpred 40 Q8h follow culture data trend temp completed remdesovir and actemra blood/sputum and urine cultures have all been negative last cultured on 06-30 ENDO obese; hyperglycemia likely steroid induced monitor blood glucose glargine daily - held today given NPO and falling BG SSI PRN - Constitutional Vitals: Temp Pulse Resp BP Pulse Ox 100.2 F H 150 H 30 H 64/44 73 L 07/03/21 08:00 07/03/21 11:59 07/03/21 11:00 07/03/21 11:59 07/03/21 11:59 General appearance: Present: mild distress - EENT Eyes: Present: PERRL ENT: clear oral mucosa - Neck Neck: Present: supple - Respiratory Respiratory effort: labored - Cardiovascular Rhythm: regular Heart Sounds: Present: S1 & S2 - Extremities Extremities: no ischemia Extremity abnormal: edema Peripheral Pulses: within normal limits - Abdominal General gastrointestinal: Present: soft Male genitourinary: Present: normal - Integumentary Integumentary: Present: clear, warm - Musculoskeletal Musculoskeletal: other - Psychiatric Psychiatric: other - Neurologic Neurologic: other - Allied Health Allied health notes reviewed: nursing, RT, case management Plan Care Plan Goals: transfer to higher level of care for VV ECMO support Follow up with: TAWANA PEREZMARKHAM MD LORAINE [Primary Care Provider] - 7 Days
[2021-07-03] MEDS ORDERED: ACETAMINOPHEN 325 MG/10.15 ML ORAL LIQD UNIT DOSE FEEDTUBE PRN (16:19)
[2021-07-03 17:16] LABS: Hematocrit 37.9 % (35.5-45.6); Hemoglobin 12.6 gm/dl (11.8-15.2); Mean Corpuscular HGB Conc 33 % (32-34); Mean Corpuscular Volume 92 fl (84-94); Red Blood Count 4.11 M/mm3 (3.65-5.03); Red Cell Distribution Width 15.3 % (13.2-15.2)
[2021-07-03 17:18] LABS: Platelet Count 44 K/mm3 (140-440)
[2021-07-03 17:29] LABS: Albumin 1.8 g/dL (3.9-5); Calcium 6.5 mg/dL (8.4-10.2)
[2021-07-03 17:37] LABS: INR 1.32 (0.87-1.13); Partial Thromboplastin Time 33.6 Sec. (24.2-36.6)
[2021-07-03] MEDS ORDERED: ACETAMINOPHEN IV 1,000 MG/100 ML BOTTLE IV ONE (17:56)
[2021-07-03] MEDS: SODIUM CHLORIDE 0.9% IV SCH (18:52)
[2021-07-03] MEDS: CISATRACURIUM IV SCH (18:52)
[2021-07-03 18:54] LABS: Anisocytosis RARE; Hypochromasia 1+; Total Cells Counted 100
--- NOTE | 2021-07-03 19:38 | Event Note ---
Date: 07/03/21 ECMO team arrived. Patient on 4 pressors with poor cardiac function. CT surgeon performed bedside ultrasound and given prolonged hypoxemia from hypoperfusion they deemed him not to be a candidate for ECMO. Dr. Alves did speak with the mother while I was present. ECOM team also discussed DNR with mother but she has not yet made a decision about this. Informed charge nurse who is also taking care of the patient as well. Prognosis is very very poor. Continue maximum support with pressors, bicarb therapy and vent support.
[2021-07-04] MEDS: NORepinephrine/NS 4 MG-250 ML 4 MG/250 ML BAG IV SCH ×11 (00:50→22:20)
[2021-07-04] MEDS: SODIUM CHLORIDE 0.9% IV SCH ×2 (00:51→07:14)
[2021-07-04] MEDS: CISATRACURIUM IV SCH ×2 (00:51→07:14)
[2021-07-04] MEDS: fentaNYL DRIP Premix 2,000 MCG/100 ML BAG IV SCH ×4 (02:18→20:01)
[2021-07-04] MEDS: INSULIN LISPRO 100 UNIT/ML SUB-Q SCH ×4 (02:20→21:29)
[2021-07-04] MEDS: VASOPRESSIN 20 UNIT in SODIUM CHLORIDE 0.9% 100 ML IV SCH ×2 (02:45→12:48)
[2021-07-04] MEDS ORDERED: SODIUM CHLORIDE 0.9% 1000 ML 1,000 ML ONE ×3 (04:25→09:11)
[2021-07-04] MEDS: SODIUM BICARBONATE 150 MEQ in DEXTROSE 5% IN WATER 1,000 ML IV SCH ×2 (05:05→12:47)
[2021-07-04] MEDS: EPINEPHrine 1 MG/1 ML 16 MG in SODIUM CHLORIDE 0.9% 250ML 234 ML IV SCH (05:05)
[2021-07-04] MEDS: PHENYLEPHRINE 100 MG in SODIUM CHLORIDE 0.9% 90 ML IV SCH ×5 (05:06→21:39)
[2021-07-04] MEDS: methylPREDNISolone Sod Succinate 40 MG/1 ML INJ IV SCH ×3 (06:44→21:27)
[2021-07-04] MEDS: DOCUSATE SODIUM 100 MG/10 ML ORAL LIQD PO SCH ×3 (06:45→21:27)
--- NOTE | 2021-07-04 07:44 | Progress Note ---
Assessment and Plan 36 y/o male with acute respiratory failure secondary to COVID 19 07/04/21: Patient's vitals are poor. Had moments of improvement last night, but overall clinical state is very bad. Vitals present are the result of ventilation and max dosing of epi, vas, noah as well as levophed. Bicarb drip and several IV boluses. Spoke with mother and father at the bedside this am. They are going home to eat and change as they have been here all night. Continue supportive measures but at some point will breach the subject of withdrawal. At this point out of respect for family, will give them more time before doing so. Poor overall prognosis. 07/03/21: Worsening clinical status secondary to cardiac arrest last night. Currently on 3 pressors and hypotensive. Will max out noah. Amio Bolus and start Amio drip. Awaiting EKG but on monitor appears to be flutter as patient is hanging pretty consistently in the 140-150 range. Will give 2 amps of NaHCO3 now and then start bicarb drip. Trendelenburg to help with blood pressure. Repeat CXR later today and repeat ABG after bicarb administration. Overall prognosis at this point is extremely guarded to poor. Continue IV steroids. Mother very upset about current situation, attempted to calm her and explain the severity of illness. Will request administration allow her and the patient's father to visit later. Spoke with Fred Edward and he will help to facilitate this. 07/02/21: Repeat ABG now that changed modes of ventilation to help with Peak Pressures. Sats still in the 90's and Peak Pressures in the 20's. Concern about ventilation but more concerned about oxygenation. Continue pressors to maintain adequate BP and perfusion pressure. Will prone again tonight with ABG 30 minutes post prone. Continue IV steroids. Anticoagulation. Prognosis remains guarded to poor. Discussed with Mother over the phone. 07/01/21: Intubated now and sedated. Will prone today for 16 hours. Adjust tube feeds accordingly. Low lung volume high PEEP strategy to obtain sats >88 and PaO2 >55. Maintain daily net negative volume state if BP and renal function will allow. Sedation to rass of -4. Continue IV steroids. Anticoagulation. Very very guarded prognosis. 06/30/21: Very very close to intubation. Spoke with mother over the phone who wishes to come and visit to see if she can help calm him down and encourage more proning. Will continue bipap and IV steroids for now. Prognosis remains very guarded 1. Prone as tolerated during the day and sleep prone at night 2. IV steroids and remdesivir, per ID would be a candidate for actemra 3. Agree with lasix therapy, monitor renal function and electrolytes closely 4. Guarded prognosis Subjective Date of service: 07/04/21 Principal diagnosis: Acute hypoxic respiratory failure Interval history: Events from yesterday detailed in other notes. Mother and father at bedside gowned and masked. Patient is sedated, hypotensive and sat on monitor is reading 91 but likely not accurate. No urine output. Mother did make patient a DNR last night. Objective Vital Signs - 12hr 07/03/21 07/03/21 07/03/21 20:00 21:00 21:45 Temperature 101.1 F H Pulse Rate 144 H 144 H Pulse Rate [ 148 H From Monitor] Respiratory 29 H 33 H Rate Blood Pressure 85/42 86/36 O2 Sat by Pulse 76 L 78 L Oximetry 07/03/21 07/03/21 07/03/21 22:00 22:02 23:00 Temperature Pulse Rate 151 H 152 H Pulse Rate [ From Monitor] Respiratory 22 33 H Rate Blood Pressure 84/33 94/35 O2 Sat by Pulse 79 L 79 L 83 L Oximetry 07/03/21 07/04/21 07/04/21 23:56 00:00 00:40 Temperature 101.0 F H Pulse Rate 149 H Pulse Rate [ 150 H From Monitor] Respiratory 30 H Rate Blood Pressure 84/31 O2 Sat by Pulse 80 L 79 L Oximetry 07/04/21 07/04/21 07/04/21 01:00 02:00 03:00 Temperature Pulse Rate 147 H 151 H 150 H Pulse Rate [ From Monitor] Respiratory 33 H 34 H 42 H Rate Blood Pressure 88/33 94/38 95/37 O2 Sat by Pulse 82 L 82 L Oximetry 07/04/21 07/04/21 07/04/21 04:00 04:06 05:00 Temperature 103.3 F H Pulse Rate 151 H 150 H 147 H Pulse Rate [ 150 H From Monitor] Respiratory 34 H 34 H Rate Blood Pressure 83/35 52/39 81/30 O2 Sat by Pulse 76 L 83 L 94 Oximetry 07/04/21 07/04/21 06:00 07:00 Temperature Pulse Rate 150 H 150 H Pulse Rate [ From Monitor] Respiratory 34 H 33 H Rate Blood Pressure 90/33 90/33 O2 Sat by Pulse 91 Oximetry Constitutional: comatose, other (orally intubated and sedated) Eyes: non-icteric ENT: other (orally intubated, 8.0 tube) Neck: supple Ascultation: Bilateral: diminished breath sounds Percussion: Bilateral: not dull Cardiovascular: regular rate and rhythm Gastrointestinal: normoactive bowel sounds Integumentary: normal Extremities: no cyanosis Neurologic: unable to assess Psychiatric: anxious CBC and BMP: 07/03/21 17:00 07/03/21 17:00 ABG, PT/INR, D-dimer: ABG ABG pH 7.203 (7.320-7.450) L 07/03/21 18:35 POC ABG pCO2 76.3 mmHg (32.0-48.0) H 07/03/21 18:35 ABG pCO2 84.3 mm Hg 07/02/21 10:38 POC ABG pO2 44.5 mmHg (83-108) L 07/03/21 18:35 ABG pO2 125.3 mm Hg (80.0-90.0) H 07/02/21 10:38 POC ABG HCO3 29.4 07/03/21 18:35 ABG O2 Saturation 75.5 (0-100) 07/03/21 18:35 PT/INR, D-dimer PT 17.0 Sec. (12.2-14.9) H 07/03/21 17:00 INR 1.32 (0.87-1.13) H 07/03/21 17:00 D-Dimer 1967.16 ng/mlDDU (0-234) H 07/03/21 06:30 Abnormal lab findings: Abnormal Labs 06/13/21 06/13/21 06/13/21 20:09 20:09 20:09 WBC 2.6 L RBC Hgb Hct MCHC 35 H RDW Plt Count 112 L Lymph # (Auto) 0.6 L Seg Neuts % (Manual) Monocytes % (Manual) Seg Neutrophils # Man Lymphocytes # (Manual) PT INR Fibrinogen D-Dimer 560.90 H ABG pH POC ABG pCO2 POC ABG pO2 ABG pO2 ABG HCO3 ABG O2 Saturation ABG Hemoglobin ABG Oxyhemoglobin ABG Sodium ABG Potassium ABG Chloride ABG Glucose Oxyhemoglobin Carboxyhemoglobin Sodium 134 L Potassium Chloride Carbon Dioxide BUN Creatinine Glucose 105 H POC Glucose Lactic Acid Calcium Phosphorus Magnesium Ferritin AST ALT Alkaline Phosphatase Lactate Dehydrogenase C-Reactive Protein Total Protein Albumin Triglycerides Arterial Blood Glucose Arterial Blood Ionized Calcium Urine WBC (Auto) Coronavirus (PCR) 06/13/21 06/13/21 06/14/21 20:09 20:09 05:12 WBC 2.0 L RBC Hgb Hct MCHC 35 H RDW Plt Count 106 L Lymph # (Auto) Seg Neuts % (Manual) 82.0 H Monocytes % (Manual) Seg Neutrophils # Man 1.6 L Lymphocytes # (Manual) 0.3 L PT INR Fibrinogen D-Dimer ABG pH POC ABG pCO2 POC ABG pO2 ABG pO2 ABG HCO3 ABG O2 Saturation ABG Hemoglobin ABG Oxyhemoglobin ABG Sodium ABG Potassium ABG Chloride ABG Glucose Oxyhemoglobin Carboxyhemoglobin Sodium Potassium Chloride Carbon Dioxide BUN Creatinine Glucose 105 H POC Glucose Lactic Acid Calcium Phosphorus Magnesium Ferritin 1876.0 H AST ALT Alkaline Phosphatase Lactate Dehydrogenase 634 H C-Reactive Protein 9.20 H Total Protein Albumin Triglycerides Arterial Blood Glucose Arterial Blood Ionized Calcium Urine WBC (Auto) Coronavirus (PCR) 06/14/21 06/14/21 06/14/21 05:12 23:50 Unknown WBC RBC Hgb Hct MCHC RDW Plt Count Lymph # (Auto) Seg Neuts % (Manual) Monocytes % (Manual) Seg Neutrophils # Man Lymphocytes # (Manual) PT INR Fibrinogen D-Dimer ABG pH POC ABG pCO2 POC ABG pO2 ABG pO2 ABG HCO3 ABG O2 Saturation ABG Hemoglobin ABG Oxyhemoglobin ABG Sodium ABG Potassium ABG Chloride ABG Glucose Oxyhemoglobin Carboxyhemoglobin Sodium Potassium Chloride Carbon Dioxide BUN Creatinine Glucose 214 H 135 H POC Glucose Lactic Acid Calcium Phosphorus Magnesium Ferritin AST 52 H ALT Alkaline Phosphatase Lactate Dehydrogenase C-Reactive Protein Total Protein Albumin 3.2 L Triglycerides Arterial Blood Glucose Arterial Blood Ionized Calcium Urine WBC (Auto) Coronavirus (PCR) Positive A 06/15/21 06/15/21 06/15/21 05:21 05:21 05:21 WBC RBC Hgb Hct MCHC RDW Plt Count Lymph # (Auto) Seg Neuts % (Manual) Monocytes % (Manual) Seg Neutrophils # Man Lymphocytes # (Manual) PT INR Fibrinogen D-Dimer 360.79 H ABG pH POC ABG pCO2 POC ABG pO2 ABG pO2 ABG HCO3 ABG O2 Saturation ABG Hemoglobin ABG Oxyhemoglobin ABG Sodium ABG Potassium ABG Chloride ABG Glucose Oxyhemoglobin Carboxyhemoglobin Sodium Potassium Chloride Carbon Dioxide BUN Creatinine 0.7 L Glucose 167 H POC Glucose Lactic Acid Calcium Phosphorus Magnesium Ferritin 1869.0 H AST 65 H ALT Alkaline Phosphatase Lactate Dehydrogenase C-Reactive Protein Total Protein 6.1 L Albumin 3.4 L Triglycerides Arterial Blood Glucose Arterial Blood Ionized Calcium Urine WBC (Auto) Coronavirus (PCR) 06/15/21 06/15/21 06/16/21 05:21 Unknown 07:16 WBC RBC Hgb Hct MCHC RDW Plt Count Lymph # (Auto) Seg Neuts % (Manual) Monocytes % (Manual) Seg Neutrophils # Man Lymphocytes # (Manual) PT INR Fibrinogen D-Dimer ABG pH POC ABG pCO2 POC ABG pO2 ABG pO2 61.0 L ABG HCO3 ABG O2 Saturation 91.3 L ABG Hemoglobin ABG Oxyhemoglobin ABG Sodium ABG Potassium ABG Chloride ABG Glucose Oxyhemoglobin 89.9 L Carboxyhemoglobin Sodium Potassium Chloride Carbon Dioxide BUN Creatinine Glucose 130 H POC Glucose Lactic Acid Calcium Phosphorus Magnesium Ferritin AST 77 H ALT 57 H Alkaline Phosphatase Lactate Dehydrogenase C-Reactive Protein 3.10 H Total Protein 6.0 L Albumin 3.5 L Triglycerides Arterial Blood Glucose Arterial Blood Ionized Calcium Urine WBC (Auto) Coronavirus (PCR) 06/17/21 06/17/21 06/22/21 04:36 04:36 04:58 WBC 16.3 H RBC 5.55 H Hgb 16.7 H Hct 48.2 H MCHC 36 H 35 H RDW Plt Count Lymph # (Auto) Seg Neuts % (Manual) Monocytes % (Manual) Seg Neutrophils # Man Lymphocytes # (Manual) PT INR Fibrinogen D-Dimer ABG pH POC ABG pCO2 POC ABG pO2 ABG pO2 ABG HCO3 ABG O2 Saturation ABG Hemoglobin ABG Oxyhemoglobin ABG Sodium ABG Potassium ABG Chloride ABG Glucose Oxyhemoglobin Carboxyhemoglobin Sodium Potassium Chloride Carbon Dioxide BUN 29 H Creatinine Glucose 125 H POC Glucose Lactic Acid Calcium Phosphorus Magnesium Ferritin AST 59 H ALT 57 H Alkaline Phosphatase Lactate Dehydrogenase C-Reactive Protein Total Protein 6.0 L Albumin 3.6 L Triglycerides Arterial Blood Glucose Arterial Blood Ionized Calcium Urine WBC (Auto) Coronavirus (PCR) 06/22/21 06/22/21 06/22/21 04:58 04:58 04:58 WBC RBC Hgb Hct MCHC RDW Plt Count Lymph # (Auto) Seg Neuts % (Manual) Monocytes % (Manual) Seg Neutrophils # Man Lymphocytes # (Manual) PT INR Fibrinogen D-Dimer 335.27 H ABG pH POC ABG pCO2 POC ABG pO2 ABG pO2 ABG HCO3 ABG O2 Saturation ABG Hemoglobin ABG Oxyhemoglobin ABG Sodium ABG Potassium ABG Chloride ABG Glucose Oxyhemoglobin Carboxyhemoglobin Sodium 135 L Potassium Chloride 96.8 L Carbon Dioxide BUN 32 H Creatinine Glucose 172 H POC Glucose Lactic Acid Calcium Phosphorus Magnesium Ferritin 1251.0 H AST ALT Alkaline Phosphatase Lactate Dehydrogenase 816 H C-Reactive Protein Total Protein 6.1 L Albumin 3.6 L Triglycerides Arterial Blood Glucose Arterial Blood Ionized Calcium Urine WBC (Auto) Coronavirus (PCR) 06/22/21 06/24/21 06/24/21 10:35 05:25 05:25 WBC RBC Hgb Hct MCHC RDW Plt Count Lymph # (Auto) Seg Neuts % (Manual) Monocytes % (Manual) Seg Neutrophils # Man Lymphocytes # (Manual) PT INR Fibrinogen D-Dimer 570.75 H ABG pH 7.475 H POC ABG pCO2 29.2 L POC ABG pO2 51.5 L ABG pO2 ABG HCO3 ABG O2 Saturation ABG Hemoglobin 18.3 H ABG Oxyhemoglobin 86.3 L ABG Sodium ABG Potassium ABG Chloride ABG Glucose 143 H Oxyhemoglobin Carboxyhemoglobin 0.2 L Sodium Potassium Chloride Carbon Dioxide BUN Creatinine Glucose POC Glucose Lactic Acid Calcium Phosphorus Magnesium Ferritin 1621.0 H AST ALT Alkaline Phosphatase Lactate Dehydrogenase C-Reactive Protein Total Protein Albumin Triglycerides Arterial Blood Glucose 143 H Arterial Blood Ionized Calcium Urine WBC (Auto) Coronavirus (PCR) 06/24/21 06/26/21 06/26/21 05:25 10:46 10:46 WBC RBC Hgb Hct MCHC RDW Plt Count Lymph # (Auto) Seg Neuts % (Manual) Monocytes % (Manual) Seg Neutrophils # Man Lymphocytes # (Manual) PT INR Fibrinogen D-Dimer 532.29 H ABG pH POC ABG pCO2 POC ABG pO2 ABG pO2 ABG HCO3 ABG O2 Saturation ABG Hemoglobin ABG Oxyhemoglobin ABG Sodium ABG Potassium ABG Chloride ABG Glucose Oxyhemoglobin Carboxyhemoglobin Sodium Potassium Chloride Carbon Dioxide BUN 34 H Creatinine 0.7 L Glucose 131 H POC Glucose Lactic Acid Calcium Phosphorus Magnesium Ferritin 2549.0 H AST ALT Alkaline Phosphatase Lactate Dehydrogenase 691 H C-Reactive Protein Total Protein Albumin Triglycerides Arterial Blood Glucose Arterial Blood Ionized Calcium Urine WBC (Auto) Coronavirus (PCR) 06/26/21 06/29/21 06/30/21 10:46 05:27 07:11 WBC RBC Hgb Hct MCHC RDW Plt Count 90 L Lymph # (Auto) Seg Neuts % (Manual) Monocytes % (Manual) Seg Neutrophils # Man Lymphocytes # (Manual) PT INR Fibrinogen D-Dimer ABG pH POC ABG pCO2 POC ABG pO2 ABG pO2 ABG HCO3 ABG O2 Saturation ABG Hemoglobin ABG Oxyhemoglobin ABG Sodium ABG Potassium ABG Chloride ABG Glucose Oxyhemoglobin Carboxyhemoglobin Sodium 135 L Potassium Chloride 95.1 L Carbon Dioxide BUN 39 H 28 H Creatinine 0.7 L 0.6 L Glucose 202 H 159 H POC Glucose Lactic Acid Calcium Phosphorus Magnesium Ferritin AST ALT Alkaline Phosphatase Lactate Dehydrogenase 644 H C-Reactive Protein Total Protein Albumin Triglycerides Arterial Blood Glucose Arterial Blood Ionized Calcium Urine WBC (Auto) Coronavirus (PCR) 06/30/21 06/30/21 07/01/21 07:11 07:26 03:45 WBC RBC Hgb Hct MCHC RDW Plt Count Lymph # (Auto) Seg Neuts % (Manual) Monocytes % (Manual) Seg Neutrophils # Man Lymphocytes # (Manual) PT INR Fibrinogen D-Dimer ABG pH 7.279 L POC ABG pCO2 51.9 H POC ABG pO2 79.1 L ABG pO2 ABG HCO3 ABG O2 Saturation ABG Hemoglobin 21.9 H ABG Oxyhemoglobin 93.2 L ABG Sodium ABG Potassium 5.3 H ABG Chloride ABG Glucose 145 H Oxyhemoglobin Carboxyhemoglobin 0.3 L Sodium 136 L Potassium 5.4 H Chloride Carbon Dioxide BUN 37 H Creatinine 0.5 L Glucose 126 H POC Glucose 147 H Lactic Acid Calcium Phosphorus Magnesium Ferritin AST ALT Alkaline Phosphatase Lactate Dehydrogenase C-Reactive Protein Total Protein Albumin Triglycerides Arterial Blood Glucose 145 H Arterial Blood Ionized Calcium Urine WBC (Auto) Coronavirus (PCR) 07/01/21 07/01/21 07/01/21 05:50 05:50 11:00 WBC 16.4 H RBC 5.31 H Hgb 16.1 H Hct 47.1 H MCHC RDW Plt Count 116 L Lymph # (Auto) Seg Neuts % (Manual) 99.0 H Monocytes % (Manual) Seg Neutrophils # Man 16.2 H Lymphocytes # (Manual) 0.0 L PT INR Fibrinogen D-Dimer ABG pH 7.250 L POC ABG pCO2 54.0 H POC ABG pO2 68.1 L ABG pO2 ABG HCO3 ABG O2 Saturation ABG Hemoglobin ABG Oxyhemoglobin 89.2 L ABG Sodium ABG Potassium 5.4 H ABG Chloride ABG Glucose 191 H Oxyhemoglobin Carboxyhemoglobin Sodium 136 L Potassium 5.5 H Chloride Carbon Dioxide BUN 51 H Creatinine Glucose 133 H POC Glucose Lactic Acid Calcium Phosphorus 6.40 H Magnesium 3.00 H Ferritin AST ALT Alkaline Phosphatase 144 H Lactate Dehydrogenase C-Reactive Protein Total Protein 5.7 L Albumin 3.0 L Triglycerides Arterial Blood Glucose 191 H Arterial Blood Ionized Calcium Urine WBC (Auto) Coronavirus (PCR) 07/01/21 07/01/21 07/01/21 12:11 17:52 18:23 WBC RBC Hgb Hct MCHC RDW Plt Count Lymph # (Auto) Seg Neuts % (Manual) Monocytes % (Manual) Seg Neutrophils # Man Lymphocytes # (Manual) PT INR Fibrinogen D-Dimer ABG pH 7.126 L POC ABG pCO2 79.4 H POC ABG pO2 ABG pO2 ABG HCO3 ABG O2 Saturation ABG Hemoglobin ABG Oxyhemoglobin 92.7 L ABG Sodium ABG Potassium 6.0 H ABG Chloride ABG Glucose 232 H Oxyhemoglobin Carboxyhemoglobin Sodium Potassium Chloride Carbon Dioxide BUN Creatinine Glucose POC Glucose 242 H Lactic Acid Calcium Phosphorus Magnesium Ferritin AST ALT Alkaline Phosphatase Lactate Dehydrogenase C-Reactive Protein Total Protein Albumin Triglycerides Arterial Blood Glucose 232 H Arterial Blood Ionized Calcium Urine WBC (Auto) 16.0 H Coronavirus (PCR) 07/01/21 07/01/21 07/02/21 20:30 Unknown 00:16 WBC RBC Hgb Hct MCHC RDW Plt Count Lymph # (Auto) Seg Neuts % (Manual) Monocytes % (Manual) Seg Neutrophils # Man Lymphocytes # (Manual) PT INR Fibrinogen D-Dimer ABG pH 7.214 L POC ABG pCO2 61.2 H POC ABG pO2 76.8 L ABG pO2 ABG HCO3 ABG O2 Saturation ABG Hemoglobin ABG Oxyhemoglobin 92.2 L ABG Sodium ABG Potassium 5.9 H ABG Chloride ABG Glucose 233 H Oxyhemoglobin Carboxyhemoglobin 0.4 L Sodium Potassium Chloride Carbon Dioxide BUN Creatinine Glucose POC Glucose 274 H Lactic Acid Calcium Phosphorus 6.70 H Magnesium Ferritin AST ALT Alkaline Phosphatase Lactate Dehydrogenase C-Reactive Protein Total Protein Albumin Triglycerides Arterial Blood Glucose 233 H Arterial Blood Ionized Calcium Urine WBC (Auto) Coronavirus (PCR) 07/02/21 07/02/21 07/02/21 05:00 05:42 05:50 WBC 26.5 H RBC Hgb Hct MCHC RDW Plt Count 122 L Lymph # (Auto) Seg Neuts % (Manual) Monocytes % (Manual) Seg Neutrophils # Man Lymphocytes # (Manual) PT INR Fibrinogen D-Dimer ABG pH 7.208 L POC ABG pCO2 71.4 H POC ABG pO2 79.6 L ABG pO2 ABG HCO3 ABG O2 Saturation ABG Hemoglobin ABG Oxyhemoglobin 93.8 L ABG Sodium ABG Potassium 5.8 H ABG Chloride ABG Glucose 226 H Oxyhemoglobin Carboxyhemoglobin Sodium Potassium Chloride Carbon Dioxide BUN Creatinine Glucose POC Glucose 247 H Lactic Acid Calcium Phosphorus Magnesium Ferritin AST ALT Alkaline Phosphatase Lactate Dehydrogenase C-Reactive Protein Total Protein Albumin Triglycerides Arterial Blood Glucose 226 H Arterial Blood Ionized Calcium Urine WBC (Auto) Coronavirus (PCR) 07/02/21 07/02/21 07/02/21 05:50 10:38 12:26 WBC RBC Hgb Hct MCHC RDW Plt Count Lymph # (Auto) Seg Neuts % (Manual) Monocytes % (Manual) Seg Neutrophils # Man Lymphocytes # (Manual) PT INR Fibrinogen D-Dimer ABG pH 7.174 L* POC ABG pCO2 POC ABG pO2 ABG pO2 125.3 H ABG HCO3 30.3 H ABG O2 Saturation ABG Hemoglobin ABG Oxyhemoglobin ABG Sodium ABG Potassium ABG Chloride ABG Glucose Oxyhemoglobin Carboxyhemoglobin Sodium Potassium 6.1 H* Chloride Carbon Dioxide BUN 65 H Creatinine Glucose 217 H POC Glucose 237 H Lactic Acid Calcium Phosphorus 5.20 H D Magnesium 3.40 H Ferritin AST ALT 84 H Alkaline Phosphatase Lactate Dehydrogenase C-Reactive Protein Total Protein 5.8 L Albumin 2.9 L Triglycerides Arterial Blood Glucose Arterial Blood Ionized Calcium Urine WBC (Auto) Coronavirus (PCR) 07/02/21 07/02/21 07/02/21 13:07 14:05 17:28 WBC RBC Hgb Hct MCHC RDW Plt Count Lymph # (Auto) Seg Neuts % (Manual) Monocytes % (Manual) Seg Neutrophils # Man Lymphocytes # (Manual) PT INR Fibrinogen D-Dimer ABG pH 7.028 L 7.242 L POC ABG pCO2 127.4 H 66.6 H POC ABG pO2 61.0 L ABG pO2 ABG HCO3 ABG O2 Saturation ABG Hemoglobin ABG Oxyhemoglobin 89.9 L ABG Sodium ABG Potassium 5.9 H 5.9 H ABG Chloride ABG Glucose 269 H 293 H Oxyhemoglobin Carboxyhemoglobin 0.4 L 0.4 L Sodium Potassium Chloride Carbon Dioxide BUN Creatinine Glucose POC Glucose 220 H Lactic Acid Calcium Phosphorus Magnesium Ferritin AST ALT Alkaline Phosphatase Lactate Dehydrogenase C-Reactive Protein Total Protein Albumin Triglycerides Arterial Blood Glucose 269 H 293 H Arterial Blood Ionized Calcium Urine WBC (Auto) Coronavirus (PCR) 07/02/21 07/02/21 07/02/21 18:22 20:10 21:12 WBC RBC Hgb Hct MCHC RDW Plt Count Lymph # (Auto) Seg Neuts % (Manual) Monocytes % (Manual) Seg Neutrophils # Man Lymphocytes # (Manual) PT INR Fibrinogen D-Dimer ABG pH 7.130 L 7.272 L POC ABG pCO2 87.5 H 72.5 H POC ABG pO2 77.2 L 74.3 L ABG pO2 ABG HCO3 ABG O2 Saturation ABG Hemoglobin ABG Oxyhemoglobin 91.9 L 93.6 L ABG Sodium ABG Potassium 5.7 H 5.2 H ABG Chloride ABG Glucose 257 H 231 H Oxyhemoglobin Carboxyhemoglobin Sodium Potassium Chloride Carbon Dioxide BUN Creatinine Glucose POC Glucose 217 H Lactic Acid Calcium Phosphorus Magnesium Ferritin AST ALT Alkaline Phosphatase Lactate Dehydrogenase C-Reactive Protein Total Protein Albumin Triglycerides Arterial Blood Glucose 257 H 231 H Arterial Blood Ionized Calcium Urine WBC (Auto) Coronavirus (PCR) 07/02/21 07/03/21 07/03/21 23:21 00:06 00:06 WBC RBC Hgb Hct MCHC RDW Plt Count Lymph # (Auto) Seg Neuts % (Manual) Monocytes % (Manual) Seg Neutrophils # Man Lymphocytes # (Manual) PT INR Fibrinogen D-Dimer 842.88 H ABG pH POC ABG pCO2 POC ABG pO2 ABG pO2 ABG HCO3 ABG O2 Saturation ABG Hemoglobin ABG Oxyhemoglobin ABG Sodium ABG Potassium ABG Chloride ABG Glucose Oxyhemoglobin Carboxyhemoglobin Sodium 148 H D Potassium Chloride 112.7 H Carbon Dioxide BUN 51 H Creatinine Glucose 210 H POC Glucose 273 H Lactic Acid Calcium 6.1 L D Phosphorus Magnesium Ferritin AST ALT Alkaline Phosphatase Lactate Dehydrogenase C-Reactive Protein Total Protein Albumin Triglycerides Arterial Blood Glucose Arterial Blood Ionized Calcium Urine WBC (Auto) Coronavirus (PCR) 07/03/21 07/03/21 07/03/21 05:00 05:15 06:30 WBC RBC Hgb Hct MCHC RDW Plt Count Lymph # (Auto) Seg Neuts % (Manual) Monocytes % (Manual) Seg Neutrophils # Man Lymphocytes # (Manual) PT INR Fibrinogen D-Dimer ABG pH 7.250 L POC ABG pCO2 68.1 H POC ABG pO2 51.7 L ABG pO2 ABG HCO3 ABG O2 Saturation ABG Hemoglobin ABG Oxyhemoglobin 83.5 L ABG Sodium ABG Potassium 4.7 H ABG Chloride ABG Glucose 146 H Oxyhemoglobin Carboxyhemoglobin Sodium 150 H Potassium Chloride 111.4 H Carbon Dioxide BUN 62 H Creatinine 1.9 H D Glucose 102 H POC Glucose 111 H Lactic Acid Calcium 8.0 L D Phosphorus Magnesium 2.90 H Ferritin AST 68 H ALT 211 H Alkaline Phosphatase Lactate Dehydrogenase 583 H C-Reactive Protein Total Protein 4.3 L D Albumin 2.2 L Triglycerides 452 H Arterial Blood Glucose 146 H Arterial Blood Ionized Calcium Urine WBC (Auto) Coronavirus (PCR) 07/03/21 07/03/21 07/03/21 06:30 06:30 06:30 WBC 4.3 L RBC Hgb Hct MCHC RDW Plt Count 70 L Lymph # (Auto) Seg Neuts % (Manual) Monocytes % (Manual) Seg Neutrophils # Man Lymphocytes # (Manual) PT INR Fibrinogen D-Dimer 1967.16 H ABG pH POC ABG pCO2 POC ABG pO2 ABG pO2 ABG HCO3 ABG O2 Saturation ABG Hemoglobin ABG Oxyhemoglobin ABG Sodium ABG Potassium ABG Chloride ABG Glucose Oxyhemoglobin Carboxyhemoglobin Sodium Potassium Chloride Carbon Dioxide BUN Creatinine Glucose POC Glucose Lactic Acid Calcium Phosphorus Magnesium Ferritin 2446.0 H AST ALT Alkaline Phosphatase Lactate Dehydrogenase C-Reactive Protein Total Protein Albumin Triglycerides Arterial Blood Glucose Arterial Blood Ionized Calcium Urine WBC (Auto) Coronavirus (PCR) 07/03/21 07/03/21 07/03/21 09:03 14:41 17:00 WBC 3.8 L RBC Hgb Hct MCHC RDW 15.3 H Plt Count 44 L Lymph # (Auto) Seg Neuts % (Manual) Monocytes % (Manual) 14.0 H Seg Neutrophils # Man Lymphocytes # (Manual) 0.6 L PT INR Fibrinogen D-Dimer ABG pH 7.228 L 7.244 L POC ABG pCO2 71.2 H 68.7 H POC ABG pO2 49.1 L 50.3 L ABG pO2 ABG HCO3 ABG O2 Saturation ABG Hemoglobin ABG Oxyhemoglobin 81.7 L 82.7 L ABG Sodium 146.9 H ABG Potassium ABG Chloride 110.0 H 108.0 H ABG Glucose 130 H 183 H Oxyhemoglobin Carboxyhemoglobin Sodium Potassium Chloride Carbon Dioxide BUN Creatinine Glucose POC Glucose Lactic Acid Calcium Phosphorus Magnesium Ferritin AST ALT Alkaline Phosphatase Lactate Dehydrogenase C-Reactive Protein Total Protein Albumin Triglycerides Arterial Blood Glucose 130 H 183 H Arterial Blood Ionized Calcium 4.4 L 4.0 L Urine WBC (Auto) Coronavirus (PCR) 07/03/21 07/03/21 07/03/21 17:00 17:00 17:00 WBC RBC Hgb Hct MCHC RDW Plt Count Lymph # (Auto) Seg Neuts % (Manual) Monocytes % (Manual) Seg Neutrophils # Man Lymphocytes # (Manual) PT 17.0 H INR 1.32 H Fibrinogen 523 H D-Dimer ABG pH POC ABG pCO2 POC ABG pO2 ABG pO2 ABG HCO3 ABG O2 Saturation ABG Hemoglobin ABG Oxyhemoglobin ABG Sodium ABG Potassium ABG Chloride ABG Glucose Oxyhemoglobin Carboxyhemoglobin Sodium 148 H Potassium Chloride Carbon Dioxide 32 H BUN 66 H Creatinine 3.1 H D Glucose 191 H POC Glucose Lactic Acid 7.20 H* Calcium 6.5 L D Phosphorus Magnesium 2.60 H Ferritin AST 67 H ALT 173 H Alkaline Phosphatase Lactate Dehydrogenase C-Reactive Protein Total Protein 4.2 L Albumin 1.8 L Triglycerides Arterial Blood Glucose Arterial Blood Ionized Calcium Urine WBC (Auto) Coronavirus (PCR) 07/03/21 07/03/21 07/03/21 18:03 18:30 18:35 WBC RBC Hgb Hct MCHC RDW Plt Count Lymph # (Auto) Seg Neuts % (Manual) Monocytes % (Manual) Seg Neutrophils # Man Lymphocytes # (Manual) PT INR Fibrinogen D-Dimer ABG pH 7.203 L POC ABG pCO2 76.3 H POC ABG pO2 44.5 L ABG pO2 ABG HCO3 ABG O2 Saturation ABG Hemoglobin ABG Oxyhemoglobin 74.8 L ABG Sodium ABG Potassium ABG Chloride ABG Glucose 198 H Oxyhemoglobin Carboxyhemoglobin Sodium Potassium Chloride Carbon Dioxide BUN Creatinine Glucose POC Glucose 164 H Lactic Acid 6.70 H* Calcium Phosphorus Magnesium Ferritin AST ALT Alkaline Phosphatase Lactate Dehydrogenase C-Reactive Protein Total Protein Albumin Triglycerides Arterial Blood Glucose 198 H Arterial Blood Ionized Calcium 3.8 L Urine WBC (Auto) Coronavirus (PCR) 07/03/21 07/04/21 23:34 05:18 WBC RBC Hgb Hct MCHC RDW Plt Count Lymph # (Auto) Seg Neuts % (Manual) Monocytes % (Manual) Seg Neutrophils # Man Lymphocytes # (Manual) PT INR Fibrinogen D-Dimer ABG pH POC ABG pCO2 POC ABG pO2 ABG pO2 ABG HCO3 ABG O2 Saturation ABG Hemoglobin ABG Oxyhemoglobin ABG Sodium ABG Potassium ABG Chloride ABG Glucose Oxyhemoglobin Carboxyhemoglobin Sodium Potassium Chloride Carbon Dioxide BUN Creatinine Glucose POC Glucose 130 H 167 H Lactic Acid Calcium Phosphorus Magnesium Ferritin AST ALT Alkaline Phosphatase Lactate Dehydrogenase C-Reactive Protein Total Protein Albumin Triglycerides Arterial Blood Glucose Arterial Blood Ionized Calcium Urine WBC (Auto) Coronavirus (PCR)
[2021-07-04] MEDS ORDERED: SODIUM CHLORIDE 0.9% 1000 ML 1,000 ML IV ONE ×2 (08:13→10:14)
--- NOTE | 2021-07-04 10:07 | Electrocardiograph Report ---
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
--- NOTE | 2021-07-04 15:16 | Progress Note ---
Assessment and Plan Assessment and plan: 36-year-old with a history of asthma, obesity presented with shortness of breath fever chills arthralgias myalgias approximately 8 days after testing positive for COVID. Patient at present hypoxic requiring 15 L facemask at present. Patient is able to speak in full sentences however remains hypoxic. Hospital course complicated by nonproductive cough. Progressive hypoxia and failed bipap resulted in intubation 06-30. NEURO-sedation sedated on fentanyl and prop added cis and ativan today last time I have seen pt follow commands was 07-01 (AM p intubation) his sedation was then inc for proning and SAT limited by hypoxia restrained for safety PRN tylenol family at bedside today CV- tachycardia; sp cardiac arrest overnight ST MAP goal 65 Now on levo/epi/noah for MAP support RESP-hx asthma; acute hypoxic resp failure due to [id number] intubated 06-30 mechancally ventilated requiring max vent support ACPRV [id number] trending ABG acidosis; on bicarb drip proned the last 2 nights proned today continue nebs Dr Macdonald CCM at bedside most of the day today- pt to be transferred to [facility] for VV ECMO GI- protein calorie deficit nutrition consult TF held OG to LIS - bilious drainage pepcid bowel reg-colace - KIRSTIN trend Cr-1.9 today (1.0 on admit) strict I/O pt was net pos 1.7 L over the last 24 hours continue to trend Cr trend electrolytes HEME-coagulopathy of covid; on AC VTE enoxaparin daily had been on higher dose but yesterday his plts fell- currently 701 continue to monitor CTA was neg for PE on admit 06-15 trend inflammatory markers trend CBC no bleeding on exam ID- covid pna; sepsis trend temp and WBC curve methylpred 40 Q8h follow culture data trend temp completed remdesovir ENDO obese; hyperglycemia likely steroid induced monitor blood glucose glargine daily - held today given NPO and falling BG SSI PRN 07/04: Patient remains on full ventilatory support with multiple maxed out pressors, Also on Bicarb drip ECMO Team declined to take yesterday Continue supportive measures Patient remains severely hypoxic with saturation in the low 80s and in Vasogenic shock with no MAP less than 65 Overall Poor prognosis. The high probability of a clinically significant, sudden or life threatening deterioration of the [pulmonary] system(s) required my full and direct attention, intervention and personal management. The aggregate critical care time was [90] minutes. This time is in addition to time spent performing reported procedures but includes the following: [x] Data Review and interpretation [x] Patient assessment and monitoring of vital signs [x] Documentation [x] Medication orders and management History Interval history: 06/15: Considering gradual decline will transfer patient to IMCU. We'll also consult pulmonary GI. I have requested the patient be put on high flow and also trial of BiPAP. ID is consulted and currently following patient management. Weight loss recommended. Continue steroids. Chest x-ray reviewed by me shows bilateral infiltrates 06/16: Patient seen and examined Remains on HFNC but now at 40 and 100%. SAts in the mid 90's. Continue to monitor renal function with Lasix. Continue IMCU. Can downgrade this oxygen weaning again this. Continue prone positioning. Case discussed with integration manager 06/17: Continue supportive care. High flow down to 35 L continuous 100% with saturation in the mid to low 90s. Per integration manager steroid has been increased to twice daily dosing due to patient size. Patient continues on IV remdesivir. We will continue to monitor inflammatory markers. Prognosis is guarded. 06/18: Patient seen and examined, Continues supportive care, wean as tolerated. still with persitent hypoxia, he did not like the High flow, affects his nostriles, and now is on NRB satting 94%. Continue to encourage prone position. condition is still guarded 06/19: Continue supportive care, wean oxygen as tolerated, patient ok with me speaking with mother, will call and update. 06/20: Patient seen and examined continues to be weaned down on high flow oxygen down to 85%. Saturation remains around 92%. I did discuss extensively with the mother. She verbalized understanding. This discussion was done with p roger with the patient. We will do another trial of Lasix. Patient is continued on the steroids he is status post Actemra and has completed his remdesivir. 06/21: Patient's prognosis still remains guarded. Continue to encourage prone positioning. Went back up on oxygen demand. But states that he does not feel less winded as before. Continue diuresis and monitor renal function. Also monitor inflammatory markers. 06/22: Patient more mobile but still profoundly hypoxic, continue to monitor and wean oxygen as tolerated. Will re-evaluate if repeated Lasix will help. 06/23: Patient seen and examined remains on high flow refusing to prone states is uncomfortable. We will continue with aggressive measures. Will change to full dose Lovenox discussed with program rep. Condition is still guarded 06/24; patient was seen and evaluated this morning. Patient was on 15L of high flow oxygen. Patient finished remdesivir, Decadron, Actemra. Prognosis is guarded. 06/25; patient was on 40 L of high flow oxygen with FiO2 of 100%. Prognosis is guarded. Continue IMCU care. Patient was anxious and put on Xanax as needed. 06/26; patient was on 40 L of high flow oxygen with FiO2 of 100%. Prognosis is guarded. Continue IMCU care. Patient was anxious and put on Xanax as needed. 06/27; patient is on 40 L of oxygen and 15 L via nonrebreather mask. Prognosis is guarded 06/28; patient is on 40 L of high flow oxygen. Will give Lasix. Patient is on Xanax 0.5 mg p.o. 3 times daily. Self proning. 06/29 Patient is alert, no complaints, he is on BIPAP at 100 Fio2, moderately dyspneic, pulmonary note reviewed, lab results reviewed 06/30: Patient remains on BiPAP with full facemask still dyspneic. Still encourage prone positioning patient sometimes refuses the importance discussed in detail. Plan discussed with nursing staff at bedside 07-01 intubated last night- see event note 818 proned overnight- see systems review above 8-19 PRONED OVERNIGHT; SP CARDIAC ARREST WHILE PRONED Hospitalist Physical - Physical exam Narrative exam: General appearance: Present: unresoponsive, on the ventilator - EENT Eyes: Present: EOM intact ENT: clear oral mucosa - Neck Neck: Present: supple - Respiratory Respiratory effort: labored - Cardiovascular Rhythm: regular Heart Sounds: Present: S1 & S2, trendy - Extremities Extremity abnormal: edema - Abdominal General gastrointestinal: soft - Integumentary Integumentary: Present: clear, warm - Psychiatric Psychiatric: other - Neurologic Neurologic: unresponsive - Allied Health Allied health notes reviewed: nursing, RT, case management - Constitutional Vitals: Temp Pulse Resp BP Pulse Ox 102.6 F H 150 H 33 H 83/37 74 L 07/04/21 12:00 07/04/21 15:00 07/04/21 15:00 07/04/21 15:00 07/04/21 15:00 General appearance: Present: mild distress Results - Labs CBC & Chem 7: 07/03/21 17:00 07/03/21 17:00 Labs: Laboratory Last Values WBC 3.8 K/mm3 (4.5-11.0) L 07/03/21 17:00 RBC 4.11 M/mm3 (3.65-5.03) 07/03/21 17:00 Hgb 12.6 gm/dl (11.8-15.2) 07/03/21 17:00 Hct 37.9 % (35.5-45.6) 07/03/21 17:00 MCV 92 fl (84-94) 07/03/21 17:00 MCH 31 pg (28-32) 07/03/21 17:00 MCHC 33 % (32-34) 07/03/21 17:00 RDW 15.3 % (13.2-15.2) H 07/03/21 17:00 Plt Count 44 K/mm3 (140-440) L 07/03/21 17:00 Lymph % (Auto) 25.5 % (13.4-35.0) 06/13/21 20:09 Curry % (Auto) 4.3 % (0.0-7.3) 06/13/21 20:09 Eos % (Auto) 0.0 % (0.0-4.3) 06/13/21 20:09 Baso % (Auto) 0.3 % (0.0-1.8) 06/13/21 20:09 Lymph # (Auto) 0.6 K/mm3 (1.2-5.4) L 06/13/21 20:09 Curry # (Auto) 0.1 K/mm3 (0.0-0.8) 06/13/21 20:09 Eos # (Auto) 0.0 K/mm3 (0.0-0.4) 06/13/21 20:09 Baso # (Auto) 0.0 K/mm3 (0.0-0.1) 06/13/21 20:09 Add Manual Diff Complete 08/19/21 17:00 Total Counted 100 07/03/21 17:00 Seg Neutrophils % Catering Sales Manager 07/01/21 05:50 Seg Neuts % (Manual) 69.0 % (40.0-70.0) 07/03/21 17:00 Band Neutrophils % 1.0 % 07/01/21 05:50 Lymphocytes % (Manual) 16.0 % (13.4-35.0) 07/03/21 17:00 Monocytes % (Manual) 14.0 % (0.0-7.3) H 07/03/21 17:00 Eosinophils % (Manual) 1.0 % (0.0-4.3) 07/03/21 17:00 Nucleated RBC % Not Reportable 07/03/21 17:00 Seg Neutrophils # 1.8 K/mm3 (1.8-7.7) 06/13/21 20:09 Seg Neutrophils # Man 2.6 K/mm3 (1.8-7.7) 07/03/21 17:00 Band Neutrophils # 0.0 K/mm3 07/03/21 17:00 Lymphocytes # (Manual) 0.6 K/mm3 (1.2-5.4) L 07/03/21 17:00 Abs React Lymphs (Man) 0.0 K/mm3 07/03/21 17:00 Monocytes # (Manual) 0.5 K/mm3 (0.0-0.8) 07/03/21 17:00 Eosinophils # (Manual) 0.0 K/mm3 (0.0-0.4) 07/03/21 17:00 Basophils # (Manual) 0.0 K/mm3 (0.0-0.1) 07/03/21 17:00 Metamyelocytes # 0.0 K/mm3 07/03/21 17:00 Myelocytes # 0.0 K/mm3 07/03/21 17:00 Promyelocytes # 0.0 K/mm3 07/03/21 17:00 Blast Cells # 0.0 K/mm3 07/03/21 17:00 WBC Morphology Not Reportable 07/03/21 17:00 Hypersegmented Neuts Not Reportable 07/03/21 17:00 Hyposegmented Neuts Not Reportable 07/03/21 17:00 Hypogranular Neuts Not Reportable 07/03/21 17:00 Smudge Cells Not Reportable 07/03/21 17:00 Toxic Granulation Not Reportable 07/03/21 17:00 Toxic Vacuolation Not Reportable 07/03/21 17:00 Dohle Bodies Not Reportable 07/03/21 17:00 Pelger-Huet Anomaly Not Reportable 07/03/21 17:00 Sheri Rods Not Reportable 07/03/21 17:00 Platelet Estimate Not Reportable 07/03/21 17:00 Clumped Platelets Not Reportable 07/03/21 17:00 Plt Clumps, EDTA Not Reportable 07/03/21 17:00 Large Platelets Not Reportable 07/03/21 17:00 Giant Platelets Not Reportable 07/03/21 17:00 Platelet Satelliting Not Reportable 07/03/21 17:00 Plt Morphology Comment Not Reportable 07/03/21 17:00 RBC Morphology Not Reportable 07/03/21 17:00 Dimorphic RBCs Not Reportable 07/03/21 17:00 Polychromasia Not Reportable 07/03/21 17:00 Hypochromasia 1+ 07/03/21 17:00 Poikilocytosis Not Reportable 07/03/21 17:00 Anisocytosis Rare 07/03/21 17:00 Microcytosis Not Reportable 07/03/21 17:00 Macrocytosis Not Reportable 07/03/21 17:00 Spherocytes Not Reportable 07/03/21 17:00 Pappenheimer Bodies Not Reportable 07/03/21 17:00 Sickle Cells Not Reportable 07/03/21 17:00 Target Cells Not Reportable 07/03/21 17:00 Tear Drop Cells Not Reportable 07/03/21 17:00 Ovalocytes Not Reportable 07/03/21 17:00 Helmet Cells Not Reportable 07/03/21 17:00 Macdonald-Gore Bodies Not Reportable 07/03/21 17:00 Jenkins Rings Not Reportable 07/03/21 17:00 Alen Cells Not Reportable 07/03/21 17:00 Bite Cells Not Reportable 07/03/21 17:00 Crenated Cell Not Reportable 07/03/21 17:00 Elliptocytes Not Reportable 07/03/21 17:00 Acanthocytes (Spur) Not Reportable 07/03/21 17:00 Rouleaux Not Reportable 07/03/21 17:00 Hemoglobin C Crystals Not Reportable 07/03/21 17:00 Schistocytes Not Reportable 07/03/21 17:00 Malaria parasites Not Reportable 07/03/21 17:00 Swapnil Bodies Not Reportable 07/03/21 17:00 Hem Pathologist Commnt No 07/03/21 17:00 PT 17.0 Sec. (12.2-14.9) H 07/03/21 17:00 INR 1.32 (0.87-1.13) H 07/03/21 17:00 APTT 33.6 Sec. (24.2-36.6) 07/03/21 17:00 Fibrinogen 523 mg/dl (211-480) H 07/03/21 17:00 D-Dimer 1967.16 ng/mlDDU (0-234) H 07/03/21 06:30 ABG pH 7.203 (7.320-7.450) L 07/03/21 18:35 POC ABG pCO2 76.3 mmHg (32.0-48.0) H 07/03/21 18:35 ABG pCO2 84.3 mm Hg 07/02/21 10:38 POC ABG pO2 44.5 mmHg (83-108) L 07/03/21 18:35 ABG pO2 125.3 mm Hg (80.0-90.0) H 07/02/21 10:38 POC ABG HCO3 29.4 07/03/21 18:35 ABG HCO3 30.3 mmol/L (20.0-26.0) H 07/02/21 10:38 ABG O2 Saturation 75.5 (0-100) 07/03/21 18:35 ABG O2 Content 20.7 (0.0-44) 07/02/21 10:38 POC ABG Base Excess -0.5 07/03/21 18:35 ABG Base Excess -0.9 mmol/L (-2.0-3.0) 07/02/21 10:38 ABG Hemoglobin 12.8 (12.0-17.5) 07/03/21 18:35 ABG Oxyhemoglobin 74.8 (94-98) L 07/03/21 18:35 ABG Carboxyhemoglobin 1.3 % (0.0-5.0) 07/02/21 10:38 ABG Methemoglobin 0.3 (0.0-1.5) 07/03/21 18:35 ABG Sodium 142.4 mmol/L (136.0-145.0) 07/03/21 18:35 ABG Potassium 4.2 mmol/L (3.40-4.50) 07/03/21 18:35 ABG Chloride 105.0 mmol/L (98-107) 07/03/21 18:35 ABG Glucose 198 mg/dL (65-95) H 07/03/21 18:35 Oxyhemoglobin 95.8 % (95.0-99.0) 07/02/21 10:38 Carboxyhemoglobin 0.6 (0.5-1.5) 07/03/21 18:35 FiO2 21 % 07/02/21 10:38 FiO2 % 100.0 07/03/21 18:35 Sodium 148 mmol/L (137-145) H 07/03/21 17:00 Potassium 4.3 mmol/L (3.6-5.0) 07/03/21 17:00 Chloride 104.6 mmol/L (98-107) 07/03/21 17:00 Carbon Dioxide 32 mmol/L (22-30) H 07/03/21 17:00 Anion Gap 16 mmol/L 07/03/21 17:00 BUN 66 mg/dL (9-20) H 07/03/21 17:00 Creatinine 3.1 mg/dL (0.8-1.3) H D 07/03/21 17:00 Estimated GFR 28 ml/min 07/03/21 17:00 BUN/Creatinine Ratio 21 % 07/03/21 17:00 Glucose 191 mg/dL (75-100) H 07/03/21 17:00 POC Glucose 178 mg/dL (70-105) H 07/04/21 11:56 Lactic Acid 6.70 mmol/L (0.7-2.0) H* 07/03/21 18:30 Calcium 6.5 mg/dL (8.4-10.2) L D 07/03/21 17:00 Phosphorus 4.10 mg/dL (2.5-4.5) D 07/03/21 17:00 Magnesium 2.60 mg/dL (1.7-2.3) H 07/03/21 17:00 Ferritin 2446.0 ng/mL (30.0-300.0) H 07/03/21 06:30 Total Bilirubin 0.70 mg/dL (0.1-1.2) 07/03/21 17:00 AST 67 units/L (5-40) H 07/03/21 17:00 ALT 173 units/L (7-56) H 07/03/21 17:00 Alkaline Phosphatase 86 units/L (35-129) 07/03/21 17:00 Lactate Dehydrogenase 583 units/L (91-180) H 07/03/21 06:30 C-Reactive Protein < 0.03 mg/dL (0.00-1.30) 06/26/21 10:46 Total Protein 4.2 g/dL (6.3-8.2) L 07/03/21 17:00 Albumin 1.8 g/dL (3.9-5) L 07/03/21 17:00 Albumin/Globulin Ratio 0.8 % 07/03/21 17:00 Triglycerides 452 mg/dL (2-149) H 07/03/21 06:30 Procalcitonin < 0.05 ng/mL (<0.15) 06/24/21 05:25 Arterial Blood Glucose 198 mg/dL (65-95) H 07/03/21 18:35 Arterial Blood Ionized Calcium 3.8 mg/dL (4.6-5.3) L 07/03/21 18:35 Urine Color Yellow (Yellow) 07/01/21 12:11 Urine Turbidity Slightly-cloudy (Clear) 07/01/21 12:11 Urine pH 5.0 (5.0-7.0) 07/01/21 12:11 Ur Specific [place] 1.023 (1.003-1.030) 07/01/21 12:11 Urine Protein 30 mg/dl mg/dL (Negative) 07/01/21 12:11 Urine Glucose (UA) Neg mg/dL (Negative) 07/01/21 12:11 Urine Ketones Neg mg/dL (Negative) 07/01/21 12:11 Urine Blood Sm (Negative) 07/01/21 12:11 Urine Nitrite Neg (Negative) 07/01/21 12:11 Urine Bilirubin Neg (Negative) 07/01/21 12:11 Urine Urobilinogen < 2.0 mg/dL (<2.0) 07/01/21 12:11 Ur Leukocyte Esterase Neg (Negative) 07/01/21 12:11 Urine WBC (Auto) 16.0 /HPF (0.0-6.0) H 07/01/21 12:11 Urine RBC (Auto) 16.0 /HPF (0.0-6.0) 07/01/21 12:11 U Epithel Cells (Auto) < 1.0 /HPF (0-13.0) 07/01/21 12:11 Hyaline Casts 22 /LPF 07/01/21 12:11 Urine Mucus Few /HPF 07/01/21 12:11 Coronavirus (PCR) Positive (Negative) A 06/14/21 Unknown Blood Type A NEGATIVE 07/03/21 16:20 Antibody Screen Negative 07/03/21 16:20 Microbiology: Microbiology 06/30/21 21:17 Peripheral/Venous Blood Culture - Preliminary NO GROWTH AFTER 72 HOURS 06/30/21 21:17 Peripheral/Venous Blood Culture - Preliminary NO GROWTH AFTER 72 HOURS 06/30/21 Unknown Urine,[place] Urine Culture - Final NO GROWTH AFTER 48 HOURS Mao/IV: Voiding Method Indwelling Catheter Active Medications - Current Medications Current Medications: Generic Name Dose Route Start Last Admin Trade Name Freq PRN Reason Stop Dose Admin Acetaminophen 650 mg 07/03/21 16:19 Acetaminophen 325 Mg/10.15 Ml Oral Liqd Unit Dose FEEDTUBE Q6H PRN Pain, Mild (1-3) Albuterol 5 mg 06/25/21 11:52 Albuterol 2.5 Mg/3 Ml Nebu IH Q4HRT PRN Shortness Of Breath Lipase/Protease/Amylase 1 each 07/01/21 13:00 Lipase 10,500/Protease 25,000/Amylase 43,750 (Units) Dr Hoyos FEEDTUBE PRN PRN For Clogged Feeding Tube Docusate Sodium 100 mg 07/01/21 22:00 07/04/21 10:25 Docusate Sodium 100 Mg/10 Ml Oral Liqd PO Not Given BID SIMÓN Enoxaparin Sodium 30 mg 07/04/21 22:00 Enoxaparin 30 Mg/0.3 Ml Inj SUB-Q QDAY@2200 SIMÓN Famotidine 20 mg 08/20/21 22:00 Famotidine 20 Mg/2 Ml Inj IV 2200 SIMÓN Norepinephrine 4 mg in 250 mls @ 7.5 mls/hr 06/30/21 18:00 07/04/21 13:33 Levophed Drip 4 Mg/Ns 250 Ml IV 30 mcg/min TITR SIMÓN 112.5 mls/hr Administration Protocol 2 MCG/MIN Fentanyl Citrate 2,000 mcg in 100 mls @ 5.7 mls/hr 06/30/21 18:00 07/04/21 11:27 Fentanyl Drip Premix IV 2 mcg/kg/hr TITR SIMÓN 11.4 mls/hr Administration Protocol 1 MCG/KG/HR Propofol 1,000 mg in 100 mls @ 17.1 mls/hr 06/30/21 22:00 07/04/21 11:27 Diprivan 10 Mg/Ml IV 30 mcg/kg/min TITR SIMÓN 20.52 mls/hr Administration Protocol 25 MCG/KG/MIN Vasopressin 20 unit/ Sodium 101 mls @ 9.09 mls/hr 07/02/21 19:00 07/04/21 12:48 Chloride IV 0.03 units/min TITR SIMÓN 9.09 mls/hr Administration Protocol 0.03 UNITS/MIN Dopamine HCl/Dextrose 800 mg in 250 mls @ 4.275 mls/hr 07/02/21 22:00 07/02/21 22:05 Intropin Drip 800 Mg/D5w 250 Ml IV 0 mcg/kg/min TITR SIMÓN 0 mls/hr Titration Protocol 2 MCG/KG/MIN Epinephrine 16 mg/ Sodium 250 mls @ 1.875 mls/hr 07/02/21 22:00 07/04/21 05:05 Chloride IV 10 mcg/min TITR SIMÓN 9.375 mls/hr Administration Protocol 2 MCG/MIN Phenylephrine HCl 100 mg/ 100 mls @ 3 mls/hr 07/03/21 04:45 07/04/21 13:34 Sodium Chloride IV 390 mcg/min TITR SIMÓN 23.4 mls/hr Administration Protocol 50 MCG/MIN Amiodarone HCl 900 mg/ 500 mls @ 33.333 mls/hr 07/03/21 08:00 07/03/21 15:07 Dextrose IV 0.5 mg/min DIRECT SIMÓN 16.667 mls/hr Infusion Protocol 1 MG/MIN Lorazepam 100 mg/ Sodium 100 mls @ 1 mls/hr 07/03/21 12:00 07/03/21 13:15 Chloride/ Miscellaneous IV 1 mg/hr Information TITR SIMÓN 1 mls/hr Administration Protocol 1 MG/HR Insulin Human Lispro 0 unit 07/02/21 12:00 07/04/21 14:10 Insulin Lispro 100 Unit/Ml SUB-Q Not Given Q6HR SIMÓN Protocol Lorazepam 2 mg 07/03/21 11:41 Lorazepam 2 Mg/Ml Vial IV Q10MIN PRN Agitation Methylprednisolone Sodium Succinate 40 mg 06/25/21 14:00 07/04/21 14:12 Methylprednisolone Sod Succinate 40 Mg/1 Ml Inj IV 40 mg Q8HR SIMÓN Administration Simple Syrup 15 ml 07/01/21 13:00 Simple Syrup 15 Ml FEEDTUBE PRN PRN Hypoglycemia Simple Syrup 30 ml 07/01/21 13:00 Simple Syrup 15 Ml FEEDTUBE PRN PRN Hypoglycemia Sodium Bicarbonate 325 mg 07/01/21 13:00 Sodium Bicarbonate 325 Mg Tab FEEDTUBE PRN PRN For Clogged Feeding Tube Sodium Chloride 10 ml 06/14/21 10:00 07/04/21 10:25 Sodium Chloride 0.9% 10 Ml Flush Syringe IV 10 ml BID SIMÓN Administration Sodium Chloride 10 ml 06/13/21 22:49 Sodium Chloride 0.9% 10 Ml Flush Syringe IV PRN PRN LINE FLUSH Nutrition/Malnutrition Assess - Dietary Evaluation Nutrition/Malnutrition Findings: Nutrition Notes Start: 06/19/21 11:11 Freq: Status: Active Protocol: Document 07/03/21 13:53 EB (Rec: 07/03/21 14:01 EB [id number]) Nutrition Notes Initial or Follow up Reassessment Current Diagnosis Sepsis,Respiratory Failure Other Pertinent Diagnosis Covid + Current Diet TF Jevity 1.2 Labs/Tests Na 150 BUN 62 Cr 1.9 Glu 102 Calcium 8 Mag 2.9 Pertinent Medications Reviewed Height 5 ft 8.9 in Weight 114 kg Humphreys Body Weight (kg) 72.45 BMI 37.2 Weight Status Obese Subjective/Other Information Spoke with RN about pt. RN states pt extubated himself early this morning and coded. Since then his TF has been off until they get him controlled and stable. Percent of energy/protein needs met: 0%/0% Burn Absent Trauma Absent Difficulty In Swallowing,Chewing Current % PO Negligible #1 Nutrition Diagnosis Inadequate oral intake Diagnosis Progress(for reassessment Continues documentation) Is patient on ventilator? Yes Is Patient Ambulatory and/or Out of Bed No REE-([facility]-confined to bed) 2472.588 Kcal/Kg value to use for calculation 17 Approximate Energy Requirements Using 1938 kcal/Kg Calculation Used for Recommendations Kcal/kg Additional Notes Protein Needs: 108 g/day (1.5 g/kg IBW) Fluid needs 1 mL/kcal Nutrition Intervention Change Diet Order: Continue current TF once stable Nutrition Support: Jevity 1.2 at 70 mL/hr Flush 110 mL/hr q4H Kcal 2,016 Protein (gm) 93 Fluid (mL) 1,355 Goal #1 Restart TF Goal #2 Meet at least 75% dina and protein needs via TF Anticipated Discharge Needs: Unable to determine at this time Follow-Up By: 07/05/21 Additional Comments TF tolerance
[2021-07-04] MEDS ORDERED: FAMOTIDINE 20 MG/2 ML INJ IV SCH (22:00)
[2021-07-04] MEDS ORDERED: ENOXAPARIN 30 MG/0.3 ML INJ SUB-Q SCH (22:00)
[2021-07-05 05:26] VITALS: BP 63/29
--- NOTE | 2021-07-05 06:04 | Event Note ---
Date: 07/05/21 36-year-old male who has been on admission for COVID-19 pneumonia with acute hypoxic respiratory failure and had been made DNR by his family. He was said to have gone into asytole and to be pronounced. Parents were by the bedside. On exam: No response to verbal commands or sternal rub. Pupils were fixed and dilated. Chest: No breath sounds Cardiovascular exam: No heart sounds and no peripheral pulses Abdomen: Distended, no bowel sounds Extremities: Cold and clammy Central nervous system: No reflexes Patient pronounced at 22:31 PM on July 12, 2021. Both parents were by the bedside.
--- NOTE | 2021-07-05 07:41 | Death Summary ---
Summary - Providers Date of service: 07/05/21 Consults: 06/13/21 22:53 Consult to Physician [CONS] Routine Comment: Consulting Provider: REJI MARIN Physician Instructions: Reason For Exam: covid 06/15/21 05:43 Consult to Physician [CONS] Routine Comment: Consulting Provider: MARY ELLEN MATA Physician Instructions: Reason For Exam: Hypoxic respiratory failure-covid 06/30/21 18:43 Midline [Consult to PICC Line RN] [CONS] Stat Reason For Exam: please place midline/picc; for numerus drips Type Line:: PICC 07/01/21 09:36 Consult to Dietitian/Nutrition [CONS] Routine Physician Instructions: Reason For Exam: Reason for Consult: Write/Manage Tube Feeding 07/01/21 12:09 Consult to Dietitian/Nutrition [CONS] Routine Physician Instructions: Assess nutrtn needs, initiate, modify, manage TF Reason For Exam: Reason for Consult: Write/Manage Tube Feeding Reason for Consult: Write/Manage Tube Feeding Attending: TIMBO ARREDONDO MD - summary Date of admission: 06/13/21 22:33 Date of : 07/04/21 Reason for admission: shortness of breath Significant findings: 36-year-old with a history of asthma, obesity presented with shortness of breath fever chills arthralgias myalgias approximately 8 days after testing positive for COVID. Patient at present hypoxic requiring 15 L facemask at present. Patient initally was able to speak in full sentences however remains hypoxic. Hospital course complicated by nonproductive cough. Progressive hypoxia and failed bipap resulted in intubation 816. He was treated as described and unfortunately did not improve He had a epsiode of self extubation and coded, was reintubated and went into vasogenic shock requiring multiple pressors unfortunately with no response. An attempt was made to transfer patient to [facility] for VV ECMO But when the team arrived here and evaluated the patient they declined to take him insisting that ECMO will nto be helpful, they discussed with the family who later in a day made him DNR He as documend. COVID 19 Severe Sepsis Combined Septic shock and vasogenic Shock S/P Cardiac arrest Acute hypoxic resp failure due to [id number] Severe protein calorie deficit KIRSTIN secondary to ATN HEME-coagulopathy of covid; on AC hyperglycemia likely steroid induced OBESE - Final diagnosis (1) Vasogenic shock Note: Final diagnosis: (2) Septic shock Note: Final diagnosis: (3) Acute respiratory failure due to COVID-19 Note: Final diagnosis: (4) COVID-19 Note: Final diagnosis: (5) Multifocal pneumonia Note: Final diagnosis:
== END 2021-07-04 22:31 | DRG 870 ==
LOC: ED 19:43 → 3A 22:33 → IMCU 06-15 18:37 → CC1 06-16 02:26 → IMCU 06-17 09:56 → CC1 06-30 18:03
PROVIDERS: ADMIT Hospitalist; ATTEND Internal Medicine
PROC: 4A033R1 Measurement of Arterial Saturation, Peripheral, Percutaneous Approach (ICD-10-PCS; 2021-06-22)
PROC: 5A09357 Assistance with Respiratory Ventilation, Less than 24 Consecutive Hours, Continuous Positive Airway Pressure (ICD-10-PCS; 2021-06-24)
PROC: 5A09357 Assistance with Respiratory Ventilation, Less than 24 Consecutive Hours, Continuous Positive Airway Pressure (ICD-10-PCS; 2021-06-25)
PROC: 5A09357 Assistance with Respiratory Ventilation, Less than 24 Consecutive Hours, Continuous Positive Airway Pressure (ICD-10-PCS; 2021-06-26)
PROC: 5A09357 Assistance with Respiratory Ventilation, Less than 24 Consecutive Hours, Continuous Positive Airway Pressure (ICD-10-PCS; 2021-06-27)
PROC: 5A09457 Assistance with Respiratory Ventilation, 24-96 Consecutive Hours, Continuous Positive Airway Pressure (ICD-10-PCS; 2021-06-29)
PROC: 5A1955Z Respiratory Ventilation, Greater than 96 Consecutive Hours (ICD-10-PCS; principal; 2021-06-30)
PROC: 0BH17EZ Insertion of Endotracheal Airway into Trachea, Via Natural or Artificial Opening (ICD-10-PCS; 2021-06-30)
PROC: 5A12012 Performance of Cardiac Output, Single, Manual (ICD-10-PCS; 2021-06-30)
PROC: 03HY32Z Insertion of Monitoring Device into Upper Artery, Percutaneous Approach (ICD-10-PCS; 2021-07-01)
PROC: 02HV33Z Insertion of Infusion Device into Superior Vena Cava, Percutaneous Approach (ICD-10-PCS; 2021-07-03)
PROC: B548ZZA Ultrasonography of Superior Vena Cava, Guidance (ICD-10-PCS; 2021-07-03)
DX: A41.89 Other specified sepsis (principal); U07.1 COVID-19; J96.01 Acute respiratory failure with hypoxia; J12.82 Pneumonia due to coronavirus disease 2019; R65.21 Severe sepsis with septic shock; N17.0 Acute kidney failure with tubular necrosis; E46 Unspecified protein-calorie malnutrition; D68.9 Coagulation defect, unspecified; J45.909 Unspecified asthma, uncomplicated; E66.01 Morbid (severe) obesity due to excess calories; Z68.31 Body mass index [BMI] 31.0-31.9, adult; R04.0 Epistaxis; D69.6 Thrombocytopenia, unspecified; E87.5 Hyperkalemia; Z68.37 Body mass index [BMI] 37.0-37.9, adult; R73.9 Hyperglycemia, unspecified; T38.0X5A Adverse effect of glucocorticoids and synthetic analogues, initial encounter; Y92.89 Other specified places as the place of occurrence of the external cause; Z79.899 Other long term (current) drug therapy
CPT/HCPCS: 31500; 36415; 36600; 71045; 71275; 74018; 80048; 80053; 81001; 82140; 82728; 82803; 82805; 82947; 82962; 83615; 83735; 84100; 84145; 84478; 85007; 85025; 85027; 85379; 85384; 85610; 85730; 86140; 86850; 86900; 86901; 87040; 87070; 87086; 87205; 92950; 93005; 94003; 94640; 94644; 94660; 94760; 99291; G0378; J0131; J0171; J0282; J0456; J0461; J0696; J1100; J1170; J1265; J1644; J1650; J1815; J1940; J2060; J2370; J2405; J2704; J2920; J3010; J3262; J3490; J7030; J7040; J7050; J7060; J7070; J7120; Q9967; U0003